=== PATIENT | female | born 1950 | race Caucasian/White ===

== ENCOUNTER 2016-07-25 13:44 | Observation (INO) ==
--- NOTE | 2016-07-25 14:07 | Emergency Department Note ---
Disposition Clinical Impression: Right facial numbness, Right arm weakness, Numbness of right foot Disposition: Admitted As Inpatient Condition: Fair Referrals: NO,PCP [Non-Partnered Physician] - Forms: ED Satisfaction Letter Time of Disposition: 16:01 Neuro HPI - General Chief Complaint: ED Neuro Symptoms/Deficit Stated Complaint: "I think I had a TIA" Time Seen by Provider: 07/25/16 13:53 Source: patient Mode of arrival: ambulatory Limitations: no limitations Nursing Notes Reviewed: Yes Vital Signs Reviewed: Yes - History of Present Illness HPI Narrative: Patient is a 65-year-old female with past medical history of previous CVA of the right brain, fibromyalgia. She is currently on Plavix and aspirin. She presents today due to several new neurologic symptoms. Yesterday morning around 4am, she had blurred vision. She states that this went away. When she woke up this morning, she felt like she had a right upper extremity weakness in the shoulder and right upper arm. She also has some new tingling and numbness near the right lip and the bottom of the right foot. Denies any other numbness , tingling, weakness. - Related Data Home Medications: Home Medications Medication Instructions Recorded Confirmed Albuterol Sulfate [Proair Hfa] 2 puff IH Q4H PRN 03/04/16 03/04/16 Aspirin [Ecotrin] 325 mg PO DAILY 03/04/16 03/04/16 Biotin 1 mg PO DAILY 03/04/16 03/04/16 Bisoprolol/HCTZ 01/24.25 [Ziac 1 tab PO DAILY 03/04/16 03/04/166.25] CarBAMazepine [Tegretol] 200 - 400 mg PO BID 03/04/16 03/04/16 Cyclobenzaprine [Flexeril] 10 mg PO TID 03/04/16 03/04/16 Eszopiclone [Lunesta] 2 mg PO HS 03/04/16 03/04/16 Gabapentin [Neurontin] 600 mg PO BID 03/04/16 03/04/16 Hydrocodone/Acetaminophen [[place] 1 tab PO Q4H PRN 03/04/16 03/04/16 5-325 Tablet] Ibuprofen [Motrin] 600 - 800 mg PO DAILY PRN 03/04/16 03/04/16 Metformin HCl [Metformin HCl ER] 1,000 mg PO BID 03/04/16 03/04/16 Pantoprazole Sodium [Protonix] 40 mg PO BID 03/04/16 03/04/16 Zolpidem [Ambien] 10 mg PO HS 03/04/16 03/04/16 Allergies/Adverse Reactions: Allergies Allergy/AdvReac Type Severity Reaction Status Date / Time azithromycin Allergy Itching Verified 07/25/16 13:50 [From Zithromax Z-Michael] Constitutional: Denies: fever Eyes: Denies: eye pain ENT ED: Denies: ear pain Cardiovascular: Denies: chest pain, palpitations Respiratory: Denies: cough, dyspnea, wheezes Gastrointestinal: Denies: abdominal pain, nausea, vomiting, diarrhea Genitourinary: Denies: urgency, dysuria, frequency Neurological: Reports: weakness, numbness, paresthesias. Denies: headache Past Medical History - Past Medical History Attestation: Yes The following information was validated with the patient. Source: patient Medical history: Reports: diabetes, fibromyalgia, GERD, hypertension, TIA, other Surgical history: Reports: hysterectomy Psychiatric history: Reports: no psych history - Social History Smoking Status: Never smoker Smokeless Tobacco Status: No Alcohol use: Reports: none Drug use: Reports: none Physical Exam - General Limitations: no limitations General appearance: alert, in no apparent distress - Head Head exam: atraumatic, normocephalic, normal inspection - Eye Eye exam: Present: normal appearance, PERRL, EOMI - ENT ENT exam: normal exam, normal oropharynx, mucous membranes moist - Neck Neck exam: Present: normal inspection, full ROM, trachea midline - Chest Chest inspection: Present: normal inspection, symmetric chest wall rise - Respiratory Respiratory exam: Present: normal lung sounds bilaterally - Cardiovascular Cardiovascular exam: Present: regular rate, normal rhythm, normal heart sounds - Abdominal Exam Abdominal exam: Present: soft, Non-Tender. Absent: tenderness, distention, guarding, rebound, rigidity - Extremities Exam Extremities exam: Present: normal inspection, full ROM. Absent: tenderness, pedal edema - Back Exam Back exam: Present: normal inspection, full ROM. Absent: tenderness - Neurological Exam Neurological exam: Present: alert, oriented X3, other (NIH 1. Patient had some mild decreased sensation of right chin, bilateral right foot light touch. 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 Otherwise, the rest of the neuro exam showed no deficits.) - Psychiatric Psychiatric exam: Present: normal affect, normal mood - Skin Skin exam: Present: warm, dry, intact, normal color Course Course Narrative: Vitals within normal limits on exam. Physical exam shows NIH 1. Patient had some mild decreased sensation of right chin, bilateral right foot light touch. 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 Otherwise, the rest of the neuro exam showed no deficits. EKG shows right bundle branch block with widened QRS, new from 03/04/2016. We will obtain CT of the head, basic cardiac workup. We will likely admit patient for MRI if CT is negative due to continued symptoms. Patient is well outside TPA window since her last known well was last night before she went to bed. 15:58 patient did have a run of A. fib on repeat EKG. Otherwise, blood work negative, troponin negative, chest x-ray negative, CT of the head negative for any acute intracranial abnormality. Patient is still having right-sided symptoms. Will admit for further workup. Vital Signs Temperature 97.8 F 07/25/16 13:45 Pulse Rate 85 07/25/16 13:45 Respiratory Rate 18 07/25/16 13:45 Blood Pressure 136/78 07/25/16 13:45 O2 Sat by Pulse Oximetry 95 07/25/16 13:45 Temperature 97.8 F 07/25/16 13:45 Pulse Rate 68 07/25/16 15:09 Respiratory Rate 18 07/25/16 15:09 Blood Pressure 145/64 07/25/16 15:09 O2 Sat by Pulse Oximetry 95 07/25/16 15:09 Oxygen Delivery Oxygen Delivery Room Air Neuro Symptoms/Deficit - MDM Narrative Medical decision making narrative: Vitals within normal limits on exam. Physical exam shows NIH 1. Patient had some mild decreased sensation of right chin, bilateral right foot light touch. 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 Otherwise, the rest of the neuro exam showed no deficits. EKG shows right bundle branch block with widened QRS, new from 03/04/2016. We will obtain CT of the head, basic cardiac workup. We will likely admit patient for MRI if CT is negative due to continued symptoms. Patient is well outside TPA window since her last known well was last night before she went to bed. 15:58 patient did have a run of A. fib on repeat EKG. Otherwise, blood work negative, troponin negative, chest x-ray negative, CT of the head negative for any acute intracranial abnormality. Patient is still having right-sided symptoms. Will admit for further workup. - Medical Records Medical records reviewed: Yes I reviewed the patient's medical records. - Lab Data Lab results reviewed: Yes I reviewed the patient's lab results. Result diagrams: 07/25/16 14:52 07/25/16 14:52 Lab Results 07/25/16 07/25/16 07/25/16 Range/Units 13:49 14:41 14:52 WBC 9.8 (4.3-11.1) K/mcL RBC 4.74 (3.82-4.97) M/mcL Hgb 14.8 (11.5-15.4) g/dL Hct 42.8 (35.3-44.9) % MCV 90.3 (83.0-100.0) fL MCH 31.2 (28.0-33.3) pg MCHC 34.6 (31.6-35.5) g/dL RDW 12.8 (11.5-14.5) % Plt Count 231 (140-400) K/mcL MPV 10.0 (9.4-12.4) fL Immature Gran % 0.5 (0-4) % Seg Neutrophils % 65.4 % Lymphocytes % 24.2 % Monocytes % 7.3 % Eosinophils % 2.2 % Basophils % 0.4 % Neutrophils # 6.4 (1.6-8.9) K/mcL Lymphocytes # 2.4 (0.6-4.6) K/mcL Monocytes # 0.7 (0.0-1.3) K/mcL Eosinophils # 0.2 (0.0-0.6) K/mcL Basophils # 0.0 (0.0-0.2) K/mcL Sodium (136-145) mEq/L Potassium (3.5-4.5) mEq/L Chloride (98-109) mEq/L Carbon Dioxide (19-29) mEq/L BUN (7-20) mg/dL Creatinine (0.57-1.11) mg/dL Est GFR ( Amer) (> 60) Est GFR (Non-Af Amer) (> 60) BUN/Creatinine Ratio (6-26) Glucose (70-99) mg/dL POC Glucose 210 H (58-89) Calculated Osmolality (280-300) Calcium (8.6-10.8) mg/dL Total Bilirubin (0.2-1.2) mg/dL AST (5-34) Units/L ALT (0-55) Units/L Alkaline Phosphatase (38-126) Units/L Troponin I (0-0.03) ng/mL Serum Total Protein (6.0-8.3) g/dL Albumin (3.5-5.0) g/dL Globulin (2.4-3.5) g/dL Albumin/Globulin Ratio (1.1-2.2) Urine Color Yellow (Yellow) Urine Clarity Clear (Clear) Urine pH 5.5 (5.0-8.0) pH Units Ur Specific [place] 1.027 H (1.010-1.025) Urine Protein Trace (Neg-Trace) mg/dL Urine Glucose (UA) Normal (Normal) mg/dL Urine Ketones Negative (Negative) mg/dL Urine Blood Negative (Negative) Urine Nitrite Negative (Negative) Urine Bilirubin Negative (Negative) Urine Urobilinogen Normal (Normal) mg/dL Ur Leukocyte Esterase Negative (Negative) Urine Microscopic RBC 3-5 H (0-3) per hpf Urine Microscopic WBC 0-3 (0-3) per hpf Ur Squamous Epith Cells Moderate H (None-Few) per lpf Urine Bacteria None Seen (None-Few) per hpf Hyaline Casts None Seen (None-Few) per lpf Ur Culture Indicated? NO (NO) 07/25/16 07/25/16 Range/Units 14:52 14:52 WBC (4.3-11.1) K/mcL RBC (3.82-4.97) M/mcL Hgb (11.5-15.4) g/dL Hct (35.3-44.9) % MCV (83.0-100.0) fL MCH (28.0-33.3) pg MCHC (31.6-35.5) g/dL RDW (11.5-14.5) % Plt Count (140-400) K/mcL MPV (9.4-12.4) fL Immature Gran % (0-4) % Seg Neutrophils % % Lymphocytes % % Monocytes % % Eosinophils % % Basophils % % Neutrophils # (1.6-8.9) K/mcL Lymphocytes # (0.6-4.6) K/mcL Monocytes # (0.0-1.3) K/mcL Eosinophils # (0.0-0.6) K/mcL Basophils # (0.0-0.2) K/mcL Sodium 140 (136-145) mEq/L Potassium 4.6 H (3.5-4.5) mEq/L Chloride 104 (98-109) mEq/L Carbon Dioxide 22 (19-29) mEq/L BUN 30 H (7-20) mg/dL Creatinine 0.90 (0.57-1.11) mg/dL Est GFR ( Amer) > 60 (> 60) Est GFR (Non-Af Amer) > 60 (> 60) BUN/Creatinine Ratio 33 H (6-26) Glucose 171 H (70-99) mg/dL POC Glucose (58-89) Calculated Osmolality 300 (280-300) Calcium 9.2 (8.6-10.8) mg/dL Total Bilirubin 0.3 (0.2-1.2) mg/dL AST 15 (5-34) Units/L ALT 17 (0-55) Units/L Alkaline Phosphatase 80 (38-126) Units/L Troponin I 0.02 (0-0.03) ng/mL Serum Total Protein 7.7 (6.0-8.3) g/dL Albumin 4.0 (3.5-5.0) g/dL Globulin 3.7 H (2.4-3.5) g/dL Albumin/Globulin Ratio 1.1 (1.1-2.2) Urine Color (Yellow) Urine Clarity (Clear) Urine pH (5.0-8.0) pH Units Ur Specific [place] (1.010-1.025) Urine Protein (Neg-Trace) mg/dL Urine Glucose (UA) (Normal) mg/dL Urine Ketones (Negative) mg/dL Urine Blood (Negative) Urine Nitrite (Negative) Urine Bilirubin (Negative) Urine Urobilinogen (Normal) mg/dL Ur Leukocyte Esterase (Negative) Urine Microscopic RBC (0-3) per hpf Urine Microscopic WBC (0-3) per hpf Ur Squamous Epith Cells (None-Few) per lpf Urine Bacteria (None-Few) per hpf Hyaline Casts (None-Few) per lpf Ur Culture Indicated? (NO) - Radiology Data Radiology results reviewed: Yes I reviewed the patient's radiology results. - EKG Data EKG attestation: Yes I reviewed and interpreted this EKG. EKG results narrative: 07/25/2016 at 14:23. Right bundle branch block and run of a fib. Rate 94. QRS 142. QTC 4 and 78. One QRS complexes. No acute ST elevation or depression. New from previous EKG on 03/04/2016 NIH Stroke Scale - Level of Consciousness LOC: Alert - LOC Questions LOC Questions: Answers both correctly - LOC Commands LOC Commands: Performs both correctly - Best Gaze Best Gaze: Normal - Visual Visual: No visual loss - Facial Palsy Facial Palsy: Normal - Motor Arms Motor Arm-Left: No drift for 10 seconds Motor Arm-Right: No drift for 10 seconds - Motor Legs Motor Leg-Left: No drift for 5 seconds Motor Leg-Right: No drift for 5 seconds - Limb Ataxia Limb Ataxia: Absent of affected limb too weak to perform exam - Sensory Sensory: Mild to moderate loss, "not as sharp" - Best Language Best Language: No aphasia - Dysarthria Dysarthria: Normal - Extinction and Inattention Extinction and Inattention: Normal - NIHSS Total Score NIHSS Total Score: 1 TPA Checklist - LKW: 3-4.5 hrs Add. Contraindications Patient/family understanding: The patient/family members have been counseled and understood the risk, benefit , and alternatives of treatment. S.B.A.RTiffany - Bredna.Radha.Vito Situation: Demographics, MOA Background: Presenting Complaint, Relevant PMH, Meds, & Allergies Assessment: Vital Signs, Course and respsone to treatment, Exam Concerns, Patient/Family Expectation, Pertinant Lab Results, Outstanding Labs Recommendation: Barrier(s) to disposition, Recommendation based on pending studies, treatments, or consults S.B.A.RTiffany Report Given to: Dr. Jailyn Alexander Repor Time: 15:59 Attestation Statement - Attestation Attestation: I examined this patient and my medical decision-making was reviewed with the ACCESS DIRECTOR/PA/Advanced Practice Nurse/Resident Physician. I agree with the documented findings, disposition and treatment plan as described except to the extent set forth below. Patient in emergency department with a chief complaint of stroke symptoms. Patient states she woke up yesterday not feeling well. She has slurred speech and trouble finding her words. Trouble walking. Facial numbness. The numbness as well. Symptom onset was over 24 hours ago. Patient has sensory discrepancies on the affected areas. No pronator drift. No facial droop. Plan. Stroke workup and likely admission. Patient has had symptoms over 24 hours and will be outside the window for any TPA.
[2016-07-25 14:55] LABS: Bilirubin,Urine Negative (Negative); Blood,Urine Negative (Negative); Clarity,Urine Clear (Clear); Color,Urine Yellow (Yellow); Glucose,Urine (UA) Normal (Normal); Ketones,Urine Negative (Negative); Leukocyte Esterase,Urine Negative (Negative); Nitrite,Urine Negative (Negative); PH,Urine 5.5 pH Units (5.0-8.0); Protein,Urine Trace mg/dL (Neg-Trace); Specific Gravity,Urine 1.027 (1.010-1.025); Urobilinogen,Urine Normal (Normal)
[2016-07-25 14:59] LABS: Bacteria,Urine None Seen per hpf (None-Few); Hyaline Casts,Urine None Seen per lpf (None-Few); Squamous Epithelial Cell,Urine Moderate per lpf (None-Few); WBC,Urine 0-3 per hpf (0-3)
[2016-07-25 15:00] LABS: Basophils % 0.4 %; Eosinophils # 0.2 K/mcL (0.0-0.6); Eosinophils % 2.2 %; Hematocrit 42.8 % (35.3-44.9); Hemoglobin 14.8 g/dL (11.5-15.4); Immature Granulocytes % 0.5 % (0-4); Lymphocytes # 2.4 K/mcL (0.6-4.6); Lymphocytes % 24.2 %; Mean Corpuscular HGB Conc 34.6 g/dL (31.6-35.5); Mean Corpuscular Hemoglobin 31.2 pg (28.0-33.3); Mean Corpuscular Volume 90.3 fL (83.0-100.0); Monocytes # 0.7 K/mcL (0.0-1.3); Monocytes % 7.3 %; Neutrophils # 6.4 K/mcL (1.6-8.9); Platelet Count 231 K/mcL (140-400); Red Blood Count 4.74 M/mcL (3.82-4.97); Red Cell Distribution Width 12.8 % (11.5-14.5); Segmented Neutrophils % 65.4 %
[2016-07-25] MEDS ORDERED: *HR* HYDROcodone/Acet 5/325 mg TABLET PO ONE (15:11)
[2016-07-25 15:12] LABS: Alanine Aminotransferase 17 Units/L (0-55); Albumin/Globulin Ratio 1.1 (1.1-2.2); Alkaline Phosphatase 80 Units/L (38-126); Aspartate Amino Transferase 15 Units/L (5-34); BUN/Creatinine Ratio 33 (6-26); Bilirubin,Total 0.3 mg/dL (0.2-1.2); Blood Urea Nitrogen 30 mg/dL (7-20); Calcium 9.2 mg/dL (8.6-10.8); Carbon Dioxide 22 mEq/L (19-29); Chloride 104 mEq/L (98-109); Globulin 3.7 g/dL (2.4-3.5); Glucose 171 mg/dL (70-99); Osmolality,Calculated 300 (280-300); Potassium 4.6 mEq/L (3.5-4.5); Sodium 140 mEq/L (136-145); Total Protein 7.7 g/dL (6.0-8.3); eGFR For African Americans > 60 (> 60); eGFR For Non-African Americans > 60 (> 60)
--- NOTE | 2016-07-25 16:14 | Electrocardiograph Report ---
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1950 Requested By: Kiko Barragan Order Number: [id number] Reading MD: Reynaldo Juarez MD Measurements Intervals [place] Rate: 100 P: 51 DE: 279 QRS: -68 QRSD: 142 T: 45 QT: 406 QTc: 463 Interpretive Statements SINUS TACHYCARDIA WITH FIRST DEGREE AV BLOCK WITH FREQUENT SUPRAVENTRICULAR PREMATURE COMPLEXES RIGHT ATRIAL ENLARGEMENT [0.3mV P WAVE] LEFT ATRIAL ENLARGEMENT [-0.15mV P WAVE IN V1/V2] RIGHT BUNDLE BRANCH BLOCK [120+ ms QRS DURATION, UPRIGHT V1, 40+ ms S IN I/aVL/V4/V5/V6] LEFT ANTERIOR FASCICULAR BLOCK [QRS AXIS <= -45, QR IN I, RS IN II] POSSIBLE LEFT VENTRICULAR HYPERTROPHY [VOLTAGE CRITERIA PLUS LAE OR QRS WIDENING] Electronically Signed On 07-25-2016 16:12:35 EDT by Reynaldo Juarez MD
--- NOTE | 2016-07-25 16:14 | Electrocardiograph Report ---
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
[2016-07-25] MEDS ORDERED: Naloxone 0.4 MG/ML INJ IVP PRN (17:42)
[2016-07-25] MEDS ORDERED: Ketorolac 30 MG/ML VIAL IVP PRN (17:54)
[2016-07-25] MEDS ORDERED: *HR* Morphine 2 MG/ML SYRINGE IVP PRN (17:54)
[2016-07-25] MEDS ORDERED: Aspirin 325 MG TABLET PO ONE (18:18)
[2016-07-25] MEDS ORDERED: *HR* Dextrose 50 % in Water (Syg) 50 ML SYRINGE IVP PRN (18:41)
[2016-07-25] MEDS ORDERED: Dextrose Gel 15 GM PO PRN ×2 (18:41)
[2016-07-25] MEDS ORDERED: D5% in Water 1,000 ML IVC PRN (18:41)
--- NOTE | 2016-07-25 18:54 | Event Note ---
Date of Encounter: 07/25/16 Time of Encounter: 18:54 I have independently interviewed and examined this patient. I agree with the resident/nurse practitioner with exemptions as stated below. The plan of care has been discussed with the patient, and her family 65 Y/O F with previous hx of Ischemic CVA in 02/2016, with residual right facial droop and occasional difficult word finding, Hx of irregular heart rate , not on anticoagulation, DM, HTN, GERD, Fibromyalgia. Seen at bedside with her daughter. She reports being in her usual state of health till yesterday around noon when she developed worsening r facial droop and r facial numbness as well as numbness and pain of her R shoulder and numbness of her feet. Physical exam with right facial droop, no dysarthria, RUE strength at least 4/5 , RLE normal strength, mildly decreased sensation, gait not assessed. Chest is clear, HS S1, S2, regular now. Abdomen is benign, no pedal edema Labs and Imaging reviewed: CBC, Chem with hyperglycemia, mildly elevated potassium, ECHO , Head and neck CTA 02/2016 noted, EKG today initially sinus, then Afib , no RVR, RBBB, LAFB, CXR unremarkable, Head CT unremarkable A/P: Suspected TIA, Newly diagnosed atrial fibrillation. Obtain ECHO, Obtain Brain MRI, Resume home medications, CHADSs score 4, needs anticoagulation, discussed at length with the patient. Agrees with [facility], Continue home medications including ASA and Statin, check A1C, Lipids. TSH done 04/2016 is normal. 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
--- NOTE | 2016-07-25 19:10 | Internal Med History&Physical ---
<Karen Meyers M - Last Filed: 07/25/16 19:01> Date of Encounter: 07/25/16 Time of Encounter: 19:01 Assessment and Plan (1) Right sided weakness Current visit: Yes Status: Acute Patient reporting right arm weakness, right face, right arm, and right foot numbness and tingling. She woke with these symptoms this morning. She has a history of CVA in February of 2016. She is on Plavix. CT of the head negative for any acute abnormality. On exam, patient's RUE is slightly weaker than the left. She had a Neck CTA 03/05/16 which showed moderate soft and calcified plaque at the left caroid bulb, without flow limiting stenosis, no significant stenosis in the bilateral common carotid, internal carotid arteries and the bilateral vertebral arteries. CTA of the head on 03/05/16 showed focal high- grade stenosis of the right middle cerebral artery M2 inferior division. Echocardiogram MR head/brain ordered continuous manager demand Neuro consult (2) Atrial fibrillation Current visit: Yes Status: Acute Patient denies any history of afib. She does report palpitations and knows her heart "skips beats". Patient was seen to be in afib transiently in the ED. Continuous manager demand echocardiogram tomorrow. Will need to consider chronic anti-coagulation given patient's risk factors and previous CVA. Qualifiers: Atrial fibrillation type: paroxysmal Qualified Code(s): I48.0 - Paroxysmal atrial fibrillation (3) CVA (cerebral vascular accident) Current visit: No Status: Acute Qualifiers: CVA mechanism: unspecified Qualified Code(s): I63.9 - Cerebral infarction, unspecified (4) Obstructive sleep apnea Current visit: Yes Status: Chronic Patient reports sleep apnea recently diagnosed. She wears a CPAP overnight. Respiratory therapy consulted for CPAP. (5) Type 2 diabetes mellitus Current visit: No Status: Chronic Diabetic diet check Hgb A1c hold metformin check blood sugars ACHS sliding scale correction dose ACHS hypoglycemic protocol. 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 Aparicio is a 65 year old female with hypertension, hyperlipidemia, type 2 diabetes, sleep apnea, firbromyalgia, and CVA in February 2016 who presented to the ED today with complaints of numbness and tingling to the right side of her face, her right arm and right foot. She reports yesterday, she had blurry vision for several hours and then it resolved, today she woke up and had trouble walking when she got out of bed and noticed the tingling and numbness in her right face, right arm and right foot. She reported trouble finding words , but denies any slurred speech or trouble swallowing. She reports a headache and some dizziness as well as some nausea earlier in the day. She reports some back pain and right shoulder pain that is chronic in nature. She denies any chest pain or shortness of breath. She reports occasional palpitations. Evaluation in the ED included a head CT which showed no acute intracranial abnormality. She was found to be in afib for a short period of time and this was caught on the EKG. She denies any history of afib, but reports she is aware her heart "skips beats" occasionally. Troponin was negative at 0.02. Other labs were normal. On exam, patient is alert and oriented, with normal speech. She does have some facial asymmetry that she reports is residual from her previous stroke. Heart has irregular rhythm. Lungs are clear bilaterally. Past Med Surg Social Fam HX - Past Medical History Medical history: atrial fibrillation, CVA, diabetes, fibromyalgia, GERD, hyperlipidemia, hypertension, TIA, other Psychiatric history: no psych history - Past Surgical History Surgical History: appendectomy, cholecystectomy, hysterectomy - Social History Smoking Status: Never smoker Smokeless Tobacco Status: No Alcohol use: none Drug use: none - Family History Father Hx Family Cardiac Disorders: Yes ([place]) Hx Family Endocrine Disorder: Yes (DM) Mother Hx Family Endocrine Disorder: Yes (DM) Hx Family Neurologic Disorders: Yes (CVA) Internal Medicine - H&P: Meds Albuterol Sulfate [Proair Hfa] 2 puff IH Q4H PRN 03/04/16 [History] Biotin 1 mg PO DAILY 03/04/16 [History] Bisoprolol/HCTZ 106.25 [Ziac 6.25] 1 tab PO DAILY 03/04/16 [History] CarBAMazepine [Tegretol] 200 - 400 mg PO BID 03/04/16 [History] Cyclobenzaprine [Flexeril] 10 mg PO TID 03/04/16 [History] Hydrocodone/Acetaminophen [[place] 5-325 Tablet] 1 tab PO Q4H PRN 03/04/16 [ History] Metformin HCl [Metformin HCl ER] 1,000 mg PO BID 03/04/16 [History] Pantoprazole Sodium [Protonix] 40 mg PO BID 03/04/16 [History] Zolpidem [Ambien] 10 mg PO HS 03/04/16 [History] Atorvastatin [Lipitor] 40 mg PO HS 07/25/16 [History] Clopidogrel [Plavix] 75 mg PO DAILY 07/25/16 [History] Lisinopril [Zestril] 20 mg PO DAILY 07/25/16 [History] Allergies azithromycin [From Zithromax Z-Michael] Allergy (Verified 07/25/16 13:50) Itching All Systems PM: A 10-system review of systems was performed and is negative for pertinent findings except as documented above in the HPI. - Constitutional Constitutional: no chills, no fever(s), no night sweats - EENT Eyes: blurry vision (yesterday, now resolved), no change in vision, no discharge , no pain, no photophobia Ears: no ear discharge, no ear pain, no tinnitus Nose, mouth and throat: as per HPI, no dysphagia, no nasal discharge, no neck pain, no sore throat - Cardiovascular Cardiovascular ROS IM: no chest pain, no diaphoresis, no dyspnea, no lightheadedness, no palpitations, no syncope - Respiratory Respiratory: no cough, no dyspnea, no wheezing, no excessive phlegm production - Gastrointestinal Gastrointestinal: no abdominal pain, no diarrhea, no hematemesis, no hematochezia, no melena, no nausea, no vomiting - Genitourinary Genitourinary: no change in urinary stream, no dysuria, no flank pain, no hematuria - Musculoskeletal Musculoskeletal ROS IM: numbness, tingling - Integumentary Integumentary IM: no rash, no unusual bruising - Neurological Neurological ROS: dizziness, focal weakness (right upper extremity), numbness ( right face, right arm, right foot), tingling (right face, right arm, right foot) , no confusion, no convulsions, no tremor(s) - Hematologic/Lymphatic Hematologic/Lymphatic: no easy bruising - Constitutional Vitals: Temp Pulse Resp BP Pulse Ox 97.3 F L 80 16 167/97 94 07/25/16 17:06 07/25/16 17:06 07/25/16 17:06 07/25/16 17:06 07/25/16 17:06 General appearance: Present: A&O X 3, pleasant, no acute distress - Head Head exam: Present: atraumatic, normocephalic - Eye Eye exam: Present: PERRL, conjuntiva pink, sclera anicteric Pupils: Present: PERRL - Neck Neck exam general surgery: Present: supple, trachea midline. Absent: lymphadenopathy - Respiratory Respiratory exam: Present: CTAB. Absent: accessory muscle use, rales, rhonchi, wheezes - Cardiovascular Cardiovascular exam: Present: irregular rhythm, +S1, +S2. Absent: diastolic murmur, gallop, rubs, systolic murmur - GI/Abdominal GI/Abdominal exam: Present: normal bowel sounds, soft, no peritoneal signs. Absent: distended, tenderness - Extremities Exam Extremities exam: Present: warm, radial pulses palpable and symetrical. Absent : calf tenderness, cyanotic, pedal edema - Neurological Exam Neurological exam: Present: CN II-XII intact, oriented X3, facial droop (mild right sided, patient and family report this is residual from february). Absent: strengths equal and symetr throughout, pronater drift, speech deficit - Expanded Neurological Exam Patient oriented to: Present: person, place, time Speech: Present: fluid speech Cranial Nerves: EOM's intact PM: Normal, nystagmus PM: Normal, tongue deviation PM: Normal Cerebellar function: heel to miranda: Normal, Romberg: Abnormal Left, Abnormal Right (swayed backwards) Upper motor neuron: pronator drift: Normal Sensory exam: LE 2 point discrimination: Abnormal Right (diminished right), lower extremity pin prick: Abnormal Right (deminished right ), UE 2 point discrimination: Abnormal Right (diminished), upper extremity pin prick: Abnormal Right (diminished) Neuro motor strength exam: LUE: 5, RUE: 4, LLE: 5, RLE: 5 - Skin Skin exam: Present: dry, intact Internal Med - H&P Results - Labs CBC & Chem 7: 07/25/16 14:52 07/25/16 14:52 Labs: All Lab Results (24 Hours) 07/25/16 07/25/16 07/25/16 Range/Units 13:49 14:41 14:52 WBC 9.8 (4.3-11.1) K/mcL RBC 4.74 (3.82-4.97) M/mcL Hgb 14.8 (11.5-15.4) g/dL Hct 42.8 (35.3-44.9) % MCV 90.3 (83.0-100.0) fL MCH 31.2 (28.0-33.3) pg MCHC 34.6 (31.6-35.5) g/dL RDW 12.8 (11.5-14.5) % Plt Count 231 (140-400) K/mcL MPV 10.0 (9.4-12.4) fL Immature Gran % 0.5 (0-4) % Seg Neutrophils % 65.4 % Lymphocytes % 24.2 % Monocytes % 7.3 % Eosinophils % 2.2 % Basophils % 0.4 % Neutrophils # 6.4 (1.6-8.9) K/mcL Lymphocytes # 2.4 (0.6-4.6) K/mcL Monocytes # 0.7 (0.0-1.3) K/mcL Eosinophils # 0.2 (0.0-0.6) K/mcL Basophils # 0.0 (0.0-0.2) K/mcL Sodium (136-145) mEq/L Potassium (3.5-4.5) mEq/L Chloride (98-109) mEq/L Carbon Dioxide (19-29) mEq/L BUN (7-20) mg/dL Creatinine (0.57-1.11) mg/dL Est GFR ( Amer) (> 60) Est GFR (Non-Af Amer) (> 60) BUN/Creatinine Ratio (6-26) Glucose (70-99) mg/dL POC Glucose 210 H (58-89) Calculated Osmolality (280-300) Calcium (8.6-10.8) mg/dL Total Bilirubin (0.2-1.2) mg/dL AST (5-34) Units/L ALT (0-55) Units/L Alkaline Phosphatase (38-126) Units/L Troponin I (0-0.03) ng/mL Serum Total Protein (6.0-8.3) g/dL Albumin (3.5-5.0) g/dL Globulin (2.4-3.5) g/dL Albumin/Globulin Ratio (1.1-2.2) Urine Color Yellow (Yellow) Urine Clarity Clear (Clear) Urine pH 5.5 (5.0-8.0) pH Units Ur Specific [place] 1.027 H (1.010-1.025) Urine Protein Trace (Neg-Trace) mg/dL Urine Glucose (UA) Normal (Normal) mg/dL Urine Ketones Negative (Negative) mg/dL Urine Blood Negative (Negative) Urine Nitrite Negative (Negative) Urine Bilirubin Negative (Negative) Urine Urobilinogen Normal (Normal) mg/dL Ur Leukocyte Esterase Negative (Negative) Urine Microscopic RBC 3-5 H (0-3) per hpf Urine Microscopic WBC 0-3 (0-3) per hpf Ur Squamous Epith Cells Moderate H (None-Few) per lpf Urine Bacteria None Seen (None-Few) per hpf Hyaline Casts None Seen (None-Few) per lpf Ur Culture Indicated? NO (NO) 07/25/16 07/25/16 Range/Units 14:52 14:52 WBC (4.3-11.1) K/mcL RBC (3.82-4.97) M/mcL Hgb (11.5-15.4) g/dL Hct (35.3-44.9) % MCV (83.0-100.0) fL MCH (28.0-33.3) pg MCHC (31.6-35.5) g/dL RDW (11.5-14.5) % Plt Count (140-400) K/mcL MPV (9.4-12.4) fL Immature Gran % (0-4) % Seg Neutrophils % % Lymphocytes % % Monocytes % % Eosinophils % % Basophils % % Neutrophils # (1.6-8.9) K/mcL Lymphocytes # (0.6-4.6) K/mcL Monocytes # (0.0-1.3) K/mcL Eosinophils # (0.0-0.6) K/mcL Basophils # (0.0-0.2) K/mcL Sodium 140 (136-145) mEq/L Potassium 4.6 H (3.5-4.5) mEq/L Chloride 104 (98-109) mEq/L Carbon Dioxide 22 (19-29) mEq/L BUN 30 H (7-20) mg/dL Creatinine 0.90 (0.57-1.11) mg/dL Est GFR ( Amer) > 60 (> 60) Est GFR (Non-Af Amer) > 60 (> 60) BUN/Creatinine Ratio 33 H (6-26) Glucose 171 H (70-99) mg/dL POC Glucose (58-89) Calculated Osmolality 300 (280-300) Calcium 9.2 (8.6-10.8) mg/dL Total Bilirubin 0.3 (0.2-1.2) mg/dL AST 15 (5-34) Units/L ALT 17 (0-55) Units/L Alkaline Phosphatase 80 (38-126) Units/L Troponin I 0.02 (0-0.03) ng/mL Serum Total Protein 7.7 (6.0-8.3) g/dL Albumin 4.0 (3.5-5.0) g/dL Globulin 3.7 H (2.4-3.5) g/dL Albumin/Globulin Ratio 1.1 (1.1-2.2) Urine Color (Yellow) Urine Clarity (Clear) Urine pH (5.0-8.0) pH Units Ur Specific [place] (1.010-1.025) Urine Protein (Neg-Trace) mg/dL Urine Glucose (UA) (Normal) mg/dL Urine Ketones (Negative) mg/dL Urine Blood (Negative) Urine Nitrite (Negative) Urine Bilirubin (Negative) Urine Urobilinogen (Normal) mg/dL Ur Leukocyte Esterase (Negative) Urine Microscopic RBC (0-3) per hpf Urine Microscopic WBC (0-3) per hpf Ur Squamous Epith Cells (None-Few) per lpf Urine Bacteria (None-Few) per hpf Hyaline Casts (None-Few) per lpf Ur Culture Indicated? (NO) - Diagnostic Studies Chest x-ray Additional comments: Chest X-Ray 07/25/16 14:18 IMPRESSION: Unremarkable portable exam D/ / Kolton Johnson MD / Kolton Johnson MD Interpreting Provider: Kolton Johnson MD CT scan - head Additional comments: Head CT 07/25/16 14:19 IMPRESSION: No acute intracranial abnormality. D/ / Kolton Johnson MD / Kolton Johnson MD Interpreting Provider: Kolton Johnson MD <Dayne Glaser T - Last Filed: 07/26/16 07:28> Date of Encounter: 07/26/16 Internal Medicine - H&P: HPI History of present illness: Ms. Aparicio is a 65 year old female All Systems PM: A 10-system review of systems was performed and is negative for pertinent findings except as documented above in the HPI. - Constitutional Vitals: Temp Pulse Resp BP Pulse Ox 97.6 F 69 14 170/84 92 07/26/16 07:04 07/26/16 07:04 07/26/16 07:04 07/26/16 07:04 07/26/16 07:04 Internal Med - H&P Results - Labs CBC & Chem 7: 07/26/16 03:10 07/26/16 03:10 Labs: Short CBC 07/26/16 Range/Units 03:10 WBC 9.0 (4.3-11.1) K/mcL Hgb 13.4 (11.5-15.4) g/dL Hct 38.4 (35.3-44.9) % Plt Count 197 (140-400) K/mcL Neutrophils # 5.1 (1.6-8.9) K/mcL BMP 07/26/16 03:10 Sodium 140 Potassium 3.8 Chloride 102 Carbon Dioxide 23 BUN 27 H Creatinine 0.82 Glucose 188 H Calcium 8.6 - Impressions ITS Impressions Brain MRI 04/06/17 18:13 IMPRESSION: 1. Acute ischemic lacunar infarct in the right occipital periventricular white matter. 2. No intracranial hemorrhage or mass effect. 3. Stable mild chronic white matter microvascular ischemic changes and remote left thalamic and left midbrain lacunar infarcts. D/ / Elijah Morris MD / Elijah Morris MD Interpreting Provider: Elijah Morris MD - Attending Attestation See event note of same day.....
[2016-07-25 19:25] LABS: Hemoglobin A1C 7.5 %
[2016-07-25] MEDS: *HR* HYDROcodone/Acet 5/325 mg TABLET PO PRN ×2 (19:47→23:48)
[2016-07-25] MEDS ORDERED: *HR* LORazepam 1 MG TABLET PO ONE (20:20)
[2016-07-25] MEDS: Insulin LISPRO 300 UNITS/3 ML VIAL SQ SCH (22:41)
[2016-07-26 03:20] LABS: Basophils % 0.3 %; Eosinophils # 0.3 K/mcL (0.0-0.6); Eosinophils % 2.8 %; Hematocrit 38.4 % (35.3-44.9); Hemoglobin 13.4 g/dL (11.5-15.4); Immature Granulocytes % 0.3 % (0-4); Lymphocytes # 2.8 K/mcL (0.6-4.6); Mean Corpuscular HGB Conc 34.9 g/dL (31.6-35.5); Mean Corpuscular Hemoglobin 31.9 pg (28.0-33.3); Mean Corpuscular Volume 91.4 fL (83.0-100.0); Mean Platelet Volume 10.2 fL (9.4-12.4); Monocytes # 0.8 K/mcL (0.0-1.3); Monocytes % 8.9 %; Neutrophils # 5.1 K/mcL (1.6-8.9); Platelet Count 197 K/mcL (140-400); Segmented Neutrophils % 56.7 %
[2016-07-26 03:32] LABS: BUN/Creatinine Ratio 33 (6-26); Blood Urea Nitrogen 27 mg/dL (7-20); Calcium 8.6 mg/dL (8.6-10.8); Carbon Dioxide 23 mEq/L (19-29); Chloride 102 mEq/L (98-109); Glucose 188 mg/dL (70-99); Osmolality,Calculated 300 (280-300); Potassium 3.8 mEq/L (3.5-4.5); Sodium 140 mEq/L (136-145); eGFR For African Americans > 60 (> 60); eGFR For Non-African Americans > 60 (> 60)
[2016-07-26] MEDS ORDERED: *HR* LORazepam 1 MG TABLET PO ONE (05:00)
[2016-07-26] MEDS: *HR* HYDROcodone/Acet 5/325 mg TABLET PO PRN ×4 (06:16→20:44)
[2016-07-26] MEDS ORDERED: *HR* Enoxaparin 40 MG/0.4 ML SYRINGE SQ SCH (07:00)
[2016-07-26] MEDS: Pantoprazole 40 MG VIAL IVP SCH ×2 (07:30→17:42)
[2016-07-26] MEDS: Insulin LISPRO 300 UNITS/3 ML VIAL SQ SCH ×4 (07:46→20:44)
[2016-07-26] MEDS: Bisoprolol/HCTZ 10/6.25 TABLET PO SCH (07:46)
--- NOTE | 2016-07-26 09:15 | Neurology - Consult Note ---
<AscencionPreston - Last Filed: 07/26/16 10:27> Date of Encounter: 07/26/16 Time of Encounter: 09:10 Assessment and Plan (1) CVA (cerebral vascular accident) Current Visit: No Status: Acute -Location of the acute infarct in right occipital perventricular white matter does not necessarily correspond to her right sided weakness, but may explain her visual complaints two days ago -Her symptoms do correlate with her previous CVA in the left thalamus/midbrain, and she may have experienced these deficits in setting of undiagnosed AFib -Will defer to primary team for choice of anticoagulation and rate control medication -Echocardiogram pending, will make further recommendations once resulted -Agree with continuing Plavix and Statin Qualifiers: CVA mechanism: unspecified Qualified Code(s): I63.9 - Cerebral infarction, unspecified History of Present Illness Chief complaint: weakness, numbness/tingling HPI: Ms. Aparicio is a 65 year old female who presents with right sided weakness, numbness, tingling that started yesterday. She states that her first complaint was left eye blurriness and double vision that occurred 2 days ago. The episode only lasted 2-3 hours and went away spontaneously. Yesterday morning, she woke up feeling weak on her right side and while trying to walk to the bathroom, was leaning towards the right side. Denies any falls, lightheadedness, or loss of consciousness. She states the numbness started at her face and now is in her right leg and arm. Currently, her weakness has not gotten any better since she first noticed it yesterday. Of note, she does have history of stroke in Feb 2016 and had right sided deficits for several weeks but states that have since resolved. In addition, she claims to have a history of skipped beats and complained of palpitations yesterday. She appeared to be in AFib upon presentation but is not on anticoagulation. Past Med Surg Social Fam HX - Past Medical History Medical history: atrial fibrillation, CVA, diabetes, fibromyalgia, GERD, hyperlipidemia, hypertension, TIA, other Psychiatric history: no psych history - Past Surgical History Surgical History: appendectomy, cholecystectomy, hysterectomy - Social History Smoking Status: Never smoker Smokeless Tobacco Status: No Alcohol use: none Drug use: none - Family History Father Hx Family Cardiac Disorders: Yes ([place]) Hx Family Endocrine Disorder: Yes (DM) Mother Hx Family Endocrine Disorder: Yes (DM) Hx Family Neurologic Disorders: Yes (CVA) Medications and Allergies Albuterol Sulfate [Proair Hfa] 2 puff IH Q4H PRN 03/04/16 [History] Biotin 1 mg PO DAILY 03/04/16 [History] Bisoprolol/HCTZ 106.25 [Ziac 6.25] 1 tab PO DAILY 03/04/16 [History] CarBAMazepine [Tegretol] 200 - 400 mg PO BID 03/04/16 [History] Cyclobenzaprine [Flexeril] 10 mg PO TID 03/04/16 [History] Hydrocodone/Acetaminophen [[place] 5-325 Tablet] 1 tab PO Q4H PRN 03/04/16 [ History] Metformin HCl [Metformin HCl ER] 1,000 mg PO BID 03/04/16 [History] Pantoprazole Sodium [Protonix] 40 mg PO BID 03/04/16 [History] Zolpidem [Ambien] 10 mg PO HS 03/04/16 [History] Atorvastatin [Lipitor] 40 mg PO HS 07/25/16 [History] Clopidogrel [Plavix] 75 mg PO DAILY 07/25/16 [History] Lisinopril [Zestril] 20 mg PO DAILY 07/25/16 [History] Allergies azithromycin [From Zithromax Z-Michael] Allergy (Verified 07/25/16 13:50) Itching All Systems: A 10-system review of systems was performed and is negative for pertinent findings except as documented above in the HPI. - Constitutional Constitutional ROS IM: headache(s), weakness, no fever(s), no frequent falls - Eyes Eyes: left: blurred vision, bilateral: diplopia - Nose, Mouth, Throat Nose, mouth and throat: disequilibrium, no abnormal hearing, no dizziness - Cardiovascular Cardiovascular ROS IM: irregular heart rhythm, no chest pain, no syncope - Respiratory Respiratory IM: no cough, no wheezing - Gastrointestinal Gastrointestinal: nausea, no abdominal pain, no diarrhea, no hematochezia, no melena, no vomiting - Genitourinary Genitourinary ROS: urinary incontinence - Musculoskeletal Musculoskeletal ROS IM: abnormal gait, muscle weakness, numbness, tingling - Neurological Neurological ROS: abnormal gait, disequilibrium, focal weakness, headache(s), numbness, tingling, weakness, no abnormal speech, no confusion, no dizziness, no frequent falls, no syncope Physical Examination - Vital Signs Vital Signs: Initial Vital Signs Temp Pulse Resp BP Pulse Ox 97.8 F 85 18 136/78 95 07/25/16 13:45 07/25/16 13:45 07/25/16 13:45 07/25/16 13:45 07/25/16 13:45 - Constitutional General appearance: comfortable - Neurologic Sensorimotor examination: intact Detailed motor examination: full strength in all major muscle groups Motor examination - right side: 4/5: deltoids, biceps, triceps, postal carrier, hip flexors Motor examination - left side: 5/5: deltoids, biceps, triceps, wrist flexion, wrist extension, hip flexors, postal carrier Detailed sensory examination: other (numbness/tingling on right side) Reflexes: Biceps: 1+, Triceps: 1+, Brachioradialis: 1+, Patella: 1+ Mental Status Examination: awake, alert, oriented to person, oriented to place, oriented to time, follows commands appropriately, answers questions appropriately, no agnosia, no aphasia, no aproxia Cranial nerve examination: PERRL, EOMI, visual carter intact, corneal reflexes brisk symmetrically, sensory to face intact, mastication intact, no facial asymmetry is present, no dysarthria, hearing is intact symmetrically, soft palate elevates bilaterally upon phonation, gag reflex intact, flexes SCM and trapezius muscles symmetrically with full power, tongue protrudes midline, no atrophy or facial fasiculations present Cerebellar examination: no dysmetria, performs finger to nose and heel to miranda symmetrically without ataxia, no gait ataxia, no truncal ataxia, no difficulty with rapid alternating movements Results - Laboratory Findings CBC and BMP: 07/26/16 03:10 07/26/16 03:10 Abnormal lab findings: Abnormal lab results BUN 27 mg/dL (7-20) H 07/26/16 03:10 BUN/Creatinine Ratio 33 (6-26) H 07/26/16 03:10 Glucose 188 mg/dL (70-99) H 07/26/16 03:10 POC Glucose 184 (58-89) H 07/26/16 07:02 Hemoglobin A1c 7.5 % (-5.6) H 07/25/16 14:52 Globulin 3.7 g/dL (2.4-3.5) H 07/25/16 14:52 Ur Specific [place] 1.027 (1.010-1.025) H 07/25/16 14:41 Urine Microscopic RBC 3-5 per hpf (0-3) H 07/25/16 14:41 Ur Squamous Epith Cells Moderate per lpf (None-Few) H 07/25/16 14:41 Consult Discharge Plan - Plan Referrals: Reynaldo Juarez Jr, MD [Primary Care Provider] - Nani Calix CNP [Advanced Practice Nurse] - 08/01/16 1:00 pm <Randy Santiago - Last Filed: 07/26/16 13:39> Date of Encounter: 07/26/16 Time of Encounter: 13:26 Assessment and Plan (1) CVA (cerebral vascular accident) Current Visit: No Status: Acute I would like to correction to Dr. Vegas's recommendations. I do agree with the recommendation for anticoagulation however if anticoagulation is started I recommended going with a baby aspirin instead of Plavix. Her description of her deficits and the MR scan do not correlate physiologically however in any regard she does have a severe right MCA intracranial stenosis along with new onset A. fib both of which may have been contributory here. At this point however you may discharge her at your discretion. I will reevaluate her request. Qualifiers: CVA mechanism: unspecified Qualified Code(s): I63.9 - Cerebral infarction, unspecified History of Present Illness HPI: Ms. Aparicio is a 65 year old female who is being seen for neurologic consultation secondary to symptoms of acute cerebral infarct. The case was discussed with Dr. Vegas and she was seen and evaluated and examined independently. I agree with Dr. Vegas's history as stated above. In addition I would like to add that she has had an MRI which does reveal an old right lacunar infarct in the basal ganglia there is an acute right occipital lobe infarct, as well as an old left pontine infarct. The MRI also reveals chronic deep white matter ischemic changes. A CTA of the brain was done on 03/05/2016 which did show a high-grade intracranial stenosis involving the right MCA particularly the M2 inferior segment. She is also intermittently hypertensive since her admission. Blood pressure was also elevated upon admission. All Systems: A 10-system review of systems was performed and is negative for pertinent findings except as documented above in the HPI. Review of Systems: 10 point review of systems is consistent with a history of present illness and otherwise negative. Physical Examination - Vital Signs Vital Signs: Initial Vital Signs Temp Pulse Resp BP Pulse Ox 97.8 F 85 18 136/78 95 07/25/16 13:45 07/25/16 13:45 07/25/16 13:45 07/25/16 13:45 07/25/16 13:45 - Neurologic Motor examination - right side: 3/5: hip flexors ([place]), tibialis Anterior ( "), quadriceps ("), toe extension (EHL) (") Detailed sensory examination: other (There is hemihypesthesia of the right face arm and leg.) Cranial nerve examination: no facial asymmetry is present (Right facial droop is present) Cranial Nerve Exam: facial hypesthesia: Right, facial droop: Right Results - Laboratory Findings CBC and BMP: 07/26/16 03:10 07/26/16 03:10 Abnormal lab findings: Abnormal lab results BUN 27 mg/dL (7-20) H 07/26/16 03:10 BUN/Creatinine Ratio 33 (6-26) H 07/26/16 03:10 Glucose 188 mg/dL (70-99) H 07/26/16 03:10 POC Glucose 196 (58-89) H 07/26/16 11:15 Hemoglobin A1c 7.5 % (-5.6) H 07/25/16 14:52 Globulin 3.7 g/dL (2.4-3.5) H 07/25/16 14:52 Ur Specific [place] 1.027 (1.010-1.025) H 07/25/16 14:41 Urine Microscopic RBC 3-5 per hpf (0-3) H 07/25/16 14:41 Ur Squamous Epith Cells Moderate per lpf (None-Few) H 07/25/16 14:41
[2016-07-26] MEDS: Lisinopril 20 MG TABLET PO SCH (11:56)
--- NOTE | 2016-07-26 14:22 | Internal Med Progress Note ---
Date of Encounter: 07/26/16 Time of Encounter: 09:30 - Assessment and plan (1) CVA (cerebral vascular accident) Current Visit: No Status: Acute Assessment and plan: Patient with an acute CVA to her right occipital periventricular white matter. She also had a CVA back in February and at that time, she was started on Plavix , aspirin, and a statin. She states that she was seen by cardiology and had a Holter monitor after this event however I cannot find this in the chart. Chads vasc score of 6. Spoke to the patient about chronic anticoagulation and she states that she is not willing to do Coumadin is a family member was on it and apparently did not have a good outlook. She is amenable to NOAC's. We will bring cardiology on board. Echocardiogram pending. Patient has mild right- sided facial drooping and mild right hand weakness but is otherwise asymptomatic. These appear chronic. Her vision changes have resolved. Hypertension noted however will allow for permissive hypertension due to acute infarct. Patient stating she is anxious to go home however the importance of further investigating the cause of these CVAs was stressed to the patient the patient stated she still wanted to go home. Chest x-ray negative. Head CT negative. Urinalysis negative. Awaiting cardiology recommendations. Neurology also on board. OT and PT have no recommendations. Of note, patient stating that she is still very grief stricken over the loss of her that was back in 2011. She does appear with flat affect and depressed at times during my conversation with her however she denies any suicidal ideations. ITS Impressions Chest X-Ray 07/25/16 14:18 IMPRESSION: Unremarkable portable exam D/ / Kolton Johnson MD / Kolton Johnson MD Interpreting Provider: Kolton Johnson MD Head CT 07/25/16 14:19 IMPRESSION: No acute intracranial abnormality. D/ / Kolton Johnson MD / Kolton Johnson MD Interpreting Provider: Kolton Johnson MD :0 Brain MRI 07/25/16 18:13 IMPRESSION: 1. Acute ischemic lacunar infarct in the right occipital periventricular white matter. 2. No intracranial hemorrhage or mass effect. 3. Stable mild chronic white matter microvascular ischemic changes and remote left thalamic and left midbrain lacunar infarcts. D/ / Elijah Morris MD / Elijah Morris MD Interpreting Provider: Elijah Morris MD Qualifiers: CVA mechanism: unspecified Qualified Code(s): I63.9 - Cerebral infarction, unspecified (2) Atrial fibrillation Current Visit: Yes Status: Chronic Assessment and plan: Patient states she has had atrial fibrillation in the past but states it was in the remote past. She states sometimes she feels her heart skip beats and sometimes feels her heart flutter. A. fib noted in the emergency department. We will bring cardiology on board. Echocardiogram pending. (3) DVT prophylaxis Current Visit: Yes Status: Acute Assessment and plan: Subcutaneous Lovenox (4) Numbness of right foot Current Visit: Yes Status: Resolved (5) Right arm weakness Current Visit: Yes Status: Chronic (6) Right facial numbness Current Visit: Yes Status: Resolved (7) Right sided weakness Current Visit: Yes Status: Resolved (8) Obstructive sleep apnea Current Visit: Yes Status: Chronic Assessment and plan: States that she has been compliant with her CPAP for the last 2-3 weeks. (9) Head ache Current Visit: No Status: Chronic Assessment and plan: Acute on chronic. Patient stating she has had headaches ever since her stroke last February and she states she has also had headaches ever since she started wearing CPAP which was 2-3 weeks ago. She denies any vision changes or gait difficulties. Neurology on board. Qualifiers: Headache type: unspecified Headache chronicity pattern: unspecified pattern Intractability: not intractable Qualified Code(s): R51 - Headache (10) Diabetic neuropathy Current Visit: No Status: Chronic Qualifiers: Diabetes mellitus type: due to underlying condition Qualified Code(s): E08.41 - Diabetes mellitus due to underlying condition with diabetic mononeuropathy (11) Fibromyalgia Current Visit: No Status: Chronic (12) Type 2 diabetes mellitus Current Visit: No Status: Chronic Assessment and plan: Controlled with an A1c of 7.5%. Continue sliding scale while admitted. Qualifiers: Diabetes mellitus complication status: with circulatory complication Diabetes mellitus complication detail: with peripheral angiopathy without gangrene Diabetes mellitus correction insulin use: without long term care phlebotomist use Qualified Code(s): E11.51 - Type 2 diabetes mellitus with diabetic peripheral angiopathy without gangrene (13) Morbid obesity with BMI of 40.0-44.9, adult Current Visit: Yes Status: Chronic - Subjective Interval history: Patient seen and examined. On examination, patient sitting upright in bed. Patient alert and oriented 3 and states she wants to go home. She states she continues to have a headache that she states started after her last stroke in February. She also states that she started wearing CPAP 2-3 weeks ago and states she has had a headache since that time. She denies vision changes at this time. She states she still has some tingling in her right upper extremity but states it is getting better. - Constitutional Vitals: Temp Pulse Resp BP Pulse Ox 97.5 F L 80 14 162/63 95 07/26/16 11:08 07/26/16 11:08 07/26/16 11:08 07/26/16 11:08 07/26/16 11:08 General appearance: Present: A&O X 3, morbidly obese, pleasant, no acute distress, answers questions appropriately - Head Head exam: Present: atraumatic, normocephalic - Eye Eye exam: Present: EOMI, PERRL, conjuntiva pink, sclera anicteric Pupils: Present: PERRL - Neck Neck exam general surgery: Present: supple, trachea midline. Absent: lymphadenopathy - Respiratory Respiratory exam: Present: CTAB. Absent: accessory muscle use, rales, respiratory distress, rhonchi, wheezes - Cardiovascular Cardiovascular exam: Present: RRR, +S1, +S2. Absent: diastolic murmur, gallop, rubs, systolic murmur - GI/Abdominal GI/Abdominal exam: Present: normal bowel sounds, soft, no peritoneal signs. Absent: distended, tenderness - Extremities Exam Extremities exam: Present: warm, radial pulses palpable and symetrical. Absent : calf tenderness, cyanotic, pedal edema - Neurological Exam Neurological exam: Present: alert, CN II-XII intact, normal gait, oriented X3, no focal deficits, facial droop. Absent: strengths equal and symetr throughout , pronater drift, speech deficit - Expanded Neurological Exam Neurological exam expanded: Present: protecting the airway Patient oriented to: Present: person, place, time Speech: Present: fluid speech Cranial Nerves: EOM's intact PM: Normal Neuro motor strength exam: LUE: 5, RUE: 4, LLE: 5, RLE: 5 Coma Scale Eye Opening: Spontaneous Coma Scale Motor Response: Obeys Commands Coma Scale Verbal Response: Oriented Coma Scale Total: 15 - Skin Skin exam: Present: dry, intact, normal color, warm Internal Medicine: Result - Labs CBC & Chem 7: 07/26/16 03:10 07/26/16 03:10 Labs: Short CBC 07/26/16 Range/Units 03:10 WBC 9.0 (4.3-11.1) K/mcL Hgb 13.4 (11.5-15.4) g/dL Hct 38.4 (35.3-44.9) % Plt Count 197 (140-400) K/mcL Neutrophils # 5.1 (1.6-8.9) K/mcL BMP 07/26/16 03:10 Sodium 140 Potassium 3.8 Chloride 102 Carbon Dioxide 23 BUN 27 H Creatinine 0.82 Glucose 188 H Calcium 8.6 - Impressions Impressions Brain MRI 07/25/16 18:13 IMPRESSION: 1. Acute ischemic lacunar infarct in the right occipital periventricular white matter. 2. No intracranial hemorrhage or mass effect. 3. Stable mild chronic white matter microvascular ischemic changes and remote left thalamic and left midbrain lacunar infarcts. D/ / Elijah Morris MD / Elijah Morris MD Interpreting Provider: Elijah Morris MD Consult Discharge Plan - Plan Referrals: Reynaldo Juarez Jr, MD [Primary Care Provider] - Nani Calix CNP [Advanced Practice Nurse] - 08/01/16 1:00 pm
--- NOTE | 2016-07-26 14:54 | Cardiology Consult Note ---
Date of Encounter: 07/26/16 Time of Encounter: 14:48 Assessment and Plan (1) PAF (paroxysmal atrial fibrillation) Current Visit: Yes Status: Acute New diagnosis. 2 CVAs since February 2016. PAF noted on EKG obtained in ED and on tele. Recently diagnosed with ARAM and started using CPAP in recent weeks. Echo 02/2016 EF 60%, mild diastolic dysfunction, no PFO noted, mild ME, moderately dilated left atrium. Repeat echo pending. K 3.8, TSH 1.185. Check Mag. Add low dose BB for PAF and frequent ectopy. CHADSVASC score 6 (Age, Female, HTN, DM, CVA). Recommend chronic anticoagulation. Discussed NOACs vs. Coumadin. Pt refuses Coumadin, agreeable to NOAC. Will crabtree check eliquis. Will plan to stop Plavix if starting NOAC. Negative stress test 05/22/14. (2) CVA (cerebral vascular accident) Current Visit: No Status: Acute Brain MRI showed acute ischemic lacunar infarct in right occipital periventricular white matter. Remote left thalamic and left midbrain lacunar infarcts. Seen/evaluated by neurology. They recommend if starting chronic anticoagulation to stop her Plavix and put her on 81mg ASA. Agree with this recommendation. She has severe right MCA intracranial stenosis along with new onset PAF, both of which are contributing factors. Qualifiers: CVA mechanism: unspecified Qualified Code(s): I63.9 - Cerebral infarction, unspecified (3) Obstructive sleep apnea Current Visit: Yes Status: Chronic Recently diagnosed ARAM. Reports compliance with CPAP. Discussion w patient/family: The assessment and plan as outlined above was discussed with the patient and/or family members who expressed understanding and agreement. All questions were answered. Thank you for involving us in the care of your patient. Please call with any questions. I will discuss all the above with Dr. Benitez and make changes as necessary. History of Present Illness Consult date: 07/26/16 Requesting physician: Domitila Serra Consult reason: PAF Chief complaint: CVA History of present illness: Ms. Aparicio is a 65 year old female with PMH of HTN, HLD, type 2 diabetes, ARAM on CPAP, fibromyalgia, and CVA who presented to the ED with complaints of numbness and tingling to the right side of her face, her right arm and right foot. She reported blurry vision for several hours and then it resolved, had trouble walking, trouble finding words. Brain MRI revealed acute ischemic lacunar infarct in right occipital periventricular white matter. Remote left thalamic and left midbrain lacunar infarcts. EKG on admission revealed PAF, new diagnosis. She admits to occasional palpitations and tachycardia. She reports worsening dyspnea on exertion over the past month. Denies any exertional chest pain--reports discomfort at times related to her hiatal hernia and tirado's esophagus. Troponin negative. Cardiology consulted for anticoagulation recommendations. Prior CV testing: Echo 03/04/16 EF 60%, mild diastolic dysfunction. No PFO, mild ME. Stress test 05/22/14: Gated EF 51%, perfusion imaging negative for ischemia or infarct. Past Med Surg Social Fam HX - Past Medical History Medical history: CVA, diabetes, fibromyalgia, GERD, hyperlipidemia, hypertension , TIA, other Psychiatric history: no psych history - Past Surgical History Surgical History: appendectomy, cholecystectomy, hysterectomy - Social History Smoking Status: Never smoker Smokeless Tobacco Status: No Alcohol use: none Drug use: none - Family History Father Hx Family Cardiac Disorders: Yes (PA) Hx Family Endocrine Disorder: Yes (DM) Mother Hx Family Endocrine Disorder: Yes (DM) Hx Family Neurologic Disorders: Yes (CVA) Medications and Allergies Albuterol Sulfate [Proair Hfa] 2 puff IH Q4H PRN 03/04/16 [History] Biotin 1 mg PO DAILY 03/04/16 [History] Bisoprolol/HCTZ 10/6.25 [Ziac 10/6.25] 1 tab PO DAILY 03/04/16 [History] CarBAMazepine [Tegretol] 200 - 400 mg PO BID 03/04/16 [History] Cyclobenzaprine [Flexeril] 10 mg PO TID 03/04/16 [History] Hydrocodone/Acetaminophen [[place] 5-325 Tablet] 1 tab PO Q4H PRN 03/04/16 [ History] Metformin HCl [Metformin HCl ER] 1,000 mg PO BID 03/04/16 [History] Pantoprazole Sodium [Protonix] 40 mg PO BID 03/04/16 [History] Zolpidem [Ambien] 10 mg PO HS 03/04/16 [History] Atorvastatin [Lipitor] 40 mg PO HS 07/25/16 [History] Clopidogrel [Plavix] 75 mg PO DAILY 07/25/16 [History] Lisinopril [Zestril] 20 mg PO DAILY 07/25/16 [History] Allergies azithromycin [From Zithromax Z-Michael] Allergy (Verified 07/25/16 13:50) Itching All Systems Review: A 10-system review of systems was performed and is negative for pertinent findings except as documented above in the HPI. - Cardiovascular Cardiovascular: as per HPI, dyspnea on exertion, irregular heart rhythm, palpitations, rapid heart rate - Respiratory Respiratory: dyspnea - Neurological Neurological: focal weakness Physical Examination Vital Signs, Last 4 Hours Temp Pulse Resp BP Pulse Ox 07/26/16 11:08 97.5 F L 80 14 162/63 95 Vital Signs Temp Pulse Resp BP Pulse Ox 07/26/16 14:53 97.7 F 55 16 149/80 94 07/26/16 11:08 97.5 F L 80 14 162/63 95 07/26/16 07:04 97.6 F 69 14 170/84 92 07/26/16 02:52 97.6 F 88 16 167/94 95 07/25/16 23:20 97.6 F 60 16 162/78 93 07/25/16 19:04 97.7 F 81 16 161/91 94 07/25/16 17:06 97.3 F L 80 16 167/97 94 07/25/16 16:39 18 139/109 07/25/16 16:35 70 18 139/109 07/25/16 15:09 68 18 145/64 95 Intake and Output 07/25/16 07/26/16 07/26/16 23:59 07:59 15:59 Intake Total 240 / 240 Output Total 600 / 600 500 / 500 Balance -600 / -600 -500 / -500 240 / 240 Intake: Oral 240 / 240 Output: Urine 600 / 600 500 / 500 Other: Meal Lunch Percent of Meal Consumed 0% # Voids 2 Weight 113.398 kg 114 kg Blood Glucose* 282 184 196 Patient Weight 07/26/16 23:59 Weight 114 kg General: Conversant, No Apparent Distress HEENT: Atraumatic, Normocephaly, Mucus Membranes Moist Neck: No JVD, Normal carotid pulses Cardiac: Reg Rate and Rhythm, Normal S1 and S2, No Murmur Lungs: Normal Breath Sounds, No Wheeze, Rales, Rhonchi Neuro: Alert and responsive, No focal deficits noted Abdomen: Soft, Non-Tender Skin: No rashes noted on visualized skin Musculoskeletal: No Chest Wall Tenderness Extremities: No Clubbing, No Cyanosis, No Edema, Normal Pulses Results 07/26/16 03:10 07/26/16 03:10 Lab Results 07/26/16 07/26/16 03:10 03:10 WBC 9.0 Hgb 13.4 Hct 38.4 Plt Count 197 Sodium 140 Potassium 3.8 Chloride 102 Carbon Dioxide 23 BUN 27 H Creatinine 0.82 Glucose 188 H Calcium 8.6 Short CBC 07/26/16 07/25/16 Range/Units 03:10 14:52 WBC 9.0 9.8 (4.3-11.1) K/mcL Hgb 13.4 14.8 (11.5-15.4) g/dL Hct 38.4 42.8 (35.3-44.9) % Plt Count 197 231 (140-400) K/mcL Neutrophils # 5.1 6.4 (1.6-8.9) K/mcL BMP 07/26/16 07/25/16 Range/Units 03:10 14:52 Sodium 140 140 (136-145) mEq/L Potassium 3.8 4.6 H (3.5-4.5) mEq/L Chloride 102 104 (98-109) mEq/L Carbon Dioxide 23 22 (19-29) mEq/L BUN 27 H 30 H (7-20) mg/dL Creatinine 0.82 0.90 (0.57-1.11) mg/dL Glucose 188 H 171 H (70-99) mg/dL Calcium 8.6 9.2 (8.6-10.8) mg/dL Cardiac Enzymes 07/25/16 Range/Units 14:52 Troponin I 0.02 (0-0.03) ng/mL Liver Function 07/25/16 Range/Units 14:52 Total Bilirubin 0.3 (0.2-1.2) mg/dL AST 15 (5-34) Units/L ALT 17 (0-55) Units/L Alkaline Phosphatase 80 (38-126) Units/L Albumin 4.0 (3.5-5.0) g/dL Urine 07/25/16 Range/Units 14:41 Urine Color Yellow (Yellow) Urine Clarity Clear (Clear) Urine pH 5.5 (5.0-8.0) pH Units Ur Specific [place] 1.027 H (1.010-1.025) Urine Protein Trace (Neg-Trace) mg/dL Urine Glucose (UA) Normal (Normal) mg/dL Impressions Brain MRI 07/25/16 18:13 IMPRESSION: 1. Acute ischemic lacunar infarct in the right occipital periventricular white matter. 2. No intracranial hemorrhage or mass effect. 3. Stable mild chronic white matter microvascular ischemic changes and remote left thalamic and left midbrain lacunar infarcts. D/ / Elijah Morris MD / Elijah Morris MD Interpreting Provider: Elijah Morris MD Active Medications Acetaminophen/Hydrocodone Bitart ([place] 5-325 Mg) 1 tab PO Q4H PRN PRN Reason: Pain Stop: 01/24/17 18:10 Last Admin: 07/26/16 11:07 Dose: 1 tab Albuterol Sulfate (Albuterol Inhaler) 2 puff IH Q4H PRN PRN Reason: Shortness Of Breath Stop: 01/24/17 18:10 Atorvastatin Calcium (Lipitor) 40 mg PO HS KALEIGH Stop: 01/24/17 21:01 Last Admin: 07/25/16 23:45 Dose: 40 mg Clopidogrel Bisulfate (Plavix) 75 mg PO DAILY K[place]IGH Stop: 01/25/17 09:01 Last Admin: 07/26/16 07:46 Dose: 75 mg Cyclobenzaprine HCl (Flexeril) 10 mg PO TID KALEIGH Stop: 01/24/17 21:01 Last Admin: 07/26/16 14:25 Dose: 10 mg Dextrose/Water (Dextrose 50% (Syg)) 25 ml IVP AD PRN PRN Reason: Hypoglycemia Stop: 01/24/17 18:42 Enoxaparin Sodium (Lovenox) 40 mg SQ 0700 KALEIGH PRN Reason: Protocol Stop: 01/25/17 07:01 Last Admin: 07/26/16 07:42 Dose: Not Given Glucagon (Glucagen) 1 mg IM ONCE PRN PRN Reason: Hypoglycemia Stop: 01/24/17 18:42 Glucose (Gluctose) 15 gm PO ONCE PRN PRN Reason: Hypoglycemia Stop: 01/24/17 18:42 Glucose (Gluctose) 30 gm PO ONCE PRN PRN Reason: Hypoglycemia Stop: 01/24/17 18:42 Dextrose (Dextrose 5%) 1,000 mls @ 100 mls/hr IVC .Q10H PRN PRN Reason: HYPOGLYCEMIA Stop: 01/24/17 18:42 Insulin Human Lispro (Humalog) 0 units SQ HS KALEIGH PRN Reason: Protocol Stop: 01/24/17 21:01 Last Admin: 07/25/16 22:41 Dose: 5 units Insulin Human Lispro (Humalog) 0 units SQ TIDAC KALEIGH PRN Reason: Protocol Stop: 01/25/17 07:31 Last Admin: 07/26/16 11:56 Dose: 6 units Lisinopril (Zestril) 20 mg PO DAILY KALEIGH PRN Reason: Protocol Stop: 01/25/17 09:01 Last Admin: 07/26/16 11:56 Dose: 20 mg Naloxone HCl (Narcan) 0.4 mg IVP Q2MIN PRN PRN Reason: Opioid Reversal Stop: 01/24/17 17:43 Pantoprazole Sodium (Protonix) 40 mg IVP Q12HR KALEIGH Stop: 01/25/17 06:31 Last Admin: 07/26/16 07:30 Dose: 40 mg Pharmacy Profile Note (Patient Taking Own Medication) 1 each PO DAILY KALEIGH Stop: 01/25/17 09:01 Last Admin: 07/26/16 07:46 Dose: Not Given Zolpidem Tartrate (Ambien) 10 mg PO HS KALEIGH PRN Reason: Protocol Stop: 01/24/17 21:01 Last Admin: 07/25/16 22:40 Dose: 10 mg - Imaging and Cardiology Stress Test: report reviewed Echo: report reviewed - EKG Interpretation EKG results cardiology: personally reviewed (PAF, RBBB, left anterior fascicular block), other (24 hour tele AVG HR 76, PAF, ectopy) Consult Discharge Plan - Plan Referrals: Reynaldo Juarez Jr, MD [Primary Care Provider] - Nani Calix CNP [Advanced Practice Nurse] - 08/01/16 1:00 pm
--- NOTE | 2016-07-26 18:14 | Event Note ---
Date of Encounter: 07/26/16 Time of Encounter: 18:11 This event note reflects my attestation of nurse practitioner's consult note. [email or web address] will not allow me to edit note. I examined this patient and my medical decision-making was reviewed with the [employer] DEVELOPER/PA/Advanced Practice Nurse/Resident Physician. I agree with the documented findings, disposition and treatment plan as described except to the extent set forth below. 65 y/o with elevated chads-vasc score and diagnosed CVA demonstrates PAF on ECG and telemetry. Reports remote history of AF as well. R/B/A to full AC discussed with patient. She agrees and wishes to proceed with Eliquis. Agree with BB therapy. Echocardiogram pending. If no significant findings, then no further inpatient cardiac testing is required. Please call if any questions or concerns. Thanks, Man Benitez DO, FACC
[2016-07-26 19:45] LABS: Magnesium 1.5 mg/dL (1.6-2.6)
[2016-07-26] MEDS: APIXABAN 5 MG TABLET PO SCH (20:43)
[2016-07-27] MEDS: *HR* HYDROcodone/Acet 5/325 mg TABLET PO PRN ×2 (05:05→12:06)
[2016-07-27] MEDS: Pantoprazole 40 MG VIAL IVP SCH (06:16)
[2016-07-27] MEDS: APIXABAN 5 MG TABLET PO SCH (08:55)
[2016-07-27] MEDS: Insulin LISPRO 300 UNITS/3 ML VIAL SQ SCH ×2 (08:55→12:07)
[2016-07-27] MEDS: Lisinopril 20 MG TABLET PO SCH (08:56)
[2016-07-27] MEDS ORDERED: Aspirin 81 MG TAB.CHEW PO SCH (09:00)
--- NOTE | 2016-07-27 09:30 | ECHO - Doppler Report ---
Echo with Saline Contrast Name: Fay Aparicio Date of Study: 07/26/2016 Date: 1950 Ht: 65.0 in Medical Record#: [id number] Age: 65 Wt: 251.0 lb Gender: Female BSA: 2.18 Order #: [id number] Location: [facility] Room #: 3B32 Reading Physician: Man Benitez DO, FACC, RYLAN Hot Knife Cutter: Marcela Lezama, RVT, RD Ordering Physician: Karen Meyers CNP Primary Physician: Reynaldo Juarez MD Indications: Transient Ischemic Attack Impressions: LVEF 60%. Grossly normal LV chamber size, wall thickness and function. Mild left ventricular diastolic dysfunction. Normal right ventricular structure and function. Moderately dilated left atrium. Suboptimal image quality, but no obvious evidence of a PFO with agitated saline contrast. Mild pulmonic regurgitation. Unable to estimate RVSP due to lack of TR jet. Left Ventricular Wall Motion: Rest Echo Findings All wall segments showed normal motion. Findings: Study Quality * Technically sub-optimal due to poor echocardiographic windows. ECG Findings * Normal sinus rhythm. Left Ventricle * LVEF 60%. * Grossly normal LV chamber size, wall thickness and function. * Mild left ventricular diastolic dysfunction. Right Ventricle * Normal right ventricular structure and function. Left Atrium * Moderately dilated left atrium. Right Atrium * Mildly dilated right atrium. Interatrial Septum * Suboptimal image quality, but no obvious evidence of a PFO with agitated saline contrast. Aortic Valve * Aortic valve not well visualized. * No aortic regurgitation. * No aortic stenosis. Mitral Valve * Mild mitral annular calcification * Normal mitral valve function. * No mitral regurgitation. * No mitral stenosis. Tricuspid Valve * Normal tricuspid valve structure and function. * No tricuspid regurgitation. * Unable to estimate RVSP due to lack of TR jet. Pulmonic Valve * Pulmonic valve not well visualized. * Mild pulmonic regurgitation. Aorta * Normally sized aortic root. Pericardium * The pericardium appears normal. IVC * The IVC is not well evaluated. Pulmonary Artery * Pulmonary artery not well visualized. History Hypertension Diabetes Hypercholesteremia 03-04-2016 a Previous Echo was performed. Contrast: Agitated saline 20 ml. Measurements: BP: 149/ 80 2D Normal Values RVIDd: 2.80 cm <2.7 cm IVSd: .90 cm 0.6 - 1.0 cm LVIDd: 5.30 cm 3.7 - 5.6 cm LVPWd: 1.20 cm 0.6 - 1.1 cm LVIDs: 3.80 cm 1.5 - 3.6 cm AO: 2.60 cm < 4.0 cm LA: 4.00 cm 2.0 - 4.0cm %FS: 28.30 cm >25 % LVOT Diam: 2.00 cm LA volume: 64 Mitral Valve Dec Time:320.00 msec Peak E:.76 m/sec Peak A:1.05 m/sec E/A Ratio:0.7 Peak E' Lat Derrek:7.51 cm/s Peak E' Med Derrek:4.91 cm/s E/E' Lat Ratio:10.1 E/E' Med Ratio:15.3 Updated by Man Benitez DO, ELVIA, ELISSA FAGAN on 07/27/2016 9:25:36 AM electronically signed on 07/27/2016 9:26:58 AM with status of Final Wall Motion Gastelum: 1=Normal, 2=Hypokinesis, 3=Akinesis, 4=Dyskinesis, 5=Aneurysmal, 6=Hyperkinetic, X=Not Visualized (Blank)=Missing
[2016-07-27] MEDS: Bisoprolol/HCTZ 10/6.25 TABLET PO SCH (12:01)
--- NOTE | 2016-07-27 13:25 | Discharge Summary ---
Date of Encounter: 07/27/16 Time of Encounter: 13:00 - Discharge Diagnosis (1) CVA (cerebral vascular accident) Priority: Primary Status: Acute Comments: Acute CVA to her right occipital periventricular white matter. No new focal neurological weaknesses. Stopped Plavix, Aspirin and statin, and added metoprolol and Eliquis Qualifiers: CVA mechanism: unspecified Qualified Code(s): I63.9 - Cerebral infarction, unspecified (2) Atrial fibrillation Priority: Secondary Status: Chronic Comments: She does have a remote history of A. fib. Started on metoprolol and eliquis with outpatient follow-up recommended. (3) DVT prophylaxis Priority: Primary Status: Acute Comments: Subcutaneous Lovenox while admitted (4) Numbness of right foot Priority: Primary Status: Resolved (5) Right arm weakness Priority: Secondary Status: Chronic Comments: Chronic, no new weaknesses (6) Right facial numbness Priority: Primary Status: Resolved (7) Right sided weakness Priority: Primary Status: Resolved (8) Obstructive sleep apnea Priority: Secondary Status: Chronic Comments: Started CPAP 2-3 weeks ago, endorses compliance (9) Head ache Priority: Secondary Status: Resolved Qualifiers: Headache type: unspecified Headache chronicity pattern: unspecified pattern Intractability: not intractable Qualified Code(s): R51 - Headache (10) Diabetic neuropathy Priority: Secondary Status: Chronic Qualifiers: Diabetes mellitus type: due to underlying condition Qualified Code(s): E08.41 - Diabetes mellitus due to underlying condition with diabetic mononeuropathy (11) Fibromyalgia Priority: Secondary Status: Chronic (12) Type 2 diabetes mellitus Priority: Secondary Status: Chronic Comments: Controlled with an A1c of 7.5%. Follow-up outpatient Qualifiers: Diabetes mellitus complication status: with circulatory complication Diabetes mellitus complication detail: with peripheral angiopathy without gangrene Diabetes mellitus jail insulin use: without jail use Qualified Code(s): E11.51 - Type 2 diabetes mellitus with diabetic peripheral angiopathy without gangrene (13) Morbid obesity with BMI of 40.0-44.9, adult Priority: Secondary Status: Chronic - Discharge Medications Prescriptions: Apixaban [Eliquis] 5 mg PO BID #60 tablet Aspirin 81 mg PO DAILY #30 tab.chew Metoprolol [Lopressor] 25 mg PO BID #60 tablet Home Medications: Albuterol Sulfate [Proair Hfa] 2 puff IH Q4H PRN 03/04/16 [History] Biotin 1 mg PO DAILY 03/04/16 [History] Bisoprolol/HCTZ 106.25 [Ziac 6.25] 1 tab PO DAILY 03/04/16 [History] CarBAMazepine [Tegretol] 200 - 400 mg PO BID 03/04/16 [History] Cyclobenzaprine [Flexeril] 10 mg PO TID 03/04/16 [History] Hydrocodone/Acetaminophen [[place] 5-325 Tablet] 1 tab PO Q4H PRN 03/04/16 [ History] Metformin HCl [Metformin HCl ER] 1,000 mg PO BID 03/04/16 [History] Pantoprazole Sodium [Protonix] 40 mg PO BID 03/04/16 [History] Zolpidem [Ambien] 10 mg PO HS 03/04/16 [History] Atorvastatin [Lipitor] 40 mg PO HS 07/25/16 [History] Lisinopril [Zestril] 20 mg PO DAILY 07/25/16 [History] Apixaban [Eliquis] 5 mg PO BID #60 tablet 07/27/16 [Rx] Aspirin 81 mg PO DAILY #30 tab.chew 07/27/16 [Rx] Metoprolol [Lopressor] 25 mg PO BID #60 tablet 07/27/16 [Rx] Allergies/Adverse Reactions: Allergies azithromycin [From Zithromax Z-Michael] Allergy (Verified 07/25/16 13:50) Itching Procedures/tests Complete & Pending: Procedures Performed prior 72 hours Category Date Time Status MR head/brain wo con [MR] Routine MRI 07/25/16 18:13 Completed EV echocardiogram Routine Y 07/25/16 17:48 Completed Date of admission: 07/25/16 16:02 Primary care physician: Reynaldo Juarez Jr, MD Consults: 07/25/16 17:44 Consult to Occupational Therapy [CONS] Routine Comment: Evaluate, develop and implement POC Consult to Physical Therapy [CONS] Routine Comment: Evaluate, develop and implement POC 07/25/16 18:22 Consult to Neurology [CONS] Routine Consulting Provider: [facility] Reason for Consult: TIA/CVA, with previous CVA in February Call Completed: No 07/26/16 14:10 Consult to Cardiology [CONS] Routine Comment: Consulting Provider: [facility] Reason for Consult: 2nd CVA since Feb. New onset afib. started on asa and plavix in feb. another CVA today. echo pending. states she wore holter in Feb, but I cannot find results. Afib in ER. Chads2-vasc 6. Does not want Coumadin, start on NOAC? Call Completed: Yes Discharging clinician: Domitila Serra Anticipated date of discharge: 07/27/16 - Patient Status Disposition: Home, Self-Care Condition: Fair Functional capacity at discharge: independent ambulation Overall status at discharge: patient is back to baseline - Discharge Instructions Follow Up With: Reynaldo Juarez Jr, MD [Primary Care Provider] - aNni Calix CNP [Advanced Practice Nurse] - 08/01/16 1:00 pm Additional Instructions: Follow-up with primary care provider as scheduled - Diet and Activity Activity: increase activity as tolerated Diet: diabetic diet, low fat, low cholesterol, low salt diet Hospital course: Ms. Aparicio is a 65 year old female with past medical history of hypertension, hyperlipidemia, diabetes, sleep apnea, fibromyalgia, CVA in February 2016, morbid obesity. Patient presented to the emergency department chief complaint numbness and tingling to the right side of her face, her right arm, and her right foot. Patient stating on the day prior to presentation, she developed blurred vision for several hours but resolved on its on. On the day of presentation, she woke up and had trouble walking when she tried to get out of bed and she also noticed numbness and tingling on the right side of her face, right arm, and right foot. Patient also had trouble finding words but denied any slurred speech or difficulty swallowing. Patient also endorsed a headache with some dizziness as well as nausea but no vomiting. Patient reporting occasional palpitations and the feeling that her heart is skipping beats. Workup in the emergency department revealing A. fib. She was admitted to the hospitalist service for further evaluation and management. She has a remote history of A. fib, but this recurrence appears new. Cardiology was brought on board and the patient was started on metoprolol and Eliquis. Chest x-ray negative. Head CT negative. Urinalysis negative. Brain MRI revealing acute ischemic lacunar infarct in the right occipital periventricular white matter. Patient continued with very mild right-sided facial drooping and very mild right -handed weakness which is from her prior stroke in February. She had no new focal neurological weaknesses. She denied vision changes throughout this admission. Echocardiogram unremarkable with ejection fraction of 60% and no PFO. Neurology was also brought on board who cleared her for outpatient follow- up. OT and PT surmised she had no needs. Of note, patient stating that she is still very grief stricken over the loss of her that was back in 2011. She did appear with flat affect and depressed at times during this admission, however she denied any suicidal ideations. She is discharged home in stable condition with close outpatient follow-up recommended. ITS Impressions Chest X-Ray 07/25/16 14:18 IMPRESSION: Unremarkable portable exam D/ / Kolton Johnson MD / Kolton Johnson MD Interpreting Provider: Kolton Johnson MD Head CT 07/25/16 14:19 IMPRESSION: No acute intracranial abnormality. D/ / Kolton Johnson MD / Kolton Johnson MD Interpreting Provider: Kolton Johnson MD Brain MRI 07/25/16 18:13 IMPRESSION: 1. Acute ischemic lacunar infarct in the right occipital periventricular white matter. 2. No intracranial hemorrhage or mass effect. 3. Stable mild chronic white matter microvascular ischemic changes and remote left thalamic and left midbrain lacunar infarcts. D/ / Elijah Morris MD / Elijah Morris MD Interpreting Provider: Elijah Morris MD Echo with saline contrast impressions: LVEF 60%. Grossly normal LV chamber size , wall thickness and function. Mild left ventricular diastolic dysfunction. Normal right ventricular structure and function. Moderately dilated left atrium. Suboptimal image quality, but no obvious evidence of PFO with agitated saline contrast. Mild pulmonic regurgitation. Unable to estimate RVSP due to lack of TR jet. - Time Spent with Patient Total time spent providing and/or coordinating discharge services: - Constitutional Vitals: Temp Pulse Resp BP Pulse Ox 97.8 F 70 16 170/86 95 07/27/16 11:42 07/27/16 11:42 07/27/16 11:42 07/27/16 11:42 07/27/16 11:42 General appearance: Present: A&O X 3, morbidly obese, pleasant, no acute distress, answers questions appropriately - Head Head exam: Present: atraumatic, normocephalic - Eye Eye exam: Present: PERRL, conjuntiva pink, sclera anicteric Pupils: Present: PERRL - Neck Neck exam general surgery: Present: supple, trachea midline. Absent: lymphadenopathy - Respiratory Respiratory exam: Present: CTAB. Absent: accessory muscle use, rales, respiratory distress, rhonchi, wheezes - Cardiovascular Cardiovascular exam: Present: irregular rhythm, RRR, +S1, +S2. Absent: diastolic murmur, gallop, rubs, systolic murmur - GI/Abdominal GI/Abdominal exam: Present: normal bowel sounds, soft, no peritoneal signs. Absent: distended, tenderness - Extremities Exam Extremities exam: Present: warm, radial pulses palpable and symetrical. Absent : calf tenderness, cyanotic, pedal edema - Neurological Exam Neurological exam: Present: alert, CN II-XII intact, oriented X3, no focal deficits, facial droop (right right side- chronic; able to close eye). Absent: strengths equal and symetr throughout (mild right handed weakness- chronic), pronater drift, speech deficit - Skin Skin exam: Present: dry, intact, normal color, warm
[2016-07-30 10:29] VITALS: BP 170/86
== END 2016-07-27 14:25 | disposition home or self-care (01) ==
LOC: EMEROO 13:44 → 3BNU 13:44
PROVIDERS: ADMIT Internal Medicine; ATTEND Nurse Practitioner Family

== ENCOUNTER 2018-01-27 09:03 | Inpatient (IN) ==
--- NOTE | 2018-01-27 10:35 | History & Physical Report ---
Date of Encounter: 01/27/18 Time of Encounter: 10:29 24 Hour HP Update - Instructions Instructions: If the History and Physical is less than 30 days old and was completed prior to A.M. admission and or procedure and has NOT been updated on calendar day of procedure please complete this update prior to performing procedure. - Update Patient reports changes in Medical Condition: No Changes in examination, assessment, or condition: No Changes in Medication: No Preop tests/diagnostics Reviewed: Yes - Pre-Operative Checklist Is VTE Prophylaxis Indicated?: NO - Attending Attestation Please refer to eCW encounter 01/16/[address] Pierre Rehman for full H&P. Pt presents for antiarrhythmic initiation--Rythmol 150mg [id number] for frequent PAF, symptomatic with palpitations and exertional dyspnea. Anticoagulated on Eliquis with no missed doses in the past 30 days. TTE 07/2016 LVEF 60%, mild LVDD. Moderately dilated left atrium. Suboptimal image quality, but no obvious evidence of a PFO with agitated saline contrast. Mild [place]. Negative stress test 2013. Daily ECGs to monitor QRS. Needs monitored for minimum of 5 Rythmol doses. Check CBC and BMP today. Pt has no acute complaints currently. Will obtain baseline ECG. Will discuss and review with Dr. Pierre Rehman.
[2018-01-27 11:05] LABS: Basophils % 0.3 %; Eosinophils # 0.2 K/mcL (0.0-0.6); Eosinophils % 1.7 %; Hematocrit 39.6 % (35.3-44.9); Hemoglobin 13.1 g/dL (11.5-15.4); Immature Granulocytes % 0.3 % (0-4); Lymphocytes # 2.1 K/mcL (0.6-4.6); Lymphocytes % 19.1 %; Mean Corpuscular HGB Conc 33.1 g/dL (31.6-35.5); Mean Corpuscular Hemoglobin 29.6 pg (28.0-33.3); Mean Corpuscular Volume 89.4 fL (83.0-100.0); Mean Platelet Volume 11.1 fL (9.4-12.4); Monocytes # 0.7 K/mcL (0.0-1.3); Monocytes % 6.4 %; Neutrophils # 7.9 K/mcL (1.6-8.9); Platelet Count 206 K/mcL (140-400); Red Blood Count 4.43 M/mcL (3.82-4.97); Red Cell Distribution Width 13.1 % (11.5-14.5); Segmented Neutrophils % 72.2 %
[2018-01-27 11:29] LABS: BUN/Creatinine Ratio 31 (6-26); Blood Urea Nitrogen 21 mg/dL (8-23); Carbon Dioxide 24 mEq/L (23-29); Chloride 97 mEq/L (98-107); Glucose 282 mg/dL (70-105); Magnesium 1.2 mg/dL (1.6-2.6); Osmolality,Calculated 293 (280-300); Potassium 4.1 mEq/L (3.5-5.1); Sodium 135 mEq/L (136-145); eGFR For Non-African Americans > 60 (> 60)
[2018-01-27] MEDS: *HR* HYDROcodone/Acet 5/325 mg TABLET PO PRN ×2 (14:21→20:06)
--- NOTE | 2018-01-27 19:17 | Electrocardiograph Report ---
[place] [address] Test Date: 2018-01-27 Pat Name: Fay Aparicio Department: 111 Room: 2N1 Gender: F Warp Starter: : 1950 Requested By: Jon Pinedo Order Number: [id number] Reading MD: Man Benitez Measurements Intervals [place] Rate: 72 P: 76 [place]: 163 QRS: -28 QRSD: 142 T: 78 QT: 466 QTc: 490 Interpretive Statements Significant artiafct, recommend repeat ECG In lead I, appears to be sinus rhythm with a PAC Electronically Signed On 01-27-2018 19:16:00 EDT by Man Benitez
--- NOTE | 2018-01-27 19:17 | Electrocardiograph Report ---
[place] [address] Test Date: 2018-01-27 Pat Name: Fay Aparicio Department: 111 Room: 2NE31 Gender: F Build Master: : 1950 Requested By: Jon Pinedo Order Number: [id number] Reading MD: Man Benitez Measurements Intervals [place] Rate: 70 P: 232 [place]: 186 QRS: -51 QRSD: 130 T: -75 QT: 430 QTc: 451 Interpretive Statements SINUS RHYTHM RIGHT BUNDLE BRANCH BLOCK Significant artifact, consider repeat ECG Electronically Signed On 01-27-2018 19:15:20 EDT by Man Benitez
[2018-01-27] MEDS: *HR* Metformin 500 MG TABLET PO SCH (21:12)
[2018-01-27] MEDS: Apixaban 5 MG TABLET PO SCH (21:12)
[2018-01-27] MEDS: Gabapentin 300 MG CAPSULE PO SCH (21:13)
[2018-01-27] MEDS ORDERED: Pantoprazole 40 MG VIAL IVP STA (22:52)
[2018-01-28] MEDS: *HR* HYDROcodone/Acet 5/325 mg TABLET PO PRN ×3 (06:13→20:16)
[2018-01-28] MEDS ORDERED: Bisoprolol/HCTZ 10/6.25 TABLET PO SCH (09:00)
[2018-01-28] MEDS ORDERED: Lisinopril 20 MG TABLET PO SCH (09:00)
--- NOTE | 2018-01-28 09:53 | Electrocardiograph Report ---
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
--- NOTE | 2018-01-28 09:56 | Electrocardiograph Report ---
[address] [place], [place] [address] Test Date: 2018-01-28 Pat Name: Fay Aparicio Department: 111 Room: 2NE31 Gender: F Program Dir: : 1950 Requested By: Pierre Rehman Order Number: [id number] Reading MD: Man Benitez Measurements Intervals [place] Rate: 74 P: 89 SC: 169 QRS: -48 QRSD: 150 T: 46 QT: 451 QTc: 478 Interpretive Statements SINUS RHYTHM WITH FREQUENT SUPRAVENTRICULAR PREMATURE COMPLEXES IN A BIGEMINAL PATTERN RIGHT BUNDLE BRANCH BLOCK LEFT ANTERIOR FASCICULAR BLOCK Electronically Signed On 01-28-2018 9:55:27 EDT by Man Benitez
--- NOTE | 2018-01-28 10:00 | Electrophysiology ProgressNote ---
Date of Encounter: 01/28/18 Time of Encounter: 09:58 Assessment and Plan (1) PAF (paroxysmal atrial fibrillation) Current Visit: Yes Status: Chronic Pt presents for antiarrhythmic initiation--Rythmol 150mg [id number] for frequent PAF, symptomatic with palpitations and exertional dyspnea. Anticoagulated on Eliquis with no missed doses in the past 30 days. TTE 07/2016 LVEF 60%, mild LVDD. Moderately dilated [place]. Mild [place]. Negative stress test 2013. S/P 2 Rythmol doses at time of exam. PAF on telemetry. Mag 1.3--replace. Daily ECGs to monitor QRS. Needs monitored for minimum of 5 Rythmol doses. Baseline ECG 01/27/18: SR with bigeminal PACs, RBBB. QRS 145ms. ECG 01/28/18 s/p 2 Rythmol doses: SR with bigeminal PACs, RBBB, QRS 150ms. QRS increase <20% from baseline. Continue current dose. 5th dose will be at midnight. Re-evaluate in AM. (2) Encounter for monitoring anti-arrhythmic therapy Current Visit: Yes Status: Acute As above. (3) Essential hypertension Current Visit: Yes Status: Chronic Hypertensive this AM prior to meds being given. Continue to monitor and will adjust antihypertensives as necessary. Discussion w patient/family: The assessment and plan as outlined above was discussed with the patient and/or family members who expressed understanding and agreement. All questions were answered. Thank you for involving us in the care of your patient. Please call with any questions. I will discuss all the above with Dr. Pierre Rehman and make changes as necessary. Subjective Principal diagnosis: PAF Interval history: Reports mild headache this AM, which is not new. Reports intermittent palpitations. Denies chest pain or dyspnea. S/P 2 rythmol doses at time of exam. PAF noted on tele. ECG SR with bigeminal PACs. Mag 1.3 this AM. Objective Vital Signs, Last 4 Hours Temp Pulse Resp BP Pulse Ox 01/28/18 08:07 98.1 F 72 20 160/90 92 Vital Signs Temp Pulse Resp BP Pulse Ox 01/28/18 08:07 98.1 F 72 20 160/90 92 01/28/18 04:18 97.9 F 74 20 164/86 95 01/28/18 00:45 97.7 F 70 22 174/82 95 01/27/18 20:45 98.1 F 74 18 175/139 95 01/27/18 17:21 80 17 185/85 96 Intake and Output 01/27/18 01/28/18 01/28/18 23:59 07:59 15:59 Intake Total 0 / 0 0 / 0 240 / 240 Output Total 400 / 400 Balance 0 / 0 -400 / -400 240 / 240 Intake: Oral 0 / 0 0 / 0 240 / 240 Output: Urine 400 / 400 Other: Meal Breakfast Percent of Meal Consumed 100% # Voids 0 0 Weight 108.91 kg Blood Glucose* 237 199 Patient Weight 01/28/18 23:59 Weight 108.91 kg General: Conversant, No Apparent Distress HEENT: Atraumatic, Normocephaly, Mucus Membranes Moist Neck: No JVD, Normal carotid pulses Cardiac: Other (irregularly irregular) Lungs: Normal Breath Sounds, No Wheeze, Rales, Rhonchi Neuro: Alert and responsive, No focal deficits noted Abdomen: Soft, Non-Tender Skin: No rashes noted on visualized skin Musculoskeletal: No Chest Wall Tenderness Extremities: No Clubbing, No Cyanosis, No Edema, Normal Pulses Results 01/27/18 10:55 01/27/18 10:55 Lab Results 01/27/18 01/27/18 01/27/18 10:55 10:55 10:55 WBC 10.9 Hgb 13.1 Hct 39.6 Plt Count 206 Sodium 135 L Potassium 4.1 Chloride 97 L Carbon Dioxide 24 BUN 21 Creatinine 0.67 Glucose 282 H Calcium 9.0 Magnesium 1.2 L TSH 1.915 01/28/18 06:57 WBC Hgb Hct Plt Count Sodium Potassium Chloride Carbon Dioxide BUN Creatinine Glucose Calcium Magnesium 1.3 L TSH Short CBC 01/27/18 Range/Units 10:55 WBC 10.9 (4.3-11.1) K/mcL Hgb 13.1 (11.5-15.4) g/dL Hct 39.6 (35.3-44.9) % Plt Count 206 (140-400) K/mcL Neutrophils # 7.9 (1.6-8.9) K/mcL BMP 01/27/18 Range/Units 10:55 Sodium 135 L (136-145) mEq/L Potassium 4.1 (3.5-5.1) mEq/L Chloride 97 L (98-107) mEq/L Carbon Dioxide 24 (23-29) mEq/L BUN 21 (8-23) mg/dL Creatinine 0.67 (0.60-1.20) mg/dL Glucose 282 H (70-105) mg/dL Calcium 9.0 (8.6-10.3) mg/dL Active Medications Hydrocodone Bitart/Acetaminophen ([place] 5-325 Mg) 1 tab PO Q4H PRN PRN Reason: Pain Stop: 07/29/18 10:48 Last Admin: 01/28/18 06:13 Dose: 1 tab Albuterol Sulfate (Albuterol Inhaler) 2 puff IH Q4H PRN PRN Reason: Shortness Of Breath Stop: 07/29/18 10:48 Amlodipine Besylate (Norvasc) 10 mg PO DAILY [facility] PRN Reason: Protocol Stop: 07/30/18 09:01 Apixaban (Eliquis) 5 mg PO BID [facility] Stop: 07/29/18 21:01 Last Admin: 01/27/18 21:12 Dose: 5 mg Aspirin (Aspirin) 81 mg PO DAILY [facility] Stop: 07/30/18 09:01 Atorvastatin Calcium (Lipitor) 40 mg PO HS [facility] Stop: 07/29/18 21:01 Last Admin: 01/27/18 21:12 Dose: 40 mg Cyclobenzaprine HCl (Flexeril) 10 mg PO TID [facility] Stop: 07/29/18 15:01 Last Admin: 01/27/18 21:13 Dose: 10 mg Gabapentin (Neurontin) 300 mg PO BID [facility] Stop: 07/29/18 21:01 Last Admin: 01/27/18 21:13 Dose: 300 mg Glimepiride (Amaryl) 2 mg PO 0800 [facility] Stop: 07/30/18 08:01 Hydrochlorothiazide (Hydrochlorothiazide) 25 mg PO DAILY [facility] PRN Reason: Protocol Stop: 07/30/18 09:01 Lisinopril (Zestril) 40 mg PO DAILY [facility] PRN Reason: Protocol Stop: 07/30/18 09:01 Metformin HCl (Glucophage) 1,000 mg PO BID [facility] Stop: 07/29/18 21:01 Last Admin: 01/27/18 21:12 Dose: 1,000 mg Metoprolol Tartrate (Lopressor) 50 mg PO BID [facility] Stop: 07/29/18 21:01 Last Admin: 01/27/18 21:13 Dose: 50 mg Pharmacy Profile Note (Patient Taking Own Medication) 1 each PO DAILY [facility] Stop: 07/30/18 09:01 Propafenone HCl (Rhythmol) 150 mg PO Q8HR [facility] Stop: 07/29/18 16:01 Last Admin: 01/27/18 23:39 Dose: 150 mg Zolpidem Tartrate (Ambien) 10 mg PO 0000 [facility] PRN Reason: Protocol Stop: 07/29/18 21:01 Last Admin: 01/27/18 23:39 Dose: 10 mg - EKG Interpretation EKG results cardiology: personally reviewed, other (12 hr tele AVG HR 76, PAF noted) - VTE Reasons for not Prescribing Prophylaxis: Not indicated-Anticoagulated or INR therapeutic Consult Discharge Plan - Plan Referrals: Reynaldo Juarez Jr, MD [Primary Care Provider] -
[2018-01-28] MEDS: *HR* Metformin 500 MG TABLET PO SCH ×2 (11:34→20:16)
[2018-01-28] MEDS: amLODIPine 5 MG TABLET PO SCH (11:34)
[2018-01-28] MEDS: hydroCHLOROthiazide 25 MG TABLET PO SCH (11:35)
[2018-01-28] MEDS: Gabapentin 300 MG CAPSULE PO SCH ×2 (11:35→20:16)
[2018-01-28] MEDS: Aspirin 81 MG TAB.CHEW PO SCH (11:35)
[2018-01-28] MEDS: *HR* Glimepiride 2 MG TABLET PO SCH (11:35)
[2018-01-28] MEDS: Apixaban 5 MG TABLET PO SCH ×2 (11:36→20:16)
[2018-01-28] MEDS: Lisinopril 20 MG TABLET PO SCH (11:36)
[2018-01-28] MEDS: (Biotin [Biotin] 1 MG) PO SCH (11:37)
[2018-01-28] MEDS: Magnesium Oxide 400 MG TABLET PO SCH ×2 (11:55→20:16)
[2018-01-28] MEDS: Pantoprazole 40 MG VIAL IVP SCH ×2 (14:02→20:17)
[2018-01-29] MEDS: *HR* HYDROcodone/Acet 5/325 mg TABLET PO PRN ×2 (04:42→09:56)
[2018-01-29] MEDS: *HR* Glimepiride 2 MG TABLET PO SCH (09:00)
[2018-01-29] MEDS: Aspirin 81 MG TAB.CHEW PO SCH (09:01)
[2018-01-29] MEDS: amLODIPine 5 MG TABLET PO SCH (09:01)
[2018-01-29] MEDS: *HR* Metformin 500 MG TABLET PO SCH (09:02)
[2018-01-29] MEDS: Gabapentin 300 MG CAPSULE PO SCH (09:02)
[2018-01-29] MEDS: hydroCHLOROthiazide 25 MG TABLET PO SCH (09:02)
[2018-01-29] MEDS: Magnesium Oxide 400 MG TABLET PO SCH (09:02)
[2018-01-29] MEDS: Lisinopril 20 MG TABLET PO SCH ×3 (09:03→14:00)
[2018-01-29] MEDS: Apixaban 5 MG TABLET PO SCH (09:04)
[2018-01-29] MEDS: (Biotin [Biotin] 1 MG) PO SCH (10:00)
[2018-01-29] MEDS: Pantoprazole 40 MG VIAL IVP SCH ×2 (10:00→11:22)
[2018-01-29 11:08] VITALS: BP 113/72
--- NOTE | 2018-01-29 11:45 | Discharge Summary ---
- NOTES TO OUTPATIENT PROVIDER Notes to Outpatient Provider: Admitted for anti-arrythmic initiation, rhythmol. Orders not resulted at time of discharge: Pending orders 01/29/18 06:00 ECG 12 lead ECG [ECG] AM 0600 01/30/18 06:00 ECG 12 lead ECG [ECG] AM 0600 Date of Encounter: 01/29/18 Time of Encounter: 10:00 - Discharge Diagnosis (1) PAF (paroxysmal atrial fibrillation) Priority: Primary Status: Chronic Comments: Known PAF, started on rhythmol. (2) Encounter for monitoring anti-arrhythmic therapy Priority: Secondary Status: Acute Comments: Started on rhythmol. (3) Essential hypertension Priority: Secondary Status: Chronic Comments: Known HTN. - Hospital Course Hospital course: Ms. Aparicio is a 67 year old female with a known history of PAF who was admitted to [facility] for anti-arrythmic initation with rhythmol. QRS has remained stable. Patient is s/p 6 total doses of rhythmol. QRS on admission was 142ms, QRS today 155ms. Patient has had some PAF during admission. Has remained in SR for the past 16 hours. Patient currently SR, HR 60. Patient is on eliquis for anticoagulation, denies bleeding or blood loss. Patient has known HTN, BP 150s systolic. Encouraged to contine to monitor BP at home and to call for elevated BPs at home. Patient is being prepped for discharge home today in stable condition. Patient will follow with [facility], will arrange follow up. - Time Spent with Patient Total time spent providing and/or coordinating discharge services: Less than 30 minutes - Discharge Medications Prescriptions: Propafenone [Rhythmol] 150 mg PO Q8HR #90 tablet Home Medications: Albuterol Sulfate [Proair Hfa] 2 puff IH Q4H PRN 03/04/16 [History] Biotin 1 mg PO DAILY 03/04/16 [History] Cyclobenzaprine [Flexeril] 10 mg PO TID 03/04/16 [History] Hydrocodone/Acetaminophen [[place] 5-325 Tablet] 1 tab PO Q4H PRN 03/04/16 [ History] Metformin HCl [Metformin HCl ER] 1,000 mg PO BID 03/04/16 [History] Pantoprazole Sodium [Protonix] 40 mg PO BID 11/14/16 [History] Zolpidem [Ambien] 10 mg PO HS 03/04/16 [History] Atorvastatin [Lipitor] 40 mg PO HS 07/25/16 [History] Lisinopril [Zestril] 40 mg PO DAILY 07/25/16 [History] Apixaban [Eliquis] 5 mg PO BID #60 tablet 07/27/16 [Rx] Aspirin 81 mg PO DAILY #30 tab.chew 07/27/16 [Rx] Amlodipine Besylate 10 mg PO DAILY 01/27/18 [History] Gabapentin [Neurontin] 300 mg PO BID 01/27/18 [History] Glimepiride [Amaryl] 2 mg PO DAILY 01/27/18 [History] Metoprolol [Lopressor] 50 mg PO BID 01/27/18 [History] hydroCHLOROthiazide [Hydrochlorothiazide] 25 mg PO DAILY 01/27/18 [History] Propafenone [Rhythmol] 150 mg PO Q8HR #90 tablet 01/29/18 [Rx] Allergies/Adverse Reactions: 3 Allergy/AdvReac Type Severity Reaction Status Date / Time azithromycin Allergy Itching Verified 07/25/16 13:50 [From Zithromax Z-Michael] Date of admission: 01/27/18 09:46 Primary care physician: Reynaldo Juarez Jr, MD Discharging clinician: Hannah Rubio date of discharge: 01/29/18 Physical Examination Vital Signs, Last 4 Hours Temp Pulse Resp BP Pulse Ox 01/29/18 11:07 97.8 F 68 15 113/72 96 General: Conversant, No Apparent Distress HEENT: Atraumatic, Normocephaly, Mucus Membranes Moist Neck: No JVD, Normal carotid pulses Cardiac: Reg Rate and Rhythm, Normal S1 and S2, No Murmur Lungs: Normal Breath Sounds, No Wheeze, Rales, Rhonchi Neuro: Alert and responsive, No focal deficits noted Abdomen: Soft, Non-Tender Skin: No rashes noted on visualized skin Musculoskeletal: No Chest Wall Tenderness Extremities: No Clubbing, No Cyanosis, No Edema, Normal Pulses - Patient Status Disposition: Home, Self-Care Condition: Good Functional capacity at discharge: independent ambulation Overall status at discharge: patient is progressing back to baseline - Discharge Instructions Follow Up With: Reynaldo Juarez Jr, MD [Primary Care Provider] - - Diet and Activity Activity: increase activity as tolerated Diet: advance to your usual diet - VTE Reasons for not Prescribing Prophylaxis: Not indicated-Anticoagulated or INR therapeutic
--- NOTE | 2018-01-31 11:00 | Electrocardiograph Report ---
[address] [place] [address] Test Date: 2018-01-29 Pat Name: Fay Aparicio Department: 111 Room: 2NE31 Gender: F Data Developer: : 1950 Requested By: Jon Pinedo Order Number: [id number] Reading MD: Danna Jerome Measurements Intervals [place] Rate: 68 P: 50 DE: 181 QRS: -47 QRSD: 155 T: 10 QT: 454 QTc: 472 Interpretive Statements SINUS RHYTHM LEFT AXIS DEVIATION RIGHT BUNDLE BRANCH BLOCK Electronically Signed On 01-31-2018 10:59:01 EDT by Danna Jerome
--- NOTE | 2018-02-01 16:49 | Electrocardiograph Report ---
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
== END 2018-01-29 14:44 | disposition home or self-care (01) | DRG 310 ==
LOC: 2NENU 09:46
PROVIDERS: ADMIT Internal Medicine Clinical Cardiac Electrophysiology; ATTEND Internal Medicine Clinical Cardiac Electrophysiology

== ENCOUNTER 2018-08-09 10:05 | Inpatient (IN) ==
--- NOTE | 2018-08-09 10:11 | Emergency Department Note ---
Disposition Clinical Impression: Right sided weakness, Numbness on right side, Hyperkalemia, Hyperglycemia, Bradycardia Altered mental status Qualifiers: Altered mental status type: unspecified Qualified Code(s): R41.82 - Altered mental status, unspecified Disposition: Admitted As Inpatient Condition: Serious General Adult HPI - General Stated complaint: stroke alert Time Seen by Provider: 08/09/18 10:06 - Related Data Home Medications Medication Instructions Recorded Confirmed Albuterol Sulfate [Proair Hfa] 2 puff IH Q4H PRN 03/04/16 05/25/18 Cyclobenzaprine [Flexeril] 10 mg PO TID 03/04/16 05/25/18 Pantoprazole Sodium [Protonix] 40 mg PO BID 03/04/16 05/25/18 Zolpidem [Ambien] 10 mg PO HS 03/04/16 05/25/18 Atorvastatin [Lipitor] 40 mg PO HS 07/25/16 05/25/18 Lisinopril [Zestril] 40 mg PO DAILY 07/25/16 05/25/18 Gabapentin [Neurontin] 300 mg PO BID 01/27/18 05/25/18 Glimepiride [Amaryl] 2 mg PO DAILY 01/27/18 05/25/18 hydroCHLOROthiazide 25 mg PO DAILY 01/27/18 05/25/18 [Hydrochlorothiazide] Amlodipine Besylate 10 mg PO DAILY 05/25/18 05/25/18 HYDROcodone/Acet 5/325 mg [[place] 1 tab PO Q4H PRN 05/25/18 05/25/18 5-325 mg] Magnesium Oxide [Magnesium] 400 mg PO BID 05/25/18 05/25/18 Metformin HCl [Glucophage Xr] 2 tab PO BID 05/25/18 05/25/18 Metoprolol Tartrate 100 mg PO BID 05/25/18 05/25/18 SUMAtriptan succinate [Imitrex] 50 mg PO DAILY PRN 05/25/18 05/25/18 Previous Rx's Medication Instructions Recorded Apixaban [Eliquis] 5 mg PO BID #60 tablet 07/27/16 Aspirin 81 mg PO DAILY #30 tab.chew 07/27/16 Propafenone [Rhythmol] 150 mg PO Q8HR #90 tablet 01/29/18 Allergies Allergy/AdvReac Type Severity Reaction Status Date / Time azithromycin Allergy Itching Verified 07/25/16 13:50 [From Zithromax Z-Michael] Past Medical History - Past Medical History Medical history: Reports: CVA, diabetes, fibromyalgia, GERD, hyperlipidemia, hypertension, TIA, other Surgical history: Reports: appendectomy, cholecystectomy, hysterectomy Psychiatric history: Reports: no psych history - Social History Smoking Status: Never smoker Smokeless Tobacco Status: No Alcohol use: Reports: none Drug use: Reports: none Course Vital Signs Temperature 98.0 F 08/09/18 10:14 Pulse Rate 33 08/09/18 10:14 Respiratory Rate 16 08/09/18 10:14 Blood Pressure 136/122 08/09/18 10:14 O2 Sat by Pulse Oximetry 100 08/09/18 10:14 Temperature 98.0 F 08/09/18 10:14 Pulse Rate 38 08/09/18 11:40 Respiratory Rate 30 08/09/18 11:40 Blood Pressure 119/78 08/09/18 11:40 O2 Sat by Pulse Oximetry 98 08/09/18 11:40 Oxygen Delivery Oxygen Delivery Room Air Procedures - Intubation Time out performed: Yes sedative: Ketamine paralytic: Rocuronium Laryngoscope: Cara Assist Device Used: Bougie ET Tube Size: 7.5 ET Tube Uncuffed: Yes Tube Secured Location: lips Tube Placement Confirmation: visualized tube passing through cords, equal breath sounds bilaterally, confirmation by capnometry Patient Tolerated Procedure: no complications Intubation Complications: difficult intubation, hypotension, hypoxia Medical Decision Making - Lab Data Result diagrams: 08/09/18 10:28 08/09/18 10:28 Lab Results 08/09/18 08/09/18 08/09/18 Range/Units 10:13 10:14 10:27 WBC (4.3-11.1) K/mcL RBC (3.82-4.97) M/mcL Hgb (11.5-15.4) g/dL Hct (35.3-44.9) % MCV (83.0-100.0) fL MCH (28.0-33.3) pg MCHC (31.6-35.5) g/dL RDW (11.5-14.5) % Plt Count (140-400) K/mcL MPV (9.4-12.4) fL Immature Gran % (0-4) % Seg Neutrophils % % Lymphocytes % % Monocytes % % Eosinophils % % Basophils % % Neutrophils # (1.6-8.9) K/mcL Lymphocytes # (0.6-4.6) K/mcL Monocytes # (0.0-1.3) K/mcL Eosinophils # (0.0-0.6) K/mcL Basophils # (0.0-0.2) K/mcL PT (9.4-12.1) Seconds INR APTT (26.0-36.0) Seconds VBG pH (7.32-7.42) pH Units VBG pCO2 (41-51) mmHg VBG pO2 (25-50) mmHg VBG HCO3 (21-27) mEq/L Sodium (136-145) mEq/L Potassium (3.5-5.1) mEq/L Chloride (98-107) mEq/L Carbon Dioxide (23-29) mEq/L BUN (8-23) mg/dL Creatinine (0.60-1.20) mg/dL Est GFR ( Amer) (> 60) Est GFR (Non-Af Amer) (> 60) BUN/Creatinine Ratio (6-26) Glucose (70-105) mg/dL POC Glucose 438 H* 486 H* (70-99) mg/dL Calculated Osmolality (280-300) Calcium (8.6-10.3) mg/dL Magnesium (1.6-2.6) mg/dL Total Bilirubin (0.3-1.0) mg/dL AST (13-39) Units/L ALT (7-52) Units/L Alkaline Phosphatase (34-104) Units/L Ammonia (16-53) mcmol/L Troponin I < 0.03 (< 0.04) ng/mL Serum Total Protein (6.4-8.9) g/dL Albumin (3.5-5.7) g/dL Globulin (2.4-3.5) g/dL Albumin/Globulin Ratio (1.1-2.2) TSH (0.340-5.600) mcIU/mL 08/09/18 08/09/18 08/09/18 Range/Units 10:28 10:28 10:28 WBC 10.5 (4.3-11.1) K/mcL RBC 4.09 (3.82-4.97) M/mcL Hgb 12.1 (11.5-15.4) g/dL Hct 39.2 (35.3-44.9) % MCV 95.8 (83.0-100.0) fL MCH 29.6 (28.0-33.3) pg MCHC 30.9 L (31.6-35.5) g/dL RDW 13.3 (11.5-14.5) % Plt Count 263 (140-400) K/mcL MPV 11.6 (9.4-12.4) fL Immature Gran % 0.6 (0-4) % Seg Neutrophils % 53.7 % Lymphocytes % 35.6 % Monocytes % 7.7 % Eosinophils % 1.9 % Basophils % 0.5 % Neutrophils # 5.7 (1.6-8.9) K/mcL Lymphocytes # 3.8 (0.6-4.6) K/mcL Monocytes # 0.8 (0.0-1.3) K/mcL Eosinophils # 0.2 (0.0-0.6) K/mcL Basophils # 0.1 (0.0-0.2) K/mcL PT (9.4-12.1) Seconds INR APTT (26.0-36.0) Seconds VBG pH (7.32-7.42) pH Units VBG pCO2 (41-51) mmHg VBG pO2 (25-50) mmHg VBG HCO3 (21-27) mEq/L Sodium 137 (136-145) mEq/L Potassium 5.3 H (3.5-5.1) mEq/L Chloride 99 (98-107) mEq/L Carbon Dioxide 20 L (23-29) mEq/L BUN 32 H (8-23) mg/dL Creatinine 1.17 (0.60-1.20) mg/dL Est GFR ( Amer) 56 L (> 60) Est GFR (Non-Af Amer) 46 L (> 60) BUN/Creatinine Ratio 27 H (6-26) Glucose 483 H (70-105) mg/dL POC Glucose (70-99) mg/dL Calculated Osmolality 312 H (280-300) Calcium 8.8 (8.6-10.3) mg/dL Magnesium 1.7 (1.6-2.6) mg/dL Total Bilirubin 0.4 (0.3-1.0) mg/dL AST 106 H (13-39) Units/L ALT 75 H (7-52) Units/L Alkaline Phosphatase 77 (34-104) Units/L Ammonia 39 (16-53) mcmol/L Troponin I (< 0.04) ng/mL Serum Total Protein 5.8 L (6.4-8.9) g/dL Albumin 3.7 (3.5-5.7) g/dL Globulin 2.1 L (2.4-3.5) g/dL Albumin/Globulin Ratio 1.8 (1.1-2.2) TSH 5.284 (0.340-5.600) mcIU/mL 08/09/18 08/09/18 Range/Units 10:28 10:48 WBC (4.3-11.1) K/mcL RBC (3.82-4.97) M/mcL Hgb (11.5-15.4) g/dL Hct (35.3-44.9) % MCV (83.0-100.0) fL MCH (28.0-33.3) pg MCHC (31.6-35.5) g/dL RDW (11.5-14.5) % Plt Count (140-400) K/mcL MPV (9.4-12.4) fL Immature Gran % (0-4) % Seg Neutrophils % % Lymphocytes % % Monocytes % % Eosinophils % % Basophils % % Neutrophils # (1.6-8.9) K/mcL Lymphocytes # (0.6-4.6) K/mcL Monocytes # (0.0-1.3) K/mcL Eosinophils # (0.0-0.6) K/mcL Basophils # (0.0-0.2) K/mcL PT 15.6 H (9.4-12.1) Seconds INR 1.4 APTT 34.6 (26.0-36.0) Seconds VBG pH 7.31 L (7.32-7.42) pH Units VBG pCO2 37 L (41-51) mmHg VBG pO2 151 H (25-50) mmHg VBG HCO3 19 L (21-27) mEq/L Sodium (136-145) mEq/L Potassium (3.5-5.1) mEq/L Chloride (98-107) mEq/L Carbon Dioxide (23-29) mEq/L BUN (8-23) mg/dL Creatinine (0.60-1.20) mg/dL Est GFR ( Amer) (> 60) Est GFR (Non-Af Amer) (> 60) BUN/Creatinine Ratio (6-26) Glucose (70-105) mg/dL POC Glucose (70-99) mg/dL Calculated Osmolality (280-300) Calcium (8.6-10.3) mg/dL Magnesium (1.6-2.6) mg/dL Total Bilirubin (0.3-1.0) mg/dL AST (13-39) Units/L ALT (7-52) Units/L Alkaline Phosphatase (34-104) Units/L Ammonia (16-53) mcmol/L Troponin I (< 0.04) ng/mL Serum Total Protein (6.4-8.9) g/dL Albumin (3.5-5.7) g/dL Globulin (2.4-3.5) g/dL Albumin/Globulin Ratio (1.1-2.2) TSH (0.340-5.600) mcIU/mL Critical Care Time Critical Care Time: Yes Total Critical Care Time: 120 Attestation: The high probability of a clinically significant, sudden or life threatening deterioration of the [] system(s) required my full and direct attention, inte rvention and personal management. The aggregate critical care time was [] minutes. This time is in addition to time spent performing reported procedures but includes the following: [] Data Review and interpretation [] Patient assessment and monitoring of vital signs [] Documentation [] Medication orders and management Attestation Statement - Attestation Attestation: I examined this patient and my medical decision-making was reviewed with the Resident Physician. I agree with the documented findings, disposition and treatment plan as described except to the extent set forth below. [id number] time provided Patient arrives by EMS from home to trauma room 2 for evaluation of altered mental status The patient is alert, lucid, and answers questions appropriate. Please refer to the resident physician's detailed neurologic exam and NIH score. A stroke alert was activated given her symptoms of headache and a drift involving her RLE. I attest to personally supervising the resident physician's interpretation ECG 12:00: The patient had a poor response in terms of her heart rate to atropine. She was given calcium chloride prior to our knowledge of her serum potassium level. She is alert and lucid but keeps attempting to try to crawl out of bed. We did give her 2 separate doses of Ativan but this was essentially ineffective. I am concerned about her ongoing course of care, her fall risk. It was mutually decided to endotracheally intubate the patient for facilitation of ongoing care. The resident physician spoke with the admitting hospitalist and the on-call director of residential services. The director of residential services Dr. Taylor recommended IV dopamine 13:00: Patient was given ketamine to facilitate intubation. She became apneic and even more bradycardic. She was endotracheally intubated by me. See procedure note. Dr. Taylor called to the bedside. He has elected to take the patient to the catheterization laboratory for possible placement of a pacemaker. She did require IV dopamine and IV epinephrine for blood pressure and pulse management
[2018-08-09] MEDS ORDERED: 0.9 % Sodium Chloride 1,000 ML IVC ONE ×2 (10:13→18:25)
[2018-08-09] MEDS ORDERED: Naloxone 0.4 MG/ML INJ IVP ONE (10:13)
--- NOTE | 2018-08-09 10:13 | Emergency Department Note ---
Disposition Clinical Impression: Right sided weakness, Numbness on right side, Hyperkalemia, Hyperglycemia, Bradycardia, Cardiopulmonary arrest Altered mental status Qualifiers: Altered mental status type: unspecified Qualified Code(s): R41.82 - Altered mental status, unspecified Disposition: Admitted As Inpatient Condition: Serious Time of Disposition: 11:52 Neuro HPI - General Chief Complaint: ED Neuro Symptoms/Deficit Stated Complaint: stroke alert Time Seen by Provider: 08/09/18 10:06 Source: patient, EMS Mode of arrival: EMS Limitations: no limitations Nursing Notes Reviewed: Yes Vital Signs Reviewed: Yes - History of Present Illness HPI Narrative: Patient is a 67-year-old female with past medical history of hypertension, hyperlipidemia, A. fib and currently takes metoprolol and Eliquis, previous CVA, diabetes. She presents today via EMS due to concern for multiple complaints. She states that she woke up around 6 AM and was feeling unwell. Around 7 AM, she started having increased weakness in the right upper extremity and really extremity, numbness in the right face and right upper extremity. She has residual right upper and right lower extremity weakness from a previous stroke but she states that it feels worse and then before. She also states that the decreased sensation is worse than before. She denies any other new numbness, tingling, weakness. She does state that she had a headache around the same time as his onset. She also has felt short of breath for the past 2 weeks. Denies any fevers, productive cough. Denies any other chest pain, nausea, vomiting, diarrhea, abdominal pain, dysuria, hematuria. - Related Data Home Medications: Home Medications Medication Instructions Recorded Confirmed Albuterol Sulfate [Proair Hfa] 2 puff IH Q4H PRN 03/04/16 05/25/18 Cyclobenzaprine [Flexeril] 10 mg PO TID 03/04/16 05/25/18 Pantoprazole Sodium [Protonix] 40 mg PO BID 03/04/16 05/25/18 Zolpidem [Ambien] 10 mg PO HS 03/04/16 05/25/18 Atorvastatin [Lipitor] 40 mg PO HS 07/25/16 05/25/18 Lisinopril [Zestril] 40 mg PO DAILY 07/25/16 05/25/18 Gabapentin [Neurontin] 300 mg PO BID 01/27/18 05/25/18 Glimepiride [Amaryl] 2 mg PO DAILY 01/27/18 05/25/18 hydroCHLOROthiazide 25 mg PO DAILY 01/27/18 05/25/18 [Hydrochlorothiazide] Amlodipine Besylate 10 mg PO DAILY 05/25/18 05/25/18 HYDROcodone/Acet 5/325 mg [Galloway 1 tab PO Q4H PRN 05/25/18 05/25/18 5-325 mg] Magnesium Oxide [Magnesium] 400 mg PO BID 05/25/18 05/25/18 Metformin HCl [Glucophage Xr] 2 tab PO BID 05/25/18 05/25/18 Metoprolol Tartrate 100 mg PO BID 05/25/18 05/25/18 SUMAtriptan succinate [Imitrex] 50 mg PO DAILY PRN 05/25/18 05/25/18 Previous Rx's Medication Instructions Recorded Apixaban [Eliquis] 5 mg PO BID #60 tablet 07/27/16 Aspirin 81 mg PO DAILY #30 tab.chew 07/27/16 Propafenone [Rhythmol] 150 mg PO Q8HR #90 tablet 01/29/18 Allergies/Adverse Reactions: Allergies Allergy/AdvReac Type Severity Reaction Status Date / Time azithromycin Allergy Itching Verified 07/25/16 13:50 [From Zithromax Z-Michael] All systems ED: reviewed and negative except as stated. Constitutional: Denies: fever Cardiovascular: Denies: chest pain Respiratory: Reports: dyspnea. Denies: cough Gastrointestinal: Denies: abdominal pain, nausea, vomiting, diarrhea Neurological: Reports: headache, weakness, numbness, confusion Past Medical History - Past Medical History Attestation: Yes The following information was validated with the patient. Source: patient Medical history: Reports: CVA, diabetes, fibromyalgia, GERD, hyperlipidemia, hypertension, TIA, other Surgical history: Reports: appendectomy, cholecystectomy, hysterectomy Psychiatric history: Reports: no psych history - Social History Smoking Status: Never smoker Smokeless Tobacco Status: No Alcohol use: Reports: none Drug use: Reports: none Physical Exam - General Limitations: no limitations General appearance: alert, other (mildly listless) - Head Head exam: atraumatic, normocephalic, normal inspection - Eye Eye exam: Present: PERRL, EOMI, other (pinpoint pupils) - ENT ENT exam: normal oropharynx, mucous membranes dry - Neck Neck exam: Present: normal inspection, full ROM, trachea midline - Chest Chest inspection: Present: normal inspection, symmetric chest wall rise - Respiratory Respiratory exam: Present: normal lung sounds bilaterally. Absent: respiratory distress, wheezes, stridor, accessory muscle use - Cardiovascular Cardiovascular exam: Present: normal rhythm, bradycardia, normal heart sounds - Abdominal Exam Abdominal exam: Present: soft, Non-Tender. Absent: tenderness, distention, guarding, rebound, rigidity - Extremities Exam Extremities exam: Present: full ROM. Absent: tenderness, pedal edema - Neurological Exam Neurological exam: Present: oriented X3 - Expanded Neurological Exam Patient oriented to: Present: person, place, time Speech: Present: fluid speech Cranial nerves: EOM function (II, III, IV, ): Normal, facial sensation (V): Abnormal Right (entire right face decreased), spinal accessory function (XI): Normal, tongue deviation (XII): Normal Motor strength - LUE: 5/5 Motor strength - RUE: 4/5 (chronic per patient) Motor strength - LLE: 5/5 Motor strength - RLE: 3/5 (new/worsened per patient) Sensory exam upper extremity: light touch: Abnormal Right Sensory exam lower extremity: light touch: Normal Coma Scale Eye Opening: Spontaneous Coma Scale Motor Response: Obeys Commands Coma Scale Verbal Response: Oriented Coma Scale Total: 15 - Psychiatric Psychiatric exam: Present: normal affect, normal mood - Skin Skin exam: Present: warm, dry, intact, normal color Course Course Narrative: Patient had an NIH of 3 on initial presentation due to drift of the right lower 70 to the bed and decreased sensation on the right entire face and right upper extremity. Stroke alert was called. She was also noted to have a heart rate in the 30s on presentation the blood pressure was stable. She does state that she takes Rythmol and metoprolol. We will go ahead and place on pads and work on ordering calcium gluconate, atropine, insulin. 10:33 Patient has not gone to CT yet as she is bradycardic in th 30s. Her blood pressure is normal 120s systolic. Symptomatically unchanged at this time. Patient will receive atropine 1mg, calcium gluconate 2 g, insulin 10 units. She is on beta alton. This may be related to beta alton overdose or could be her usual resting heart rate since blood pressure stable. She has not went for head CT at this time, this will account for the delay in the CT results. 10:[address] scanning. Her heart rate was in the 30s. She was given an additional dose of atropine 1 mg. Heart rate went up to 40s. Blood pressure had one dip to the upper 90s systolic but is now back to 140 systolic. Patient states that she feels generally weak but no increase or change in her symptoms. Calcium 2 g is infusing. Holding insulin until he get potassium results back. Lab was called. BMP CT a is about 15 minutes. No evidence of any U waves or peaked T waves on EKG. 10:[address] is negative. [facility] neurology has been paged to finish stroke alert. I also talked with [facility] dumont who is working with Dr. Taylor who is currently performing a heart catheterization. Discussed the patient's heart rate in the 30s, no response to atropine, calcium infusing, current blood pressures. This information will be related to Dr. Taylor and then he is expected to call me back once his procedures performed. Patient remains stable at this time. She also received narcan and is more alert at this time after Narcan. 10:[address] Singh with [facility]. We went through an age scale, presenting symptoms, current vitals. Also discussed current cardiac issue. She stated that since patient is on anticoagulant, she is not a candidate for TPA. She also states that since her NIH score is 3, she says that this is low and the patient is not a good candidate for thrombectomy at this time. She is comfortable with the patient staying here for further workup. Stroke alert has been canceled at this time. Patient was reevaluated at this time. She is anxious and has requested something for anxiety. Ativan 0.5 mg has been ordered. Pressure is still stable at this time. Still waiting game attendant to call me back. Still waiting lab results for potassium level as well. 11:45 potassium around 5. Gap of 18. She was given insulin. Troponin negative. Head CT negative. Stroke alert has been canceled. She will require further stroke workup, recommend MR head and neck for further evaluation. I also talked with Dr. Taylor about bradycardia but stable blood pressure. He recommended that we start dopamine 10mg and then wait an hour. At one hour point, recheck heart rate and blood pressure. If her heart rate and blood pressure does not improve, he will take the patient to the [facility] and do a temporary pacer. Patient has been accepted by Dr. Sow at this time to the ICU for one-on-one management. All this information has been discussed with the hospitalist and information about [facility] and plan with dopamine will be relayed. 12:18 patient became increasingly agitated, would not stay in bed. She is on Eliquis and there was fear for follow-up. She is certainly confused. Blood pressure became 90 systolic. We talked with family that was in the room about intubation due to current mental status and concern for falling out of bed, concern for disruption of treatment. Family was on board and agreeable with this plan. We gave ketamine as an induction agent, after this her heart rate went down to the 20s from 30s. Blood pressure decreased as well. She did have a brief loss of pulse and CPR was started. Patient was intubated. Please see procedure note for details. CPR was started at 1212, she was given one epinephrine at 12:15 and regain pulses at 12:15. Dr. Taylor, game attendant arrived at bedside shortly after code and discussed taking the patient to the [facility] for pacer placement. He also requested to give glucagon at this time. Family was agreeable with this plan of action. He states that he will place a Cordis in the [facility]. Dopamine was increased throughout the rest of her stay and epinephrine drip was started in addition to this as well, blood pressure was 80 systolic prior to going to [facility]. 13:09 Going to collaborating supervising physician. Heart rate in the 60s, blood pressure systolic 80s. Vital Signs Temperature 98.0 F 08/09/18 10:14 Pulse Rate 33 08/09/18 10:14 Respiratory Rate 16 08/09/18 10:14 Blood Pressure 136/122 08/09/18 10:14 O2 Sat by Pulse Oximetry 100 08/09/18 10:14 Temperature 98.0 F 08/09/18 10:14 Pulse Rate 38 08/09/18 11:40 Respiratory Rate 30 08/09/18 11:40 Blood Pressure 119/78 08/09/18 11:40 O2 Sat by Pulse Oximetry 98 08/09/18 11:40 Oxygen Delivery Oxygen Delivery Room Air Procedures - Intubation Time out performed: Yes sedative: Ketamine Mg Given: 300 Laryngoscope: fiber optic video scope Assist Device Used: other (fiber optic and bougie) ET Tube Size: 7.5 ET Tube Uncuffed: Yes Tube Placement Confirmation: visualized tube passing through cords, equal breath sounds bilaterally, no breath sounds over epigastrium, confirmation by capnometry Patient Tolerated Procedure: other Additional Comments: Attempted intubation with fiberoptic scope I was unable to pass the 7.[address] Anders used direct approach with a Mac 4 and a bougie and was able to pass 2. Post film chest x-ray shows right mainstem, she was about 2 cm. Patient has good breath sounds, color change, she is satting in the upper 90s. Neuro Symptoms/Deficit - MDM Narrative Medical decision making narrative: Patient had an NIH of 3 on initial presentation due to drift of the right lower 70 to the bed and decreased sensation on the right entire face and right upper extremity. Stroke alert was called. She was also noted to have a heart rate in the 30s on presentation the blood pressure was stable. She does state that she takes Rythmol and metoprolol. We will go ahead and place on pads and work on ordering calcium gluconate, atropine, insulin. 10:33 Patient has not gone to CT yet as she is bradycardic in th 30s. Her blood pressure is normal 120s systolic. Symptomatically unchanged at this time. Patient will receive atropine 1mg, calcium gluconate 2 g, insulin 10 units. She is on beta alton. This may be related to beta alton overdose or could be her usual resting heart rate since blood pressure stable. She has not went for head CT at this time, this will account for the delay in the CT results. 10:[address] scanning. Her heart rate was in the 30s. She was given an additional dose of atropine 1 mg. Heart rate went up to 40s. Blood pressure had one dip to the upper 90s systolic but is now back to 140 systolic. Patient states that she feels generally weak but no increase or change in her symptoms. Calcium 2 g is infusing. Holding insulin until he get potassium results back. Lab was called. BMP CT a is about 15 minutes. No evidence of any U waves or peaked T waves on EKG. 10:[address] is negative. [facility] neurology has been paged to finish stroke alert. I also talked with [facility] who is working with Dr. Taylor who is currently performing a heart catheterization. Discussed the patient's heart rate in the 30s, no response to atropine, calcium infusing, current blood pressures. This information will be related to Dr. Taylor and then he is expected to call me back once his procedures performed. Patient remains stable at this time. She also received narcan and is more alert at this time after Narcan. 10:[address] Singh with [facility]. We went through an age scale, presenting symptoms, current vitals. Also discussed current cardiac issue. She stated that since patient is on anticoagulant, she is not a candidate for TPA. She also states that since her NIH score is 3, she says that this is low and the patient is not a good candidate for thrombectomy at this time. She is comfortable with the patient staying here for further workup. Stroke alert has been canceled at this time. Patient was reevaluated at this time. She is anxious and has requested something for anxiety. Ativan 0.5 mg has been ordered. Pressure is still stable at this time. Still waiting game attendant to call me back. Still waiting lab results for potassium level as well. 11:45 potassium around 5. Gap of 18. She was given insulin. Troponin negative. Head CT negative. Stroke alert has been canceled. She will require further stroke workup, recommend MR head and neck for further evaluation. I also talked with Dr. Taylor about bradycardia but stable blood pressure. He recommended that we start dopamine 10mg and then wait an hour. At one hour point, recheck heart rate and blood pressure. If her heart rate and blood pressure does not improve, he will take the patient to the [facility] and do a temporary pacer. Patient has been accepted by Dr. Sow at this time to the ICU for one-on-one management. All this information has been discussed with the hospitalist and information about [facility] and plan with dopamine will be relayed. 12:18 patient became increasingly agitated, would not stay in bed. She is on Eliquis and there was fear for follow-up. She is certainly confused. Blood pressure became 90 systolic. We talked with family that was in the room about intubation due to current mental status and concern for falling out of bed, concern for disruption of treatment. Family was on board and agreeable with this plan. We gave ketamine as an induction agent, after this her heart rate went down to the 20s from 30s. Blood pressure decreased as well. She did have a brief loss of pulse and CPR was started. Patient was intubated. Please see procedure note for details. CPR was started at 1212, she was given one epinephrine at 12:15 and regain pulses at 12:15. Dr. Taylor, game attendant arrived at bedside shortly after code and discussed taking the patient to the [facility] for pacer placement. He also requested to give glucagon at this time. Family was agreeable with this plan of action. He states that he will place a Cordis in the [facility]. Dopamine was increased throughout the rest of her stay and epinephrine drip was started in addition to this as well, blood pressure was 80 systolic prior to going to [facility]. 13:09 Going to collaborating supervising physician. Heart rate in the 60s, blood pressure systolic 80s. - Medical Records Medical records reviewed: Yes I reviewed the patient's medical records. - Lab Data Lab results reviewed: Yes I reviewed the patient's lab results. Result diagrams: 08/09/18 10:28 08/09/18 10:28 Lab Results 08/09/18 08/09/18 08/09/18 Range/Units 10:13 10:14 10:27 WBC (4.3-11.1) K/mcL RBC (3.82-4.97) M/mcL Hgb (11.5-15.4) g/dL Hct (35.3-44.9) % MCV (83.0-100.0) fL MCH (28.0-33.3) pg MCHC (31.6-35.5) g/dL RDW (11.5-14.5) % Plt Count (140-400) K/mcL MPV (9.4-12.4) fL Immature Gran % (0-4) % Seg Neutrophils % % Lymphocytes % % Monocytes % % Eosinophils % % Basophils % % Neutrophils # (1.6-8.9) K/mcL Lymphocytes # (0.6-4.6) K/mcL Monocytes # (0.0-1.3) K/mcL Eosinophils # (0.0-0.6) K/mcL Basophils # (0.0-0.2) K/mcL PT (9.4-12.1) Seconds INR APTT (26.0-36.0) Seconds VBG pH (7.32-7.42) pH Units VBG pCO2 (41-51) mmHg VBG pO2 (25-50) mmHg VBG HCO3 (21-27) mEq/L Sodium (136-145) mEq/L Potassium (3.5-5.1) mEq/L Chloride (98-107) mEq/L Carbon Dioxide (23-29) mEq/L BUN (8-23) mg/dL Creatinine (0.60-1.20) mg/dL Est GFR ( Amer) (> 60) Est GFR (Non-Af Amer) (> 60) BUN/Creatinine Ratio (6-26) Glucose (70-105) mg/dL POC Glucose 438 H* 486 H* (70-99) mg/dL Calculated Osmolality (280-300) Calcium (8.6-10.3) mg/dL Magnesium (1.6-2.6) mg/dL Total Bilirubin (0.3-1.0) mg/dL AST (13-39) Units/L ALT (7-52) Units/L Alkaline Phosphatase (34-104) Units/L Ammonia (16-53) mcmol/L Troponin I < 0.03 (< 0.04) ng/mL Serum Total Protein (6.4-8.9) g/dL Albumin (3.5-5.7) g/dL Globulin (2.4-3.5) g/dL Albumin/Globulin Ratio (1.1-2.2) Beta-Hydroxybutyric Acd (0.02-0.27) mmol/L TSH (0.340-5.600) mcIU/mL 08/09/18 08/09/18 08/09/18 Range/Units 10:28 10:28 10:28 WBC 10.5 (4.3-11.1) K/mcL RBC 4.09 (3.82-4.97) M/mcL Hgb 12.1 (11.5-15.4) g/dL Hct 39.2 (35.3-44.9) % MCV 95.8 (83.0-100.0) fL MCH 29.6 (28.0-33.3) pg MCHC 30.9 L (31.6-35.5) g/dL RDW 13.3 (11.5-14.5) % Plt Count 263 (140-400) K/mcL MPV 11.6 (9.4-12.4) fL Immature Gran % 0.6 (0-4) % Seg Neutrophils % 53.7 % Lymphocytes % 35.6 % Monocytes % 7.7 % Eosinophils % 1.9 % Basophils % 0.5 % Neutrophils # 5.7 (1.6-8.9) K/mcL Lymphocytes # 3.8 (0.6-4.6) K/mcL Monocytes # 0.8 (0.0-1.3) K/mcL Eosinophils # 0.2 (0.0-0.6) K/mcL Basophils # 0.1 (0.0-0.2) K/mcL PT (9.4-12.1) Seconds INR APTT (26.0-36.0) Seconds VBG pH (7.32-7.42) pH Units VBG pCO2 (41-51) mmHg VBG pO2 (25-50) mmHg VBG HCO3 (21-27) mEq/L Sodium 137 (136-145) mEq/L Potassium 5.3 H (3.5-5.1) mEq/L Chloride 99 (98-107) mEq/L Carbon Dioxide 20 L (23-29) mEq/L BUN 32 H (8-23) mg/dL Creatinine 1.17 (0.60-1.20) mg/dL Est GFR ( Amer) 56 L (> 60) Est GFR (Non-Af Amer) 46 L (> 60) BUN/Creatinine Ratio 27 H (6-26) Glucose 483 H (70-105) mg/dL POC Glucose (70-99) mg/dL Calculated Osmolality 312 H (280-300) Calcium 8.8 (8.6-10.3) mg/dL Magnesium 1.7 (1.6-2.6) mg/dL Total Bilirubin 0.4 (0.3-1.0) mg/dL AST 106 H (13-39) Units/L ALT 75 H (7-52) Units/L Alkaline Phosphatase 77 (34-104) Units/L Ammonia 39 (16-53) mcmol/L Troponin I (< 0.04) ng/mL Serum Total Protein 5.8 L (6.4-8.9) g/dL Albumin 3.7 (3.5-5.7) g/dL Globulin 2.1 L (2.4-3.5) g/dL Albumin/Globulin Ratio 1.8 (1.1-2.2) Beta-Hydroxybutyric Acd (0.02-0.27) mmol/L TSH 5.284 (0.340-5.600) mcIU/mL 08/09/18 08/09/18 08/09/18 Range/Units 10:28 10:28 10:48 WBC (4.3-11.1) K/mcL RBC (3.82-4.97) M/mcL Hgb (11.5-15.4) g/dL Hct (35.3-44.9) % MCV (83.0-100.0) fL MCH (28.0-33.3) pg MCHC (31.6-35.5) g/dL RDW (11.5-14.5) % Plt Count (140-400) K/mcL MPV (9.4-12.4) fL Immature Gran % (0-4) % Seg Neutrophils % % Lymphocytes % % Monocytes % % Eosinophils % % Basophils % % Neutrophils # (1.6-8.9) K/mcL Lymphocytes # (0.6-4.6) K/mcL Monocytes # (0.0-1.3) K/mcL Eosinophils # (0.0-0.6) K/mcL Basophils # (0.0-0.2) K/mcL PT 15.6 H (9.4-12.1) Seconds INR 1.4 APTT 34.6 (26.0-36.0) Seconds VBG pH 7.31 L (7.32-7.42) pH Units VBG pCO2 37 L (41-51) mmHg VBG pO2 151 H (25-50) mmHg VBG HCO3 19 L (21-27) mEq/L Sodium (136-145) mEq/L Potassium (3.5-5.1) mEq/L Chloride (98-107) mEq/L Carbon Dioxide (23-29) mEq/L BUN (8-23) mg/dL Creatinine (0.60-1.20) mg/dL Est GFR ( Amer) (> 60) Est GFR (Non-Af Amer) (> 60) BUN/Creatinine Ratio (6-26) Glucose (70-105) mg/dL POC Glucose (70-99) mg/dL Calculated Osmolality (280-300) Calcium (8.6-10.3) mg/dL Magnesium (1.6-2.6) mg/dL Total Bilirubin (0.3-1.0) mg/dL AST (13-39) Units/L ALT (7-52) Units/L Alkaline Phosphatase (34-104) Units/L Ammonia (16-53) mcmol/L Troponin I (< 0.04) ng/mL Serum Total Protein (6.4-8.9) g/dL Albumin (3.5-5.7) g/dL Globulin (2.4-3.5) g/dL Albumin/Globulin Ratio (1.1-2.2) Beta-Hydroxybutyric Acd 0.59 H (0.02-0.27) mmol/L TSH (0.340-5.600) mcIU/mL - Radiology Data Radiology results reviewed: Yes I reviewed the patient's radiology results. Head CT 08/09/18 10:11 IMPRESSION: No acute intracranial abnormality. Nonspecific white matter disease, likely due to chronic small vessel ischemia. This report was discussed with Dr. Anders at 10:48 a.m. on 08/09/2018. D/ / 08/09/2018 10:50:18 Reymundo Hunt MD / alfredo Interpreting Provider: Reymundo Hunt MD - EKG Data EKG attestation: Yes I reviewed and interpreted this EKG. EKG results narrative: EKG #1. 08/09/2018 at 10:17. Possible junctional rhythm. Heart rate 34. QRS 191. QTC 480. No acute ST elevation or depression. No acute T waves, no U waves. NIH Stroke Scale - Level of Consciousness LOC: Alert - LOC Questions LOC Questions: Answers both correctly - LOC Commands LOC Commands: Performs both correctly - Best Gaze Best Gaze: Normal - Visual Visual: No visual loss - Facial Palsy Facial Palsy: Normal - Motor Arms Motor Arm-Left: No drift for 10 seconds Motor Arm-Right: No drift for 10 seconds - Motor Legs Motor Leg-Left: No drift for 5 seconds Motor Leg-Right: Some effort against gravity, limb drifts to bed - Limb Ataxia Limb Ataxia: Absent of affected limb too weak to perform exam - Sensory Sensory: Mild to moderate loss, "not as sharp" (right face, right UE) - Best Language Best Language: No aphasia - Dysarthria Dysarthria: Normal - Extinction and Inattention Extinction and Inattention: Normal - NIHSS Total Score NIHSS Total Score: 3 TPA Checklist - LKW: 3-4.5 hrs Add. Warnings/Precautions Patient/family understanding: The patient/family members have been counseled and understood the risk, benefit, and alternatives of treatment. S.B.A.R. - S.B.A.R. Situation: Demographics, MOA Background: Presenting Complaint, Relevant PMH, Meds, & Allergies Assessment: Vital Signs, Course and respsone to treatment, Exam Concerns, Patient/Family Expectation, Pertinant Lab Results Recommendation: Barrier(s) to disposition, Recommendation based on pending st udies, treatments, or consults S.B.A.R. Report Given to: Dr. Sow
[2018-08-09] MEDS ORDERED: Calcium Gluconate 2,000 MG in 0.9 % Sodium Chloride 100 ML IVPB ONE (10:19)
[2018-08-09] MEDS ORDERED: *HR* Atropine Sulfate 1 MG/10 ML SYRINGE ONE ×3 (10:23→12:11)
[2018-08-09] MEDS ORDERED: *HR* Atropine Sulfate 1 MG/10 ML SYRINGE IVP ONE ×2 (10:23→11:04)
[2018-08-09] MEDS ORDERED: Insulin Human Regular 10 UNIT in 0.9 % Sodium Chloride 10 ML IV ONE (10:25)
[2018-08-09 10:49] LABS: Basophils # 0.1 K/mcL (0.0-0.2); Basophils % 0.5 %; Eosinophils # 0.2 K/mcL (0.0-0.6); Eosinophils % 1.9 %; Hematocrit 39.2 % (35.3-44.9); Hemoglobin 12.1 g/dL (11.5-15.4); Immature Granulocytes % 0.6 % (0-4); Lymphocytes # 3.8 K/mcL (0.6-4.6); Lymphocytes % 35.6 %; Mean Corpuscular HGB Conc 30.9 g/dL (31.6-35.5); Mean Corpuscular Hemoglobin 29.6 pg (28.0-33.3); Mean Corpuscular Volume 95.8 fL (83.0-100.0); Mean Platelet Volume 11.6 fL (9.4-12.4); Monocytes # 0.8 K/mcL (0.0-1.3); Monocytes % 7.7 %; Neutrophils # 5.7 K/mcL (1.6-8.9); Platelet Count 263 K/mcL (140-400); Red Blood Count 4.09 M/mcL (3.82-4.97); Red Cell Distribution Width 13.3 % (11.5-14.5); Segmented Neutrophils % 53.7 %
[2018-08-09 10:53] LABS: VBG HCO3 19 mEq/L (21-27); VBG PCO2 37 mmHg (41-51); VBG PH 7.31 pH Units (7.32-7.42); VBG PO2 151 mmHg (25-50)
[2018-08-09 10:56] LABS: INR 1.4; Prothrombin Time 15.6 Seconds (9.4-12.1)
[2018-08-09] MEDS ORDERED: *HR* LORazepam 2 MG/ML VIAL ONE (10:58)
[2018-08-09 10:59] LABS: Activated Partial Thrombo Time 34.6 Seconds (26.0-36.0)
[2018-08-09] MEDS: *HR* LORazepam 2 MG/ML VIAL IVP ONE ×2 (11:00→11:14)
[2018-08-09 11:07] LABS: Albumin 3.7 g/dL (3.5-5.7); Albumin/Globulin Ratio 1.8 (1.1-2.2); Bilirubin,Total 0.4 mg/dL (0.3-1.0); Calcium 8.8 mg/dL (8.6-10.3); Globulin 2.1 g/dL (2.4-3.5); Magnesium 1.7 mg/dL (1.6-2.6); Potassium 5.3 mEq/L (3.5-5.1); Total Protein 5.8 g/dL (6.4-8.9)
[2018-08-09 11:20] LABS: Thyroid Stimulating Hormone 5.284 mcIU/mL (0.340-5.600)
[2018-08-09] MEDS ORDERED: *HR* LORazepam 2 MG/ML VIAL IVP ONE (11:33)
[2018-08-09] MEDS ORDERED: traMADol 50 MG TABLET PO PRN ×2 (11:39)
[2018-08-09] MEDS ORDERED: Naloxone 0.4 MG/ML INJ IVP PRN (11:39)
[2018-08-09] MEDS ORDERED: *HR* Dextrose 50 % in Water (Syg) 50 ML SYRINGE IVP PRN ×2 (11:42→20:43)
[2018-08-09] MEDS ORDERED: D5% in Water 1,000 ML IVC PRN (11:42)
[2018-08-09] MEDS ORDERED: Dextrose Gel 15 GM/37.5 ML TUBE PO PRN ×2 (11:42)
[2018-08-09] MEDS ORDERED: Insulin LISPRO 300 UNITS/3 ML VIAL SQ SCH ×4 (12:00→17:04)
[2018-08-09] MEDS ORDERED: 0.9 % Sodium Chloride 1,000 ML IVC SCH (12:00)
[2018-08-09] MEDS ORDERED: *HR* Ketamine 500 MG/5 ML MDV IVP ONE (12:02)
[2018-08-09] MEDS ORDERED: *HR* Rocuronium Bromide 50 MG/5 ML VIAL IVP ONE (12:02)
[2018-08-09] MEDS ORDERED: *HR* Ketamine 500 MG/5 ML MDV ONE (12:05)
--- NOTE | 2018-08-09 12:45 | Internal Med History&Physical ---
Date of Encounter: 08/09/18 Time of Encounter: 12:43 Internal Medicine - H&P: HPI Chief complaint: right sided weakness Admitted From: Home Plans for Post Hospital Care: Home History of present illness: Ms. Aparicio is a 67 year old female PMH of A.fib, CVA, HTN and Diabetes. Information obtained for ED records, patient intubated during my evaluation and no family member in the room. Per ED record patient presented to the ED due to increased weakness in the right upper extremity and really extremity, numbness in the right face and right upper extremity. IN the ED patient was found to be confused and bradycardic with the HR in the low 30s. Due to agitation, AMS and a concern for possible aspiration, the ED Doctor discussed with the family about intubating the patient. Patient was successfully intubated in the ED. Past Med Surg Social Fam HX - Past Medical History Medical history: CVA, diabetes, fibromyalgia, GERD, hyperlipidemia, hypertension, TIA, other Additional medical history: fibromyalgia Psychiatric history: no psych history - Past Surgical History Surgical History: appendectomy, cholecystectomy, hysterectomy Additional surgical history: loop recorder - Social History Smoking Status: Never smoker Smokeless Tobacco Status: No Alcohol use: none Drug use: none - Family History Father Hx Family Cardiac Disorders: Yes ([place]) Hx Family Endocrine Disorder: Yes (DM) Mother Hx Family Endocrine Disorder: Yes (DM) Hx Family Neurologic Disorders: Yes (CVA) Internal Medicine - H&P: Meds Albuterol Sulfate [Proair Hfa] 2 puff IH Q4H PRN 03/04/16 [History] Cyclobenzaprine [Flexeril] 10 mg PO TID 03/04/16 [History] Pantoprazole Sodium [Protonix] 40 mg PO BID 03/04/16 [History] Zolpidem [Ambien] 10 mg PO HS 03/04/16 [History] Atorvastatin [Lipitor] 40 mg PO HS 07/25/16 [History] Lisinopril [Zestril] 40 mg PO DAILY 07/25/16 [History] Apixaban [Eliquis] 5 mg PO BID #60 tablet 07/27/16 [Rx] Aspirin 81 mg PO DAILY #30 tab.chew 07/27/16 [Rx] Gabapentin [Neurontin] 300 mg PO BID 01/27/18 [History] Glimepiride [Amaryl] 2 mg PO DAILY 01/27/18 [History] hydroCHLOROthiazide [Hydrochlorothiazide] 25 mg PO DAILY 01/27/18 [History] Propafenone [Rhythmol] 150 mg PO Q8HR #90 tablet 01/29/18 [Rx] Amlodipine Besylate 10 mg PO DAILY 05/25/18 [History] HYDROcodone/Acet 5/325 mg [[place] 5-325 mg] 1 tab PO Q4H PRN 05/25/18 [History] Magnesium Oxide [Magnesium] 400 mg PO BID 05/25/18 [History] Metformin HCl [Glucophage Xr] 2 tab PO BID 05/25/18 [History] Metoprolol Tartrate 100 mg PO BID 05/25/18 [History] SUMAtriptan succinate [Imitrex] 50 mg PO DAILY PRN 05/25/18 [History] Allergy/AdvReac Type Severity Reaction Status Date / Time azithromycin Allergy Itching Verified 07/25/16 13:50 [From Zithromax Z-Michael] ROS unobtainable: due to mental status (patient sedated and intubated) All Systems PM: A 10-system review of systems was performed and is negative for pertinent findings except as documented above in the HPI. - Constitutional Vitals: Temp Pulse Resp BP Pulse Ox 98.0 F 38 30 119/78 98 08/09/18 10:14 08/09/18 11:40 08/09/18 11:40 08/09/18 11:40 08/09/18 11:40 Exam: Vitals: Reviewed General: Morbidly obese, intubated and sedated. Skin: Normal color, no rash, no lesions. HEENT: EOM, pupils equal, round and reactive. Cardiovascular: Irregularly irregular, normal S1 & S2, no rubs, murmurs or gallops. Lungs: CTA and good air entry b/l, no wheezes or crackles. Abdomen: Obese, soft, non-tender, no rigidity. Extremities: No edema Neurological: unable to perform due to mental status Rest of the physical exam is non contributory Internal Med - H&P Results - Labs CBC & Chem 7: 08/09/18 10:28 08/09/18 10:28 Labs: Short CBC 08/09/18 Range/Units 10:28 WBC 10.5 (4.3-11.1) K/mcL Hgb 12.1 (11.5-15.4) g/dL Hct 39.2 (35.3-44.9) % Plt Count 263 (140-400) K/mcL Neutrophils # 5.7 (1.6-8.9) K/mcL BMP 08/09/18 10:28 Sodium 137 Potassium 5.3 H Chloride 99 Carbon Dioxide 20 L BUN 32 H Creatinine 1.17 Glucose 483 H Calcium 8.8 Cardiac Enzymes 08/09/18 Range/Units 10:27 Troponin I < 0.03 (< 0.04) ng/mL Liver Function 08/09/18 Range/Units 10:28 Total Bilirubin 0.4 (0.3-1.0) mg/dL AST 106 H (13-39) Units/L ALT 75 H (7-52) Units/L Alkaline Phosphatase 77 (34-104) Units/L Albumin 3.7 (3.5-5.7) g/dL - ABG Interpretation ABG results: 08/09/18 10:48 VBG pH 7.31 L VBG pCO2 37 L VBG pO2 151 H VBG HCO3 19 L - Impressions ITS Impressions Chest X-Ray 08/09/18 10:09 IMPRESSION: No acute cardiopulmonary disease. D/ / 08/09/2018 10:59:05 Juwan Faria MD / alfredo Interpreting Provider: Juwan Faria MD Head CT 08/09/18 10:11 IMPRESSION: No acute intracranial abnormality. Nonspecific white matter disease, likely due to chronic small vessel ischemia. This report was discussed with Dr. Anders at 10:48 a.m. on 08/09/2018. D/ / 08/09/2018 10:50:18 Reymundo Hunt MD / alfredo Interpreting Provider: Reymundo Hunt MD - Diagnostic Studies Chest x-ray Status: image reviewed by me (No acute findings ) - Assessment and Plan (1) Respiratory failure Current Visit: Yes Status: Acute Assessment and plan: patient intubated due to agitation, AMS and increase risk for aspiration. Plan Pulmonology consulted for ventilation management post intubation x-ray ABG Qualifiers: Chronicity: unspecified Respiratory failure complication: unspecified whether with hypoxia or hypercapnia Qualified Code(s): J96.90 - Respiratory failure, unspecified, unspecified whether with hypoxia or hypercapnia (2) Atrial fibrillation with slow ventricular response Current Visit: Yes Status: Acute Assessment and plan: HR in the low 30s. Plan patient on two bb as out patient. treated by the ED physicians for possible bb toxicity without much improvement in HR cardiology consulted for possible temporary pacing. continue apixaban 5mg/PO BID for secondary stroke prevention. will hold bb serial trops (3) Numbness on right side Current Visit: Yes Status: Acute Assessment and plan: patient with a Hx of previous CVA with right sided weakness presenting with worsening symptoms. Plan If MRI cannot be done due to bradycardia and possible pacemaker placement, consider repeating head CT within 24-48 hours Aspirin 81mg/PO x1. Neurology consulted Started on Aspirin 81mg/PO daily Will hold patient home antihypertensive medications Hydralazine 5mg/IV Q6HR for SBP >190 or DBP >110 NPO until bedside swallow evaluation PT/OT continue atorvastatin (4) Right sided weakness Current Visit: Yes Status: Acute Assessment and plan: plan of care as above (5) CVA (cerebral vascular accident) Current Visit: No Status: Chronic Assessment and plan: patient with a Hx of CVA with right sided weakness Qualifiers: CVA mechanism: unspecified Qualified Code(s): I63.9 - Cerebral infarction, unspecified (6) DVT prophylaxis Current Visit: No Status: Chronic Assessment and plan: started on heparin subq (7) Essential hypertension Current Visit: No Status: Chronic Assessment and plan: will home home antihypertensive medications. started on hydralazine 5mg/IV Q6HR PRN for SBP >190 or DBP >110 (8) Morbid obesity with BMI of 40.0-44.9, adult Current Visit: No Status: Chronic (9) Obstructive sleep apnea Current Visit: No Status: Chronic Assessment and plan: Nocturnal Bipap (10) Type 2 diabetes mellitus Current Visit: No Status: Chronic Assessment and plan: Hyperglycemic. low dose sliding scale Q6HR. 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 Qualifiers: Hyperlipidemia type: unspecified Qualified Code(s): E78.5 - Hyperlipidemia, unspecified (12) Altered mental status Current Visit: Yes Status: Acute Assessment and plan: associated with agitation. patient presenting with bradycardia. Qualifiers: Altered mental status type: unspecified Qualified Code(s): R41.82 - Altered mental status, unspecified - Time Spent With Patient Total time spent is greater than 50% in coordination of care (as documented) at patient's floor/unit and/or counseling patient: Greater than 35 minutes (45)
[2018-08-09] MEDS ORDERED: *HR* EPINEPHrine 1 MG/10 ML SYRINGE IVP ONE (12:46)
[2018-08-09] MEDS ORDERED: *HR* Rocuronium Bromide 100 MG/10 ML VIAL IVC ONE (12:46)
[2018-08-09] MEDS ORDERED: *HR* Rocuronium Bromide 50 MG/5 ML VIAL IVC ONE (12:46)
--- NOTE | 2018-08-09 12:46 | Pre-Sedation Evaluation ---
Pre-sedation evaluation - Pre-sedation checklist Date of procedure: 08/09/18 Procedure: temp pacer Recent Vitals: Last Vital Signs Temp 98.0 F 08/09/18 10:14 Pulse 38 08/09/18 11:40 Resp 30 08/09/18 11:40 BP 119/78 08/09/18 11:40 Pulse Ox 98 08/09/18 11:40 H&P (including ROS) documented in medical record: Yes Previous reaction to sedatives/anesthetics: No Dietary Status: No solid food in preceding 4 hrs and no liquid in preceding 2 hrs ASA Classification *see protocol: CLASS III-Severe systemic disease, [id number] to any of the above to indicate emergent Plan of Care: Pt appropriate candidate for procedure/moderate/conscious sedation, Risks/benefits of procedure/sedation discussed w/ patient/family, If not NPO; Risk of intake outweiged by necessity to perform procedure
--- NOTE | 2018-08-09 12:51 | Cardiology Consult Note ---
Date of Encounter: 08/09/18 Time of Encounter: 12:50 Assessment and Plan (1) Bradycardia Current Visit: Yes Status: Acute Not clear this is driving her initial presentation of altered mental status and previous SBP 90-110 with HR in the 40s; but given I am now seeing bradycardia in the 30s and SBP 70-80s, will proceed with temporary pacemaker. Advised patient be started on dopamine. A/R/B of temporary pacemaker dw patient family and they are agreeable with proceeding. (2) Atrial fibrillation Current Visit: No Status: Chronic Patient currently on Eliquis. On BB and propafenone as outpatient. Hold BB, EP consult tomorrow Qualifiers: Atrial fibrillation type: paroxysmal Qualified Code(s): I48.0 - Paroxysmal atrial fibrillation (3) Morbid obesity with BMI of 40.0-44.9, adult Current Visit: No Status: Chronic (4) Essential hypertension Current Visit: No Status: Chronic Discussion w patient/family: The assessment and plan as outlined above was discussed with the patient and/or family members who expressed understanding and agreement. All questions were answered. Thank you for involving us in the care of your patient. Please call with any questions. History of Present Illness Consult date: 08/09/18 Consult reason: bradycardia Chief complaint: confusion History of present illness: Ms. Aparicio is a 67 year old female with history of PAF, PVCs on Rhythmol/BB/xarelto presented with altered mental status and reportedly denied chest/jaw/arm discomfort or ongoing dyspnea. Concern for polypharmacy as patient on multiple psychotropic medications. Eventually she required intubation for respiratory distress and agitation. She had bradycardia on presentation in the 40s and SBP maintained 90-110s however during her agitated phase she had bradycardia down to 20s and few minutes after intubation was seen to be bradycardic to the 30s with SBP down to 70s. I started her on external pacing and explained A/R/B of temp pacer to family who wished to proceed. Please also refer to Dr. Benitez's outpatient notes - history of stress that was negative. Plan for outpatient stress/echo and referral back to EP for AF/PVCs. Past Med Surg Social Fam HX - Past Medical History Medical history: CVA, diabetes, fibromyalgia, GERD, hyperlipidemia, hypertension, TIA, other Additional medical history: fibromyalgia Psychiatric history: no psych history - Past Surgical History Surgical History: appendectomy, cholecystectomy, hysterectomy Additional surgical history: loop recorder - Social History Smoking Status: Never smoker Smokeless Tobacco Status: No Alcohol use: none Drug use: none - Family History Father Hx Family Cardiac Disorders: Yes ([place]) Hx Family Endocrine Disorder: Yes (DM) Mother Hx Family Endocrine Disorder: Yes (DM) Hx Family Neurologic Disorders: Yes (CVA) Medications and Allergies Albuterol Sulfate [Proair Hfa] 2 puff IH Q4H PRN 03/04/16 [History] Cyclobenzaprine [Flexeril] 10 mg PO TID 03/04/16 [History] Pantoprazole Sodium [Protonix] 40 mg PO BID 03/04/16 [History] Zolpidem [Ambien] 10 mg PO HS 03/04/16 [History] Atorvastatin [Lipitor] 40 mg PO HS 07/25/16 [History] Lisinopril [Zestril] 40 mg PO DAILY 07/25/16 [History] Apixaban [Eliquis] 5 mg PO BID #60 tablet 07/27/16 [Rx] Aspirin 81 mg PO DAILY #30 tab.chew 07/27/16 [Rx] Gabapentin [Neurontin] 300 mg PO BID 01/27/18 [History] Glimepiride [Amaryl] 2 mg PO DAILY 01/27/18 [History] hydroCHLOROthiazide [Hydrochlorothiazide] 25 mg PO DAILY 01/27/18 [History] Propafenone [Rhythmol] 150 mg PO Q8HR #90 tablet 01/29/18 [Rx] Amlodipine Besylate 10 mg PO DAILY 05/25/18 [History] HYDROcodone/Acet 5/325 mg [[place] 5-325 mg] 1 tab PO Q4H PRN 05/25/18 [History] Magnesium Oxide [Magnesium] 400 mg PO BID 05/25/18 [History] Metformin HCl [Glucophage Xr] 2 tab PO BID 05/25/18 [History] Metoprolol Tartrate 100 mg PO BID 05/25/18 [History] SUMAtriptan succinate [Imitrex] 50 mg PO DAILY PRN 05/25/18 [History] Allergy/AdvReac Type Severity Reaction Status Date / Time azithromycin Allergy Itching Verified 07/25/16 13:50 [From Zithromax Z-Michael] ROS unobtainable: due to endotracheal tube All Systems Review: The remainder of the systems were reviewed and are negative Physical Examination Vital Signs, Last 4 Hours Temp Pulse Pulse Pulse Pulse Resp Resp 08/09/18 11:40 38 30 08/09/18 11:29 43 27 08/09/18 10:22 32 30 43 30 08/09/18 10:14 98.0 F 33 16 Resp Resp BP BP BP BP Pulse Ox 08/09/18 11:40 119/78 98 08/09/18 11:29 100 08/09/18 10:22 30 30 137/113 146/121 120/66 08/09/18 10:14 136/122 100 General: Other (intubated / sedated) HEENT: Atraumatic, Normocephaly Neck: No JVD Cardiac: Other (slow S1 S2) Lungs: Normal Breath Sounds Neuro: Other (intubated) Abdomen: Soft Skin: No rashes noted on visualized skin Extremities: No Cyanosis Results 08/09/18 10:28 08/09/18 10:28 Lab Results 08/09/18 08/09/18 08/09/18 10:27 10:28 10:28 WBC 10.5 Hgb 12.1 Hct 39.2 Plt Count 263 INR APTT Sodium 137 Potassium 5.3 H Chloride 99 Carbon Dioxide 20 L BUN 32 H Creatinine 1.17 Glucose 483 H Calcium 8.8 Magnesium 1.7 Total Bilirubin 0.4 AST 106 H ALT 75 H Alkaline Phosphatase 77 Troponin I < 0.03 TSH 5.284 08/09/18 10:28 WBC Hgb Hct Plt Count INR 1.4 APTT 34.6 Sodium Potassium Chloride Carbon Dioxide BUN Creatinine Glucose Calcium Magnesium Total Bilirubin AST ALT Alkaline Phosphatase Troponin I TSH - EKG Interpretation EKG results cardiology: personally reviewed (bradycardia without acute ischemia) Consult Discharge Plan - Plan
[2018-08-09 12:53] LABS: ABG Base Excess -18 mEq/L (-2 to 3); ABG HCO3 14 mEq/L (21-27); ABG Oxygen Saturation 86 % (95-98); ABG PCO2 54 mmHg (35-45); ABG PH 7.01 pH Units (7.32-7.45); ABG PO2 77 mmHg (85-104); ABG TCO2 15 mEq/L (20-26)
[2018-08-09] MEDS ORDERED: Albuterol 2.5 MG/3 ML NEBULIZER IH PRN (12:53)
[2018-08-09] MEDS ORDERED: Heparin 1,000 UNITS/500 mL 500 ML ONE (12:54)
[2018-08-09] MEDS ORDERED: EPINEPHrine 1 MG in D5% in Water 250 ML IVC SCH (13:00)
[2018-08-09] MEDS ORDERED: 0.9 % Sodium Chloride 1,000 ML ONE (13:13)
[2018-08-09] MEDS ORDERED: *HR* FentaNYL (PF) 100 MCG/2 ML VIAL ONE (13:38)
[2018-08-09] MEDS ORDERED: *HR* Midazolam HCl 2 MG/2 ML VIAL ONE (13:38)
--- NOTE | 2018-08-09 14:09 | Invasive Diagnostic Lab Proc ---
Name: Fay Aparicio Date of Study: 08/09/2018 Date: 1950 Ht: 65.0in Medical Record#: [id number] Age: 67 Wt: 271.17lb Gender: Female BSA: 2.25 Order #: [id number] BMI: 45.18 Physicians Procedure Physician: Mark Taylor MD, [facility] Referring MD: Referring MD: Staff Name Position Time In [place], Hans MARIN Monitor 01:31 PM Cuauhtemoc Martin RN Health Inspector Food 01:31 PM Mckinley Moura RT (R) Scrub 01:31 PM Indications Indication bradycardia Procedures Performed Procedure INS/RPL TEMP PM LEAD/CATH;SNGL Pre-Procedure Checklist Informed consent is complete signed and on chart. H&P is on chart. ID band is on and ID verified with patient. Pt not NPO for procedure and MD aware. The procedure was described for the patient and questions were answered. ECG is on chart. Plan of Care Patient will tolerate the procedure without complications. Adequate level of comfort will be maintained. Hemodynamics will remain stable Patient will recover from procedure without complications. Respiratory function will be maintained. Cardiac rhythm will remain stable. Patient temperature will be maintained. Patient and/or family have verbalized understanding of the procedure. Patient Education Chief Complaint/Reason for Test: Temporary pacemaker Developmental Category: Geriatric (65+ years) Developmentally Appropriate for Age: Yes Learning Barriers: Physical Education Needs: Procedure Education Method: Verbal Information Taught: Temporary pacemaker Educational Evaluation: Able to repeat information Intravenous Access Time IV Size Location DC'd Fluid/Drip Rate Units RN 20g 1 1/4" Patent On Arrival Rt Arm Cuauhtemoc Martin RN 20g 1 14" Patent On Arrival Lt Antecubital Cuauhtemoc Martin RN 20g 1 1/4" Patent On Arrival Lt Antecubital Cuauhtemoc Martin RN Allergies azithromycin Vital Signs Time BP (mmHg) HR (bpm) O2 Sat. RR (bpm) LOC 01:32 PM / % 1 = Reflexes present/moves spontaneously 01:32 PM / % 0 = No reflexes elicited 01:21 PM 70 / 58 % 01:26 PM 98 / 47 % 01:32 PM 104 / 51 43 77 % 01:36 PM 106 / 45 43 72 % 01:41 PM 106 / 42 43 78 % 39 01:46 PM 110 / 61 69 86 % 39 01:51 PM 112 / 60 69 83 % 24 Procedural Medications Time Medication Dose Units Method Given By 01:32 PM Dopamine 25 mcg/kg/hr Intravenous 01:33 PM Epinephrine 4 mcg/min Intravenous 01:37 PM Lidocaine 2% 18 ml Subcutaneous Mark Taylor MD, [facility] 01:38 PM Versed 2 mg Intravenous Cuauhtemoc Martin RN 01:38 PM Fentanyl 50 mcg Intravenous Cuauhtemoc Martin RN ASA Classification: CLASS III- Severe systemic disease (i.e. prior AMI, diabetes with vascular complications, morbid obesity) Emergent Procedure: ASA score is assumed Sim Score Preprocedure Postprocedure Activity 0- Unable to move extremities or lift head Activity 0- Unable to move extremities or lift head Circulation 2- SBP +/= 20 points of pre-anesthetic level Circulation 2- SBP +/= 20 points of pre-anesthetic level Consciousness 0- Non-responsive Consciousness 0- Non-responsive O2 Saturation 0- O2 saturation 90% even with O2 supplement O2 Saturation 0- O2 saturation 90% even with O2 supplement Respiratory 0- Apneic requires ventilator or assisted respiration Respiratory 0- Apneic requires ventilator or assisted respiration Total Score 2 Total Score 2 Contrast Agent: Isovue Diagnostic Contrast: 0 ml Fluoro Dose: 7 mGy Procedure Log Time Note Enter By 12:57 PM CathStat 01:20 PM Case Start 01:20 PM Vitals capture started with the following parameters, Patient=Adult, Interval=5 min, Initial Afjqdalf=759 mmHg, Deflation Rate=5 mmHg, Cuff placed on Right Arm 01:21 PM NIBP=70/58 mmhg 01:26 PM NIBP=98/47 mmhg 01:31 PM 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 HR=43 bpm, YIKU=458/51 mmhg, SpO2=77.0 % 01:32 PM Hair removed from procedure site in procedure lab using clippers. Bilateral groin prepped with Chloraprep by Hans Carrillo RN, then patient was draped. Skin intact. csmith :32 PM Physician arrived 13:32 csmith 01:32 PM Procedure start 13:32 csmith 01:32 PM Time: 13:32 Patient comfortable and pain free: Yes csmith 01:32 PM Time: 13:32LOC: 1 = Reflexes present/moves spontaneously csmith 01:33 PM Patient arrived at 13:32 with Dopamine Intravenous drip @ 25 mcg/kg/hr csmith 01:33 PM Patient arrived at 13:33 with Epinephrine Intravenous drip @ 4 mcg/min csmith 01:36 PM HR=43 bpm, BCWM=493/45 mmhg, SpO2=72.0 %, Comment=paced 01:37 PM Time out was performed according to hospital policy. Conscious sedation and anesthesia was achieved (see medication log with in this report above) csmith 01:37 PM Time: 13:37 18 ml Lidocaine 2% to right groin Subcutaneous Given by Mark Taylor MD, [facility] csmith 01:38 PM Time: 13:38 Versed 2 mg Intravenous Given by Cuauhtemoc Martin RN csmith 01:38 PM Time: 13:38 Fentanyl 50 mcg Intravenous Given by Cuauhtemoc Martin RN csmith 01:41 PM HR=43 bpm, LUSC=070/42 mmhg, SpO2=78.0 %, Resp=39 B/min 01:42 PM Access obtained by percutaneous puncture. 6Fr 11cm Cordis Yudith sheath placed in right Femoral vein. [id number] csmith 01:42 PM PstProc:Bard Bipolar Pacing Catheter Temp pacer inserted into right femoral vein csmith 01:42 PM PstProc: Temp pacer on. csmith 01:44 PM PstProc: Pacer is inserted at 67 cm csmith 01:44 PM PstProc: Temp pacer turned on, rate 70 ppm, mA 5, sensitivity 2 csmith 01:46 PM HR=69 bpm, XQUN=299/61 mmhg, SpO2=86.0 %, Resp=39 B/min 01:46 PM PstProc: Sheath(s) sutured in due to Temporary Pacer. csmith 01:48 PM Time: 13:32LOC: 0 = No reflexes elicited csmith 01:48 PM Time: 13:32 Patient comfortable and pain free: Yes csmith 01:51 PM HR=69 bpm, KKCU=300/60 mmhg, SpO2=83 %, Resp=24 B/min 01:51 PM Procedure completed at 13:51 08/09/2018 csmith 01:55 PM Sign out completed: Radiation Dose 39.33 mGy, 6.89 Gy/cm2 Fluoro Time: 1.0 Isovue 370 - 200ml contrast 0 ml given by Mark Taylor MD, [facility]. Complications: None. 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 Sedation minutes 20. Cardiac Rehab Consult needed: Yes. Confirmed administered medications: Yes csmith 01:57 PM Sheath left in place to be pulled on floor/holding areaV+Pad csmith 01:57 PM Estimated Blood Loss: minimal csmith 01:57 PM Post Blood Pressure 110/61 csmith 01:58 PM Information taught Temporary pacemaker csmith 01:58 PM Education needs Plan of Care, Procedure, and Responsibilities of Patient in Care csmith 01:59 PM Education evaluation Not ready to learn csmith 01:59 PM Learning barriers :Sedated csmith 02:00 PM Education Methods Verbal csmith 02:00 PM educated family for now. csmith 02:00 PM Site status No bleeding/hematoma - Rt Groin as reported by Mckinley Moura RT (R) at 14:00 csmith 02:00 PM Opsite applied csmith 02:00 PM Report given to Talon MARIN Pt taken to ICU Room #8. 14:00 csmith 02:00 PM Patient out of room: 14:00 csmith 02:00 PM Family placed in consult room. csmith 02:00 PM Complications: None csmith Complications Complication None None Hemodynamics Post Procedure Information Blood Pressure: 110/61 mmHg Post procedural instructions were given Closure Device Time Device Success/Fail Manual Compression Site Checks Time Location Status Staff Sheath In? Note 02:00 PM Rt Groin No bleeding/hematoma Mckinley Moura RT (R) Pulses Time Site Pre-Procedure Post-Procedure Note Bilateral DP & PT 1+ 1+ Updated by Cuauhtemoc Martin RN on 08/09/2018 2:03:02 PM electronically signed on 08/09/2018 2:03:36 PM with status of Final
[2018-08-09] MEDS ORDERED: Artificial Tears SOLN 15 ML BOTTLE BOTH EYES PRN (14:29)
[2018-08-09] MEDS: Dexmedetomidine HCl 400 MCG/100 ML MLS IVC SCH ×2 (15:09→21:16)
[2018-08-09 15:26] LABS: ABG Base Excess -6 mEq/L (-2 to 3); ABG HCO3 22 mEq/L (21-27); ABG Oxygen Saturation 94 % (95-98); ABG PCO2 53 mmHg (35-45); ABG PH 7.22 pH Units (7.32-7.45); ABG PO2 86 mmHg (85-104); ABG TCO2 24 mEq/L (20-26); Blood Gas Modality VC
[2018-08-09 15:34] LABS: ABG Base Excess -7 mEq/L (-2 to 3); ABG HCO3 21 mEq/L (21-27); ABG Oxygen Saturation 95 % (95-98); ABG PCO2 51 mmHg (35-45); ABG PH 7.23 pH Units (7.32-7.45); ABG PO2 88 mmHg (85-104); ABG TCO2 23 mEq/L (20-26); Blood Gas Modality ASSIST CONTROL; Blood Gas PEEP 10 cm H2O; Blood Gas Respiration Rate 16; Blood Gas VT 550 cc
--- NOTE | 2018-08-09 16:43 | Pulmonology Consult Note ---
<Reymundo Franz - Last Filed: 08/09/18 17:13> Date of Encounter: 08/09/18 Time of Encounter: 16:43 Assessment and Plan (1) Acute respiratory failure with hypoxia Current Visit: Yes Status: Acute Patient was intubated in the emergency department secondary to agitation and disruption of treatment Patient presented to the ICU on mechanical ventilation, saturating and ventilating appropriately Patient does have history of obstructive sleep apnea but no chronic pulmonary diseases Currently on Precedex and fentanyl drips for sedation, norepinephrine drip for hypotension Stat ABG immediately after intubation demonstrated severe uncompensated respiratory acidosis Stat ABG on arrival to ICU demonstrated mild uncompensated respiratory acidosis Continue Precedex, fentanyl, norepinephrine as necessary for sedation and blood pressure support Continue mechanical ventilation and vent setting adjustments as necessary for proper ventilation Ventilation bundle in place Repeat ABG in a.m. (2) Stroke-like symptoms Current Visit: Yes Status: Acute Patient presented with altered mental status, right-sided weakness, right-sided numbness Stroke alert was performed in the ED, patient was not determined to be TPA candidate She does have a previous history of CVA CT head was negative for acute abnormalities Neurology evaluation pending (3) Atrial fibrillation with slow ventricular response Current Visit: Yes Status: Chronic Patient has chronic history of atrial fibrillation treated with Eliquis, Rythmol, metoprolol She presented with significant bradycardia in the 20s and 30s, apparently irregu lar Patient was given several doses of atropine, calcium gluconate, insulin Her rate did not improve, cardiology evaluated, placed temporary pacemaker Patient currently at paced rate of 70 and regular rhythm Continuing apixaban, holding Rythmol and metoprolol Repeat EKG pending, serial troponins pending (4) Cardiopulmonary arrest Current Visit: Yes Status: Acute Patient had episode of pulselessness and hypotension during intubation induction in emergency department CPR was performed, 1 mg of epinephrine was given, ROSC was attained Repeat troponins are pending, EKG pending, cardiology is following (5) Essential hypertension Current Visit: No Status: Chronic Patient has history of essential hypertension According to family it is severe and her normal blood pressure is approximately 200/100 She is currently normotensive, maintaining blood pressure with norepinephrine We will continue to monitor, wean pressure support I suspect she will become hypertensive once sedation is weaned Will resume antihypertensives as necessary (6) Type 2 diabetes mellitus Current Visit: No Status: Chronic Chronic type II diabetic without home insulin use Every 6 hour Accu-Cheks and high-dose sliding scale insulin protocol Qualifiers: Diabetes mellitus manager intermediate insulin use: unspecified retirement insulin use status Diabetes mellitus complication status: with unspecified complications Qualified Code(s): E11.8 - Type 2 diabetes mellitus with unspecified complications History of Present Illness Consult date: 08/09/18 Requesting physician: Parminder Hutchinson Reason for consult: other (Acute respiratory failure) Chief complaint: Altered mental status History of present illness: Patient is a 67-year-old female with a past medical history of hypertension, hyperlipidemia, atrial fibrillation on Eliquis/Rythmol/metoprolol, previous CVA, diabetes. She presented to the emergency department via EMS for the concern of strokelike symptoms. Stroke alert was called and the patient was noted to have heart rate in the 30s. She was given atropine, calcium gluconate, insulin for bradycardia, and then received head CT. She was then given another dose of atro pine after her heart rate failed to respond. At this time she was still alert and oriented. Stroke alert with [facility] was completed and patient was not considered to be candidate for TPA secondary to previous anticoagulation and low NIH score of 3. Patient was given Ativan for anxiety. She became increasingly agitated and due to the fear for falling out of bed and her disruption of treatment secondary to mental status she was induced with ketamine and intubated. During this induction process she did have an episode of hypotension and pulselessness and CPR was initiated. She did receive 1 dose of epinephrine and had ROSC. Cardiology arrived at that time and arranged for the patient to proceed immediately to catheter lab for temporary pacemaker placement. Temporary pacemaker was successfully placed, the patient's baseline heart rate was set at 70. She presented to the ICU on epinephrine drip, dopamine drip, borderline hypotension, heart rate 70. Past Med Surg Social Fam HX - Past Medical History Medical history: CVA, diabetes, fibromyalgia, GERD, hyperlipidemia, hypertension, TIA, other Additional medical history: fibromyalgia Psychiatric history: no psych history - Past Surgical History Surgical History: appendectomy, cholecystectomy, hysterectomy Additional surgical history: loop recorder - Social History Smoking Status: Never smoker Smokeless Tobacco Status: No Alcohol use: none Drug use: none - Family History Father Hx Family Cardiac Disorders: Yes (CA) Hx Family Endocrine Disorder: Yes (DM) Mother Hx Family Endocrine Disorder: Yes (DM) Hx Family Neurologic Disorders: Yes (CVA) Medications and Allergies Albuterol Sulfate [Proair Hfa] 2 puff IH Q4H PRN 03/04/16 [History] Cyclobenzaprine [Flexeril] 10 mg PO TID 03/04/16 [History] Pantoprazole Sodium [Protonix] 40 mg PO BID 03/04/16 [History] Zolpidem [Ambien] 10 mg PO HS 03/04/16 [History] Atorvastatin [Lipitor] 40 mg PO HS 07/25/16 [History] Lisinopril [Zestril] 40 mg PO DAILY 07/25/16 [History] Apixaban [Eliquis] 5 mg PO BID #60 tablet 07/27/16 [Rx] Aspirin 81 mg PO DAILY #30 tab.chew 07/27/16 [Rx] Gabapentin [Neurontin] 300 mg PO BID 01/27/18 [History] Glimepiride [Amaryl] 2 mg PO DAILY 01/27/18 [History] hydroCHLOROthiazide [Hydrochlorothiazide] 25 mg PO DAILY 01/27/18 [History] Propafenone [Rhythmol] 150 mg PO Q8HR #90 tablet 01/29/18 [Rx] Amlodipine Besylate 10 mg PO DAILY 05/25/18 [History] HYDROcodone/Acet 5/325 mg [[place] 5-325 mg] 1 tab PO Q4H PRN 05/25/18 [History] Magnesium Oxide [Magnesium] 400 mg PO BID 05/25/18 [History] Metformin HCl [Glucophage Xr] 2 tab PO BID 05/25/18 [History] Metoprolol Tartrate 100 mg PO BID 05/25/18 [History] SUMAtriptan succinate [Imitrex] 50 mg PO DAILY PRN 05/25/18 [History] Allergy/AdvReac Type Severity Reaction Status Date / Time azithromycin Allergy Itching Verified 07/25/16 13:50 [From Zithromax Z-Michael] ROS unobtainable: due to endotracheal tube All Systems: The remainder of the systems were reviewed and are negative Physical Examination Vital Signs: Vital Signs, Last 4 Hours Temp Pulse Resp BP Pulse Ox 08/09/18 16:00 70 21 84/55 93 08/09/18 15:56 70 17 110/65 96 08/09/18 15:26 70 16 86/50 89 08/09/18 15:00 70 16 73/47 93 08/09/18 14:56 70 16 73/45 92 08/09/18 14:26 98.2 F 70 16 103/55 90 08/09/18 14:17 98.2 F 70 16 97/56 91 08/09/18 13:54 13 89/48 General appearance: other (Medically sedated) Eyes: nonicteric Neck: supple Effort: other (Mechanical ventilation) Inspection: normal Auscultation: bilateral: clear, diminished breath sounds Cardiovascular: regular rate and rhythm, other (Paced rate of 70 bpm, regular rhythm) Gastrointestinal: normoactive bowel sounds, soft, non-distended Integumentary: normal Extremities: no cyanosis, edema (Mild 1+ pitting edema bilateral lower extremities) Musculoskeletal: no deformities unable to assess due to mental status Ventilator Settings Ventilator Settings: Ventilator Settings, Last 8 Hours Ventilator Tidal Volume 550 Setting Ventilator Tidal Volume 550 Setting Ventilator Respiratory Rate 16 Setting Ventilator Respiratory Rate 16 Setting Actual Respiratory Rate 19 Actual Respiratory Rate 16 Positive End Expiratory 10 Pressure Positive End Expiratory 10 Pressure Peak Inspiratory Airway 25 Pressure Peak Inspiratory Airway 28 Pressure Results - Laboratory Findings CBC and BMP: 08/09/18 10:28 08/09/18 10:28 ABG ABG pH 7.23 pH Units (7.32-7.45) L 08/09/18 15:29 ABG pCO2 51 mmHg (35-45) H 08/09/18 15:29 ABG pO2 88 mmHg (85-104) 08/09/18 15:29 ABG O2 Saturation 95 % (95-98) 08/09/18 15:29 PT/INR, D-dimer PT 15.6 Seconds (9.4-12.1) H 08/09/18 10:28 Abnormal lab findings: Abnormal lab results MCHC 30.9 g/dL (31.6-35.5) L 08/09/18 10:28 PT 15.6 Seconds (9.4-12.1) H 08/09/18 10:28 ABG pH 7.23 pH Units (7.32-7.45) L 08/09/18 15:29 ABG pCO2 51 mmHg (35-45) H 08/09/18 15:29 ABG Base Excess -7 mEq/L (-2 to 3) L 08/09/18 15:29 VBG pH 7.31 pH Units (7.32-7.42) L 08/09/18 10:48 VBG pCO2 37 mmHg (41-51) L 08/09/18 10:48 VBG pO2 151 mmHg (25-50) H 08/09/18 10:48 VBG HCO3 19 mEq/L (21-27) L 08/09/18 10:48 Potassium 5.3 mEq/L (3.5-5.1) H 08/09/18 10:28 Carbon Dioxide 20 mEq/L (23-29) L 08/09/18 10:28 BUN 32 mg/dL (8-23) H 08/09/18 10:28 Est GFR ( Amer) 56 (> 60) L 08/09/18 10:28 Est GFR (Non-Af Amer) 46 (> 60) L 08/09/18 10:28 BUN/Creatinine Ratio 27 (6-26) H 08/09/18 10:28 Glucose 483 mg/dL (70-105) H 08/09/18 10:28 POC Glucose 486 mg/dL (70-99) H* 08/09/18 10:14 Calculated Osmolality 312 (280-300) H 08/09/18 10:28 AST 106 Units/L (13-39) H 08/09/18 10:28 ALT 75 Units/L (7-52) H 08/09/18 10:28 Serum Total Protein 5.8 g/dL (6.4-8.9) L 08/09/18 10:28 Globulin 2.1 g/dL (2.4-3.5) L 08/09/18 10:28 Beta-Hydroxybutyric Acd 0.59 mmol/L (0.02-0.27) H 08/09/18 10:28 - Clinical Findings Intake & Output: Intake & Output 08/09/18 08/09/18 08/09/18 07:59 15:59 23:59 Intake Total 1380.1 / 1380.1 Balance 1380.1 / 1380.1 Weight 123.604 kg Consult Discharge Plan - Plan Referrals: NONE,PCP [Primary Care Provider] - <Freeman Purdy S - Last Filed: 08/09/18 19:16> Date of Encounter: 08/09/18 All Systems: The remainder of the systems were reviewed and are negative Physical Examination Vital Signs: Vital Signs, Last 4 Hours Pulse Resp BP Pulse Ox 08/09/18 18:00 70 16 126/78 95 08/09/18 17:52 16 126/78 95 08/09/18 17:37 18 08/09/18 17:00 70 17 93/58 99 08/09/18 16:00 70 21 84/55 93 08/09/18 15:56 70 17 110/65 96 08/09/18 15:26 70 16 86/50 89 08/09/18 15:17 16 93/58 97 08/09/18 15:00 70 16 73/47 93 08/09/18 14:56 70 16 73/45 92 Ventilator Settings Ventilator Settings: Ventilator Settings, Last 8 Hours Ventilator Tidal Volume 550 Setting Ventilator Tidal Volume 550 Setting Ventilator Tidal Volume 550 Setting Ventilator Tidal Volume 550 Setting Ventilator Tidal Volume 550 Setting Ventilator Tidal Volume 550 Setting Ventilator Tidal Volume 550 Setting Ventilator Tidal Volume 550 Setting Ventilator Tidal Volume 550 Setting Ventilator Respiratory Rate 16 Setting Ventilator Respiratory Rate 16 Setting Ventilator Respiratory Rate 16 Setting Ventilator Respiratory Rate 16 Setting Ventilator Respiratory Rate 16 Setting Ventilator Respiratory Rate 16 Setting Ventilator Respiratory Rate 16 Setting Ventilator Respiratory Rate 12 Setting Ventilator Respiratory Rate 12 Setting Actual Respiratory Rate 16 Actual Respiratory Rate 16 Actual Respiratory Rate 17 Actual Respiratory Rate 19 Actual Respiratory Rate 16 Actual Respiratory Rate 16 Actual Respiratory Rate 12 Positive End Expiratory 10 Pressure Positive End Expiratory 10 Pressure Positive End Expiratory 10 Pressure Positive End Expiratory 10 Pressure Positive End Expiratory 10 Pressure Positive End Expiratory 10 Pressure Positive End Expiratory 10 Pressure Positive End Expiratory 10 Pressure Positive End Expiratory 10 Pressure Peak Inspiratory Airway 28 Pressure Peak Inspiratory Airway 28 Pressure Peak Inspiratory Airway 27 Pressure Peak Inspiratory Airway 25 Pressure Peak Inspiratory Airway 29 Pressure Peak Inspiratory Airway 28 Pressure Peak Inspiratory Airway 27 Pressure Results - Laboratory Findings CBC and BMP: 08/09/18 10:28 08/09/18 10:28 ABG ABG pH 7.23 pH Units (7.32-7.45) L 08/09/18 15:29 ABG pCO2 51 mmHg (35-45) H 08/09/18 15:29 ABG pO2 88 mmHg (85-104) 08/09/18 15:29 ABG O2 Saturation 95 % (95-98) 08/09/18 15:29 PT/INR, D-dimer PT 15.6 Seconds (9.4-12.1) H 08/09/18 10:28 Abnormal lab findings: Abnormal lab results MCHC 30.9 g/dL (31.6-35.5) L 08/09/18 10:28 PT 15.6 Seconds (9.4-12.1) H 08/09/18 10:28 ABG pH 7.23 pH Units (7.32-7.45) L 08/09/18 15:29 ABG pCO2 51 mmHg (35-45) H 08/09/18 15:29 ABG Base Excess -7 mEq/L (-2 to 3) L 08/09/18 15:29 VBG pH 7.31 pH Units (7.32-7.42) L 08/09/18 10:48 VBG pCO2 37 mmHg (41-51) L 08/09/18 10:48 VBG pO2 151 mmHg (25-50) H 08/09/18 10:48 VBG HCO3 19 mEq/L (21-27) L 08/09/18 10:48 Potassium 5.3 mEq/L (3.5-5.1) H 08/09/18 10:28 Carbon Dioxide 20 mEq/L (23-29) L 08/09/18 10:28 BUN 32 mg/dL (8-23) H 08/09/18 10:28 Est GFR ( Amer) 56 (> 60) L 08/09/18 10:28 Est GFR (Non-Af Amer) 46 (> 60) L 08/09/18 10:28 BUN/Creatinine Ratio 27 (6-26) H 08/09/18 10:28 Glucose 483 mg/dL (70-105) H 08/09/18 10:28 POC Glucose 486 mg/dL (70-99) H* 08/09/18 10:14 Calculated Osmolality 312 (280-300) H 08/09/18 10:28 AST 106 Units/L (13-39) H 08/09/18 10:28 ALT 75 Units/L (7-52) H 08/09/18 10:28 Serum Total Protein 5.8 g/dL (6.4-8.9) L 08/09/18 10:28 Globulin 2.1 g/dL (2.4-3.5) L 08/09/18 10:28 Beta-Hydroxybutyric Acd 0.59 mmol/L (0.02-0.27) H 08/09/18 10:28 - Clinical Findings Intake & Output: Intake & Output 08/09/18 08/09/18 08/09/18 07:59 15:59 23:59 Intake Total 1380.1 / 1380.1 1600 / 1600 Balance 1380.1 / 1380.1 1600 / 1600 Weight 123.604 kg - Attending Attestation I saw and evaluated this patient and my medical decision-making was reviewed with the Resident Physician. I agree with the documented findings, disposition and treatment plan as described except to the extent set forth below. We independently had [id number] contact with the patient I spent 40 minutes of Critical Care time with this patient. It involved decision making of high complexity to assess, manipulate, and support vital organ system failure and/or to prevent further life threatening deterioration of the patient's condition. The time involved in the performance of separately reportable procedures was not counted toward critical care time. Patient seen and examined at bedside Labs, radiology, chart personally reviewed. Management was reviewed during multidisciplinary critical care rounds. LEHR LOADER: Patient is intubated and sedated with mechanical ventilation could not do a full neurological exam patient presented with stroke like symptoms patient had a prior CVA deemed that she was not a TPA candidate. The CT scan showed negative acute intracranial abnormality will need MRI and EEG probable neurology consult tomorrow Pulm: Patient has acceptable oxygenation and ventilation patient has diastolic heart failure contributing to the current picture suggested tidal volume and respiratory rate ,minute ventilation was adjusted . Hydrostatic pulmonary edema complicating the picture Cards: Patient came with slow atrial fibrillation/atrial flutter patient has previously paroxysmal atrial flutter on Propafenone and beta alton patient heart rate was in 20's emergency Transvenous pacing. Will need EP consult tomorrow. FEN-GI: Patient will be nothing by mouth tonight Renal: Labs and output were reviewed acute kidney injury most likely hypovolemia secondary to diabetic ketoacidosis. Patient has mixed respiratory and metabolic acidosis. ID: No active infectious issues will not start on any broad-spectrum antibiotics for now Heme/Onc: Labs reviewed Endo: Glucose Monitored Integ/MSK: Skin Care per routine ICU Nursing Protocol to prevent ulcers. Lines: All lines examined without evidence of infection : Dispo: Critically ill CODE:Full Code
[2018-08-09] MEDS ORDERED: 0.9 % Sodium Chloride 500 ML IVC ONE (17:04)
--- NOTE | 2018-08-09 17:10 | Procedure Note ---
Date of procedure: 08/09/18 Pre-op diagnosis: Hypotension Post-op diagnosis: same Procedure: Indication for central line hypotension requiring pressors. Patient was sedated on mechanical ventilation so son, daughter, sister one located in consent was acquired for right IJ central venous catheter. Risks for the procedure including bleeding, infection, pneumothorax, were described. Benefits including pressure support and risks of not performing the procedure including lack of pressure support were described. Ultrasound was used to locate the right internal jugular vein. A timeout was performed indicating procedure and patient. The patient was then prepped and draped in usual sterile fashion and ultrasound was again used to find the right internal jugular vein. Introducer needle was advanced under negative pressure and dark red blood was returned. Guidewire was then inserted without resistance and secured, a small ashok was made in the skin and the dilator was introduced over the guidewire. Dilator was then withdrawn, and a triple-lumen central venous catheter was then advanced over the guidewire without resistance. Once the catheter was secured the guidewire was withdrawn, all 3 lm were tested for dark red blood return and were flushed without resistance. Central venous catheter was then sutured in position. The site was cleaned and Tegaderm was placed over the catheter site. Stat chest x-ray was then performed which showed tip of the central venous catheter terminating in the distal superior vena cava. Anesthesia: IV sedation Surgeon: Reymundo Franz Was there an data analysis assistant present: Yes Small Business Consultant: Evan Fournier Estimated blood loss (cc): 10 Specimen: none
[2018-08-09] MEDS: Norepinephrine 4 MG in D5% in Water 250 ML IVC SCH (17:15)
[2018-08-09] MEDS: Artificial Tears SOLN 15 ML BOTTLE BOTH EYES SCH ×2 (17:19→21:17)
[2018-08-09] MEDS: Aspirin Enteric Coated 81 MG Tablet PO SCH (17:20)
[2018-08-09] MEDS: FentaNYL (PF) 1,000 MCG in 0.9 % Sodium Chloride 80 ML IVC SCH (17:34)
[2018-08-09 19:06] LABS: Calcium 8.4 mg/dL (8.6-10.3); Potassium 5.6 mEq/L (3.5-5.1)
[2018-08-09 19:10] LABS: Troponin I 0.07 ng/mL (< 0.04)
[2018-08-09] MEDS ORDERED: D5% in 0.45% NACL 1,000 ML IVC PRN (20:43)
[2018-08-09] MEDS ORDERED: Insulin DETEMIR 100 UNIT/ML X5UNITS SQ SCH (21:00)
[2018-08-09] MEDS: 0.9 % Sodium Chloride 1,000 ML IVC SCH ×4 (21:16→23:16)
[2018-08-09] MEDS: Chlorhexidine Rinse 15 ML MOUTHWASH MM SCH (21:17)
[2018-08-09] MEDS: Apixaban 5 MG TABLET PO SCH (21:17)
[2018-08-09] MEDS: 0.9 % Sodium Chloride w KCl 20 MEQ/1,000 ML MLS IVC SCH ×4 (21:18→23:16)
[2018-08-09] MEDS: 0.45 % Sodium Chloride w/KCl 20 MEQ/1,000 ML MLS IVC SCH ×4 (21:19→23:17)
[2018-08-09] MEDS: Insulin Human Regular 100 UNIT in 0.9 % Sodium Chloride 100 ML IVC SCH (21:21)
[2018-08-09 21:26] LABS: VBG Ionized Calcium 1.13 mmol/L (1.15-1.35)
[2018-08-09 21:47] LABS: Calcium 8.3 mg/dL (8.6-10.3); Magnesium 1.9 mg/dL (1.6-2.6); Phosphorous 2.8 mg/dL (2.7-4.5); Potassium 5.3 mEq/L (3.5-5.1)
[2018-08-09] MEDS: D5% in 0.45% NACL w KCl 20 MEQ/1,000 ML MLS IVC PRN (23:06)
[2018-08-10] MEDS: Norepinephrine 4 MG in D5% in Water 250 ML IVC SCH (00:32)
[2018-08-10] MEDS: 0.9 % Sodium Chloride 1,000 ML IVC SCH ×6 (00:33→03:31)
[2018-08-10] MEDS: 0.9 % Sodium Chloride w KCl 20 MEQ/1,000 ML MLS IVC SCH ×6 (00:33→03:31)
[2018-08-10] MEDS: 0.45 % Sodium Chloride w/KCl 20 MEQ/1,000 ML MLS IVC SCH ×6 (00:34→03:31)
[2018-08-10] MEDS: Artificial Tears SOLN 15 ML BOTTLE BOTH EYES SCH ×7 (00:34→23:50)
[2018-08-10 00:48] LABS: Bilirubin,Urine Small (Negative); Blood,Urine Large (Negative); Clarity,Urine Clear (Clear); Color,Urine Dark Yellow (Yellow); Glucose,Urine (UA) Normal (Normal); Ketones,Urine Trace mg/dL (Negative); Leukocyte Esterase,Urine Negative (Negative); Nitrite,Urine Negative (Negative); PH,Urine 5.5 pH Units (5.0-8.0); Protein,Urine 30 mg/dL (Neg-Trace); Specific Gravity,Urine 1.029 (1.010-1.025); Urobilinogen,Urine Normal (Normal)
[2018-08-10 00:49] LABS: Bacteria,Urine None Seen per hpf (None-Few); RBC,Urine 30-50 per hpf (0-3); Squamous Epithelial Cell,Urine Many per lpf (None-Few); WBC,Urine 0-3 per hpf (0-3)
[2018-08-10 01:00] LABS: Hyaline Casts,Urine Few per lpf (None-Few)
[2018-08-10 01:31] LABS: Calcium 8.1 mg/dL (8.6-10.3); Potassium 4.5 mEq/L (3.5-5.1)
[2018-08-10] MEDS: Insulin Human Regular 100 UNIT in 0.9 % Sodium Chloride 100 ML IVC SCH (02:18)
[2018-08-10] MEDS: D5% in 0.45% NACL w KCl 20 MEQ/1,000 ML MLS IVC PRN (03:05)
[2018-08-10] MEDS ORDERED: *HR* Dextrose 50 % in Water (Syg) 50 ML SYRINGE IVP PRN (03:32)
[2018-08-10] MEDS ORDERED: Dextrose Gel 15 GM/37.5 ML TUBE PO PRN ×2 (03:32)
[2018-08-10] MEDS ORDERED: D5% in Water 1,000 ML IVC PRN (03:32)
[2018-08-10 05:13] LABS: Basophils % 0.1 %; Eosinophils % 0.1 %; Hematocrit 36.5 % (35.3-44.9); Hemoglobin 11.7 g/dL (11.5-15.4); Immature Granulocytes % 0.6 % (0-4); Lymphocytes # 2.3 K/mcL (0.6-4.6); Lymphocytes % 16.2 %; Mean Corpuscular HGB Conc 32.1 g/dL (31.6-35.5); Mean Corpuscular Hemoglobin 29.5 pg (28.0-33.3); Mean Corpuscular Volume 92.2 fL (83.0-100.0); Mean Platelet Volume 11.3 fL (9.4-12.4); Monocytes # 1.6 K/mcL (0.0-1.3); Monocytes % 11.4 %; Platelet Count 222 K/mcL (140-400); Red Blood Count 3.96 M/mcL (3.82-4.97); Red Cell Distribution Width 13.5 % (11.5-14.5); Segmented Neutrophils % 71.6 %
[2018-08-10 05:33] LABS: BUN/Creatinine Ratio 31 (6-26); Blood Urea Nitrogen 33 mg/dL (8-23); Calcium 8.4 mg/dL (8.6-10.3); Carbon Dioxide 23 mEq/L (23-29); Chloride 108 mEq/L (98-107); Glucose 136 mg/dL (70-105); Magnesium 1.9 mg/dL (1.6-2.6); Osmolality,Calculated 295 (280-300); Phosphorous 2.3 mg/dL (2.7-4.5); Potassium 4.5 mEq/L (3.5-5.1); Sodium 138 mEq/L (136-145); eGFR For Non-African Americans 52 (> 60)
[2018-08-10] MEDS: Dexmedetomidine HCl 400 MCG/100 ML MLS IVC SCH ×3 (05:49→19:45)
[2018-08-10] MEDS ORDERED: Insulin LISPRO 300 UNITS/3 ML VIAL SQ SCH (06:00)
[2018-08-10 06:16] LABS: ABG Base Excess -1 mEq/L (-2 to 3); ABG HCO3 23 mEq/L (21-27); ABG Oxygen Saturation 98 % (95-98); ABG PCO2 37 mmHg (35-45); ABG PO2 101 mmHg (85-104); ABG TCO2 25 mEq/L (20-26); Blood Gas Modality ASSIST CONTROL; Blood Gas PEEP 10 cm H2O; Blood Gas Respiration Rate 18; Blood Gas VT 550 cc
[2018-08-10] MEDS ORDERED: *HR* Labetalol 20 MG/4 ML SYRINGE IVP PRN (08:04)
[2018-08-10] MEDS ORDERED: Insulin DETEMIR 100 UNIT/ML X5UNITS SQ SCH (09:00)
[2018-08-10] MEDS: Chlorhexidine Rinse 15 ML MOUTHWASH MM SCH ×2 (09:25→19:46)
[2018-08-10] MEDS: Aspirin Enteric Coated 81 MG Tablet PO SCH (09:25)
[2018-08-10] MEDS: Apixaban 5 MG TABLET PO SCH ×2 (09:25→19:46)
[2018-08-10] MEDS: Pantoprazole 40 MG VIAL IVP SCH (09:26)
[2018-08-10] MEDS: Insulin LISPRO 300 UNITS/3 ML VIAL SQ SCH ×3 (11:53→23:50)
--- NOTE | 2018-08-10 12:35 | Neurology - Consult Note ---
Date of Encounter: 08/10/18 Time of Encounter: 12:34 Assessment and Plan (1) Stroke-like symptoms Current Visit: Yes Status: Acute Patient with previous history of CVA likely related to history of paroxysmal atrial fibrillation currently on anticoagulation therapy who developed transient slurred speech associated with a right-sided weakness at the same time patient does have significant bradycardia and pulseless requiring emergent pacemaker placement. Initial CT of the head showed no acute intracranial abnormality. Patient slurred speech and right-sided weakness per medical records quickly resolved at the time when she was evaluated in the emergency room. Likely symptoms likely related to ongoing cardiac issues. Currently there are no eviden ce of focal neurological deficits.She is currently on anticoagulation therapy and would keep her on that. Overall speaking not convinced that there is new stroke but this can not be excluded without MR of brain. Would recommend continue medical and supportive care at this time and once her medical c onditions are stabilized then an MRI of brain can be competed. CT of head studies are reviewed personally. Will also order carotid artery duplex study as part of stroke work up also to rule out carotid artery dissection at times can aggravate bradycardia. History of Present Illness Chief complaint: right sided weakness and slurred speech HPI: Ms. Aparicio is a 67 year old female with PMH significant for previous CVA, ARAM on CPAP, chronic migraine, PAF on eliquis, DM and chronic pain syndrome who developed acute onset of slurred speech, in light of SOB, weakness. Apparently the patient called her daughter who noticed that she had slurred speech but no mentioning of any specific strokes symptoms but told her daughter that she thinks that she had a stroke. She has previous history of stroke during July/2016 thought to be related to her atrial fibrillation. By the time she was brought to the ER her slurred speech was resolved. There was mentioning of right arm weakness, and numbness as well as headaches which were also improved by the time she arrived in the emergency room. However, subsequently she developed agitation, bradycardia and has to be sedated. She then became pulseless and had to be evaluated by cardiology will due to emergent temporary pacemaker placement. Patient is currently intubated but not on any type of sedation except fentanyl to keep her comfortable. Patient is awake and follows simple commands. Patient is able to move all extremities bilaterally and there is no significant focal weakness observed at this time. Past Med Surg Social Fam HX - Past Medical History Medical history: CVA, diabetes, fibromyalgia, GERD, hyperlipidemia, hypertension, TIA, other Additional medical history: fibromyalgia Psychiatric history: no psych history - Past Surgical History Surgical History: appendectomy, cholecystectomy, hysterectomy Additional surgical history: loop recorder - Social History Smoking Status: Never smoker Smokeless Tobacco Status: No Alcohol use: none Drug use: none - Family History Father Hx Family Cardiac Disorders: Yes ([place]) Hx Family Endocrine Disorder: Yes (DM) Mother Hx Family Endocrine Disorder: Yes (DM) Hx Family Neurologic Disorders: Yes (CVA) Medications and Allergies Albuterol Sulfate [Proair Hfa] 2 puff IH Q4H PRN 03/04/16 [History] Cyclobenzaprine [Flexeril] 10 mg PO TID 03/04/16 [History] Pantoprazole Sodium [Protonix] 40 mg PO BID 03/04/16 [History] Zolpidem [Ambien] 10 mg PO HS 03/04/16 [History] Atorvastatin [Lipitor] 40 mg PO HS 07/25/16 [History] Lisinopril [Zestril] 40 mg PO DAILY 07/25/16 [History] Apixaban [Eliquis] 5 mg PO BID #60 tablet 07/27/16 [Rx] Aspirin 81 mg PO DAILY #30 tab.chew 07/27/16 [Rx] Gabapentin [Neurontin] 300 mg PO BID 01/27/18 [History] Glimepiride [Amaryl] 2 mg PO DAILY 01/27/18 [History] hydroCHLOROthiazide [Hydrochlorothiazide] 25 mg PO DAILY 01/27/18 [History] Propafenone [Rhythmol] 150 mg PO Q8HR #90 tablet 01/29/18 [Rx] Amlodipine Besylate 10 mg PO DAILY 05/25/18 [History] HYDROcodone/Acet 5/325 mg [[place] 5-325 mg] 1 tab PO Q4H PRN 05/25/18 [History] Magnesium Oxide [Magnesium] 400 mg PO BID 05/25/18 [History] Metformin HCl [Glucophage Xr] 2 tab PO BID 05/25/18 [History] Metoprolol Tartrate 100 mg PO BID 05/25/18 [History] SUMAtriptan succinate [Imitrex] 50 mg PO DAILY PRN 05/25/18 [History] Allergy/AdvReac Type Severity Reaction Status Date / Time azithromycin Allergy Itching Verified 07/25/16 13:50 [From Zithromax Z-Michael] All Systems: The remainder of the systems were reviewed and are negative - Constitutional Constitutional ROS IM: anorexia (no), chills (no), fever(s) (no), headache(s) (yes), weakness (yes) - Nose, Mouth, Throat Nose, mouth and throat: headache(s) (yes), hoarseness (no), nasal congestion (no) - Cardiovascular Cardiovascular ROS IM: dyspnea (yes), irregular heart rhythm (yes), slow heart rate (yes) - Respiratory Respiratory IM: cough (no), dyspnea (yes), hemoptysis (no) - Gastrointestinal Gastrointestinal: abdominal pain (no) - Genitourinary Genitourinary ROS: abnormal vaginal bleeding (n) - Musculoskeletal Musculoskeletal ROS IM: abnormal gait (o), arthralgias (no) - Neurological Neurological ROS: focal weakness (yes), headache(s) (yes) - Endocrine Endocrine IM: change in body appearance (no), change in libido (no) - Hematologic/Lymphatic Hematologic/Lymphatic pediatric: easy bleeding (no) - Allergic/Immunologic Allergic/Immunologic ROS PM: tongue swelling (no) Physical Examination - Vital Signs Vital Signs: Initial Vital Signs Temp Pulse Resp BP Pulse Ox 98.0 F 33 16 136/122 100 08/09/18 10:14 08/09/18 10:14 08/09/18 10:14 08/09/18 10:14 08/09/18 10:14 Results - Laboratory Findings CBC and BMP: 08/10/18 04:35 08/10/18 04:35 Abnormal lab findings: Abnormal lab results WBC 14.0 K/mcL (4.3-11.1) H 08/10/18 04:35 Neutrophils # 10.0 K/mcL (1.6-8.9) H 08/10/18 04:35 Monocytes # 1.6 K/mcL (0.0-1.3) H 08/10/18 04:35 PT 15.6 Seconds (9.4-12.1) H 08/09/18 10:28 VBG pH 7.31 pH Units (7.32-7.42) L 08/09/18 10:48 VBG pCO2 37 mmHg (41-51) L 08/09/18 10:48 VBG pO2 151 mmHg (25-50) H 08/09/18 10:48 VBG HCO3 19 mEq/L (21-27) L 08/09/18 10:48 Chloride 108 mEq/L (98-107) H 08/10/18 04:35 BUN 33 mg/dL (8-23) H 08/10/18 04:35 Est GFR (Non-Af Amer) 52 (> 60) L 08/10/18 04:35 BUN/Creatinine Ratio 31 (6-26) H 08/10/18 04:35 Glucose 136 mg/dL (70-105) H 08/10/18 04:35 Lactic Acid 3.2 mmol/L (0.5-2.2) H 08/09/18 22:40 Calcium 8.4 mg/dL (8.6-10.3) L 08/10/18 04:35 Venous Ioniz Calcium 1.13 mmol/L (1.15-1.35) L 08/09/18 21:23 Phosphorus 2.3 mg/dL (2.7-4.5) L 08/10/18 04:35 AST 106 Units/L (13-39) H 08/09/18 10:28 ALT 75 Units/L (7-52) H 08/09/18 10:28 Troponin I 0.90 ng/mL (< 0.04) H* 08/10/18 04:35 Serum Total Protein 5.8 g/dL (6.4-8.9) L 08/09/18 10:28 Globulin 2.1 g/dL (2.4-3.5) L 08/09/18 10:28 Beta-Hydroxybutyric Acd 0.59 mmol/L (0.02-0.27) H 08/09/18 10:28 Ur Specific [place] 1.029 (1.010-1.025) H 08/10/18 00:12 Urine Protein 30 mg/dL (Neg-Trace) H 08/10/18 00:12 Urine Ketones Trace mg/dL (Negative) H 08/10/18 00:12 Urine Blood Large (Negative) H 08/10/18 00:12 Urine Bilirubin Small (Negative) H 08/10/18 00:12 Urine Microscopic RBC 30-50 per hpf (0-3) H 08/10/18 00:12 Ur Squamous Epith Cells Many per lpf (None-Few) H 08/10/18 00:12 - Diagnostic Findings Additional findings: CT OF THE HEAD WITHOUT CONTRAST - STROKE ALERT 08/09/2018 10:41 am TECHNIQUE: CT of the head was performed without the administration of intravenous contrast. Dose modulation, iterative reconstruction, and/or weight based adjustment of the mA/kV was utilized to reduce the radiation dose to as low as reasonably achievable. COMPARISON: 07/25/2016 HISTORY: ORDERING SYSTEM PROVIDED HISTORY: stroke alert FINDINGS: BRAIN/VENTRICLES: There is no CT evidence of acute intracranial hemorrhage, mass or mass effect. There is low attenuation within the periventricular and subcortical white matter. The culver-white matter differentiation is preserved. The fourth ventricle is in the midline. The basilar cisterns are preserved. No abnormal extra-axial collections are identified. There is evidence of an old lacunar infarct in the left malgorzata, unchanged. ORBITS: There has been cataract surgery. SINUSES: The visualized paranasal sinuses and mastoid air cells demonstrate no acute abnormality. SOFT TISSUES/SKULL: No acute abnormality of the visualized skull or soft tissues. CT/CT stroke alert head wo con IMPRESSION: No acute intracranial abnormality. Nonspecific white matter disease, likely due to chronic small vessel ischemia. This report was discussed with Dr. Anders at 10:48 a.m. on 08/09/2018. D/ / 08/09/2018 10:50:18 Reymundo Hunt MD / alfredo Interpreting Provider: Reymundo Hunt MD EV/EV echocardiogram Impressions: LVEF 50%. Mild left ventricular diastolic dysfunction. Normal right ventricular structure and function. No significant valvular dysfunction. Unable to estimate RVSP. S/p temporary pacemaker - not well visualized. Consult Discharge Plan - Plan Referrals: NONE,PCP [Primary Care Provider] -
--- NOTE | 2018-08-10 13:01 | Pulmonology Progress Note ---
<Reymundo Franz - Last Filed: 08/10/18 15:57> Date of Encounter: 08/10/18 Time of Encounter: 13:01 Assessment and Plan (1) Acute respiratory failure with hypoxia Current Visit: Yes Status: Acute Patient was intubated in the emergency department secondary to agitation and disruption of treatment Patient presented to the ICU on mechanical ventilation, saturating and ventilating appropriately Patient does have history of obstructive sleep apnea but no chronic pulmonary diseases Currently on Precedex and fentanyl drips for sedation, norepinephrine drip for hypotension discontinued Stat ABG immediately after intubation demonstrated severe uncompensated respiratory acidosis with concomitant anion gap metabolic acidosis Stat ABG on arrival to ICU demonstrated mild uncompensated respiratory acidosis with concomitant anion gap metabolic acidosis Repeat ABG today completely within normal limits Continue Precedex, fentanyl titrations for sedation Continue mechanical ventilation and vent setting adjustments as necessary for proper ventilation We will continue to wean sedation and anticipate SBT tomorrow Ventilation bundle in place, Repeat ABG in a.m. (2) Stroke-like symptoms Current Visit: Yes Status: Acute Patient presented with altered mental status, right-sided weakness, right-sided numbness Stroke alert was performed in the ED, patient was not determined to be TPA candidate She does have a previous history of CVA CT head was negative for acute abnormalities Neurology recommending carotid duplex and MRI brain when clinically stable (3) Atrial fibrillation with slow ventricular response Current Visit: Yes Status: Chronic Patient has chronic history of atrial fibrillation treated with Eliquis, Rythmol, metoprolol She presented with significant bradycardia in the 20s and 30s, apparently irregular Patient was given several doses of atropine, calcium gluconate, insulin Her rate did not improve, cardiology evaluated, placed temporary pacemaker Patient currently at paced rate of 50 with actual rate of approximately 80 Continuing apixaban, holding Rythmol and metoprolol Cardiology following, agrees with medical management, will reevaluate tomorrow for EP recommendations (4) Cardiopulmonary arrest Current Visit: Yes Status: Acute Patient had episode of pulselessness and hypotension during intubation induction in emergency department CPR was performed, 1 mg of epinephrine was given, ROSC was attained Elevated troponins are likely secondary to CPR, trending down, ACS not suspected at this time (5) Essential hypertension Current Visit: No Status: Chronic Patient has history of essential hypertension According to family it is severe and her normal blood pressure is approximately 200/100 She is currently normotensive, maintaining blood pressure within normal limits, norepinephrine discontinued We will continue to monitor, restart antihypertensives as needed (6) Type 2 diabetes mellitus Current Visit: No Status: Chronic Chronic type II diabetic without home insulin use Every 6 hour Accu-Cheks and medium dose sliding scale insulin protocol Qualifiers: 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 Patient still medically sedated and mechanically ventilated. Objective PUL Vital signs: Last Vital Signs Temp 100.3 F H 08/10/18 12:00 Pulse 86 08/10/18 12:00 Resp 27 08/10/18 12:00 BP 131/97 08/10/18 12:00 Pulse Ox 92 08/10/18 12:00 General appearance: no acute distress, other (Medically sedated) Eyes: nonicteric Neck: supple, other (Right IJ CVC, OG and ET tube present) Effort: other (Mechanically ventilated) Auscultation: bilateral: clear Cardiovascular: regular rate and rhythm, other (Heart rate exceeding paced rhythm, regular rate and rhythm) Gastrointestinal: hypoactive bowel sounds, soft, non-distended Integumentary: normal Extremities: no cyanosis, edema (Mild 1+ bilateral lower extremity pitting edema present) Musculoskeletal: no deformities unable to assess due to mental status Ventilator Settings Ventilator Settings: Ventilator Settings, Last 8 Hours Ventilator Tidal Volume 480 Setting Ventilator Tidal Volume 480 Setting Ventilator Tidal Volume 550 Setting Ventilator Tidal Volume 550 Setting Ventilator Tidal Volume 480 Setting Ventilator Tidal Volume 550 Setting Ventilator Tidal Volume 550 Setting Ventilator Tidal Volume 550 Setting Ventilator Tidal Volume 550 Setting Ventilator Tidal Volume 550 Setting Ventilator Tidal Volume 550 Setting Ventilator Tidal Volume 550 Setting Ventilator Respiratory Rate 20 Setting Ventilator Respiratory Rate 20 Setting Ventilator Respiratory Rate 18 Setting Ventilator Respiratory Rate 18 Setting Ventilator Respiratory Rate 20 Setting Ventilator Respiratory Rate 18 Setting Ventilator Respiratory Rate 18 Setting Ventilator Respiratory Rate 18 Setting Ventilator Respiratory Rate 18 Setting Ventilator Respiratory Rate 18 Setting Ventilator Respiratory Rate 18 Setting Ventilator Respiratory Rate 18 Setting Actual Respiratory Rate 27 Actual Respiratory Rate 27 Actual Respiratory Rate 26 Actual Respiratory Rate 22 Actual Respiratory Rate 21 Actual Respiratory Rate 22 Actual Respiratory Rate 22 Actual Respiratory Rate 23 Actual Respiratory Rate 20 Actual Respiratory Rate 20 Actual Respiratory Rate 18 Positive End Expiratory 8 Pressure Positive End Expiratory 8 Pressure Positive End Expiratory 8 Pressure Positive End Expiratory 8 Pressure Positive End Expiratory 8 Pressure Positive End Expiratory 8 Pressure Positive End Expiratory 8 Pressure Positive End Expiratory 8 Pressure Positive End Expiratory 10.0 Pressure Positive End Expiratory 10 Pressure Positive End Expiratory 10.0 Pressure Positive End Expiratory 10 Pressure Peak Inspiratory Airway 22 Pressure Peak Inspiratory Airway 23 Pressure Peak Inspiratory Airway 22 Pressure Peak Inspiratory Airway 23 Pressure Peak Inspiratory Airway 29 Pressure Peak Inspiratory Airway 28 Pressure Peak Inspiratory Airway 25 Pressure Peak Inspiratory Airway 31 Pressure Peak Inspiratory Airway 30 Pressure Peak Inspiratory Airway 25 Pressure Results - Laboratory Findings CBC and BMP: 08/10/18 04:35 08/10/18 04:35 ABG ABG pH 7.40 pH Units (7.32-7.45) 08/10/18 06:14 ABG pCO2 37 mmHg (35-45) 08/10/18 06:14 ABG pO2 101 mmHg (85-104) 08/10/18 06:14 ABG O2 Saturation 98 % (95-98) 08/10/18 06:14 PT/INR, D-dimer PT 15.6 Seconds (9.4-12.1) H 08/09/18 10:28 Abnormal lab findings: Abnormal lab results WBC 14.0 K/mcL (4.3-11.1) H 08/10/18 04:35 Neutrophils # 10.0 K/mcL (1.6-8.9) H 08/10/18 04:35 Monocytes # 1.6 K/mcL (0.0-1.3) H 08/10/18 04:35 PT 15.6 Seconds (9.4-12.1) H 08/09/18 10:28 VBG pH 7.31 pH Units (7.32-7.42) L 08/09/18 10:48 VBG pCO2 37 mmHg (41-51) L 08/09/18 10:48 VBG pO2 151 mmHg (25-50) H 08/09/18 10:48 VBG HCO3 19 mEq/L (21-27) L 08/09/18 10:48 Chloride 108 mEq/L (98-107) H 08/10/18 04:35 BUN 33 mg/dL (8-23) H 08/10/18 04:35 Est GFR (Non-Af Amer) 52 (> 60) L 08/10/18 04:35 BUN/Creatinine Ratio 31 (6-26) H 08/10/18 04:35 Glucose 136 mg/dL (70-105) H 08/10/18 04:35 Lactic Acid 3.2 mmol/L (0.5-2.2) H 08/09/18 22:40 Calcium 8.4 mg/dL (8.6-10.3) L 08/10/18 04:35 Venous Ioniz Calcium 1.13 mmol/L (1.15-1.35) L 08/09/18 21:23 Phosphorus 2.3 mg/dL (2.7-4.5) L 08/10/18 04:35 AST 106 Units/L (13-39) H 08/09/18 10:28 ALT 75 Units/L (7-52) H 08/09/18 10:28 Troponin I 0.53 ng/mL (< 0.04) H* 08/10/18 11:44 Serum Total Protein 5.8 g/dL (6.4-8.9) L 08/09/18 10:28 Globulin 2.1 g/dL (2.4-3.5) L 08/09/18 10:28 Beta-Hydroxybutyric Acd 0.59 mmol/L (0.02-0.27) H 08/09/18 10:28 Ur Specific [place] 1.029 (1.010-1.025) H 08/10/18 00:12 Urine Protein 30 mg/dL (Neg-Trace) H 08/10/18 00:12 Urine Ketones Trace mg/dL (Negative) H 08/10/18 00:12 Urine Blood Large (Negative) H 08/10/18 00:12 Urine Bilirubin Small (Negative) H 08/10/18 00:12 Urine Microscopic RBC 30-50 per hpf (0-3) H 08/10/18 00:12 Ur Squamous Epith Cells Many per lpf (None-Few) H 08/10/18 00:12 - Clinical Findings Intake & Output: Intake & Output 08/09/18 08/10/18 08/10/18 23:59 07:59 15:59 Intake Total 1731.4 / 1731.4 2061.7 / 2061.7 0 / 0 Output Total 275 / 275 610 / 610 900 / 900 Balance 1456.4 / 1456.4 1451.7 / 1451.7 -900 / -900 Weight 127.6 kg Consult Discharge Plan - Plan Referrals: NONE,PCP [Primary Care Provider] - <Freeman Purdy - Last Filed: 08/10/18 23:17> Date of Encounter: 08/10/18 Objective PUL Vital signs: Last Vital Signs Temp 99.1 F 08/10/18 20:00 Pulse 65 08/10/18 22:00 Resp 20 08/10/18 22:00 BP 121/68 08/10/18 22:00 Pulse Ox 94 08/10/18 22:00 Ventilator Settings Ventilator Settings: Ventilator Settings, Last 8 Hours Ventilator Tidal Volume 480 Setting Ventilator Tidal Volume 480 Setting Ventilator Tidal Volume 480 Setting Ventilator Tidal Volume 480 Setting Ventilator Tidal Volume 480 Setting Ventilator Tidal Volume 480 Setting Ventilator Tidal Volume 480 Setting Ventilator Tidal Volume 480 Setting Ventilator Tidal Volume 480 Setting Ventilator Tidal Volume 480 Setting Ventilator Tidal Volume 480 Setting Ventilator Respiratory Rate 20 Setting Ventilator Respiratory Rate 20 Setting Ventilator Respiratory Rate 20 Setting Ventilator Respiratory Rate 20 Setting Ventilator Respiratory Rate 20 Setting Ventilator Respiratory Rate 20 Setting Ventilator Respiratory Rate 20 Setting Ventilator Respiratory Rate 20 Setting Ventilator Respiratory Rate 20 Setting Ventilator Respiratory Rate 20 Setting Ventilator Respiratory Rate 20 Setting Actual Respiratory Rate 20 Actual Respiratory Rate 20 Actual Respiratory Rate 20 Actual Respiratory Rate 20 Actual Respiratory Rate 20 Actual Respiratory Rate 20 Actual Respiratory Rate 20 Actual Respiratory Rate 22 Actual Respiratory Rate 22 Actual Respiratory Rate 24 Actual Respiratory Rate 26 Positive End Expiratory 8 Pressure Positive End Expiratory 8 Pressure Positive End Expiratory 8 Pressure Positive End Expiratory 8 Pressure Positive End Expiratory 8 Pressure Positive End Expiratory 8 Pressure Positive End Expiratory 8 Pressure Positive End Expiratory 8 Pressure Positive End Expiratory 8 Pressure Positive End Expiratory 8 Pressure Positive End Expiratory 8 Pressure Peak Inspiratory Airway 32 Pressure Peak Inspiratory Airway 32 Pressure Peak Inspiratory Airway 31 Pressure Peak Inspiratory Airway 31 Pressure Peak Inspiratory Airway 29 Pressure Peak Inspiratory Airway 29 Pressure Peak Inspiratory Airway 29 Pressure Peak Inspiratory Airway 27 Pressure Peak Inspiratory Airway 26 Pressure Peak Inspiratory Airway 26 Pressure Peak Inspiratory Airway 25 Pressure Results - Laboratory Findings CBC and BMP: 08/10/18 04:35 08/10/18 04:35 ABG ABG pH 7.40 pH Units (7.32-7.45) 08/10/18 06:14 ABG pCO2 37 mmHg (35-45) 08/10/18 06:14 ABG pO2 101 mmHg (85-104) 08/10/18 06:14 ABG O2 Saturation 98 % (95-98) 08/10/18 06:14 PT/INR, D-dimer PT 15.6 Seconds (9.4-12.1) H 08/09/18 10:28 Abnormal lab findings: Abnormal lab results WBC 14.0 K/mcL (4.3-11.1) H 08/10/18 04:35 Neutrophils # 10.0 K/mcL (1.6-8.9) H 08/10/18 04:35 Monocytes # 1.6 K/mcL (0.0-1.3) H 08/10/18 04:35 PT 15.6 Seconds (9.4-12.1) H 08/09/18 10:28 VBG pH 7.31 pH Units (7.32-7.42) L 08/09/18 10:48 VBG pCO2 37 mmHg (41-51) L 08/09/18 10:48 VBG pO2 151 mmHg (25-50) H 08/09/18 10:48 VBG HCO3 19 mEq/L (21-27) L 08/09/18 10:48 Chloride 108 mEq/L (98-107) H 08/10/18 04:35 BUN 33 mg/dL (8-23) H 08/10/18 04:35 Est GFR (Non-Af Amer) 52 (> 60) L 08/10/18 04:35 BUN/Creatinine Ratio 31 (6-26) H 08/10/18 04:35 Glucose 136 mg/dL (70-105) H 08/10/18 04:35 Lactic Acid 3.2 mmol/L (0.5-2.2) H 08/09/18 22:40 Calcium 8.4 mg/dL (8.6-10.3) L 08/10/18 04:35 Venous Ioniz Calcium 1.13 mmol/L (1.15-1.35) L 08/09/18 21:23 Phosphorus 2.3 mg/dL (2.7-4.5) L 08/10/18 04:35 AST 106 Units/L (13-39) H 08/09/18 10:28 ALT 75 Units/L (7-52) H 08/09/18 10:28 Troponin I 0.53 ng/mL (< 0.04) H* 08/10/18 11:44 Serum Total Protein 5.8 g/dL (6.4-8.9) L 08/09/18 10:28 Globulin 2.1 g/dL (2.4-3.5) L 08/09/18 10:28 Beta-Hydroxybutyric Acd 0.59 mmol/L (0.02-0.27) H 08/09/18 10:28 Ur Specific [place] 1.029 (1.010-1.025) H 08/10/18 00:12 Urine Protein 30 mg/dL (Neg-Trace) H 08/10/18 00:12 Urine Ketones Trace mg/dL (Negative) H 08/10/18 00:12 Urine Blood Large (Negative) H 08/10/18 00:12 Urine Bilirubin Small (Negative) H 08/10/18 00:12 Urine Microscopic RBC 30-50 per hpf (0-3) H 08/10/18 00:12 Ur Squamous Epith Cells Many per lpf (None-Few) H 08/10/18 00:12 - Clinical Findings Intake & Output: Intake & Output 08/10/18 08/10/18 08/10/18 07:59 15:59 23:59 Intake Total 2061.7 / 2061.7 100 / 100 200 / 200 Output Total 610 / 610 900 / 900 600 / 600 Balance 1451.7 / 1451.7 -800 / -800 -400 / -400 Weight 127.6 kg - Attending Attestation - Attending Attestation I saw and evaluated this patient and my medical decision-making was reviewed with the Resident Physician. I agree with the documented findings, disposition and treatment plan as described except to the extent set forth below. We independently had [id number] contact with the patient I spent 33 minutes of Critical Care time with this patient. It involved decision making of high complexity to assess, manipulate, and support vital organ system failure and/or to prevent further life threatening deterioration of the patient's condition. The time involved in the performance of separately reportable procedures was not counted toward critical care time. Patient seen and examined at bedside Labs, radiology, chart personally reviewed. Management was reviewed during multidisciplinary critical care rounds. CONSERVATION COORDINATOR: Patient is intubated and sedated with mechanical ventilation could not do a full neurological exam patient presented with stroke like symptoms patient had a prior CVA deemed that she was not a TPA candidate. The CT scan showed negative acute intracranial abnormality , neurology and will continue all the symptoms can be cardiac. Pulm: Patient has acceptable oxygenation and ventilation patient has diastolic heart failure contributing to the current picture suggested tidal volume and respiratory rate ,minute ventilation was adjusted . Hydrostatic pulmonary edema complicating the picture. 08/10 patient has acceptable oxygenation and ventilation to do gentle diuresis. Cards: Patient came with slow atrial fibrillation/atrial flutter patient has previously paroxysmal atrial flutter on Propafenone and beta alton patient heart rate was in 20's emergency Transvenous pacing. Cardiology following FEN-GI: Patient will be nothing by mouth tonight Renal: Labs and output were reviewed ID: No active infectious issues will not start on any broad-spectrum antibiotics for now Heme/Onc: Labs reviewed Endo: Glucose Monitored Integ/MSK: Skin Care per routine ICU Nursing Protocol to prevent ulcers. Lines: All lines examined without evidence of infection : Dispo: Critically ill CODE:Full Code
--- NOTE | 2018-08-10 13:56 | Cardiology Progress Note ---
Date of Encounter: 08/10/18 Time of Encounter: 13:30 Assessment and Plan (1) Bradycardia Current Visit: Yes Status: Acute Per cardiology: -Admitted with CVA like symptoms, confusion, respiratory acidosis, CAM. -Was noted to be bradycardic, HR 20s after sedation. Noted brief pulselessness. -ON rhythmol, BB at home, now held. -S/p temporary pacemaker yesterday by . -HR currenty 80s at bedside. Intermittent paced rhythm noted. -Will decrease pacemaker rate to 50. -Continue to hold BB, rhythmol. -If needed, will consult EP in am. (2) PAF (paroxysmal atrial fibrillation) Current Visit: No Status: Chronic Per cardiology: -Known PAF. -ON rhythmol and BB at home, now on hold due to bradycardia. -ON eliquis for anticoagulation. -Would recommend continuing eliquis. -Will continue to monitor. (3) Elevated troponin Current Visit: Yes Status: Acute Per cardiology: -troponins negative, 0.07, 0.45, 0.9, 0.53 in the setting of respiratory acidosis, CAM, s/p CPR. -ECG with no acute ischemic changes noted. -No reported chest pain, currently intubated and sedated. -2014 stress test negative for ischemia. -TTE with LVEF 50-55%, mild diastolic dysfunction, no wall motion abnormalities noted. -On asa, statin. Not on BB due to bradycardia. -Demand ischemia, no cardiac rehab consult warranted. -Can consider outpatient stress test. Discussion w patient/family: The assessment and plan as outlined above was discussed with the patient and/or family members who expressed understanding and agreement. All questions were answered. Thank you for involving us in the care of your patient. Please call with any questions. Discussed and reviewed with . Subjective Principal diagnosis: RESPIRATORY FAILURE Interval history: Patient intubated and sedated. Family at bedside. Objective Vital Signs, Last 4 Hours Temp Pulse Resp BP Pulse Ox 08/10/18 13:00 77 27 151/86 93 08/10/18 12:00 100.3 F H 86 27 131/97 92 08/10/18 11:53 100.3 F H 08/10/18 11:29 24 174/73 95 08/10/18 11:00 91 26 148/105 96 08/10/18 10:00 78 20 120/52 93 04/22/19 09:58 21 153/69 96 General: Other (Intubated and sedated) HEENT: Atraumatic, Normocephaly, Mucus Membranes Moist Neck: No JVD, Normal carotid pulses Cardiac: Reg Rate and Rhythm, Normal S1 and S2, No Murmur Lungs: Other (Lung sounds coarse) Neuro: Other (Intubated and sedated) Abdomen: Soft Skin: No rashes noted on visualized skin Musculoskeletal: No Chest Wall Tenderness Extremities: No Clubbing, No Cyanosis, No Edema, Normal Pulses Results 08/10/18 04:35 08/10/18 04:35 Lab Results Impressions Chest X-Ray 08/09/18 16:25 IMPRESSION: Right IJ central venous catheter in place, tip in the SVC. OG tube in place distal tip in the gastric antrum with the proximal side-port in the gastric body. Improved aeration of the lungs. D/ / 08/09/2018 16:56:03 Juwan Faria MD / vijay Interpreting Provider: Juwan Faria MD X-Ray 08/09/18 16:25 IMPRESSION: Right IJ central venous catheter in place, tip in the SVC. OG tube in place distal tip in the gastric antrum with the proximal side-port in the gastric body. Improved aeration of the lungs. D/ / 08/09/2018 16:56:03 Juwan Faria MD / vijay Interpreting Provider: Juwan Faria MD Echocardiogram 08/10/18 07:46 Impressions: LVEF 50%. Mild left ventricular diastolic dysfunction. Normal right ventricular structure and function. No significant valvular dysfunction. Unable to estimate RVSP. S/p temporary pacemaker - not well visualized. Left Ventricular Wall Motion: Rest Echo Findings All wall segments showed normal motion. Findings: Study Quality * Technically adequate exam overall. Patient supine on vent for exam. ECG Findings * Normal sinus rhythm with BBB. Left Ventricle * Normal LV chamber size, wall thickness and function. * Mild left ventricular diastolic dysfunction. * LVEF 50%. Right Ventricle * Normal right ventricular structure and function. Left Atrium * Normal left atrial size. Right Atrium * Normal right atrial size. Aortic Valve * No aortic regurgitation. * Aortic valve not well visualized. * No aortic stenosis. Mitral Valve * No mitral regurgitation. * Mild-moderate mitral annular calcification * Mitral valve not well visualized. Tricuspid Valve * Trace tricuspid regurgitation. * Tricuspid valve not well visualized. Pulmonic Valve * Pulmonic valve is not well visualized. * No pulmonic stenosis. * No pulmonic regurgitation. Pulmonary Artery * Pulmonary artery not well visualized. Aorta * Normally sized aortic root. Pericardium * There is no pericardial effusion present. Interatrial Septum * No evidence of PFO by color Doppler. IVC * The IVC is dilated. * < 50% respiratory change. Patient on ventilator. Active Medications Albuterol Sulfate (Proventil Neb) 2.5 mg IH [id number] PRN; Protocol PRN Reason: Shortness Of Breath/Wheezing Stop: 02/08/19 12:54 Albuterol Sulfate (Albuterol Inhaler) 4 puff IH [id number] [facility] Stop: 02/08/19 16:01 Last Admin: 08/10/18 11:28 Dose: 4 puff Artificial Tears (Akwa Tears) 1 drop BOTH EYES Q2HR PRN; Protocol PRN Reason: Dry Eyes Stop: 02/08/19 14:30 Artificial Tears (Akwa Tears) 1 drop BOTH EYES Q4HR [facility]; Protocol Stop: 02/08/19 16:01 Last Admin: 08/10/18 11:53 Dose: 1 drop Aspirin (Aspirin Ec) 81 mg PO DAILY [facility] Stop: 02/08/19 13:01 Last Admin: 08/10/18 09:25 Dose: 81 mg Atorvastatin Calcium (Lipitor) 40 mg PO HS [facility] Stop: 02/08/19 21:01 Last Admin: 08/09/18 21:17 Dose: 40 mg Chlorhexidine Gluconate (Chlorhexidine Rinse) 15 ml MM BID [facility] Stop: 02/08/19 21:01 Last Admin: 08/10/18 09:25 Dose: 15 ml Dextrose/Water (Dextrose 50% (Syg)) 25 ml IVP AD PRN PRN Reason: Hypoglycemia Stop: 02/08/19 11:43 Dextrose/Water (Dextrose 50% (Syg)) 25 ml IVP Q15M PRN PRN Reason: Hypoglycemia Stop: 02/08/19 20:44 Last Admin: 08/10/18 02:19 Dose: 25 ml Dextrose/Water (Dextrose 50% (Syg)) 25 ml IVP AD PRN PRN Reason: Hypoglycemia Stop: 02/09/19 03:33 Glucagon (Glucagen) 1 mg IM ONCE PRN PRN Reason: Hypoglycemia Stop: 02/08/19 11:43 Last Admin: 08/09/18 12:40 Dose: 1 mg Glucagon (Glucagen) 1 mg IM ONCE PRN PRN Reason: Hypoglycemia Stop: 02/09/19 03:33 Glucose (Gluctose) 15 gm PO ONCE PRN PRN Reason: Hypoglycemia Stop: 02/08/19 11:43 Glucose (Gluctose) 30 gm PO ONCE PRN PRN Reason: Hypoglycemia Stop: 02/08/19 11:43 Glucose (Gluctose) 15 gm PO ONCE PRN PRN Reason: Hypoglycemia Stop: 02/09/19 03:33 Glucose (Gluctose) 30 gm PO ONCE PRN PRN Reason: Hypoglycemia Stop: 02/09/19 03:33 Hydralazine HCl (Hydralazine) 5 mg IVP Q6HR PRN PRN Reason: Hypertension Stop: 02/08/19 11:45 Dextrose (Dextrose 5%) 1,000 mls @ 100 mls/hr IVC .Q10H PRN PRN Reason: HYPOGLYCEMIA Stop: 02/08/19 11:43 Dexmedetomidine HCl (Precedex Premix) 400 mcg in 100 mls @ 6.18 mls/hr IVC .[id number] [facility]; Protocol Stop: 02/08/19 15:01 Last Admin: 08/10/18 13:08 Dose: 0.5 mcg/kg/hr, 15.5 mls/hr Fentanyl Citrate 1,000 mcg/ (Sodium Chloride) 100 mls @ 5 mls/hr IVC CONT [facility]; Protocol Stop: 02/08/19 17:01 Last Admin: 08/09/18 17:34 Dose: 50 mcg/hr, 5 mls/hr Norepinephrine Bitartrate 4 mg (/ Dextrose) 254 mls @ 30.48 mls/hr IVC CONT [facility]; Protocol Stop: 02/08/19 17:01 Last Titration: 08/10/18 05:23 Dose: 0 mcg/min, 0 mls/hr Dextrose (Dextrose 5%) 1,000 mls @ 100 mls/hr IVC .Q10H PRN PRN Reason: HYPOGLYCEMIA Stop: 02/09/19 03:33 Insulin Human Lispro (Humalog) 0 units SQ Q6HR [facility]; Protocol Stop: 02/09/19 12:01 Last Admin: 08/10/18 11:53 Dose: 8 units Labetalol HCl (Labetalol) 10 mg IVP Q6H PRN PRN Reason: Hypertension Stop: 02/09/19 08:05 Naloxone HCl (Narcan) 0.4 mg IVP Q2M PRN PRN Reason: SEE COMMENTS Stop: 02/08/19 11:40 Pantoprazole Sodium (Protonix) 40 mg IVP DAILY [facility] Stop: 02/09/19 09:01 Last Admin: 08/10/18 09:26 Dose: 40 mg Tramadol HCl (Ultram) 50 mg PO Q6HR PRN PRN Reason: Moderate Pain Stop: 02/08/19 11:40 Laboratory Tests 05/21/18 08/09/18 08/09/18 14:02 10:27 10:28 WBC Hgb ABG pH Potassium 5.3 H Creatinine 0.71 1.17 Troponin I < 0.03 08/09/18 08/09/18 08/09/18 12:49 18:30 22:40 WBC Hgb ABG pH 7.01 L* Potassium Creatinine 1.67 H Troponin I 0.07 H* 0.45 H* 08/10/18 08/10/18 08/10/18 04:35 04:35 11:44 WBC 14.0 H Hgb 11.7 ABG pH Potassium Creatinine 1.06 Troponin I 0.90 H* 0.53 H* - Imaging and Cardiology Chest Xray: report reviewed Echo: report reviewed Consult Discharge Plan - Plan Referrals: NONE,PCP [Primary Care Provider] -
--- NOTE | 2018-08-10 16:00 | Electrocardiograph Report ---
[address] [place] [address] Test Date: 2018-08-09 Pat Name: Fay Aparicio Department: 109 Room: [facility] Gender: F Senior Case Manager: : 1950 Requested By: Tao Coon Order Number: [id number] Reading MD: Danna Jerome Measurements Intervals [place] Rate: 69 P: CA: 0 QRS: -7 QRSD: 176 T: -84 QT: 450 QTc: 470 Interpretive Statements ELECTRONIC VENTRICULAR PACEMAKER ABNORMAL RHYTHM ECG Electronically Signed On 08-10-2018 15:58:33 EDT by Danna Jerome
--- NOTE | 2018-08-10 16:11 | Electrocardiograph Report ---
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
--- NOTE | 2018-08-10 16:18 | Electrocardiograph Report ---
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
--- NOTE | 2018-08-10 16:33 | Electrocardiograph Report ---
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
[2018-08-10] MEDS: FentaNYL (PF) 1,000 MCG in 0.9 % Sodium Chloride 80 ML IVC SCH (19:46)
[2018-08-11] MEDS: Dexmedetomidine HCl 400 MCG/100 ML MLS IVC SCH ×2 (02:15→16:51)
[2018-08-11] MEDS: Artificial Tears SOLN 15 ML BOTTLE BOTH EYES SCH ×4 (04:24→16:53)
[2018-08-11 04:48] LABS: Basophils % 0.2 %; Hematocrit 33.8 % (35.3-44.9); Hemoglobin 10.9 g/dL (11.5-15.4); Immature Granulocytes % 0.4 % (0-4); Lymphocytes # 2.6 K/mcL (0.6-4.6); Lymphocytes % 17.2 %; Mean Corpuscular HGB Conc 32.2 g/dL (31.6-35.5); Mean Corpuscular Hemoglobin 29.9 pg (28.0-33.3); Mean Corpuscular Volume 92.6 fL (83.0-100.0); Mean Platelet Volume 10.7 fL (9.4-12.4); Monocytes # 1.7 K/mcL (0.0-1.3); Neutrophils # 10.9 K/mcL (1.6-8.9); Platelet Count 181 K/mcL (140-400); Red Blood Count 3.65 M/mcL (3.82-4.97); Red Cell Distribution Width 13.7 % (11.5-14.5); Segmented Neutrophils % 71.2 %
[2018-08-11 05:08] LABS: BUN/Creatinine Ratio 29 (6-26); Blood Urea Nitrogen 22 mg/dL (8-23); Calcium 8.6 mg/dL (8.6-10.3); Carbon Dioxide 24 mEq/L (23-29); Chloride 102 mEq/L (98-107); Glucose 249 mg/dL (70-105); Osmolality,Calculated 294 (280-300); Potassium 4.5 mEq/L (3.5-5.1); Sodium 136 mEq/L (136-145); eGFR For Non-African Americans > 60 (> 60)
[2018-08-11] MEDS: Insulin LISPRO 300 UNITS/3 ML VIAL SQ SCH ×3 (05:09→16:52)
[2018-08-11 05:16] LABS: ABG Base Excess 0 mEq/L (-2 to 3); ABG HCO3 24 mEq/L (21-27); ABG Oxygen Saturation 95 % (95-98); ABG PCO2 35 mmHg (35-45); ABG PH 7.43 pH Units (7.32-7.45); ABG PO2 70 mmHg (85-104); ABG TCO2 25 mEq/L (20-26); Blood Gas Modality ASSIST CONTROL; Blood Gas PEEP 8 cm H2O; Blood Gas Respiration Rate 20; Blood Gas VT 480 cc
--- NOTE | 2018-08-11 07:08 | Pulmonology Progress Note ---
Date of Encounter: 08/11/18 Time of Encounter: 07:07 Assessment and Plan (1) Acute respiratory failure with hypoxia Current Visit: Yes Status: Acute Patient was intubated in the emergency department secondary to agitation and disruption of treatment Patient presented to the ICU on mechanical ventilation, saturating and ventilating appropriately Patient does have history of obstructive sleep apnea but no chronic pulmonary diseases Currently on Precedex and fentanyl drips for sedation, norepinephrine drip for hypotension discontinued Stat ABG immediately after intubation demonstrated severe uncompensated respiratory acidosis with concomitant anion gap metabolic acidosis Stat ABG on arrival to ICU demonstrated mild uncompensated respiratory acidosis with concomitant anion gap metabolic acidosis Repeat ABG today completely within normal limits Continue Precedex, fentanyl titrations for sedation Continue mechanical ventilation and vent setting adjustments as necessary for proper ventilation We will continue to wean sedation and anticipate SBT tomorrow Ventilation bundle in place, Repeat ABG in a.m. (2) Stroke-like symptoms Current Visit: Yes Status: Acute Patient presented with altered mental status, right-sided weakness, right-sided numbness Stroke alert was performed in the ED, patient was not determined to be TPA candidate She does have a previous history of CVA CT head was negative for acute abnormalities Neurology recommending carotid duplex and MRI brain when clinically stable (3) Atrial fibrillation with slow ventricular response Current Visit: Yes Status: Chronic Patient has chronic history of atrial fibrillation treated with Eliquis, Rythmol, metoprolol She presented with significant bradycardia in the 20s and 30s, apparently irregular Patient was given several doses of atropine, calcium gluconate, insulin Her rate did not improve, cardiology evaluated, placed temporary pacemaker Patient currently at paced rate of 50 with actual rate of approximately 80 Continuing apixaban, holding Rythmol and metoprolol Cardiology following, agrees with medical management, will reevaluate tomorrow for EP recommendations (4) Cardiopulmonary arrest Current Visit: Yes Status: Acute Patient had episode of pulselessness and hypotension during intubation induction in emergency department CPR was performed, 1 mg of epinephrine was given, ROSC was attained Elevated troponins are likely secondary to CPR, trending down, ACS not suspected at this time (5) Essential hypertension Current Visit: No Status: Chronic Patient has history of essential hypertension According to family it is severe and her normal blood pressure is approximately 200/100 She is currently normotensive, maintaining blood pressure within normal limits, norepinephrine discontinued We will continue to monitor, restart antihypertensives as needed (6) Type 2 diabetes mellitus Current Visit: No Status: Chronic Chronic type II diabetic without home insulin use Every 6 hour Accu-Cheks and medium dose sliding scale insulin protocol Qualifiers: Diabetes mellitus mcc insulin use: 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 Patient still medically sedated and mechanically ventilated. Objective PUL Vital signs: Last Vital Signs Temp 99.3 F 08/11/18 03:34 Pulse 71 08/11/18 06:00 Resp 20 08/11/18 06:00 BP 122/54 08/11/18 06:00 Pulse Ox 93 08/11/18 06:00 Ventilator Settings Ventilator Settings: Ventilator Settings, Last 8 Hours Ventilator Tidal Volume 480 Setting Ventilator Tidal Volume 480 Setting Ventilator Tidal Volume 480 Setting Ventilator Tidal Volume 480 Setting Ventilator Tidal Volume 480 Setting Ventilator Tidal Volume 480 Setting Ventilator Tidal Volume 480 Setting Ventilator Tidal Volume 480 Setting Ventilator Tidal Volume 480 Setting Ventilator Tidal Volume 480 Setting Ventilator Tidal Volume 480 Setting Ventilator Tidal Volume 480 Setting Ventilator Respiratory Rate 20 Setting Ventilator Respiratory Rate 20 Setting Ventilator Respiratory Rate 20 Setting Ventilator Respiratory Rate 20 Setting Ventilator Respiratory Rate 20 Setting Ventilator Respiratory Rate 20 Setting Ventilator Respiratory Rate 20 Setting Ventilator Respiratory Rate 20 Setting Ventilator Respiratory Rate 20 Setting Ventilator Respiratory Rate 20 Setting Ventilator Respiratory Rate 20 Setting Ventilator Respiratory Rate 20 Setting Actual Respiratory Rate 20 Actual Respiratory Rate 20 Actual Respiratory Rate 20 Actual Respiratory Rate 20 Actual Respiratory Rate 20 Actual Respiratory Rate 20 Actual Respiratory Rate 20 Actual Respiratory Rate 20 Actual Respiratory Rate 20 Actual Respiratory Rate 20 Actual Respiratory Rate 20 Positive End Expiratory 8 Pressure Positive End Expiratory 8 Pressure Positive End Expiratory 8 Pressure Positive End Expiratory 8 Pressure Positive End Expiratory 8 Pressure Positive End Expiratory 8 Pressure Positive End Expiratory 8 Pressure Positive End Expiratory 8 Pressure Positive End Expiratory 8 Pressure Positive End Expiratory 8 Pressure Positive End Expiratory 8 Pressure Positive End Expiratory 8 Pressure Peak Inspiratory Airway 28 Pressure Peak Inspiratory Airway 28 Pressure Peak Inspiratory Airway 29 Pressure Peak Inspiratory Airway 29 Pressure Peak Inspiratory Airway 29 Pressure Peak Inspiratory Airway 29 Pressure Peak Inspiratory Airway 25 Pressure Peak Inspiratory Airway 25 Pressure Peak Inspiratory Airway 25 Pressure Peak Inspiratory Airway 30 Pressure Peak Inspiratory Airway 32 Pressure Results - Laboratory Findings CBC and BMP: 08/11/18 04:00 08/11/18 04:00 ABG ABG pH 7.43 pH Units (7.32-7.45) 08/11/18 05:13 ABG pCO2 35 mmHg (35-45) 08/11/18 05:13 ABG pO2 70 mmHg (85-104) L 08/11/18 05:13 ABG O2 Saturation 95 % (95-98) 08/11/18 05:13 PT/INR, D-dimer PT 15.6 Seconds (9.4-12.1) H 08/09/18 10:28 Abnormal lab findings: Abnormal lab results WBC 15.4 K/mcL (4.3-11.1) H 08/11/18 04:00 RBC 3.65 M/mcL (3.82-4.97) L 08/11/18 04:00 Hgb 10.9 g/dL (11.5-15.4) L 08/11/18 04:00 Hct 33.8 % (35.3-44.9) L 08/11/18 04:00 Neutrophils # 10.9 K/mcL (1.6-8.9) H 08/11/18 04:00 Monocytes # 1.7 K/mcL (0.0-1.3) H 08/11/18 04:00 PT 15.6 Seconds (9.4-12.1) H 08/09/18 10:28 ABG pO2 70 mmHg (85-104) L 08/11/18 05:13 VBG pH 7.31 pH Units (7.32-7.42) L 08/09/18 10:48 VBG pCO2 37 mmHg (41-51) L 08/09/18 10:48 VBG pO2 151 mmHg (25-50) H 08/09/18 10:48 VBG HCO3 19 mEq/L (21-27) L 08/09/18 10:48 BUN/Creatinine Ratio 29 (6-26) H 08/11/18 04:00 Glucose 249 mg/dL (70-105) H 08/11/18 04:00 POC Glucose 181 mg/dL (70-99) H 08/10/18 23:47 Lactic Acid 3.2 mmol/L (0.5-2.2) H 08/09/18 22:40 Venous Ioniz Calcium 1.13 mmol/L (1.15-1.35) L 08/09/18 21:23 Phosphorus 2.3 mg/dL (2.7-4.5) L 08/10/18 04:35 AST 106 Units/L (13-39) H 08/09/18 10:28 ALT 75 Units/L (7-52) H 08/09/18 10:28 Troponin I 0.42 ng/mL (< 0.04) H* 08/11/18 00:00 Serum Total Protein 5.8 g/dL (6.4-8.9) L 08/09/18 10:28 Globulin 2.1 g/dL (2.4-3.5) L 08/09/18 10:28 Beta-Hydroxybutyric Acd 0.59 mmol/L (0.02-0.27) H 08/09/18 10:28 Ur Specific [place] 1.029 (1.010-1.025) H 08/10/18 00:12 Urine Protein 30 mg/dL (Neg-Trace) H 08/10/18 00:12 Urine Ketones Trace mg/dL (Negative) H 08/10/18 00:12 Urine Blood Large (Negative) H 08/10/18 00:12 Urine Bilirubin Small (Negative) H 08/10/18 00:12 Urine Microscopic RBC 30-50 per hpf (0-3) H 08/10/18 00:12 Ur Squamous Epith Cells Many per lpf (None-Few) H 08/10/18 00:12 - Clinical Findings Intake & Output: Intake & Output 08/10/18 08/10/18 08/11/18 15:59 23:59 07:59 Intake Total 100 / 100 1200 / 1200 100 / 100 Output Total 900 / 900 800 / 800 250 / 250 Balance -800 / -800 400 / 400 -150 / -150 Consult Discharge Plan - Plan Referrals: NONE,PCP [Primary Care Provider] -
[2018-08-11] MEDS: Pantoprazole 40 MG VIAL IVP SCH (07:53)
[2018-08-11] MEDS: Aspirin Enteric Coated 81 MG Tablet PO SCH (07:53)
[2018-08-11] MEDS: Chlorhexidine Rinse 15 ML MOUTHWASH MM SCH (07:53)
[2018-08-11] MEDS: Apixaban 5 MG TABLET PO SCH (07:53)
[2018-08-11] MEDS: FentaNYL (PF) 1,000 MCG in 0.9 % Sodium Chloride 80 ML IVC SCH ×2 (08:12→19:09)
[2018-08-11] MEDS ORDERED: Furosemide 40 MG/4 ML VIAL IVP SCH (11:45)
[2018-08-11] MEDS ORDERED: Piperacillin/Tazobactam 3.375 GM in 0.9 % Sodium Chloride Mini Bag 100 ML IVPB SCH (13:00)
--- NOTE | 2018-08-11 13:20 | Cardiology Progress Note ---
Date of Encounter: 08/11/18 Time of Encounter: 09:30 Assessment and Plan (1) Bradycardia Current Visit: Yes Status: Acute Per cardiology: -Admitted with CVA like symptoms, confusion, respiratory acidosis, CAM. -Was noted to be bradycardic, HR 20s after sedation. Noted brief pulselessness. -ON rhythmol, BB at home, now held. -S/p temporary pacemaker by . -HR currenty 80s at bedside. Intermittent paced rhythm noted. -Will decrease pacemaker rate to 40bpm. -Continue to hold BB, rhythmol. -If needed, will consult EP. (2) PAF (paroxysmal atrial fibrillation) Current Visit: No Status: Chronic Per cardiology: -Known PAF. -ON rhythmol and BB at home, now on hold due to bradycardia. -ON eliquis for anticoagulation. -Would recommend continuing eliquis. -Will continue to monitor. (3) Elevated troponin Current Visit: Yes Status: Acute Per cardiology: -troponins negative, 0.07, 0.45, 0.9, 0.53 in the setting of respiratory acidosis, CAM, s/p CPR. -ECG with no acute ischemic changes noted. -No reported chest pain, currently intubated and sedated. -2014 stress test negative for ischemia. -TTE with LVEF 50-55%, mild diastolic dysfunction, no wall motion abnormalities noted. -On asa, statin. Not on BB due to bradycardia. -Demand ischemia, no cardiac rehab consult warranted. -Can consider outpatient stress test. Discussion w patient/family: The assessment and plan as outlined above was discussed with the patient who expressed understanding and agreement. All questions were answered. Thank you for involving us in the care of your patient. Please call with any questions. Discussed and reviewed with . Subjective Principal diagnosis: Symptomatic Bradycardia Interval history: Patient intubated and sedated. Objective Vital Signs, Last 4 Hours Temp Resp BP Pulse Ox 08/11/18 11:30 20 93 08/11/18 10:30 99.8 F H 08/11/18 09:44 20 114/52 92 General: Other (Intubated and sedated) HEENT: Atraumatic, Normocephaly, Mucus Membranes Moist Neck: No JVD, Normal carotid pulses Cardiac: Reg Rate and Rhythm, Normal S1 and S2, No Murmur Lungs: Normal Breath Sounds, No Wheeze, Rales, Rhonchi Neuro: Other (Intubated and sedated) Abdomen: Soft Skin: No rashes noted on visualized skin Musculoskeletal: No Chest Wall Tenderness Extremities: No Clubbing, No Cyanosis, No Edema, Normal Pulses Results 08/11/18 04:00 08/11/18 04:00 Lab Results Laboratory Tests 08/11/18 08/11/18 04:00 04:00 WBC 15.4 H Hgb 10.9 L Creatinine 0.75 - Imaging and Cardiology Chest Xray: report reviewed Echo: report reviewed - EKG Interpretation EKG results cardiology: other (Intermittent pacing noted.) Consult Discharge Plan - Plan Referrals: NONE,PCP [Primary Care Provider] -
--- NOTE | 2018-08-11 15:26 | Neurology Progress Note ---
Date of Encounter: 08/11/18 Time of Encounter: 15:24 Assessment and Plan (1) Stroke-like symptoms Current Visit: Yes Status: Acute This patient with a previous history of CVA likely related to history of paroxysmal atrial fibrillation currently on anticoagulation therapy who initially developed transient since her speech associated with a right-sided w eakness when she was initially admitted. Vision subsequently developed bradycardia and pulseless requiring emergent pacemaker placement. Initially CT of the head showed no acute intracranial abnormality. Patient's sister speech and right-sided weakness per medical records quickly resolved when she was evaluated in emergency room. Over the last 2 days, the patient was also observed to have no significant focal arm weakness, especially the patient was able to move her both arms at a time when she was sedated on mechanical intubation. This afternoon, the patient was off observed to have developed weakness to her left arm therefore would recommend the patient get a CT of the head to evaluate possible intracranial abnormality. Case was discussed with medical team and CT of head without contrast is being ordered. Subjective Principal diagnosis: left arm weakness Interval history: Patient seen and examined. Today she is still on mild sedation and fentanyl for pain. She is drowsy and sedated but able to open eyes to verbal commands. Found to have left arm weakness today. Yesterday, it was noted that she was able to m ove both arms. No fever, no seizure like activity. Objective - Constitutional Vitals: Temp Pulse Resp BP Pulse Ox 99.8 F H 65 26 161/63 93 08/11/18 10:30 08/11/18 12:00 08/11/18 15:11 08/11/18 15:11 08/11/18 15:11 - Neurological Exam Motor Examination: Present: other (Patient is restrained bilaterally in her arms and left arm is flaccid and no spontaneous movements noted. 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 Able to squeeze a little bit to with her right hand. ), opens eyes to voice, follows simple commands Results - Laboratory Findings CBC and BMP: 08/11/18 04:00 08/11/18 04:00 Abnormal lab findings: Abnormal lab results WBC 15.4 K/mcL (4.3-11.1) H 08/11/18 04:00 RBC 3.65 M/mcL (3.82-4.97) L 08/11/18 04:00 Hgb 10.9 g/dL (11.5-15.4) L 08/11/18 04:00 Hct 33.8 % (35.3-44.9) L 08/11/18 04:00 Neutrophils # 10.9 K/mcL (1.6-8.9) H 08/11/18 04:00 Monocytes # 1.7 K/mcL (0.0-1.3) H 08/11/18 04:00 PT 15.6 Seconds (9.4-12.1) H 08/09/18 10:28 ABG pO2 70 mmHg (85-104) L 08/11/18 05:13 VBG pH 7.31 pH Units (7.32-7.42) L 08/09/18 10:48 VBG pCO2 37 mmHg (41-51) L 08/09/18 10:48 VBG pO2 151 mmHg (25-50) H 08/09/18 10:48 VBG HCO3 19 mEq/L (21-27) L 08/09/18 10:48 BUN/Creatinine Ratio 29 (6-26) H 08/11/18 04:00 Glucose 249 mg/dL (70-105) H 08/11/18 04:00 POC Glucose 181 mg/dL (70-99) H 08/10/18 23:47 Lactic Acid 3.2 mmol/L (0.5-2.2) H 08/09/18 22:40 Venous Ioniz Calcium 1.13 mmol/L (1.15-1.35) L 08/09/18 21:23 Phosphorus 2.3 mg/dL (2.7-4.5) L 08/10/18 04:35 AST 106 Units/L (13-39) H 08/09/18 10:28 ALT 75 Units/L (7-52) H 08/09/18 10:28 Troponin I 0.42 ng/mL (< 0.04) H* 08/11/18 00:00 Serum Total Protein 5.8 g/dL (6.4-8.9) L 08/09/18 10:28 Globulin 2.1 g/dL (2.4-3.5) L 08/09/18 10:28 Beta-Hydroxybutyric Acd 0.59 mmol/L (0.02-0.27) H 08/09/18 10:28 Ur Specific [place] 1.029 (1.010-1.025) H 08/10/18 00:12 Urine Protein 30 mg/dL (Neg-Trace) H 08/10/18 00:12 Urine Ketones Trace mg/dL (Negative) H 08/10/18 00:12 Urine Blood Large (Negative) H 08/10/18 00:12 Urine Bilirubin Small (Negative) H 08/10/18 00:12 Urine Microscopic RBC 30-50 per hpf (0-3) H 08/10/18 00:12 Ur Squamous Epith Cells Many per lpf (None-Few) H 08/10/18 00:12 Consult Discharge Plan - Plan Referrals: NONE,PCP [Primary Care Provider] -
[2018-08-11] MEDS: Norepinephrine 4 MG in D5% in Water 250 ML IVC SCH (16:53)
--- NOTE | 2018-08-11 18:36 | Discharge Summary ---
<Reymundo Franz - Last Filed: 08/11/18 22:04> Orders not resulted at time of discharge: Pending orders 08/11/18 15:45 Culture,Urine [RM] Routine 08/12/18 04:00 ABG [Arterial Blood Gas] AM 0400 BMP [Basic Metabolic Panel] AM 0400 Complete Blood Count [HEME] AM 0400 08/13/18 04:00 ABG [Arterial Blood Gas] AM 0400 BMP [Basic Metabolic Panel] AM 0400 Complete Blood Count [HEME] AM 04008/14/18 04:00 ABG [Arterial Blood Gas] AM 0400 08/15/18 04:00 ABG [Arterial Blood Gas] AM 0400 08/16/18 04:00 ABG [Arterial Blood Gas] AM 040 Date of Encounter: 08/11/18 Time of Encounter: 08:00 - Discharge Diagnosis (1) Stroke-like symptoms Priority: Primary Status: Acute (2) Atrial fibrillation with slow ventricular response Priority: Primary Status: Chronic (3) Cardiopulmonary arrest Priority: Primary Status: Acute (4) Acute respiratory failure with hypoxia Priority: Secondary Status: Acute (5) Essential hypertension Priority: Secondary Status: Chronic (6) Type 2 diabetes mellitus Priority: Secondary Status: Chronic Qualifiers: Diabetes mellitus 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 car washer insulin use: unspecified box car washer insulin use status Diabetes mellitus complication status: with unspecified complications Qualified Code(s): E11.8 - Type 2 diabetes mellitus with unspecified complications - Discharge Medications Prescriptions: New Albuterol Neb [Proventil Neb] 2.5 mg IH [id number] PRN inhsol PRN Reason: Shortness Of Breath/Wheezing Albuterol Sulfate [Albuterol Inhaler] 4 puff IH [id number] inhaler Apixaban [Eliquis] 5 mg PO BID tablet Atorvastatin [Lipitor] 40 mg PO HS tablet Labetalol 10 mg IVP Q6H PRN syringe PRN Reason: Hypertension hydrALAZINE [HydrALAZINE] 5 mg IVP Q6HR PRN vial PRN Reason: Hypertension Aspirin Enteric Coated [Aspirin EC] 81 mg PO DAILY tablet. Naloxone [Narcan] 0.4 mg IVP Q2M PRN inj PRN Reason: See Comments Dextrose 50 % in Water (Syg) [Dextrose 50% (Syg)] 25 ml IVP AD PRN syringe PRN Reason: Hypoglycemia Dextrose Gel [Gluctose] 30 gm PO ONCE PRN tube PRN Reason: Hypoglycemia Dextrose Gel [Gluctose] 15 gm PO ONCE PRN tube PRN Reason: Hypoglycemia Furosemide [Lasix] 40 mg IVP DAILY vial Artificial Tears SOLN [Akwa Tears] 1 drop BOTH EYES Q4HR bottle Artificial Tears SOLN [Akwa Tears] 1 drop BOTH EYES Q2HR PRN bottle PRN Reason: Dry Eyes Pantoprazole [Protonix] 40 mg IVP DAILY vial Glucagon, Human Recombinant [Glucagen] 1 mg IM ONCE PRN vial PRN Reason: Hypoglycemia Glucagon, Human Recombinant [Glucagen] 1 mg IM ONCE PRN vial PRN Reason: Hypoglycemia Insulin LISPRO [HumaLOG] 0 units SQ Q4H vial Chlorhexidine Rinse 15 ml MM BID mouthwash Continue Zolpidem [Ambien] 10 mg PO HS Cyclobenzaprine [Flexeril] 10 mg PO TID Pantoprazole Sodium [Protonix] 40 mg PO BID Albuterol Sulfate [Proair Hfa] 2 puff IH Q4H PRN PRN Reason: Shortness Of Breath Lisinopril [Zestril] 40 mg PO DAILY Atorvastatin [Lipitor] 40 mg PO HS Apixaban [Eliquis] 5 mg PO BID #60 tablet Aspirin 81 mg PO DAILY #30 tab.chew hydroCHLOROthiazide [Hydrochlorothiazide] 25 mg PO DAILY Gabapentin [Neurontin] 300 mg PO BID Glimepiride [Amaryl] 2 mg PO DAILY Propafenone [Rhythmol] 150 mg PO Q8HR #90 tablet Metoprolol Tartrate 100 mg PO BID SUMAtriptan succinate [Imitrex] 50 mg PO DAILY PRN PRN Reason: Migraine Headache HYDROcodone/Acet 5/325 mg [[place] 5-325 mg] 1 tab PO Q4H PRN PRN Reason: Pain Metformin HCl [Glucophage Xr] 2 tab PO BID Magnesium Oxide [Magnesium] 400 mg PO BID Amlodipine Besylate 10 mg PO DAILY Home Medications: Albuterol Sulfate [Proair Hfa] 2 puff IH Q4H PRN 03/04/16 [History] Cyclobenzaprine [Flexeril] 10 mg PO TID 03/04/16 [History] Pantoprazole Sodium [Protonix] 40 mg PO BID 03/04/16 [History] Zolpidem [Ambien] 10 mg PO HS 03/04/16 [History] Atorvastatin [Lipitor] 40 mg PO HS 07/25/16 [History] Lisinopril [Zestril] 40 mg PO DAILY 07/25/16 [History] Apixaban [Eliquis] 5 mg PO BID #60 tablet 07/27/16 [Rx] Aspirin 81 mg PO DAILY #30 tab.chew 07/27/16 [Rx] Gabapentin [Neurontin] 300 mg PO BID 01/27/18 [History] Glimepiride [Amaryl] 2 mg PO DAILY 01/27/18 [History] hydroCHLOROthiazide [Hydrochlorothiazide] 25 mg PO DAILY 01/27/18 [History] Propafenone [Rhythmol] 150 mg PO Q8HR #90 tablet 01/29/18 [Rx] Amlodipine Besylate 10 mg PO DAILY 05/25/18 [History] HYDROcodone/Acet 5/325 mg [[place] 5-325 mg] 1 tab PO Q4H PRN 05/25/18 [History] Magnesium Oxide [Magnesium] 400 mg PO BID 05/25/18 [History] Metformin HCl [Glucophage Xr] 2 tab PO BID 05/25/18 [History] Metoprolol Tartrate 100 mg PO BID 05/25/18 [History] SUMAtriptan succinate [Imitrex] 50 mg PO DAILY PRN 05/25/18 [History] Albuterol Neb [Proventil Neb] 2.5 mg IH [id number] PRN inhsol 08/11/18 [Rx] Albuterol Sulfate [Albuterol Inhaler] 4 puff IH [id number] inhaler 08/11/18 [Rx] Apixaban [Eliquis] 5 mg PO BID tablet 08/11/18 [Rx] Artificial Tears SOLN [Akwa Tears] 1 drop BOTH EYES Q2HR PRN bottle 08/11/18 [Rx] Artificial Tears SOLN [Akwa Tears] 1 drop BOTH EYES Q4HR bottle 08/11/18 [Rx] Aspirin Enteric Coated [Aspirin EC] 81 mg PO DAILY tablet. 08/11/18 [Rx] Atorvastatin [Lipitor] 40 mg PO HS tablet 08/11/18 [Rx] Chlorhexidine Rinse 15 ml MM BID mouthwash 08/11/18 [Rx] Dextrose 50 % in Water (Syg) [Dextrose 50% (Syg)] 25 ml IVP AD PRN syringe 08/11/18 [Rx] Dextrose Gel [Gluctose] 15 gm PO ONCE PRN tube 08/11/18 [Rx] Dextrose Gel [Gluctose] 30 gm PO ONCE PRN tube 08/11/18 [Rx] Furosemide [Lasix] 40 mg IVP DAILY vial 08/11/18 [Rx] Glucagon, Human Recombinant [Glucagen] 1 mg IM ONCE PRN vial 08/11/18 [Rx] Glucagon, Human Recombinant [Glucagen] 1 mg IM ONCE PRN vial 08/11/18 [Rx] Insulin LISPRO [HumaLOG] 0 units SQ Q4H vial 08/11/18 [Rx] Labetalol 10 mg IVP Q6H PRN syringe 08/11/18 [Rx] Naloxone [Narcan] 0.4 mg IVP Q2M PRN inj 08/11/18 [Rx] Pantoprazole [Protonix] 40 mg IVP DAILY vial 08/11/18 [Rx] hydrALAZINE [HydrALAZINE] 5 mg IVP Q6HR PRN vial 08/11/18 [Rx] Allergies/Adverse Reactions: Allergy/AdvReac Type Severity Reaction Status Date / Time azithromycin Allergy Itching Verified 07/25/16 13:50 [From Zithromax Z-Michael] Labs on day of discharge: Labs from last 24 hours 08/11/18 08/11/18 08/11/18 05:13 04:00 04:00 WBC 15.4 H RBC 3.65 L Hgb 10.9 L Hct 33.8 L MCV 92.6 MCH 29.9 MCHC 32.2 RDW 13.7 Plt Count 181 MPV 10.7 Immature Gran % 0.4 Seg Neutrophils % 71.2 Lymphocytes % 17.2 Monocytes % 11.0 Eosinophils % 0.0 Basophils % 0.2 Neutrophils # 10.9 H Lymphocytes # 2.6 Monocytes # 1.7 H Eosinophils # 0.0 Basophils # 0.0 Sample Site R Brach ABG pH 7.43 ABG pCO2 35 ABG pO2 70 L ABG HCO3 24 ABG Total CO2 25 ABG O2 Saturation 95 ABG Base Excess 0 Deng Test N/A Respiration Rate 20 O2 Delivery Device Adult Vent Blood Gas Modality ASSIST CONTROL Inspired O2 40.0 Tidal Volume 480 PEEP 8 Sodium 136 Potassium 4.5 Chloride 102 Carbon Dioxide 24 BUN 22 Creatinine 0.75 Est GFR ( Amer) > 60 Est GFR (Non-Af Amer) > 60 BUN/Creatinine Ratio 29 H Glucose 249 H POC Glucose Calculated Osmolality 294 Calcium 8.6 Troponin I 08/11/18 08/10/18 08/10/18 00:00 23:47 17:48 WBC RBC Hgb Hct MCV MCH MCHC RDW Plt Count MPV Immature Gran % Seg Neutrophils % Lymphocytes % Monocytes % Eosinophils % Basophils % Neutrophils # Lymphocytes # Monocytes # Eosinophils # Basophils # Sample Site ABG pH ABG pCO2 ABG pO2 ABG HCO3 ABG Total CO2 ABG O2 Saturation ABG Base Excess Deng Test Respiration Rate O2 Delivery Device Blood Gas Modality Inspired O2 Tidal Volume PEEP Sodium Potassium Chloride Carbon Dioxide BUN Creatinine Est GFR ( Amer) Est GFR (Non-Af Amer) BUN/Creatinine Ratio Glucose POC Glucose 181 H 208 H Calculated Osmolality Calcium Troponin I 0.42 H* 08/10/18 08/10/18 08/10/18 11:38 07:31 04:57 WBC RBC Hgb Hct MCV MCH MCHC RDW Plt Count MPV Immature Gran % Seg Neutrophils % Lymphocytes % Monocytes % Eosinophils % Basophils % Neutrophils # Lymphocytes # Monocytes # Eosinophils # Basophils # Sample Site ABG pH ABG pCO2 ABG pO2 ABG HCO3 ABG Total CO2 ABG O2 Saturation ABG Base Excess Deng Test Respiration Rate O2 Delivery Device Blood Gas Modality Inspired O2 Tidal Volume PEEP Sodium Potassium Chloride Carbon Dioxide BUN Creatinine Est GFR ( Amer) Est GFR (Non-Af Amer) BUN/Creatinine Ratio Glucose POC Glucose 238 H 147 H 109 H Calculated Osmolality Calcium Troponin I 08/10/18 08/10/18 08/10/18 04:00 03:02 02:34 WBC RBC Hgb Hct MCV MCH MCHC RDW Plt Count MPV Immature Gran % Seg Neutrophils % Lymphocytes % Monocytes % Eosinophils % Basophils % Neutrophils # Lymphocytes # Monocytes # Eosinophils # Basophils # Sample Site ABG pH ABG pCO2 ABG pO2 ABG HCO3 ABG Total CO2 ABG O2 Saturation ABG Base Excess Deng Test Respiration Rate O2 Delivery Device Blood Gas Modality Inspired O2 Tidal Volume PEEP Sodium Potassium Chloride Carbon Dioxide BUN Creatinine Est GFR ( Amer) Est GFR (Non-Af Amer) BUN/Creatinine Ratio Glucose POC Glucose 104 H 99 96 Calculated Osmolality Calcium Troponin I 08/10/18 02:03 WBC RBC Hgb Hct MCV MCH MCHC RDW Plt Count MPV Immature Gran % Seg Neutrophils % Lymphocytes % Monocytes % Eosinophils % Basophils % Neutrophils # Lymphocytes # Monocytes # Eosinophils # Basophils # Sample Site ABG pH ABG pCO2 ABG pO2 ABG HCO3 ABG Total CO2 ABG O2 Saturation ABG Base Excess Deng Test Respiration Rate O2 Delivery Device Blood Gas Modality Inspired O2 Tidal Volume PEEP Sodium Potassium Chloride Carbon Dioxide BUN Creatinine Est GFR ( Amer) Est GFR (Non-Af Amer) BUN/Creatinine Ratio Glucose POC Glucose 74 Calculated Osmolality Calcium Troponin I Preliminary micro results at discharge 08/11/18 15:45 Urine Culture - Preliminary Urine,[place] Culture is incubating. - Impressions ITS Impressions Chest X-Ray 08/09/18 00:00 IMPRESSION: 1. Tip of endotracheal tube is in the distal trachea, aims towards the right mainstem bronchus. Consider withdrawal by 2 cm. 2. Mild cardiomegaly. Mild CHF. D/ / Antonia Balderas MD / Antonia Balderas MD Interpreting Provider: Antonia Balderas MD Chest X-Ray 08/09/18 10:09 IMPRESSION: No acute cardiopulmonary disease. D/ / 08/09/2018 10:59:05 Juwan Faria MD / alfredo Interpreting Provider: Juwan Faria MD Head CT 08/09/18 10:11 IMPRESSION: No acute intracranial abnormality. Nonspecific white matter disease, likely due to chronic small vessel ischemia. This report was discussed with Dr. Anders at 10:48 a.m. on 08/09/2018. D/ / 08/09/2018 10:50:18 Reymundo Hunt MD / alfredo Interpreting Provider: Reymundo Hunt MD Chest X-Ray 08/09/18 16:25 IMPRESSION: Right IJ central venous catheter in place, tip in the SVC. OG tube in place distal tip in the gastric antrum with the proximal side-port in the gastric body. Improved aeration of the lungs. D/ / 08/09/2018 16:56:03 Juwan Faria MD / vijay Interpreting Provider: Juwan Faria MD X-Ray 08/09/18 16:25 IMPRESSION: Right IJ central venous catheter in place, tip in the SVC. OG tube in place distal tip in the gastric antrum with the proximal side-port in the gastric body. Improved aeration of the lungs. D/ / 08/09/2018 16:56:03 Juawn Faria MD / vijay Interpreting Provider: Juwan Faria MD Echocardiogram 08/10/18 07:46 Impressions: LVEF 50%. Mild left ventricular diastolic dysfunction. Normal right ventricular structure and function. No significant valvular dysfunction. Unable to estimate RVSP. S/p temporary pacemaker - not well visualized. Left Ventricular Wall Motion: Rest Echo Findings All wall segments showed normal motion. Findings: Study Quality * Technically adequate exam overall. Patient supine on vent for exam. ECG Findings * Normal sinus rhythm with BBB. Left Ventricle * Normal LV chamber size, wall thickness and function. * Mild left ventricular diastolic dysfunction. * LVEF 50%. Right Ventricle * Normal right ventricular structure and function. Left Atrium * Normal left atrial size. Right Atrium * Normal right atrial size. Aortic Valve * No aortic regurgitation. * Aortic valve not well visualized. * No aortic stenosis. Mitral Valve * No mitral regurgitation. * Mild-moderate mitral annular calcification * Mitral valve not well visualized. Tricuspid Valve * Trace tricuspid regurgitation. * Tricuspid valve not well visualized. Pulmonic Valve * Pulmonic valve is not well visualized. * No pulmonic stenosis. * No pulmonic regurgitation. Pulmonary Artery * Pulmonary artery not well visualized. Aorta * Normally sized aortic root. Pericardium * There is no pericardial effusion present. Interatrial Septum * No evidence of PFO by color Doppler. IVC * The IVC is dilated. * < 50% respiratory change. Patient on ventilator. Chest X-Ray 08/11/18 07:56 IMPRESSION: 1. Support lines and tubes in satisfactory position. 2. Cardiomegaly and mild pulmonary edema with small pleural effusions suggesting CHF. D/ / Piotr Polo MD / Piotr Polo MD Interpreting Provider: Piotr Polo MD Head CT 08/11/18 17:00 IMPRESSION: Subacute right MCA distribution infarct with extensive edema and [id number] subfalcine herniation measuring 8 mm. Ventricular entrapment with developing hydrocephalus. Basilar cistern effacement. Findings were discussed with 5:48 p.m. 08/11/2018. D/ / 08/11/2018 17:52:16 Neri Wheeler MD / vijay Interpreting Provider: Neri Wheeler MD Date of admission: 08/10/18 12:38 Primary care physician: PCP NONE Consults: 08/09/18 12:47 Consult to Neurology [CONS] Routine Consulting Provider: Neurology [facility] Reason for Consult: right sided weakness Call Completed: No 08/09/18 13:15 Consult to Cardiology [CONS] Stat Comment: Consulting Provider: Cardiology [place] Reason for Consult: bradycardia, needs pacer placed. Spoke with Dr Taylor Call Completed: Yes 08/09/18 13:16 Consult to Critical Care [CONS] Routine Consulting Provider: [facility] [place] Reason for Consult: respiratory failure intubated Call Completed: Yes 08/09/18 20:43 Consult for Pharmacy Education [CONS] Routine Reason for Consult: DKA Call Completed: No Consult to Endocrinology [CONS] Routine Consulting Provider: [facility]inology [facility] [place] Reason for Consult: DKA Call Completed: No 08/11/18 11:30 Consult to Nutrition [CONS] Routine Comment: Consulting Provider: NUTRITION Reason for Dietary Consult: Tube Feed Start & Manage Discharging clinician: Reymundo Franz Anticipated date of discharge: 08/11/18 - Patient Status Disposition: Transfer Critical Access Hosp Condition: Serious Functional capacity at discharge: bed bound Overall status at discharge: patient is not back to baseline - Discharge Instructions Follow Up With: NONE,PCP [Primary Care Provider] - - Hospital Course Hospital course: Ms. Aparicio is a 67 year old female With a past medical history of CVA, DM, HTN, AFIB, CAD. She presented to ED via EMS on 08/09 for right sided numbness/weakness. Stroke alert was completed on arrival. CT Head was negative. [facility] was called, however patient was already on Elliquis for AFIB and not a TPN candidate. During stroke work up she was also noted to be significantly bradycardic in the 20s to 30s. Cardiology was consulted. In the interim she became agitated and was intubated. During intubation induction with ketamine she became hypotensive and pulseless. 1 round of CPR was performed with 1mg EPi given and ROSC was achieved. She was stabilized and sent to forestry laborer for temprorary pacemaker for symptomatic bradycardia. She was then transferred to ICU intubated, with temp pacemaker set at 70, stable blood pressure on epinephrine and Dopamine drips. In the ICU right IJ CVC was placed, EPi drip and Dopamine drip were stopped, and Fentanyl Drip, Levophed drip and Precedex Drip were started. The patient was physically restrained in bilateral upper extremities to prevent self extubation and right lower extremity to prevent damage to temporary pacemaker. Patient was hemodynamically stable the duration of the evening of 08/09. The day of 08/10 Neurology evaluation was completed, recommending MRI was patient was clinically stable. The patient continued to remain stable, medically sedated and physically restrained. Sedation wean and CPAP trial were tried and failed due to hemodynamic instability. The patient was still not alert or purposeful in movement. On 08/11 The patient was again tried on sedation weaning and CPAP trial. The patient at this point became more alert and able to make purposeful movements. During a period of alertness patients nurse performed neuro assessment and noticed new left sided deficit. Neurology was called who recomme nded repeat Head CT. Shortly after patient returned from CT I received call from interpreting radiologist informing me of large right MCA territory infarct with subfalcine herniation. I reported these results to Neurology director of aviation who recommended immediate transfer to Hospital with neurosurgery capabilities. Call was made to [place] and patient was quickly Life Flighted to [place] ED. - Time Spent with Patient Total time spent providing and/or coordinating discharge services: Physical Examination Vital Signs: Vital Signs, Last 4 Hours Temp Resp BP Pulse Ox 08/11/18 17:36 25 161/63 97 08/11/18 16:26 100.8 F H 08/11/18 15:11 26 161/63 93 08/11/18 15:00 100.8 F H General appearance: no acute distress (medically sedated) Eyes: nonicteric Neck: supple Effort: other (mechanically ventilated) Inspection: normal Auscultation: bilateral: clear Cardiovascular: other (regular rate irregularly irregular rhythm) Gastrointestinal: normoactive bowel sounds, soft, non-distended Integumentary: normal Extremities: no cyanosis, edema Musculoskeletal: no deformities unable to assess due to mental status (patient mildly alert, responding appropriately to questions with head nods) <Freeman Purdy S - Last Filed: 08/12/18 00:54> Orders not resulted at time of discharge: Pending orders 08/11/18 15:45 Culture,Urine [RM] Routine 08/12/18 04:00 ABG [Arterial Blood Gas] AM 0400 BMP [Basic Metabolic Panel] AM 0400 Complete Blood Count [HEME] AM 04008/13/18 04:00 ABG [Arterial Blood Gas] AM 0400 BMP [Basic Metabolic Panel] AM 0400 Complete Blood Count [HEME] AM 04008/14/18 04:00 ABG [Arterial Blood Gas] AM 0400 08/15/18 04:00 ABG [Arterial Blood Gas] AM 0400 08/16/18 04:00 ABG [Arterial Blood Gas] AM 0400 Date of Encounter: 08/12/18 Labs on day of discharge: Labs from last 24 hours 08/11/18 08/11/18 08/11/18 05:13 04:00 04:00 WBC 15.4 H RBC 3.65 L Hgb 10.9 L Hct 33.8 L MCV 92.6 MCH 29.9 MCHC 32.2 RDW 13.7 Plt Count 181 MPV 10.7 Immature Gran % 0.4 Seg Neutrophils % 71.2 Lymphocytes % 17.2 Monocytes % 11.0 Eosinophils % 0.0 Basophils % 0.2 Neutrophils # 10.9 H Lymphocytes # 2.6 Monocytes # 1.7 H Eosinophils # 0.0 Basophils # 0.0 Sample Site R Brach ABG pH 7.43 ABG pCO2 35 ABG pO2 70 L ABG HCO3 24 ABG Total CO2 25 ABG O2 Saturation 95 ABG Base Excess 0 Deng Test N/A Respiration Rate 20 O2 Delivery Device Adult Vent Blood Gas Modality ASSIST CONTROL Inspired O2 40.0 Tidal Volume 480 PEEP 8 Sodium 136 Potassium 4.5 Chloride 102 Carbon Dioxide 24 BUN 22 Creatinine 0.75 Est GFR ( Amer) > 60 Est GFR (Non-Af Amer) > 60 BUN/Creatinine Ratio 29 H Glucose 249 H POC Glucose Calculated Osmolality 294 Calcium 8.6 08/10/18 08/10/18 08/10/18 23:47 17:48 11:38 WBC RBC Hgb Hct MCV MCH MCHC RDW Plt Count MPV Immature Gran % Seg Neutrophils % Lymphocytes % Monocytes % Eosinophils % Basophils % Neutrophils # Lymphocytes # Monocytes # Eosinophils # Basophils # Sample Site ABG pH ABG pCO2 ABG pO2 ABG HCO3 ABG Total CO2 ABG O2 Saturation ABG Base Excess Deng Test Respiration Rate O2 Delivery Device Blood Gas Modality Inspired O2 Tidal Volume PEEP Sodium Potassium Chloride Carbon Dioxide BUN Creatinine Est GFR ( Amer) Est GFR (Non-Af Amer) BUN/Creatinine Ratio Glucose POC Glucose 181 H 208 H 238 H Calculated Osmolality Calcium 08/10/18 08/10/18 08/10/18 07:31 04:57 04:00 WBC RBC Hgb Hct MCV MCH MCHC RDW Plt Count MPV Immature Gran % Seg Neutrophils % Lymphocytes % Monocytes % Eosinophils % Basophils % Neutrophils # Lymphocytes # Monocytes # Eosinophils # Basophils # Sample Site ABG pH ABG pCO2 ABG pO2 ABG HCO3 ABG Total CO2 ABG O2 Saturation ABG Base Excess Deng Test Respiration Rate O2 Delivery Device Blood Gas Modality Inspired O2 Tidal Volume PEEP Sodium Potassium Chloride Carbon Dioxide BUN Creatinine Est GFR ( Amer) Est GFR (Non-Af Amer) BUN/Creatinine Ratio Glucose POC Glucose 147 H 109 H 104 H Calculated Osmolality Calcium 08/10/18 08/10/18 08/10/18 03:02 02:34 02:03 WBC RBC Hgb Hct MCV MCH MCHC RDW Plt Count MPV Immature Gran % Seg Neutrophils % Lymphocytes % Monocytes % Eosinophils % Basophils % Neutrophils # Lymphocytes # Monocytes # Eosinophils # Basophils # Sample Site ABG pH ABG pCO2 ABG pO2 ABG HCO3 ABG Total CO2 ABG O2 Saturation ABG Base Excess Deng Test Respiration Rate O2 Delivery Device Blood Gas Modality Inspired O2 Tidal Volume PEEP Sodium Potassium Chloride Carbon Dioxide BUN Creatinine Est GFR ( Amer) Est GFR (Non-Af Amer) BUN/Creatinine Ratio Glucose POC Glucose 99 96 74 Calculated Osmolality Calcium Preliminary micro results at discharge 08/11/18 15:45 Urine Culture - Preliminary Urine,[place] Culture is incubating. - Impressions ITS Impressions Chest X-Ray 08/09/18 00:00 IMPRESSION: 1. Tip of endotracheal tube is in the distal trachea, aims towards the right mainstem bronchus. Consider withdrawal by 2 cm. 2. Mild cardiomegaly. Mild CHF. D/ / Antonia Balderas MD / Antonia Balderas MD Interpreting Provider: Antonia Balderas MD Chest X-Ray 08/09/18 10:09 IMPRESSION: No acute cardiopulmonary disease. D/ / 08/09/2018 10:59:05 Juwan Faria MD / alfredo Interpreting Provider: Juwan Faria MD Head CT 08/09/18 10:11 IMPRESSION: No acute intracranial abnormality. Nonspecific white matter disease, likely due to chronic small vessel ischemia. This report was discussed with Dr. Anders at 10:48 a.m. on 08/09/2018. D/ / 08/09/2018 10:50:18 Reymundo Hunt MD / alfredo Interpreting Provider: Reymundo Hunt MD Chest X-Ray 08/09/18 16:25 IMPRESSION: Right IJ central venous catheter in place, tip in the SVC. OG tube in place distal tip in the gastric antrum with the proximal side-port in the gastric body. Improved aeration of the lungs. D/ / 08/09/2018 16:56:03 Juwan Faria MD / vijay Interpreting Provider: Juwan Faria MD X-Ray 08/09/18 16:25 IMPRESSION: Right IJ central venous catheter in place, tip in the SVC. OG tube in place distal tip in the gastric antrum with the proximal side-port in the gastric body. Improved aeration of the lungs. D/ / 08/09/2018 16:56:03 Juwan Faria MD / vijay Interpreting Provider: Juwan Faria MD Echocardiogram 08/10/18 07:46 Impressions: LVEF 50%. Mild left ventricular diastolic dysfunction. Normal right ventricular structure and function. No significant valvular dysfunction. Unable to estimate RVSP. S/p temporary pacemaker - not well visualized. Left Ventricular Wall Motion: Rest Echo Findings All wall segments showed normal motion. Findings: Study Quality * Technically adequate exam overall. Patient supine on vent for exam. ECG Findings * Normal sinus rhythm with BBB. Left Ventricle * Normal LV chamber size, wall thickness and function. * Mild left ventricular diastolic dysfunction. * LVEF 50%. Right Ventricle * Normal right ventricular structure and function. Left Atrium * Normal left atrial size. Right Atrium * Normal right atrial size. Aortic Valve * No aortic regurgitation. * Aortic valve not well visualized. * No aortic stenosis. Mitral Valve * No mitral regurgitation. * Mild-moderate mitral annular calcification * Mitral valve not well visualized. Tricuspid Valve * Trace tricuspid regurgitation. * Tricuspid valve not well visualized. Pulmonic Valve * Pulmonic valve is not well visualized. * No pulmonic stenosis. * No pulmonic regurgitation. Pulmonary Artery * Pulmonary artery not well visualized. Aorta * Normally sized aortic root. Pericardium * There is no pericardial effusion present. Interatrial Septum * No evidence of PFO by color Doppler. IVC * The IVC is dilated. * < 50% respiratory change. Patient on ventilator. Chest X-Ray 08/11/18 07:56 IMPRESSION: 1. Support lines and tubes in satisfactory position. 2. Cardiomegaly and mild pulmonary edema with small pleural effusions suggesting CHF. D/ / Piotr Polo MD / Piotr Polo MD Interpreting Provider: Piotr Polo MD Head CT 08/11/18 17:00 IMPRESSION: Subacute right MCA distribution infarct with extensive edema and [id number] subfalcine herniation measuring 8 mm. Ventricular entrapment with developing hydrocephalus. Basilar cistern effacement. Findings were discussed with 5:48 p.m. 08/11/2018. D/ / 08/11/2018 17:52:16 Neri Wheeler MD / vijay Interpreting Provider: Neri Wheeler MD Date of admission: 08/10/18 12:38 Primary care physician: PCP NONE Consults: 08/09/18 12:47 Consult to Neurology [CONS] Routine Consulting Provider: [facility] Reason for Consult: right sided weakness Call Completed: No 08/09/18 13:15 Consult to Cardiology [CONS] Stat Comment: Consulting Provider: [facility] [place] Reason for Consult: bradycardia, needs pacer placed. Spoke with Dr Taylor Call Completed: Yes 08/09/18 13:16 Consult to Critical Care [CONS] Routine Consulting Provider: [facility] Reason for Consult: respiratory failure intubated Call Completed: Yes 08/09/18 20:43 Consult for Pharmacy Education [CONS] Routine Reason for Consult: DKA Call Completed: No Consult to Endocrinology [CONS] Routine Consulting Provider: [facility]ology [facility] [place] Reason for Consult: DKA Call Completed: No 08/11/18 11:30 Consult to Nutrition [CONS] Routine Comment: Consulting Provider: NUTRITION Reason for Dietary Consult: Tube Feed Start & Manage - Hospital Course Hospital course: Ms. Aparicio is a 67 year old female - Time Spent with Patient I saw and evaluated this patient and my medical decision-making was reviewed with the Resident Physician. I agree with the documented findings, disposition and treatment plan as described except to the extent set forth below. We independently had kizs-oi-daly contact with the patient I spent 40 minutesof Critical Care time with this patient. It involved decision making of high complexity to assess, manipulate, and support vital organ system failure and/or to prevent further life threatening deterioration of the patient's condition. The time involved in the performance of separately reportable procedures was not counted toward critical care time. 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 Greater than 30 minutes
[2018-08-11 18:58] VITALS: BP 135/66
== END 2018-08-11 19:30 | disposition critical access hospital (66) | DRG 64 ==
LOC: EMEROOARM 10:05 → INTOOBSV 12:45 → ICNU 12:45
PROVIDERS: ADMIT Internal Medicine; ATTEND Internal Medicine

== ENCOUNTER 2018-11-18 11:22 | Inpatient (IN) ==
[2018-11-18] MEDS ORDERED: Racepinephrine Neb 0.5 ML VIAL IH ONE ×2 (11:29→11:45)
[2018-11-18 11:46] LABS: Hematocrit 45.7 % (35.3-44.9); Hemoglobin 13.6 g/dL (11.5-15.4); Mean Corpuscular HGB Conc 29.8 g/dL (31.6-35.5); Mean Corpuscular Hemoglobin 27.9 pg (28.0-33.3); Mean Corpuscular Volume 93.8 fL (83.0-100.0); Mean Platelet Volume 11.6 fL (9.4-12.4); Platelet Count 319 K/mcL (140-400); Red Blood Count 4.87 M/mcL (3.82-4.97); Red Cell Distribution Width 13.7 % (11.5-14.5); White Blood Count 24.3 K/mcL (4.3-11.1)
[2018-11-18] MEDS ORDERED: Cefepime HCl 2,000 MG in Water for inj. (sterile) 20 ML IVP STA (12:05)
[2018-11-18 12:23] LABS: Lymphocytes # 11.2 K/mcL (0.6-4.6); Neutrophils # 12.2 K/mcL (1.6-8.9)
[2018-11-18 12:24] LABS: Platelet Estimate Normal (Normal)
[2018-11-18 12:58] LABS: BUN/Creatinine Ratio 18 (6-26); Blood Urea Nitrogen 11 mg/dL (8-23); Carbon Dioxide 15 mEq/L (23-29); Chloride 106 mEq/L (98-107); Glucose 266 mg/dL (70-105); Osmolality,Calculated 297 (280-300); Potassium 4.3 mEq/L (3.5-5.1); Sodium 139 mEq/L (136-145); Troponin I < 0.03 ng/mL (< 0.04); eGFR For African Americans > 60 (> 60); eGFR For Non-African Americans > 60 (> 60)
[2018-11-18 13:04] LABS: Calcium 8.9 mg/dL (8.6-10.3)
[2018-11-18] MEDS ORDERED: 0.9 % Sodium Chloride 1,000 ML IVC ONE (13:09)
[2018-11-18] MEDS ORDERED: Ondansetron 4 MG/2 ML VIAL IVP PRN (13:31)
[2018-11-18] MEDS ORDERED: Naloxone 0.4 MG/ML INJ IVP PRN (13:31)
[2018-11-18] MEDS ORDERED: Acetaminophen/Butalbital/CaffeineTABLET GTUBE PRN (13:37)
[2018-11-18] MEDS ORDERED: Sennosides/Docusate Sodium TABLET GTUBE PRN ×2 (13:37)
[2018-11-18] MEDS ORDERED: *HR* Dextrose 50 % in Water (Syg) 50 ML SYRINGE IVP PRN (13:43)
[2018-11-18] MEDS ORDERED: D5% in Water 1,000 ML IVC PRN (13:43)
[2018-11-18] MEDS ORDERED: Dextrose Gel 15 GM/37.5 ML TUBE PO PRN ×2 (13:43)
[2018-11-18] MEDS ORDERED: Vancomycin 1,750 MG in 0.9 % Sodium Chloride 250 ML IVPB SCH (15:00)
[2018-11-18] MEDS: Piperacillin/Tazobactam 3.375 GM in 0.9 % Sodium Chloride Mini Bag 100 ML IVPB SCH ×2 (16:55→23:38)
[2018-11-18] MEDS ORDERED: Ipratropium/Albuterol Neb 3 ML IH SCH (18:00)
[2018-11-18] MEDS: *HR* OxyCODONE Immed Rel 5 MG TABLET GTUBE PRN (19:32)
[2018-11-18] MEDS: Insulin LISPRO 300 UNITS/3 ML VIAL SQ SCH (19:41)
[2018-11-18] MEDS: Gabapentin 300 MG CAPSULE GTUBE SCH (21:35)
[2018-11-18] MEDS: Chlorhexidine Rinse 15 ML MOUTHWASH MM SCH (21:35)
[2018-11-18] MEDS: Famotidine 20 MG TABLET GTUBE SCH (21:36)
[2018-11-18] MEDS: Insulin DETEMIR 100 UNIT/ML X5UNITS SQ SCH (21:37)
[2018-11-18] MEDS: Apixaban 5 MG TABLET GTUBE SCH (21:38)
[2018-11-18] MEDS: Ipratropium/Albuterol Neb 3 ML IH SCH (22:08)
[2018-11-18] MEDS: Artificial Tears SOLN 15 ML BOTTLE BOTH EYES SCH (22:22)
[2018-11-19] MEDS: Insulin LISPRO 300 UNITS/3 ML VIAL SQ SCH ×4 (00:42→17:48)
[2018-11-19] MEDS: Ipratropium/Albuterol Neb 3 ML IH SCH ×4 (03:34→21:32)
[2018-11-19] MEDS: *HR* OxyCODONE Immed Rel 5 MG TABLET GTUBE PRN ×2 (03:42→19:09)
[2018-11-19 04:28] LABS: Basophils % 0.2 %; Eosinophils % 2.1 %; Hematocrit 35.5 % (35.3-44.9); Immature Granulocytes % 0.3 % (0-4); Lymphocytes % 21.4 %; Mean Corpuscular HGB Conc 31.8 g/dL (31.6-35.5); Mean Corpuscular Hemoglobin 28.6 pg (28.0-33.3); Mean Corpuscular Volume 89.9 fL (83.0-100.0); Mean Platelet Volume 11.3 fL (9.4-12.4); Monocytes % 6.7 %; Platelet Count 183 K/mcL (140-400); Red Blood Count 3.95 M/mcL (3.82-4.97); Red Cell Distribution Width 13.6 % (11.5-14.5); Segmented Neutrophils % 69.3 %
[2018-11-19 04:29] LABS: Eosinophils # 0.2 K/mcL (0.0-0.6); Hemoglobin 11.3 g/dL (11.5-15.4); Lymphocytes # 2.2 K/mcL (0.6-4.6); Monocytes # 0.7 K/mcL (0.0-1.3); Neutrophils # 7.2 K/mcL (1.6-8.9); White Blood Count 10.4 K/mcL (4.3-11.1)
[2018-11-19 04:47] LABS: BUN/Creatinine Ratio 18 (6-26); Blood Urea Nitrogen 9 mg/dL (8-23); Calcium 8.5 mg/dL (8.6-10.3); Carbon Dioxide 26 mEq/L (23-29); Chloride 105 mEq/L (98-107); Glucose 122 mg/dL (70-105); Magnesium 1.3 mg/dL (1.6-2.6); Osmolality,Calculated 294 (280-300); Potassium 3.6 mEq/L (3.5-5.1); Sodium 142 mEq/L (136-145); eGFR For African Americans > 60 (> 60); eGFR For Non-African Americans > 60 (> 60)
[2018-11-19] MEDS: Magnesium Oxide 400 MG TABLET GTUBE SCH (09:29)
[2018-11-19] MEDS: Apixaban 5 MG TABLET GTUBE SCH ×2 (09:29→21:23)
[2018-11-19] MEDS: Lisinopril 20 MG TABLET PO SCH (09:30)
[2018-11-19] MEDS: Famotidine 20 MG TABLET GTUBE SCH ×2 (09:30→21:24)
[2018-11-19] MEDS: Aspirin 81 MG TAB.CHEW GTUBE SCH (09:30)
[2018-11-19] MEDS: Gabapentin 300 MG CAPSULE GTUBE SCH ×2 (09:30→21:25)
[2018-11-19] MEDS: Chlorhexidine Rinse 15 ML MOUTHWASH MM SCH ×2 (09:32→21:36)
[2018-11-19] MEDS: *HR* LORazepam 0.5 MG TABLET GTUBE PRN ×3 (09:35→22:59)
[2018-11-19] MEDS: Insulin DETEMIR 100 UNIT/ML X5UNITS SQ SCH ×2 (09:36→22:59)
[2018-11-19] MEDS: Piperacillin/Tazobactam 3.375 GM in 0.9 % Sodium Chloride Mini Bag 100 ML IVPB SCH ×3 (10:00→22:59)
[2018-11-19] MEDS: Artificial Tears SOLN 15 ML BOTTLE BOTH EYES SCH ×2 (10:26→22:59)
[2018-11-19] MEDS ORDERED: Racepinephrine Neb 0.5 ML VIAL IH ONE ×2 (19:15→20:00)
[2018-11-20] MEDS: Ipratropium/Albuterol Neb 3 ML IH SCH ×4 (03:38→22:53)
[2018-11-20 06:17] LABS: Basophils % 0.2 %; Eosinophils # 0.3 K/mcL (0.0-0.6); Eosinophils % 2.3 %; Hematocrit 34.9 % (35.3-44.9); Hemoglobin 11.3 g/dL (11.5-15.4); Immature Granulocytes % 0.3 % (0-4); Lymphocytes % 18.6 %; Mean Corpuscular HGB Conc 32.4 g/dL (31.6-35.5); Mean Corpuscular Hemoglobin 28.8 pg (28.0-33.3); Mean Corpuscular Volume 88.8 fL (83.0-100.0); Mean Platelet Volume 11.4 fL (9.4-12.4); Monocytes # 0.8 K/mcL (0.0-1.3); Monocytes % 7.4 %; Neutrophils # 7.7 K/mcL (1.6-8.9); Platelet Count 198 K/mcL (140-400); Red Blood Count 3.93 M/mcL (3.82-4.97); Red Cell Distribution Width 13.6 % (11.5-14.5); Segmented Neutrophils % 71.2 %; White Blood Count 10.9 K/mcL (4.3-11.1)
[2018-11-20 06:28] LABS: BUN/Creatinine Ratio 19 (6-26); Blood Urea Nitrogen 10 mg/dL (8-23); Calcium 8.6 mg/dL (8.6-10.3); Carbon Dioxide 26 mEq/L (23-29); Chloride 107 mEq/L (98-107); Glucose 140 mg/dL (70-105); Magnesium 1.6 mg/dL (1.6-2.6); Osmolality,Calculated 289 (280-300); Potassium 3.7 mEq/L (3.5-5.1); Sodium 139 mEq/L (136-145); eGFR For African Americans > 60 (> 60); eGFR For Non-African Americans > 60 (> 60)
[2018-11-20] MEDS: Insulin LISPRO 300 UNITS/3 ML VIAL SQ SCH ×3 (09:30→18:16)
[2018-11-20] MEDS: Piperacillin/Tazobactam 3.375 GM in 0.9 % Sodium Chloride Mini Bag 100 ML IVPB SCH ×2 (09:40→18:18)
[2018-11-20] MEDS: Magnesium Oxide 400 MG TABLET GTUBE SCH (09:47)
[2018-11-20] MEDS: Lisinopril 20 MG TABLET PO SCH (09:47)
[2018-11-20] MEDS: Apixaban 5 MG TABLET GTUBE SCH ×2 (09:47→21:16)
[2018-11-20] MEDS: *HR* LORazepam 0.5 MG TABLET GTUBE PRN ×2 (09:47→21:18)
[2018-11-20] MEDS: Famotidine 20 MG TABLET GTUBE SCH ×2 (09:47→21:19)
[2018-11-20] MEDS: Gabapentin 300 MG CAPSULE GTUBE SCH ×2 (09:48→21:18)
[2018-11-20] MEDS: Aspirin 81 MG TAB.CHEW GTUBE SCH (09:48)
[2018-11-20] MEDS: Chlorhexidine Rinse 15 ML MOUTHWASH MM SCH ×2 (10:08→21:14)
[2018-11-20] MEDS: Insulin DETEMIR 100 UNIT/ML X5UNITS SQ SCH ×2 (10:13→21:14)
[2018-11-20] MEDS ORDERED: Furosemide 20 MG/2 ML VIAL IVP ONE (10:28)
[2018-11-20] MEDS: Artificial Tears SOLN 15 ML BOTTLE BOTH EYES SCH ×2 (11:37→21:14)
[2018-11-20] MEDS ORDERED: Aminoglycoside Consult 1 EACH MC ONE (13:09)
[2018-11-21] MEDS: Piperacillin/Tazobactam 3.375 GM in 0.9 % Sodium Chloride Mini Bag 100 ML IVPB SCH ×2 (00:37→10:46)
[2018-11-21 01:23] LABS: Basophils % 0.3 %; Eosinophils # 0.4 K/mcL (0.0-0.6); Eosinophils % 3.1 %; Hematocrit 33.5 % (35.3-44.9); Hemoglobin 10.6 g/dL (11.5-15.4); Immature Granulocytes % 0.3 % (0-4); Lymphocytes # 2.4 K/mcL (0.6-4.6); Lymphocytes % 19.9 %; Mean Corpuscular HGB Conc 31.6 g/dL (31.6-35.5); Mean Corpuscular Hemoglobin 28.7 pg (28.0-33.3); Mean Corpuscular Volume 90.8 fL (83.0-100.0); Mean Platelet Volume 11.4 fL (9.4-12.4); Monocytes # 0.8 K/mcL (0.0-1.3); Monocytes % 6.8 %; Neutrophils # 8.2 K/mcL (1.6-8.9); Platelet Count 209 K/mcL (140-400); Red Blood Count 3.69 M/mcL (3.82-4.97); Red Cell Distribution Width 13.5 % (11.5-14.5); Segmented Neutrophils % 69.6 %; White Blood Count 11.8 K/mcL (4.3-11.1)
[2018-11-21 01:41] LABS: BUN/Creatinine Ratio 16 (6-26); Blood Urea Nitrogen 10 mg/dL (8-23); Calcium 8.4 mg/dL (8.6-10.3); Carbon Dioxide 27 mEq/L (23-29); Chloride 104 mEq/L (98-107); Glucose 181 mg/dL (70-105); Magnesium 1.4 mg/dL (1.6-2.6); Osmolality,Calculated 290 (280-300); Potassium 3.3 mEq/L (3.5-5.1); Sodium 138 mEq/L (136-145); eGFR For African Americans > 60 (> 60); eGFR For Non-African Americans > 60 (> 60)
[2018-11-21] MEDS: Ipratropium/Albuterol Neb 3 ML IH SCH ×2 (04:27→10:52)
[2018-11-21] MEDS: Insulin LISPRO 300 UNITS/3 ML VIAL SQ SCH ×2 (08:32→12:31)
[2018-11-21] MEDS: Artificial Tears SOLN 15 ML BOTTLE BOTH EYES SCH (08:34)
[2018-11-21] MEDS ORDERED: Potassium Chloride Elixir 20 MEQ/15 ML UDC GTUBE ONE (09:55)
[2018-11-21] MEDS: Magnesium Oxide 400 MG TABLET GTUBE SCH (10:47)
[2018-11-21] MEDS: Gabapentin 300 MG CAPSULE GTUBE SCH (10:47)
[2018-11-21] MEDS: Apixaban 5 MG TABLET GTUBE SCH (10:47)
[2018-11-21] MEDS: Aspirin 81 MG TAB.CHEW GTUBE SCH (10:47)
[2018-11-21] MEDS: Insulin DETEMIR 100 UNIT/ML X5UNITS SQ SCH (10:47)
[2018-11-21] MEDS: Lisinopril 20 MG TABLET PO SCH (10:47)
[2018-11-21] MEDS: Famotidine 20 MG TABLET GTUBE SCH (10:47)
[2018-11-21] MEDS: Chlorhexidine Rinse 15 ML MOUTHWASH MM SCH (10:47)
[2018-11-21 11:17] VITALS: BP 182/68
== END 2018-11-21 13:10 | DRG 853 ==
LOC: EMEROOARM 11:22 → SUATTDRO 17:11 → 2NNU 17:11
PROVIDERS: ADMIT Student in an Organized Health Care Education/Training Program; ATTEND Internal Medicine

== ENCOUNTER 2019-02-06 20:11 | Inpatient (IN) ==
[2019-02-06 20:53] LABS: Basophils % 0.3 %; Eosinophils # 0.3 K/mcL (0.0-0.6); Eosinophils % 2.5 %; Hemoglobin 11.4 g/dL (11.5-15.4); Immature Granulocytes % 0.3 % (0-4); Immature Platelets 4.9 % (1.1-6.1); Lymphocytes # 3.2 K/mcL (0.6-4.6); Lymphocytes % 26.9 %; Mean Corpuscular HGB Conc 33.5 g/dL (31.6-35.5); Mean Corpuscular Hemoglobin 29.4 pg (28.0-33.3); Mean Corpuscular Volume 87.6 fL (83.0-100.0); Mean Platelet Volume 11.1 fL (9.4-12.4); Monocytes # 0.8 K/mcL (0.0-1.3); Monocytes % 6.8 %; Neutrophils # 7.4 K/mcL (1.6-8.9); Platelet Count 189 K/mcL (140-400); Red Blood Count 3.88 M/mcL (3.82-4.97); Segmented Neutrophils % 63.2 %; White Blood Count 11.7 K/mcL (4.3-11.1)
[2019-02-06 21:13] LABS: INR 1.1; Prothrombin Time 12.5 Seconds (9.4-12.1)
[2019-02-06] MEDS ORDERED: Nitroglycerin 0.4 MG TAB.SUBL SL PRN (21:23)
[2019-02-06 21:39] LABS: BUN/Creatinine Ratio 24 (6-26); Blood Urea Nitrogen 14 mg/dL (8-23); Calcium 8.5 mg/dL (8.6-10.3); Carbon Dioxide 25 mEq/L (23-29); Chloride 103 mEq/L (98-107); Glucose 156 mg/dL (70-105); Magnesium 1.2 mg/dL (1.6-2.6); Osmolality,Calculated 288 (280-300); Potassium 4.4 mEq/L (3.5-5.1); Sodium 137 mEq/L (136-145); Troponin I < 0.03 ng/mL (< 0.04); eGFR For African Americans > 60 (> 60); eGFR For Non-African Americans > 60 (> 60)
[2019-02-06] MEDS ORDERED: Naloxone 0.4 MG/ML INJ IVP PRN (23:52)
[2019-02-06] MEDS ORDERED: Dextrose Gel 15 GM/37.5 ML TUBE PO PRN ×2 (23:56)
[2019-02-06] MEDS ORDERED: D5% in Water 1,000 ML IVC PRN (23:56)
[2019-02-06] MEDS ORDERED: *HR* Dextrose 50 % in Water (Syg) 50 ML SYRINGE IVP PRN (23:56)
[2019-02-07] MEDS: Insulin LISPRO 300 UNITS/3 ML VIAL SQ SCH ×5 (01:26→21:09)
[2019-02-07] MEDS: Apixaban 5 MG TABLET PO SCH ×2 (08:03→20:53)
[2019-02-07 08:51] LABS: Basophils % 0.2 %; Eosinophils # 0.3 K/mcL (0.0-0.6); Eosinophils % 2.7 %; Hematocrit 35.8 % (35.3-44.9); Hemoglobin 12.4 g/dL (11.5-15.4); Immature Granulocytes % 0.3 % (0-4); Lymphocytes # 2.1 K/mcL (0.6-4.6); Lymphocytes % 21.1 %; Mean Corpuscular HGB Conc 34.6 g/dL (31.6-35.5); Mean Corpuscular Volume 86.5 fL (83.0-100.0); Mean Platelet Volume 11.1 fL (9.4-12.4); Monocytes # 0.6 K/mcL (0.0-1.3); Monocytes % 6.1 %; Neutrophils # 6.9 K/mcL (1.6-8.9); Platelet Count 217 K/mcL (140-400); Red Blood Count 4.14 M/mcL (3.82-4.97); Segmented Neutrophils % 69.6 %; White Blood Count 9.9 K/mcL (4.3-11.1)
[2019-02-07 08:58] LABS: BUN/Creatinine Ratio 18 (6-26); Blood Urea Nitrogen 9 mg/dL (8-23); Calcium 9.2 mg/dL (8.6-10.3); Carbon Dioxide 28 mEq/L (23-29); Chloride 100 mEq/L (98-107); Glucose 175 mg/dL (70-105); Magnesium 1.4 mg/dL (1.6-2.6); Osmolality,Calculated 289 (280-300); Sodium 138 mEq/L (136-145); eGFR For African Americans > 60 (> 60); eGFR For Non-African Americans > 60 (> 60)
[2019-02-07 08:59] LABS: Troponin I < 0.03 ng/mL (< 0.04)
[2019-02-07] MEDS ORDERED: Acetaminophen/Butalbital/CaffeineTABLET GTUBE PRN (09:32)
[2019-02-07] MEDS ORDERED: Acetaminophen 325 MG TABLET PO PRN (09:32)
[2019-02-07] MEDS: *HR* OxyCODONE Oral Soln 5 MG/5 ML UD.LIQ GTUBE PRN ×3 (10:51→20:53)
[2019-02-07] MEDS: Magnesium Oxide 400 MG TABLET GTUBE SCH (10:52)
[2019-02-07] MEDS: Gabapentin 300 MG CAPSULE GTUBE SCH ×2 (10:52→20:53)
[2019-02-07] MEDS: *HR* LORazepam 0.5 MG TABLET GTUBE PRN (10:52)
[2019-02-07] MEDS: Lisinopril 20 MG TABLET PO SCH (10:52)
[2019-02-07] MEDS: Aspirin Enteric Coated 81 MG Tablet PO SCH (10:52)
[2019-02-07] MEDS ORDERED: Ipratropium/Albuterol Neb 3 ML IH SCH ×2 (12:00→19:30)
[2019-02-07] MEDS: Ipratropium/Albuterol Neb 3 ML IH SCH ×2 (16:16→22:58)
[2019-02-07] MEDS ORDERED: Ipratropium/Albuterol Neb 3 ML IH PRN ×2 (18:50→19:45)
[2019-02-07] MEDS: Insulin NPH 100 UNIT/ML (x5UNIT) SQ SCH (20:53)
[2019-02-07] MEDS: Chlorhexidine Rinse 15 ML MOUTHWASH MM SCH (20:53)
[2019-02-07] MEDS: Nystatin POWDER 30 GM BOTTLE TP SCH (20:54)
[2019-02-08 03:28] LABS: Bilirubin,Urine Negative (Negative); Blood,Urine Negative (Negative); Clarity,Urine Cloudy (Clear); Color,Urine Yellow (Yellow); Glucose,Urine (UA) Normal (Normal); Ketones,Urine Negative (Negative); Leukocyte Esterase,Urine Small (Negative); Nitrite,Urine Negative (Negative); Protein,Urine Negative (Neg-Trace); Specific Gravity,Urine 1.016 (1.010-1.025); Urobilinogen,Urine Normal (Normal)
[2019-02-08 03:31] LABS: Bacteria,Urine Many per hpf (None-Few); Hyaline Casts,Urine None Seen per lpf (None-Few); Squamous Epithelial Cell,Urine Many per lpf (None-Few); WBC,Urine 15-30 per hpf (0-3)
[2019-02-08] MEDS: Ipratropium/Albuterol Neb 3 ML IH SCH ×2 (04:13→10:53)
[2019-02-08] MEDS ORDERED: Acetaminophen 325 MG TABLET PO PRN (07:57)
[2019-02-08] MEDS: Insulin LISPRO 300 UNITS/3 ML VIAL SQ SCH ×4 (07:58→21:55)
[2019-02-08] MEDS: Aspirin Enteric Coated 81 MG Tablet PO SCH (07:59)
[2019-02-08] MEDS: Gabapentin 300 MG CAPSULE GTUBE SCH ×2 (07:59→21:58)
[2019-02-08] MEDS: Lisinopril 20 MG TABLET PO SCH (07:59)
[2019-02-08] MEDS: Apixaban 5 MG TABLET PO SCH ×2 (07:59→21:57)
[2019-02-08] MEDS: Nystatin POWDER 30 GM BOTTLE TP SCH ×2 (08:00→22:05)
[2019-02-08] MEDS: Chlorhexidine Rinse 15 ML MOUTHWASH MM SCH ×2 (08:00→21:58)
[2019-02-08] MEDS: Insulin NPH 100 UNIT/ML (x5UNIT) SQ SCH ×3 (08:08→17:24)
[2019-02-08] MEDS: Magnesium Oxide 400 MG TABLET GTUBE SCH (08:08)
[2019-02-08] MEDS: *HR* OxyCODONE Oral Soln 5 MG/5 ML UD.LIQ GTUBE PRN ×3 (09:43→21:58)
[2019-02-08] MEDS: *HR* LORazepam 0.5 MG TABLET GTUBE PRN ×2 (16:26→21:58)
[2019-02-09] MEDS ORDERED: Regadenoson 0.4 MG/5 ML SYRINGE IVP ONE (06:09)
[2019-02-09] MEDS: Lisinopril 20 MG TABLET PO SCH (10:17)
[2019-02-09] MEDS: Magnesium Oxide 400 MG TABLET GTUBE SCH (10:17)
[2019-02-09] MEDS: Chlorhexidine Rinse 15 ML MOUTHWASH MM SCH ×2 (10:18→21:50)
[2019-02-09] MEDS: Insulin NPH 100 UNIT/ML (x5UNIT) SQ SCH ×2 (10:18→16:57)
[2019-02-09] MEDS: Aspirin Enteric Coated 81 MG Tablet PO SCH (10:18)
[2019-02-09] MEDS: Gabapentin 300 MG CAPSULE GTUBE SCH ×2 (10:18→21:33)
[2019-02-09] MEDS: Apixaban 5 MG TABLET PO SCH ×2 (10:18→21:33)
[2019-02-09] MEDS: Insulin LISPRO 300 UNITS/3 ML VIAL SQ SCH ×4 (10:19→21:34)
[2019-02-09] MEDS: Nystatin POWDER 30 GM BOTTLE TP SCH ×2 (10:20→21:52)
[2019-02-09] MEDS: *HR* OxyCODONE Oral Soln 5 MG/5 ML UD.LIQ GTUBE PRN ×2 (16:57→21:34)
[2019-02-09] MEDS: *HR* LORazepam 0.5 MG TABLET GTUBE PRN ×2 (16:57→21:33)
[2019-02-10 05:45] LABS: Hematocrit 32.7 % (35.3-44.9); Hemoglobin 11.1 g/dL (11.5-15.4); Mean Corpuscular HGB Conc 33.9 g/dL (31.6-35.5); Mean Corpuscular Hemoglobin 29.9 pg (28.0-33.3); Mean Corpuscular Volume 88.1 fL (83.0-100.0); Mean Platelet Volume 11.4 fL (9.4-12.4); Platelet Count 202 K/mcL (140-400); Red Blood Count 3.71 M/mcL (3.82-4.97); Red Cell Distribution Width 14.2 % (11.5-14.5); White Blood Count 8.9 K/mcL (4.3-11.1)
[2019-02-10 06:05] LABS: BUN/Creatinine Ratio 31 (6-26); Blood Urea Nitrogen 20 mg/dL (8-23); Carbon Dioxide 29 mEq/L (23-29); Chloride 101 mEq/L (98-107); Glucose 163 mg/dL (70-105); Osmolality,Calculated 292 (280-300); Potassium 3.7 mEq/L (3.5-5.1); Sodium 138 mEq/L (136-145); eGFR For African Americans > 60 (> 60); eGFR For Non-African Americans > 60 (> 60)
[2019-02-10] MEDS: Insulin LISPRO 300 UNITS/3 ML VIAL SQ SCH ×4 (08:21→20:13)
[2019-02-10] MEDS: Gabapentin 300 MG CAPSULE GTUBE SCH ×2 (08:22→20:11)
[2019-02-10] MEDS: Insulin NPH 100 UNIT/ML (x5UNIT) SQ SCH ×2 (08:22→16:42)
[2019-02-10] MEDS: Magnesium Oxide 400 MG TABLET GTUBE SCH (08:22)
[2019-02-10] MEDS: Apixaban 5 MG TABLET PO SCH ×2 (08:22→20:12)
[2019-02-10] MEDS: Aspirin Enteric Coated 81 MG Tablet PO SCH (08:22)
[2019-02-10] MEDS: Chlorhexidine Rinse 15 ML MOUTHWASH MM SCH ×2 (08:23→20:11)
[2019-02-10] MEDS: Nystatin POWDER 30 GM BOTTLE TP SCH ×2 (08:23→21:00)
[2019-02-10] MEDS: Lisinopril 20 MG TABLET PO SCH (08:26)
[2019-02-10] MEDS: amLODIPine 5 MG TABLET PO SCH (08:26)
[2019-02-10] MEDS ORDERED: Ertapenem 1,000 MG in 0.9 % Sodium Chloride Mini Bag 100 ML IVPB SCH (10:00)
[2019-02-10] MEDS: Isosorbide MONOnitrate (24 HR) 30 MG TAB.ER.24H PO SCH (14:44)
[2019-02-10] MEDS: *HR* LORazepam 0.5 MG TABLET GTUBE PRN (14:44)
[2019-02-10] MEDS: Nitrofurantoin (BID) 100 MG CAPSULE PO SCH (16:41)
[2019-02-11 02:47] LABS: Basophils % 0.2 %; Eosinophils # 0.4 K/mcL (0.0-0.6); Eosinophils % 3.4 %; Hematocrit 33.2 % (35.3-44.9); Hemoglobin 10.9 g/dL (11.5-15.4); Immature Granulocytes % 0.4 % (0-4); Lymphocytes # 2.8 K/mcL (0.6-4.6); Lymphocytes % 26.8 %; Mean Corpuscular HGB Conc 32.8 g/dL (31.6-35.5); Mean Corpuscular Hemoglobin 29.5 pg (28.0-33.3); Mean Corpuscular Volume 89.7 fL (83.0-100.0); Mean Platelet Volume 11.2 fL (9.4-12.4); Monocytes # 0.8 K/mcL (0.0-1.3); Monocytes % 8.2 %; Neutrophils # 6.3 K/mcL (1.6-8.9); Platelet Count 217 K/mcL (140-400); White Blood Count 10.3 K/mcL (4.3-11.1)
[2019-02-11 03:03] LABS: BUN/Creatinine Ratio 30 (6-26); Blood Urea Nitrogen 17 mg/dL (8-23); Calcium 8.6 mg/dL (8.6-10.3); Carbon Dioxide 26 mEq/L (23-29); Chloride 104 mEq/L (98-107); Glucose 135 mg/dL (70-105); Magnesium 1.3 mg/dL (1.6-2.6); Osmolality,Calculated 294 (280-300); Potassium 4.1 mEq/L (3.5-5.1); Sodium 140 mEq/L (136-145); eGFR For African Americans > 60 (> 60); eGFR For Non-African Americans > 60 (> 60)
[2019-02-11] MEDS: Lisinopril 20 MG TABLET PO SCH (09:20)
[2019-02-11] MEDS: Nitrofurantoin (BID) 100 MG CAPSULE PO SCH ×2 (09:20→17:51)
[2019-02-11] MEDS: amLODIPine 5 MG TABLET PO SCH (09:20)
[2019-02-11] MEDS: Aspirin Enteric Coated 81 MG Tablet PO SCH (09:20)
[2019-02-11] MEDS: Isosorbide MONOnitrate (24 HR) 30 MG TAB.ER.24H PO SCH (09:20)
[2019-02-11] MEDS: Magnesium Oxide 400 MG TABLET GTUBE SCH (09:21)
[2019-02-11] MEDS: Chlorhexidine Rinse 15 ML MOUTHWASH MM SCH ×2 (09:22→22:22)
[2019-02-11] MEDS: Apixaban 5 MG TABLET PO SCH ×2 (09:22→22:22)
[2019-02-11] MEDS: Gabapentin 300 MG CAPSULE GTUBE SCH ×2 (09:22→22:22)
[2019-02-11] MEDS: Insulin NPH 100 UNIT/ML (x5UNIT) SQ SCH ×2 (09:22→18:50)
[2019-02-11] MEDS: Insulin LISPRO 300 UNITS/3 ML VIAL SQ SCH ×4 (09:23→22:23)
[2019-02-11] MEDS: *HR* OxyCODONE Oral Soln 5 MG/5 ML UD.LIQ GTUBE PRN (10:13)
[2019-02-11] MEDS: Nystatin POWDER 30 GM BOTTLE TP SCH ×2 (10:44→22:24)
[2019-02-12 04:26] LABS: Basophils % 0.2 %; Eosinophils # 0.3 K/mcL (0.0-0.6); Eosinophils % 3.2 %; Hematocrit 31.8 % (35.3-44.9); Hemoglobin 10.7 g/dL (11.5-15.4); Immature Granulocytes % 0.3 % (0-4); Lymphocytes # 2.9 K/mcL (0.6-4.6); Lymphocytes % 32.6 %; Mean Corpuscular HGB Conc 33.6 g/dL (31.6-35.5); Mean Corpuscular Volume 89.1 fL (83.0-100.0); Mean Platelet Volume 11.3 fL (9.4-12.4); Monocytes # 0.8 K/mcL (0.0-1.3); Monocytes % 8.6 %; Platelet Count 200 K/mcL (140-400); Red Blood Count 3.57 M/mcL (3.82-4.97); Red Cell Distribution Width 14.3 % (11.5-14.5); Segmented Neutrophils % 55.1 %
[2019-02-12 04:44] LABS: BUN/Creatinine Ratio 30 (6-26); Blood Urea Nitrogen 17 mg/dL (8-23); Calcium 8.3 mg/dL (8.6-10.3); Carbon Dioxide 27 mEq/L (23-29); Chloride 106 mEq/L (98-107); Glucose 136 mg/dL (70-105); Magnesium 1.5 mg/dL (1.6-2.6); Osmolality,Calculated 292 (280-300); Potassium 3.7 mEq/L (3.5-5.1); Sodium 139 mEq/L (136-145); eGFR For African Americans > 60 (> 60); eGFR For Non-African Americans > 60 (> 60)
[2019-02-12 07:44] VITALS: BP 176/73
[2019-02-12] MEDS ORDERED: Lisinopril 20 MG TABLET PO SCH (09:00)
[2019-02-12] MEDS: Insulin LISPRO 300 UNITS/3 ML VIAL SQ SCH (10:03)
[2019-02-12] MEDS: Magnesium Oxide 400 MG TABLET GTUBE SCH (10:03)
[2019-02-12] MEDS: amLODIPine 5 MG TABLET PO SCH (10:03)
[2019-02-12] MEDS: Chlorhexidine Rinse 15 ML MOUTHWASH MM SCH (10:03)
[2019-02-12] MEDS: Aspirin Enteric Coated 81 MG Tablet PO SCH (10:03)
[2019-02-12] MEDS: Nystatin POWDER 30 GM BOTTLE TP SCH (10:03)
[2019-02-12] MEDS: Insulin NPH 100 UNIT/ML (x5UNIT) SQ SCH (10:03)
[2019-02-12] MEDS: Isosorbide MONOnitrate (24 HR) 30 MG TAB.ER.24H PO SCH (10:03)
[2019-02-12] MEDS: Apixaban 5 MG TABLET PO SCH (10:03)
[2019-02-12] MEDS: Nitrofurantoin (BID) 100 MG CAPSULE PO SCH (10:03)
[2019-02-12] MEDS: Gabapentin 300 MG CAPSULE GTUBE SCH (10:03)
== END 2019-02-12 12:25 | DRG 689 ==
LOC: 2ANU 20:11 → EMEROOARM 20:11 → SUATTDRO 22:32 → 2ANU 23:18 → SUATTDRO 02-08 15:39
PROVIDERS: ADMIT Family Medicine; ATTEND Pharmacist

== ENCOUNTER 2019-04-29 01:09 | Inpatient (IN) ==
[2019-04-29 01:52] LABS: Hematocrit 39.1 % (35.3-44.9); Hemoglobin 12.8 g/dL (11.5-15.4); Mean Corpuscular HGB Conc 32.7 g/dL (31.6-35.5); Mean Corpuscular Hemoglobin 29.2 pg (28.0-33.3); Mean Corpuscular Volume 89.1 fL (83.0-100.0); Mean Platelet Volume 11.3 fL (9.4-12.4); Platelet Count 219 K/mcL (140-400); Red Blood Count 4.39 M/mcL (3.82-4.97)
[2019-04-29 02:12] LABS: BUN/Creatinine Ratio 33 (6-26); Blood Urea Nitrogen 27 mg/dL (8-23); Calcium 9.2 mg/dL (8.6-10.3); Carbon Dioxide 21 mEq/L (23-29); Chloride 101 mEq/L (98-107); Glucose 219 mg/dL (70-105); Osmolality,Calculated 298 (280-300); Sodium 138 mEq/L (136-145); eGFR For African Americans > 60 (> 60); eGFR For Non-African Americans > 60 (> 60)
[2019-04-29 03:32] LABS: Bilirubin,Urine Negative (Negative); Blood,Urine Negative (Negative); Clarity,Urine Cloudy (Clear); Color,Urine Yellow (Yellow); Glucose,Urine (UA) Normal (Normal); Ketones,Urine Negative (Negative); Leukocyte Esterase,Urine Small (Negative); Nitrite,Urine Negative (Negative); PH,Urine 5.5 pH Units (5.0-8.0); Protein,Urine 100 mg/dL (Neg-Trace); Specific Gravity,Urine > 1.030 (1.010-1.025); Urobilinogen,Urine Normal (Normal)
[2019-04-29 03:34] LABS: Bacteria,Urine Few per hpf (None-Few); Squamous Epithelial Cell,Urine Many per lpf (None-Few); WBC,Urine 30-50 per hpf (0-3)
[2019-04-29 03:43] LABS: Amorphous Sediment,Urine Few per hpf (Few); Hyaline Casts,Urine None Seen per lpf (None-Few); RBC,Urine 0-3 per hpf (0-3)
[2019-04-29 05:15] LABS: Thyroid Stimulating Hormone 1.139 mcIU/mL (0.340-5.600)
[2019-04-29] MEDS ORDERED: Morphine Sulfate 2 MG/ML SYRINGE IVP ONE (07:45)
[2019-04-29] MEDS ORDERED: Naloxone 0.4 MG/ML INJ IVP PRN (08:06)
[2019-04-29] MEDS ORDERED: *HR* LORazepam 2 MG/ML VIAL IVP PRN (08:09)
[2019-04-29] MEDS ORDERED: BUTALBIT GTUBE PRN (08:15)
[2019-04-29] MEDS ORDERED: *HR* LORazepam 0.5 MG TABLET GTUBE PRN ×2 (08:15)
[2019-04-29] MEDS ORDERED: *HR* OxyCODONE Oral Soln 5 MG/5 ML UD.LIQ GTUBE PRN (08:15)
[2019-04-29] MEDS ORDERED: ACETAMIN GTUBE PRN (08:15)
[2019-04-29] MEDS ORDERED: Sennosides 8.6 MG TABLET PO PRN (08:15)
[2019-04-29] MEDS ORDERED: D5% in Water 1,000 ML IVC PRN (08:15)
[2019-04-29] MEDS ORDERED: CAFF GTUBE PRN (08:15)
[2019-04-29] MEDS ORDERED: Dextrose Gel 15 GM/37.5 ML TUBE PO PRN ×2 (08:15)
[2019-04-29] MEDS ORDERED: CODEINE GTUBE PRN (08:15)
[2019-04-29] MEDS ORDERED: [UNRECOGNIZED DRUG - OTHER] GTUBE PRN (08:15)
[2019-04-29] MEDS ORDERED: *HR* Dextrose 50 % in Water (Syg) 50 ML SYRINGE IVP PRN (08:15)
[2019-04-29] MEDS ORDERED: Nitroglycerin 0.4 MG TAB.SUBL SL PRN (08:15)
[2019-04-29] MEDS ORDERED: Apixaban 5 MG TABLET GTUBE SCH (09:00)
[2019-04-29] MEDS ORDERED: Lisinopril 20 MG TABLET GTUBE SCH (09:00)
[2019-04-29] MEDS ORDERED: Gabapentin 300 MG CAPSULE GTUBE SCH (09:00)
[2019-04-29] MEDS ORDERED: GuaiFENesin Liq 200 MG/10 ML UDC GTUBE SCH (09:00)
[2019-04-29] MEDS ORDERED: Famotidine 20 MG TABLET GTUBE SCH (09:00)
[2019-04-29] MEDS ORDERED: Magnesium Oxide 400 MG TABLET GTUBE SCH (09:00)
[2019-04-29] MEDS: Ipratropium/Albuterol Neb 3 ML IH SCH ×3 (11:00→15:45)
[2019-04-29 11:12] LABS: ABG Base Excess 2 mEq/L (-2 to 3); ABG HCO3 27 mEq/L (21-27); ABG Oxygen Saturation 96 % (95-98); ABG PCO2 38 mmHg (35-45); ABG PH 7.45 pH Units (7.32-7.45); ABG PO2 77 mmHg (85-104); ABG TCO2 28 mEq/L (20-26)
[2019-04-29] MEDS ORDERED: Haloperidol Lactate 5 MG/ML VIAL IVP ONE (11:18)
[2019-04-29 11:22] LABS: INR 1.2; Prothrombin Time 13.7 Seconds (9.4-12.1)
[2019-04-29 11:25] LABS: Activated Partial Thrombo Time 37.1 Seconds (26.0-36.0)
[2019-04-29 11:36] LABS: Albumin 3.7 g/dL (3.5-5.7); Albumin/Globulin Ratio 1.4 (1.1-2.2); Bilirubin,Direct 0.1 mg/dL (0.0-0.2); Bilirubin,Indirect 0.3 mg/dL (0.0-1.0); Bilirubin,Total 0.4 mg/dL (0.3-1.0); Globulin 2.6 g/dL (2.4-3.5); Total Protein 6.3 g/dL (6.4-8.9)
[2019-04-29] MEDS: *HR* OxyCODONE Oral Soln 5 MG/5 ML UD.LIQ PO PRN (12:31)
[2019-04-29] MEDS: Aspirin Enteric Coated 81 MG Tablet PO SCH (12:32)
[2019-04-29] MEDS: Isosorbide MONOnitrate (24 HR) 30 MG TAB.ER.24H PO SCH (12:32)
[2019-04-29] MEDS: Nystatin POWDER 30 GM BOTTLE TP SCH ×2 (12:32→21:47)
[2019-04-29] MEDS: amLODIPine 5 MG TABLET PO SCH (12:32)
[2019-04-29] MEDS: Chlorhexidine Rinse 15 ML MOUTHWASH MM SCH ×2 (12:33→21:47)
[2019-04-29] MEDS: Artificial Tears SOLN 15 ML BOTTLE OP SCH ×2 (12:34→21:47)
[2019-04-29] MEDS: Insulin LISPRO 300 UNITS/3 ML VIAL SQ SCH ×2 (12:34→18:47)
[2019-04-29] MEDS: Ertapenem 1,000 MG in 0.9 % Sodium Chloride Mini Bag 100 ML IVPB SCH (12:34)
[2019-04-29] MEDS: Famotidine 20 MG TABLET PO SCH (18:45)
[2019-04-29] MEDS: levETIRAcetam 250 MG TABLET PO SCH (18:45)
[2019-04-29] MEDS: Apixaban 5 MG TABLET PO SCH (21:34)
[2019-04-29] MEDS: Gabapentin 300 MG CAPSULE PO SCH (21:46)
[2019-04-29] MEDS: Acetaminophen 325 MG TABLET PO PRN (21:58)
[2019-04-30] MEDS: Ipratropium/Albuterol Neb 3 ML IH SCH ×5 (00:09→22:03)
[2019-04-30] MEDS: Insulin LISPRO 300 UNITS/3 ML VIAL SQ SCH ×5 (00:29→22:55)
[2019-04-30] MEDS: *HR* OxyCODONE Oral Soln 5 MG/5 ML UD.LIQ PO PRN ×3 (00:32→22:48)
[2019-04-30 02:58] LABS: Basophils % 0.2 %; Eosinophils # 0.2 K/mcL (0.0-0.6); Eosinophils % 3.6 %; Hematocrit 32.8 % (35.3-44.9); Immature Granulocytes % 0.4 % (0-4); Lymphocytes # 1.6 K/mcL (0.6-4.6); Lymphocytes % 28.7 %; Mean Corpuscular HGB Conc 32.6 g/dL (31.6-35.5); Mean Corpuscular Hemoglobin 29.2 pg (28.0-33.3); Mean Corpuscular Volume 89.6 fL (83.0-100.0); Mean Platelet Volume 11.7 fL (9.4-12.4); Monocytes % 11.7 %; Neutrophils # 3.1 K/mcL (1.6-8.9); Platelet Count 176 K/mcL (140-400); Red Blood Count 3.66 M/mcL (3.82-4.97); Red Cell Distribution Width 13.4 % (11.5-14.5); Segmented Neutrophils % 55.4 %
[2019-04-30 03:02] LABS: Hemoglobin 10.7 g/dL (11.5-15.4); Monocytes # 0.6 K/mcL (0.0-1.3); White Blood Count 5.5 K/mcL (4.3-11.1)
[2019-04-30 03:11] LABS: BUN/Creatinine Ratio 40 (6-26); Blood Urea Nitrogen 29 mg/dL (8-23); Calcium 8.4 mg/dL (8.6-10.3); Carbon Dioxide 25 mEq/L (23-29); Chloride 106 mEq/L (98-107); Glucose 129 mg/dL (70-105); Magnesium 1.6 mg/dL (1.6-2.6); Osmolality,Calculated 296 (280-300); Phosphorous 5.1 mg/dL (2.7-4.5); Potassium 3.5 mEq/L (3.5-5.1); Sodium 139 mEq/L (136-145); eGFR For African Americans > 60 (> 60); eGFR For Non-African Americans > 60 (> 60)
[2019-04-30] MEDS: Acetaminophen 325 MG TABLET PO PRN (05:04)
[2019-04-30] MEDS: levETIRAcetam 250 MG TABLET PO SCH ×2 (05:05→18:17)
[2019-04-30] MEDS ORDERED: *HR* LORazepam 0.5 MG TABLET PO ONE (09:02)
[2019-04-30] MEDS: Isosorbide MONOnitrate (24 HR) 30 MG TAB.ER.24H PO SCH (09:24)
[2019-04-30] MEDS: amLODIPine 5 MG TABLET PO SCH (09:25)
[2019-04-30] MEDS: Magnesium Oxide 400 MG TABLET PO SCH (09:25)
[2019-04-30] MEDS: Lisinopril 20 MG TABLET PO SCH (09:25)
[2019-04-30] MEDS: Apixaban 5 MG TABLET PO SCH ×2 (09:26→22:47)
[2019-04-30] MEDS: Gabapentin 300 MG CAPSULE PO SCH ×2 (09:26→22:46)
[2019-04-30] MEDS: Aspirin Enteric Coated 81 MG Tablet PO SCH (09:26)
[2019-04-30] MEDS: Ertapenem 1,000 MG in 0.9 % Sodium Chloride Mini Bag 100 ML IVPB SCH (09:26)
[2019-04-30] MEDS: Artificial Tears SOLN 15 ML BOTTLE OP SCH ×2 (09:27→22:48)
[2019-04-30] MEDS: Famotidine 20 MG TABLET PO SCH ×2 (09:27→15:09)
[2019-04-30] MEDS: Nystatin POWDER 30 GM BOTTLE TP SCH ×2 (09:28→23:13)
[2019-04-30] MEDS: Chlorhexidine Rinse 15 ML MOUTHWASH MM SCH ×3 (09:28→23:12)
[2019-04-30] MEDS: Pantoprazole 40 MG VIAL IVP SCH (18:17)
[2019-05-01] MEDS: Acetaminophen 325 MG TABLET PO PRN ×2 (01:28→20:36)
[2019-05-01] MEDS: *HR* LORazepam 0.5 MG TABLET PO PRN (01:31)
[2019-05-01] MEDS: Ipratropium/Albuterol Neb 3 ML IH SCH ×4 (04:44→23:10)
[2019-05-01] MEDS: levETIRAcetam 250 MG TABLET PO SCH ×2 (06:51→17:44)
[2019-05-01] MEDS: Insulin LISPRO 300 UNITS/3 ML VIAL SQ SCH ×4 (08:21→22:14)
[2019-05-01] MEDS: Famotidine 20 MG TABLET PO SCH ×2 (08:36→17:44)
[2019-05-01] MEDS: Aspirin Enteric Coated 81 MG Tablet PO SCH (08:36)
[2019-05-01] MEDS: Lisinopril 20 MG TABLET PO SCH (08:36)
[2019-05-01] MEDS: amLODIPine 5 MG TABLET PO SCH (08:36)
[2019-05-01] MEDS: Apixaban 5 MG TABLET PO SCH ×2 (08:36→22:13)
[2019-05-01] MEDS: Isosorbide MONOnitrate (24 HR) 30 MG TAB.ER.24H PO SCH (08:36)
[2019-05-01] MEDS: Pantoprazole 40 MG VIAL IVP SCH (08:37)
[2019-05-01] MEDS: Ertapenem 1,000 MG in 0.9 % Sodium Chloride Mini Bag 100 ML IVPB SCH (08:37)
[2019-05-01] MEDS: Gabapentin 300 MG CAPSULE PO SCH ×2 (08:37→22:13)
[2019-05-01] MEDS: Magnesium Oxide 400 MG TABLET PO SCH (08:37)
[2019-05-01] MEDS: Chlorhexidine Rinse 15 ML MOUTHWASH MM SCH ×2 (08:37→22:23)
[2019-05-01] MEDS: *HR* OxyCODONE Oral Soln 5 MG/5 ML UD.LIQ PO PRN ×4 (08:38→22:28)
[2019-05-01] MEDS: Artificial Tears SOLN 15 ML BOTTLE OP SCH ×2 (08:39→22:15)
[2019-05-01] MEDS: Nystatin POWDER 30 GM BOTTLE TP SCH ×2 (08:40→22:23)
[2019-05-01 16:12] LABS: Hematocrit 37.7 % (35.3-44.9); Hemoglobin 11.7 g/dL (11.5-15.4); Mean Corpuscular Hemoglobin 29.5 pg (28.0-33.3); Mean Corpuscular Volume 95.2 fL (83.0-100.0); Mean Platelet Volume 11.3 fL (9.4-12.4); Platelet Count 207 K/mcL (140-400); Red Blood Count 3.96 M/mcL (3.82-4.97); Red Cell Distribution Width 13.2 % (11.5-14.5)
[2019-05-01 16:17] LABS: White Blood Count 8.9 K/mcL (4.3-11.1)
[2019-05-01 16:48] LABS: BUN/Creatinine Ratio 23 (6-26); Blood Urea Nitrogen 18 mg/dL (8-23); Calcium 8.8 mg/dL (8.6-10.3); Carbon Dioxide 19 mEq/L (23-29); Chloride 104 mEq/L (98-107); Glucose 162 mg/dL (70-105); Osmolality,Calculated 289 (280-300); Potassium 3.9 mEq/L (3.5-5.1); Sodium 137 mEq/L (136-145); eGFR For African Americans > 60 (> 60); eGFR For Non-African Americans > 60 (> 60)
[2019-05-02] MEDS: *HR* LORazepam 0.5 MG TABLET PO PRN (01:25)
[2019-05-02] MEDS: *HR* OxyCODONE Oral Soln 5 MG/5 ML UD.LIQ PO PRN ×4 (02:20→21:25)
[2019-05-02] MEDS: Ipratropium/Albuterol Neb 3 ML IH SCH ×4 (04:19→21:43)
[2019-05-02] MEDS: levETIRAcetam 250 MG TABLET PO SCH ×2 (05:43→17:57)
[2019-05-02] MEDS: Insulin LISPRO 300 UNITS/3 ML VIAL SQ SCH ×4 (08:46→21:25)
[2019-05-02] MEDS: Pantoprazole 40 MG VIAL IVP SCH (08:46)
[2019-05-02] MEDS: Artificial Tears SOLN 15 ML BOTTLE OP SCH ×2 (08:47→21:25)
[2019-05-02] MEDS: Ertapenem 1,000 MG in 0.9 % Sodium Chloride Mini Bag 100 ML IVPB SCH (08:47)
[2019-05-02] MEDS: Aspirin Enteric Coated 81 MG Tablet PO SCH (08:47)
[2019-05-02] MEDS: Lisinopril 20 MG TABLET PO SCH (08:47)
[2019-05-02] MEDS: Apixaban 5 MG TABLET PO SCH ×2 (08:47→21:25)
[2019-05-02] MEDS: Magnesium Oxide 400 MG TABLET PO SCH (08:47)
[2019-05-02] MEDS: Chlorhexidine Rinse 15 ML MOUTHWASH MM SCH ×2 (08:47→21:24)
[2019-05-02] MEDS: Isosorbide MONOnitrate (24 HR) 30 MG TAB.ER.24H PO SCH (08:48)
[2019-05-02] MEDS: Gabapentin 300 MG CAPSULE PO SCH ×2 (08:48→21:25)
[2019-05-02] MEDS: Nystatin POWDER 30 GM BOTTLE TP SCH ×2 (08:48→21:26)
[2019-05-02] MEDS: amLODIPine 5 MG TABLET PO SCH (08:48)
[2019-05-02] MEDS: Famotidine 20 MG TABLET PO SCH ×2 (08:48→17:57)
[2019-05-02] MEDS: carvediloL 6.25 MG TABLET PO SCH ×2 (08:57→17:56)
[2019-05-02] MEDS: Acetaminophen 325 MG TABLET PO PRN (17:56)
[2019-05-03] MEDS: Ipratropium/Albuterol Neb 3 ML IH SCH ×2 (03:34→11:17)
[2019-05-03] MEDS: *HR* OxyCODONE Oral Soln 5 MG/5 ML UD.LIQ PO PRN (05:22)
[2019-05-03] MEDS: levETIRAcetam 250 MG TABLET PO SCH (05:22)
[2019-05-03 07:26] VITALS: BP 146/106
[2019-05-03] MEDS: Pantoprazole 40 MG VIAL IVP SCH (08:01)
[2019-05-03] MEDS: Chlorhexidine Rinse 15 ML MOUTHWASH MM SCH (08:01)
[2019-05-03] MEDS: Famotidine 20 MG TABLET PO SCH (08:06)
[2019-05-03] MEDS: Apixaban 5 MG TABLET PO SCH (08:06)
[2019-05-03] MEDS: Aspirin Enteric Coated 81 MG Tablet PO SCH (08:07)
[2019-05-03] MEDS: Gabapentin 300 MG CAPSULE PO SCH (08:07)
[2019-05-03] MEDS: carvediloL 6.25 MG TABLET PO SCH (08:07)
[2019-05-03] MEDS: Magnesium Oxide 400 MG TABLET PO SCH (08:07)
[2019-05-03] MEDS: Lisinopril 20 MG TABLET PO SCH (08:08)
[2019-05-03] MEDS: amLODIPine 5 MG TABLET PO SCH (08:08)
[2019-05-03] MEDS: Isosorbide MONOnitrate (24 HR) 30 MG TAB.ER.24H PO SCH (08:09)
[2019-05-03] MEDS: Ertapenem 1,000 MG in 0.9 % Sodium Chloride Mini Bag 100 ML IVPB SCH (08:12)
[2019-05-03] MEDS: Insulin LISPRO 300 UNITS/3 ML VIAL SQ SCH (08:19)
[2019-05-03] MEDS: Artificial Tears SOLN 15 ML BOTTLE OP SCH (08:19)
[2019-05-03] MEDS: Nystatin POWDER 30 GM BOTTLE TP SCH (09:27)
== END 2019-05-03 12:25 | DRG 101 ==
LOC: EMEROOARM 01:09 → CDU 01:09 → SUATTDRO 08:14 → CDU 10:07 → 3NENU 19:29
PROVIDERS: ADMIT Internal Medicine; ATTEND Internal Medicine

== ENCOUNTER 2019-05-07 23:38 | Inpatient (IN) ==
[2019-05-08 00:39] LABS: Bilirubin,Urine Negative (Negative); Blood,Urine Negative (Negative); Clarity,Urine Clear (Clear); Color,Urine Yellow (Yellow); Glucose,Urine (UA) Normal (Normal); Ketones,Urine Negative (Negative); Leukocyte Esterase,Urine Small (Negative); Nitrite,Urine Negative (Negative); Protein,Urine 100 mg/dL (Neg-Trace); Specific Gravity,Urine 1.016 (1.010-1.025); Urobilinogen,Urine Normal (Normal)
[2019-05-08 00:43] LABS: Bacteria,Urine None Seen per hpf (None-Few); Hyaline Casts,Urine Few per lpf (None-Few); RBC,Urine 0-3 per hpf (0-3); Squamous Epithelial Cell,Urine Many per lpf (None-Few)
[2019-05-08 01:29] LABS: Basophils % 0.2 %; Eosinophils % 0.2 %; Hematocrit 43.7 % (35.3-44.9); Hemoglobin 14.8 g/dL (11.5-15.4); Immature Granulocytes % 0.4 % (0-4); Lymphocytes # 1.9 K/mcL (0.6-4.6); Lymphocytes % 14.8 %; Mean Corpuscular HGB Conc 33.9 g/dL (31.6-35.5); Mean Corpuscular Hemoglobin 28.9 pg (28.0-33.3); Mean Corpuscular Volume 85.4 fL (83.0-100.0); Monocytes # 0.8 K/mcL (0.0-1.3); Monocytes % 6.3 %; Platelet Count 283 K/mcL (140-400); Red Blood Count 5.12 M/mcL (3.82-4.97); Red Cell Distribution Width 13.2 % (11.5-14.5); Segmented Neutrophils % 78.1 %; White Blood Count 12.8 K/mcL (4.3-11.1)
[2019-05-08 01:39] LABS: Bilirubin,Urine Negative (Negative); Blood,Urine Negative (Negative); Clarity,Urine Clear (Clear); Color,Urine Yellow (Yellow); Glucose,Urine (UA) Normal (Normal); Ketones,Urine Negative (Negative); Leukocyte Esterase,Urine Small (Negative); Nitrite,Urine Negative (Negative); Protein,Urine 100 mg/dL (Neg-Trace); Specific Gravity,Urine 1.017 (1.010-1.025); Urobilinogen,Urine Normal (Normal)
[2019-05-08 01:40] LABS: BUN/Creatinine Ratio 22 (6-26); Blood Urea Nitrogen 13 mg/dL (8-23); Calcium 9.7 mg/dL (8.6-10.3); Carbon Dioxide 29 mEq/L (23-29); Chloride 94 mEq/L (98-107); Glucose 198 mg/dL (70-105); Magnesium 1.6 mg/dL (1.6-2.6); Osmolality,Calculated 280 (280-300); Potassium 3.8 mEq/L (3.5-5.1); Sodium 132 mEq/L (136-145); eGFR For African Americans > 60 (> 60); eGFR For Non-African Americans > 60 (> 60)
[2019-05-08 01:41] LABS: Bacteria,Urine None Seen per hpf (None-Few); Hyaline Casts,Urine None Seen per lpf (None-Few); RBC,Urine 0-3 per hpf (0-3); Squamous Epithelial Cell,Urine Many per lpf (None-Few); WBC,Urine 0-3 per hpf (0-3)
[2019-05-08] MEDS ORDERED: *HR* Labetalol 20 MG/4 ML SYRINGE IVP ONE (02:35)
[2019-05-08] MEDS ORDERED: Nitroglycerin 0.4 MG TAB.SUBL SL STA (03:35)
[2019-05-08] MEDS ORDERED: Aspirin 325 MG TABLET PO ONE (03:35)
[2019-05-08] MEDS ORDERED: Naloxone 0.4 MG/ML INJ IVP PRN (04:37)
[2019-05-08] MEDS ORDERED: CAFF PO PRN (04:39)
[2019-05-08] MEDS ORDERED: CODEINE PO PRN (04:39)
[2019-05-08] MEDS ORDERED: ACETAMIN PO PRN (04:39)
[2019-05-08] MEDS ORDERED: Nitroglycerin 0.4 MG TAB.SUBL SL PRN (04:39)
[2019-05-08] MEDS ORDERED: Sennosides 8.6 MG TABLET PO PRN (04:39)
[2019-05-08] MEDS ORDERED: BUTALBIT PO PRN (04:39)
[2019-05-08] MEDS ORDERED: *HR* OxyCODONE Oral Soln 5 MG/5 ML UD.LIQ PO PRN (04:39)
[2019-05-08] MEDS: 0.9 % Sodium Chloride 1,000 ML IVC SCH (05:39)
[2019-05-08] MEDS: Ipratropium/Albuterol Neb 3 ML IH SCH ×4 (07:30→22:33)
[2019-05-08] MEDS: Artificial Tears SOLN 15 ML BOTTLE OP SCH ×2 (07:34→20:33)
[2019-05-08] MEDS: Nystatin POWDER 30 GM BOTTLE TP SCH ×2 (07:37→20:35)
[2019-05-08] MEDS: amLODIPine 5 MG TABLET PO SCH (07:42)
[2019-05-08] MEDS: Gabapentin 300 MG CAPSULE PO SCH ×2 (07:42→20:35)
[2019-05-08] MEDS: Lisinopril 20 MG TABLET PO SCH (07:44)
[2019-05-08] MEDS: Chlorhexidine Rinse 15 ML MOUTHWASH MM SCH ×2 (07:45→20:34)
[2019-05-08] MEDS: *HR* LORazepam 0.5 MG TABLET PO SCH ×2 (07:45→20:34)
[2019-05-08] MEDS: Isosorbide MONOnitrate (24 HR) 30 MG TAB.ER.24H PO SCH (07:46)
[2019-05-08] MEDS: Apixaban 5 MG TABLET PO SCH (07:48)
[2019-05-08] MEDS: Aspirin Enteric Coated 81 MG Tablet PO SCH (07:49)
[2019-05-08] MEDS: Magnesium Oxide 400 MG TABLET PO SCH (07:49)
[2019-05-08] MEDS: Nitrofurantoin (BID) 100 MG CAPSULE PO SCH (07:49)
[2019-05-08] MEDS: GuaiFENesin Liq 200 MG/10 ML UDC GTUBE SCH ×2 (07:50→20:36)
[2019-05-08] MEDS: Famotidine 20 MG TABLET PO SCH ×2 (07:50→20:35)
[2019-05-08] MEDS ORDERED: levETIRAcetam 250 MG TABLET PO SCH (09:00)
[2019-05-08] MEDS: Insulin NPH 100 UNIT/ML (x5UNIT) SQ SCH ×2 (10:02→20:26)
[2019-05-08] MEDS ORDERED: Promethazine 6.25 MG in 0.9 % Sodium Chloride 50 ML IVPB ONE (10:12)
[2019-05-08] MEDS ORDERED: *HR* Promethazine 25 MG/ML VIAL IVP ONE (11:00)
[2019-05-08] MEDS ORDERED: Pantoprazole 40 MG VIAL IVP ONE (13:23)
[2019-05-09] MEDS: Nitrofurantoin (BID) 100 MG CAPSULE PO SCH ×2 (00:24→09:16)
[2019-05-09] MEDS: Apixaban 5 MG TABLET PO SCH ×3 (00:24→21:49)
[2019-05-09] MEDS: Divalproex (12 HR) 500 MG TABLET PO SCH ×3 (00:24→21:49)
[2019-05-09] MEDS: 0.9 % Sodium Chloride 1,000 ML IVC SCH (01:30)
[2019-05-09] MEDS: Ipratropium/Albuterol Neb 3 ML IH SCH ×4 (04:04→22:16)
[2019-05-09 07:26] LABS: Basophils % 0.2 %; Eosinophils % 0.2 %; Hematocrit 40.2 % (35.3-44.9); Immature Granulocytes % 0.3 % (0-4); Lymphocytes # 1.9 K/mcL (0.6-4.6); Lymphocytes % 14.7 %; Mean Corpuscular HGB Conc 34.8 g/dL (31.6-35.5); Mean Corpuscular Hemoglobin 29.4 pg (28.0-33.3); Mean Corpuscular Volume 84.3 fL (83.0-100.0); Monocytes # 1.2 K/mcL (0.0-1.3); Monocytes % 9.6 %; Neutrophils # 9.6 K/mcL (1.6-8.9); Platelet Count 237 K/mcL (140-400); Red Blood Count 4.77 M/mcL (3.82-4.97); Red Cell Distribution Width 13.4 % (11.5-14.5); White Blood Count 12.8 K/mcL (4.3-11.1)
[2019-05-09 07:40] LABS: Alanine Aminotransferase 9 Units/L (7-52); Albumin 3.9 g/dL (3.5-5.7); Albumin/Globulin Ratio 1.4 (1.1-2.2); Alkaline Phosphatase 109 Units/L (34-104); Aspartate Amino Transferase 10 Units/L (13-39); BUN/Creatinine Ratio 29 (6-26); Bilirubin,Total 0.5 mg/dL (0.3-1.0); Blood Urea Nitrogen 17 mg/dL (8-23); Calcium 8.9 mg/dL (8.6-10.3); Carbon Dioxide 26 mEq/L (23-29); Chloride 100 mEq/L (98-107); Globulin 2.8 g/dL (2.4-3.5); Glucose 187 mg/dL (70-105); Magnesium 1.5 mg/dL (1.6-2.6); Osmolality,Calculated 290 (280-300); Potassium 3.4 mEq/L (3.5-5.1); Sodium 137 mEq/L (136-145); Total Protein 6.7 g/dL (6.4-8.9); eGFR For African Americans > 60 (> 60); eGFR For Non-African Americans > 60 (> 60)
[2019-05-09] MEDS: Isosorbide MONOnitrate (24 HR) 30 MG TAB.ER.24H PO SCH (09:16)
[2019-05-09] MEDS: Magnesium Oxide 400 MG TABLET PO SCH (09:16)
[2019-05-09] MEDS: *HR* LORazepam 0.5 MG TABLET PO SCH (09:16)
[2019-05-09] MEDS: Aspirin Enteric Coated 81 MG Tablet PO SCH (09:16)
[2019-05-09] MEDS: amLODIPine 5 MG TABLET PO SCH (09:17)
[2019-05-09] MEDS: Famotidine 20 MG TABLET PO SCH ×2 (09:17→21:48)
[2019-05-09] MEDS: Lisinopril 20 MG TABLET PO SCH (09:17)
[2019-05-09] MEDS: Gabapentin 300 MG CAPSULE PO SCH ×2 (09:17→21:49)
[2019-05-09] MEDS: Chlorhexidine Rinse 15 ML MOUTHWASH MM SCH ×2 (09:46→21:48)
[2019-05-09] MEDS: Insulin NPH 100 UNIT/ML (x5UNIT) SQ SCH ×2 (09:48→22:02)
[2019-05-09] MEDS: GuaiFENesin Liq 200 MG/10 ML UDC GTUBE SCH ×2 (10:04→21:48)
[2019-05-09] MEDS: Artificial Tears SOLN 15 ML BOTTLE OP SCH ×2 (10:05→22:07)
[2019-05-09] MEDS: Nystatin POWDER 30 GM BOTTLE TP SCH ×2 (10:05→22:07)
[2019-05-09] MEDS ORDERED: *HR* Metoprolol 5 MG/5 ML VIAL IVP ONE (10:56)
[2019-05-09] MEDS ORDERED: *HR* LORazepam 0.5 MG TABLET PO PRN (11:55)
[2019-05-10 01:41] LABS: Basophils % 0.2 %; Eosinophils # 0.1 K/mcL (0.0-0.6); Eosinophils % 0.9 %; Hematocrit 35.1 % (35.3-44.9); Hemoglobin 11.8 g/dL (11.5-15.4); Immature Granulocytes % 0.5 % (0-4); Immature Platelets 4.1 % (1.1-6.1); Lymphocytes # 3.4 K/mcL (0.6-4.6); Lymphocytes % 26.4 %; Mean Corpuscular HGB Conc 33.6 g/dL (31.6-35.5); Mean Corpuscular Hemoglobin 29.1 pg (28.0-33.3); Mean Corpuscular Volume 86.7 fL (83.0-100.0); Mean Platelet Volume 11.2 fL (9.4-12.4); Monocytes # 1.3 K/mcL (0.0-1.3); Monocytes % 9.6 %; Neutrophils # 8.1 K/mcL (1.6-8.9); Platelet Count 215 K/mcL (140-400); Red Blood Count 4.05 M/mcL (3.82-4.97); Red Cell Distribution Width 13.6 % (11.5-14.5); Segmented Neutrophils % 62.4 %
[2019-05-10 01:56] LABS: Magnesium 1.8 mg/dL (1.6-2.6); Potassium 3.8 mEq/L (3.5-5.1)
[2019-05-10] MEDS: Ipratropium/Albuterol Neb 3 ML IH SCH ×4 (04:48→21:53)
[2019-05-10] MEDS ORDERED: 0.9 % Sodium Chloride 1,000 ML IVC SCH (08:00)
[2019-05-10 09:14] LABS: Calcium 8.8 mg/dL (8.6-10.3); Potassium 3.9 mEq/L (3.5-5.1)
[2019-05-10] MEDS: Aspirin Enteric Coated 81 MG Tablet PO SCH (09:26)
[2019-05-10] MEDS: Apixaban 5 MG TABLET PO SCH ×2 (09:26→21:07)
[2019-05-10] MEDS: Divalproex (12 HR) 500 MG TABLET PO SCH ×2 (09:27→21:07)
[2019-05-10] MEDS: Magnesium Oxide 400 MG TABLET PO SCH (09:28)
[2019-05-10] MEDS: Isosorbide MONOnitrate (24 HR) 30 MG TAB.ER.24H PO SCH (09:29)
[2019-05-10] MEDS: amLODIPine 5 MG TABLET PO SCH (09:29)
[2019-05-10] MEDS: Chlorhexidine Rinse 15 ML MOUTHWASH MM SCH ×2 (09:29→21:13)
[2019-05-10] MEDS: Artificial Tears SOLN 15 ML BOTTLE OP SCH ×2 (09:29→22:42)
[2019-05-10] MEDS: Nystatin POWDER 30 GM BOTTLE TP SCH ×2 (09:29→21:13)
[2019-05-10] MEDS: Gabapentin 300 MG CAPSULE PO SCH ×2 (09:29→19:34)
[2019-05-10] MEDS: GuaiFENesin Liq 200 MG/10 ML UDC GTUBE SCH ×2 (09:30→21:13)
[2019-05-10] MEDS: Famotidine 20 MG TABLET PO SCH (09:43)
[2019-05-10] MEDS: Insulin NPH 100 UNIT/ML (x5UNIT) SQ SCH ×2 (09:44→21:11)
[2019-05-10] MEDS: Ondansetron 4 MG/2 ML VIAL IVP PRN (21:15)
[2019-05-11] MEDS ORDERED: Famotidine 20 MG TABLET PO ONE (01:50)
[2019-05-11 01:59] LABS: Basophils % 0.1 %; Eosinophils # 0.1 K/mcL (0.0-0.6); Eosinophils % 0.4 %; Hematocrit 40.4 % (35.3-44.9); Hemoglobin 13.5 g/dL (11.5-15.4); Immature Granulocytes % 0.4 % (0-4); Lymphocytes # 1.7 K/mcL (0.6-4.6); Lymphocytes % 9.7 %; Mean Corpuscular HGB Conc 33.4 g/dL (31.6-35.5); Mean Corpuscular Hemoglobin 29.2 pg (28.0-33.3); Mean Corpuscular Volume 87.4 fL (83.0-100.0); Mean Platelet Volume 11.2 fL (9.4-12.4); Monocytes % 5.8 %; Neutrophils # 14.2 K/mcL (1.6-8.9); Platelet Count 228 K/mcL (140-400); Red Blood Count 4.62 M/mcL (3.82-4.97); Red Cell Distribution Width 13.4 % (11.5-14.5); Segmented Neutrophils % 83.6 %
[2019-05-11 02:06] LABS: BUN/Creatinine Ratio 40 (6-26); Blood Urea Nitrogen 31 mg/dL (8-23); Calcium 8.7 mg/dL (8.6-10.3); Carbon Dioxide 24 mEq/L (23-29); Chloride 102 mEq/L (98-107); Glucose 186 mg/dL (70-105); Osmolality,Calculated 293 (280-300); Potassium 3.7 mEq/L (3.5-5.1); Sodium 136 mEq/L (136-145); eGFR For African Americans > 60 (> 60); eGFR For Non-African Americans > 60 (> 60)
[2019-05-11] MEDS: Ipratropium/Albuterol Neb 3 ML IH SCH ×4 (04:36→22:59)
[2019-05-11] MEDS: Ondansetron 4 MG/2 ML VIAL IVP PRN (05:26)
[2019-05-11] MEDS: Isosorbide MONOnitrate (24 HR) 30 MG TAB.ER.24H PO SCH (10:17)
[2019-05-11] MEDS: Apixaban 5 MG TABLET PO SCH ×2 (10:17→22:22)
[2019-05-11] MEDS: Famotidine 20 MG TABLET PO SCH (10:17)
[2019-05-11] MEDS: Divalproex (12 HR) 500 MG TABLET PO SCH ×2 (10:17→22:22)
[2019-05-11] MEDS: Aspirin Enteric Coated 81 MG Tablet PO SCH (10:18)
[2019-05-11] MEDS: Artificial Tears SOLN 15 ML BOTTLE OP SCH ×2 (10:19→22:22)
[2019-05-11] MEDS: Magnesium Oxide 400 MG TABLET PO SCH (10:19)
[2019-05-11] MEDS: amLODIPine 5 MG TABLET PO SCH (10:19)
[2019-05-11] MEDS: Chlorhexidine Rinse 15 ML MOUTHWASH MM SCH ×2 (10:19→22:01)
[2019-05-11] MEDS: Insulin NPH 100 UNIT/ML (x5UNIT) SQ SCH ×2 (10:20→22:26)
[2019-05-11] MEDS: Nystatin POWDER 30 GM BOTTLE TP SCH ×2 (10:20→22:58)
[2019-05-11] MEDS: GuaiFENesin Liq 200 MG/10 ML UDC GTUBE SCH ×2 (10:20→19:40)
[2019-05-11] MEDS: Gabapentin 300 MG CAPSULE PO SCH ×2 (10:20→19:40)
[2019-05-11] MEDS: Ertapenem 1,000 MG in 0.9 % Sodium Chloride Mini Bag 100 ML IVPB SCH (14:14)
[2019-05-11 17:20] LABS: Creatinine,Urine 158 mg/dL; Microalbum/Creatinine Ratio,Ur 449 mcg/mg (Less than 30); Microalbumin,Urine 710 mg/L
[2019-05-12] MEDS: Ipratropium/Albuterol Neb 3 ML IH SCH ×4 (05:29→22:09)
[2019-05-12 05:30] LABS: Basophils # 0.1 K/mcL (0.0-0.2); Basophils % 0.4 %; Eosinophils # 0.1 K/mcL (0.0-0.6); Eosinophils % 0.7 %; Hematocrit 36.2 % (35.3-44.9); Immature Granulocytes % 0.3 % (0-4); Lymphocytes # 1.8 K/mcL (0.6-4.6); Lymphocytes % 14.5 %; Mean Corpuscular HGB Conc 33.1 g/dL (31.6-35.5); Mean Corpuscular Hemoglobin 28.8 pg (28.0-33.3); Mean Corpuscular Volume 86.8 fL (83.0-100.0); Monocytes # 0.9 K/mcL (0.0-1.3); Monocytes % 7.6 %; Neutrophils # 9.3 K/mcL (1.6-8.9); Platelet Count 212 K/mcL (140-400); Red Blood Count 4.17 M/mcL (3.82-4.97); Red Cell Distribution Width 13.4 % (11.5-14.5); Segmented Neutrophils % 76.5 %; White Blood Count 12.2 K/mcL (4.3-11.1)
[2019-05-12 05:46] LABS: BUN/Creatinine Ratio 36 (6-26); Blood Urea Nitrogen 23 mg/dL (8-23); Calcium 8.6 mg/dL (8.6-10.3); Carbon Dioxide 26 mEq/L (23-29); Chloride 103 mEq/L (98-107); Glucose 119 mg/dL (70-105); Osmolality,Calculated 293 (280-300); Potassium 3.6 mEq/L (3.5-5.1); Sodium 139 mEq/L (136-145); eGFR For African Americans > 60 (> 60); eGFR For Non-African Americans > 60 (> 60)
[2019-05-12] MEDS: Insulin NPH 100 UNIT/ML (x5UNIT) SQ SCH ×2 (09:39→22:01)
[2019-05-12] MEDS: Chlorhexidine Rinse 15 ML MOUTHWASH MM SCH ×2 (09:43→21:59)
[2019-05-12] MEDS: Apixaban 5 MG TABLET PO SCH ×2 (09:44→21:57)
[2019-05-12] MEDS: Gabapentin 300 MG CAPSULE PO SCH ×2 (09:44→19:21)
[2019-05-12] MEDS: Magnesium Oxide 400 MG TABLET PO SCH (09:44)
[2019-05-12] MEDS: Famotidine 20 MG TABLET PO SCH (09:44)
[2019-05-12] MEDS: Aspirin Enteric Coated 81 MG Tablet PO SCH (09:45)
[2019-05-12] MEDS: amLODIPine 5 MG TABLET PO SCH (09:46)
[2019-05-12] MEDS: Divalproex (12 HR) 500 MG TABLET PO SCH ×2 (09:46→21:57)
[2019-05-12] MEDS: Isosorbide MONOnitrate (24 HR) 30 MG TAB.ER.24H PO SCH (09:46)
[2019-05-12] MEDS: Ertapenem 1,000 MG in 0.9 % Sodium Chloride Mini Bag 100 ML IVPB SCH ×2 (09:47→15:50)
[2019-05-12] MEDS: GuaiFENesin Liq 200 MG/10 ML UDC GTUBE SCH ×2 (10:03→23:09)
[2019-05-12] MEDS: Artificial Tears SOLN 15 ML BOTTLE OP SCH ×2 (10:05→22:00)
[2019-05-12] MEDS: Nystatin POWDER 30 GM BOTTLE TP SCH ×2 (10:07→22:02)
[2019-05-13] MEDS: Ipratropium/Albuterol Neb 3 ML IH SCH ×3 (04:37→15:50)
[2019-05-13] MEDS: Nystatin POWDER 30 GM BOTTLE TP SCH (10:28)
[2019-05-13] MEDS: GuaiFENesin Liq 200 MG/10 ML UDC GTUBE SCH (10:28)
[2019-05-13] MEDS: Chlorhexidine Rinse 15 ML MOUTHWASH MM SCH (10:28)
[2019-05-13] MEDS: Gabapentin 300 MG CAPSULE PO SCH (10:29)
[2019-05-13] MEDS: Aspirin Enteric Coated 81 MG Tablet PO SCH (10:29)
[2019-05-13] MEDS: Famotidine 20 MG TABLET PO SCH (10:29)
[2019-05-13] MEDS: amLODIPine 5 MG TABLET PO SCH (10:30)
[2019-05-13] MEDS: Apixaban 5 MG TABLET PO SCH (10:30)
[2019-05-13] MEDS: Magnesium Oxide 400 MG TABLET PO SCH (10:30)
[2019-05-13] MEDS: Isosorbide MONOnitrate (24 HR) 30 MG TAB.ER.24H PO SCH (10:30)
[2019-05-13] MEDS: Ertapenem 1,000 MG in 0.9 % Sodium Chloride Mini Bag 100 ML IVPB SCH (10:30)
[2019-05-13] MEDS: Divalproex (12 HR) 500 MG TABLET PO SCH (10:30)
[2019-05-13] MEDS: Insulin NPH 100 UNIT/ML (x5UNIT) SQ SCH (10:31)
[2019-05-13 11:48] VITALS: BP 144/72
[2019-05-13] MEDS: Artificial Tears SOLN 15 ML BOTTLE OP SCH (11:53)
[2019-05-13] MEDS ORDERED: Fosfomycin Tromethamine 3 GM Packet PO ONE (15:30)
== END 2019-05-13 16:49 | DRG 101 ==
LOC: 3BNU 23:38 → EMEROOARM 23:38 → 3BNU 05-08 04:15
PROVIDERS: ADMIT Internal Medicine; ATTEND Internal Medicine

== ENCOUNTER 2019-06-28 10:54 | Inpatient (IN) ==
[2019-06-28] MEDS ORDERED: Ertapenem 1,000 MG in 0.9 % Sodium Chloride Mini Bag 100 ML IVPB STA (12:14)
[2019-06-28 12:38] LABS: Bilirubin,Urine Negative (Negative); Blood,Urine Negative (Negative); Clarity,Urine Cloudy (Clear); Color,Urine Yellow (Yellow); Glucose,Urine (UA) Normal (Normal); Ketones,Urine Negative (Negative); Leukocyte Esterase,Urine Moderate (Negative); Nitrite,Urine Positive (Negative); PH,Urine 7.5 pH Units (5.0-8.0); Protein,Urine Negative (Neg-Trace); Specific Gravity,Urine 1.026 (1.010-1.025); Urobilinogen,Urine Normal (Normal)
[2019-06-28 12:42] LABS: Bacteria,Urine Many per hpf (None-Few); Hyaline Casts,Urine None Seen per lpf (None-Few); Squamous Epithelial Cell,Urine Many per lpf (None-Few); WBC,Urine 30-50 per hpf (0-3)
[2019-06-28] MEDS ORDERED: *HR* HYDROcodone/Acet 5/325 mg TABLET PO ONE (13:04)
[2019-06-28 13:29] LABS: Basophils % 0.2 %; Eosinophils # 0.2 K/mcL (0.0-0.6); Eosinophils % 2.3 %; Hematocrit 36.2 % (35.3-44.9); Hemoglobin 11.6 g/dL (11.5-15.4); Immature Granulocytes % 0.2 % (0-4); Lymphocytes # 2.8 K/mcL (0.6-4.6); Mean Corpuscular Hemoglobin 28.9 pg (28.0-33.3); Mean Corpuscular Volume 90.3 fL (83.0-100.0); Mean Platelet Volume 10.7 fL (9.4-12.4); Monocytes # 0.8 K/mcL (0.0-1.3); Neutrophils # 5.8 K/mcL (1.6-8.9); Platelet Count 215 K/mcL (140-400); Red Blood Count 4.01 M/mcL (3.82-4.97); Red Cell Distribution Width 13.2 % (11.5-14.5); Segmented Neutrophils % 60.3 %; White Blood Count 9.6 K/mcL (4.3-11.1)
[2019-06-28 14:04] LABS: BUN/Creatinine Ratio 27 (6-26); Blood Urea Nitrogen 17 mg/dL (8-23); Calcium 9.3 mg/dL (8.6-10.3); Carbon Dioxide 26 mEq/L (23-29); Chloride 104 mEq/L (98-107); Glucose 138 mg/dL (70-105); Osmolality,Calculated 290 (280-300); Potassium 4.3 mEq/L (3.5-5.1); Sodium 138 mEq/L (136-145); eGFR For African Americans > 60 (> 60); eGFR For Non-African Americans > 60 (> 60)
[2019-06-28] MEDS ORDERED: Ondansetron 4 MG/2 ML VIAL IVP PRN (16:19)
[2019-06-28] MEDS ORDERED: CAFF PO PRN (17:14)
[2019-06-28] MEDS ORDERED: BUTALBIT PO PRN (17:14)
[2019-06-28] MEDS ORDERED: CODEINE PO PRN (17:14)
[2019-06-28] MEDS ORDERED: Sennosides 8.6 MG TABLET PO PRN (17:14)
[2019-06-28] MEDS ORDERED: ACETAMIN PO PRN (17:14)
[2019-06-28] MEDS ORDERED: [UNRECOGNIZED DRUG - OTHER] PO PRN (17:14)
[2019-06-28] MEDS ORDERED: D5% in Water 1,000 ML IVC PRN (17:17)
[2019-06-28] MEDS ORDERED: Dextrose Gel 15 GM/37.5 ML TUBE PO PRN ×2 (17:17)
[2019-06-28] MEDS ORDERED: *HR* Dextrose 50 % in Water (Syg) 50 ML SYRINGE IVP PRN (17:17)
[2019-06-28] MEDS: Famotidine 20 MG TABLET PO SCH (18:49)
[2019-06-28] MEDS ORDERED: Acetaminophen/Butalbital/CaffeineTABLET PO PRN (19:18)
[2019-06-28] MEDS: levETIRAcetam 250 MG TABLET PO SCH (20:47)
[2019-06-28] MEDS: Gabapentin 300 MG CAPSULE PO SCH (20:47)
[2019-06-28] MEDS: *HR* LORazepam 0.5 MG TABLET PO SCH (20:47)
[2019-06-28] MEDS: Chlorhexidine Rinse 15 ML MOUTHWASH MM SCH (20:52)
[2019-06-28] MEDS: Artificial Tears SOLN 15 ML BOTTLE BOTH EYES SCH (21:00)
[2019-06-28] MEDS: Nystatin POWDER 30 GM BOTTLE TP SCH (21:00)
[2019-06-28] MEDS ORDERED: *HR* OxyCODONE Immed Rel 5 MG TABLET PO PRN (21:46)
[2019-06-28] MEDS: Acetaminophen 325 MG TABLET PO PRN (21:54)
[2019-06-29 01:42] LABS: Basophils % 0.3 %; Eosinophils # 0.2 K/mcL (0.0-0.6); Eosinophils % 2.8 %; Hematocrit 32.5 % (35.3-44.9); Hemoglobin 10.4 g/dL (11.5-15.4); Immature Granulocytes % 0.1 % (0-4); Lymphocytes # 2.2 K/mcL (0.6-4.6); Lymphocytes % 27.4 %; Mean Corpuscular Volume 87.4 fL (83.0-100.0); Mean Platelet Volume 11.1 fL (9.4-12.4); Monocytes # 0.8 K/mcL (0.0-1.3); Monocytes % 9.4 %; Neutrophils # 4.8 K/mcL (1.6-8.9); Platelet Count 203 K/mcL (140-400); Red Blood Count 3.72 M/mcL (3.82-4.97); Red Cell Distribution Width 13.2 % (11.5-14.5)
[2019-06-29 02:03] LABS: BUN/Creatinine Ratio 30 (6-26); Blood Urea Nitrogen 19 mg/dL (8-23); Calcium 8.7 mg/dL (8.6-10.3); Carbon Dioxide 26 mEq/L (23-29); Chloride 104 mEq/L (98-107); Glucose 155 mg/dL (70-105); Osmolality,Calculated 287 (280-300); Potassium 4.1 mEq/L (3.5-5.1); Sodium 136 mEq/L (136-145); eGFR For African Americans > 60 (> 60); eGFR For Non-African Americans > 60 (> 60)
[2019-06-29] MEDS: Acetaminophen 325 MG TABLET PO PRN ×2 (06:11→20:46)
[2019-06-29] MEDS: levETIRAcetam 250 MG TABLET PO SCH ×2 (08:10→20:46)
[2019-06-29] MEDS: Aspirin Enteric Coated 81 MG Tablet PO SCH (08:10)
[2019-06-29] MEDS: Apixaban 5 MG TABLET PO SCH ×2 (08:10→20:46)
[2019-06-29] MEDS: Gabapentin 300 MG CAPSULE PO SCH ×2 (08:10→20:46)
[2019-06-29] MEDS: amLODIPine 5 MG TABLET PO SCH (08:11)
[2019-06-29] MEDS: Chlorhexidine Rinse 15 ML MOUTHWASH MM SCH ×2 (08:11→20:47)
[2019-06-29] MEDS: lisinopriL 20 MG TABLET PO SCH (08:11)
[2019-06-29] MEDS: Famotidine 20 MG TABLET PO SCH ×2 (08:11→17:12)
[2019-06-29] MEDS: *HR* LORazepam 0.5 MG TABLET PO SCH ×2 (08:11→20:46)
[2019-06-29] MEDS: Isosorbide MONOnitrate (24 HR) 30 MG TAB.ER.24H PO SCH (08:11)
[2019-06-29] MEDS: Insulin LISPRO 300 UNITS/3 ML VIAL SQ SCH ×3 (08:16→17:12)
[2019-06-29] MEDS: Artificial Tears SOLN 15 ML BOTTLE BOTH EYES SCH ×2 (08:17→20:47)
[2019-06-29] MEDS: Nystatin POWDER 30 GM BOTTLE TP SCH ×2 (08:18→20:47)
[2019-06-29] MEDS: Ertapenem 1,000 MG in 0.9 % Sodium Chloride Mini Bag 100 ML IVPB SCH (13:13)
[2019-06-29] MEDS ORDERED: Benzonatate 100 MG CAPSULE PO PRN (18:48)
[2019-06-29] MEDS ORDERED: traZODone 50 MG TABLET PO SCH (21:00)
[2019-06-29] MEDS ORDERED: *HR* HYDROcodone/Acet 5/325 mg TABLET PO ONE (23:16)
[2019-06-29] MEDS: Ipratropium/Albuterol Neb 3 ML IH PRN (23:41)
[2019-06-30] MEDS: Acetaminophen 325 MG TABLET PO PRN (03:34)
[2019-06-30 03:59] LABS: Hemoglobin 10.2 g/dL (11.5-15.4); Mean Corpuscular HGB Conc 31.9 g/dL (31.6-35.5); Mean Corpuscular Hemoglobin 28.3 pg (28.0-33.3); Mean Corpuscular Volume 88.6 fL (83.0-100.0); Mean Platelet Volume 10.8 fL (9.4-12.4); Platelet Count 202 K/mcL (140-400); Red Blood Count 3.61 M/mcL (3.82-4.97); Red Cell Distribution Width 13.2 % (11.5-14.5); White Blood Count 8.2 K/mcL (4.3-11.1)
[2019-06-30 04:17] LABS: BUN/Creatinine Ratio 29 (6-26); Blood Urea Nitrogen 24 mg/dL (8-23); Calcium 8.9 mg/dL (8.6-10.3); Carbon Dioxide 27 mEq/L (23-29); Chloride 103 mEq/L (98-107); Glucose 155 mg/dL (70-105); Osmolality,Calculated 291 (280-300); Sodium 137 mEq/L (136-145); eGFR For African Americans > 60 (> 60); eGFR For Non-African Americans > 60 (> 60)
[2019-06-30] MEDS: *HR* LORazepam 0.5 MG TABLET PO SCH ×2 (08:54→20:45)
[2019-06-30] MEDS: Gabapentin 300 MG CAPSULE PO SCH ×2 (08:55→20:45)
[2019-06-30] MEDS: lisinopriL 20 MG TABLET PO SCH (08:55)
[2019-06-30] MEDS: Ertapenem 1,000 MG in 0.9 % Sodium Chloride Mini Bag 100 ML IVPB SCH (08:56)
[2019-06-30] MEDS: amLODIPine 5 MG TABLET PO SCH (08:56)
[2019-06-30] MEDS: levETIRAcetam 250 MG TABLET PO SCH ×2 (08:56→20:44)
[2019-06-30] MEDS: Isosorbide MONOnitrate (24 HR) 30 MG TAB.ER.24H PO SCH (08:56)
[2019-06-30] MEDS: Aspirin Enteric Coated 81 MG Tablet PO SCH (08:56)
[2019-06-30] MEDS: Famotidine 20 MG TABLET PO SCH ×2 (08:58→16:32)
[2019-06-30] MEDS: Insulin LISPRO 300 UNITS/3 ML VIAL SQ SCH ×3 (08:58→16:32)
[2019-06-30] MEDS: Apixaban 5 MG TABLET PO SCH ×2 (08:59→20:45)
[2019-06-30] MEDS: Chlorhexidine Rinse 15 ML MOUTHWASH MM SCH (09:00)
[2019-06-30] MEDS: Nystatin POWDER 30 GM BOTTLE TP SCH (09:00)
[2019-06-30] MEDS: Artificial Tears SOLN 15 ML BOTTLE BOTH EYES SCH ×2 (09:00→20:46)
[2019-06-30] MEDS: *HR* HYDROcodone/Acet 5/325 mg TABLET PO PRN (12:20)
[2019-06-30] MEDS: Lactobacillus 1 EACH CAP.SPRINK PO SCH (20:44)
[2019-06-30] MEDS: Chlorhexidine Rinse 15 ML MOUTHWASH PO SCH (20:45)
[2019-06-30] MEDS: traZODone 50 MG TABLET PO SCH (20:45)
[2019-07-01 04:20] LABS: Basophils % 0.3 %; Eosinophils # 0.4 K/mcL (0.0-0.6); Eosinophils % 4.6 %; Hematocrit 32.8 % (35.3-44.9); Hemoglobin 10.5 g/dL (11.5-15.4); Immature Granulocytes % 0.2 % (0-4); Lymphocytes # 2.4 K/mcL (0.6-4.6); Lymphocytes % 26.7 %; Mean Corpuscular Hemoglobin 28.3 pg (28.0-33.3); Mean Corpuscular Volume 88.4 fL (83.0-100.0); Mean Platelet Volume 10.7 fL (9.4-12.4); Monocytes # 0.8 K/mcL (0.0-1.3); Monocytes % 8.6 %; Neutrophils # 5.4 K/mcL (1.6-8.9); Platelet Count 190 K/mcL (140-400); Red Blood Count 3.71 M/mcL (3.82-4.97); Red Cell Distribution Width 13.3 % (11.5-14.5); Segmented Neutrophils % 59.6 %; White Blood Count 9.1 K/mcL (4.3-11.1)
[2019-07-01 04:39] LABS: BUN/Creatinine Ratio 39 (6-26); Blood Urea Nitrogen 24 mg/dL (8-23); Calcium 8.7 mg/dL (8.6-10.3); Carbon Dioxide 27 mEq/L (23-29); Chloride 105 mEq/L (98-107); Glucose 175 mg/dL (70-105); Magnesium 1.5 mg/dL (1.6-2.6); Osmolality,Calculated 288 (280-300); Sodium 135 mEq/L (136-145); eGFR For African Americans > 60 (> 60); eGFR For Non-African Americans > 60 (> 60)
[2019-07-01] MEDS: Ipratropium/Albuterol Neb 3 ML IH PRN ×2 (06:52→16:53)
[2019-07-01] MEDS: Isosorbide MONOnitrate (24 HR) 30 MG TAB.ER.24H PO SCH (06:55)
[2019-07-01] MEDS: *HR* HYDROcodone/Acet 5/325 mg TABLET PO PRN ×2 (06:55→17:53)
[2019-07-01] MEDS: amLODIPine 5 MG TABLET PO SCH (06:55)
[2019-07-01] MEDS: Nystatin POWDER 30 GM BOTTLE TP SCH ×3 (07:39→20:21)
[2019-07-01] MEDS ORDERED: Cholecalciferol (D-3) 1,000 UNIT (25MCG) TABLET PO SCH (08:00)
[2019-07-01] MEDS: Chlorhexidine Rinse 15 ML MOUTHWASH PO SCH ×2 (08:46→20:15)
[2019-07-01] MEDS: Lactobacillus 1 EACH CAP.SPRINK PO SCH ×2 (08:47→20:14)
[2019-07-01] MEDS: Apixaban 5 MG TABLET PO SCH ×2 (08:47→20:13)
[2019-07-01] MEDS: levETIRAcetam 250 MG TABLET PO SCH ×2 (08:47→20:21)
[2019-07-01] MEDS: lisinopriL 20 MG TABLET PO SCH (08:48)
[2019-07-01] MEDS: Aspirin Enteric Coated 81 MG Tablet PO SCH (08:48)
[2019-07-01] MEDS: Gabapentin 300 MG CAPSULE PO SCH ×2 (08:48→20:14)
[2019-07-01] MEDS: *HR* LORazepam 0.5 MG TABLET PO SCH ×2 (08:48→20:14)
[2019-07-01] MEDS: Famotidine 20 MG TABLET PO SCH ×2 (08:48→17:51)
[2019-07-01] MEDS: Artificial Tears SOLN 15 ML BOTTLE BOTH EYES SCH ×2 (08:48→20:21)
[2019-07-01] MEDS: Ertapenem 1,000 MG in 0.9 % Sodium Chloride Mini Bag 100 ML IVPB SCH (08:49)
[2019-07-01] MEDS: Insulin LISPRO 300 UNITS/3 ML VIAL SQ SCH ×3 (08:58→18:09)
[2019-07-01] MEDS: traZODone 50 MG TABLET PO SCH (20:14)
[2019-07-02] MEDS: *HR* HYDROcodone/Acet 5/325 mg TABLET PO PRN ×2 (02:31→11:29)
[2019-07-02] MEDS: Chlorhexidine Rinse 15 ML MOUTHWASH PO SCH (08:00)
[2019-07-02] MEDS: Aspirin Enteric Coated 81 MG Tablet PO SCH (08:00)
[2019-07-02] MEDS: Nystatin POWDER 30 GM BOTTLE TP SCH (08:00)
[2019-07-02] MEDS: Artificial Tears SOLN 15 ML BOTTLE BOTH EYES SCH (08:00)
[2019-07-02] MEDS: levETIRAcetam 250 MG TABLET PO SCH (08:00)
[2019-07-02] MEDS: *HR* LORazepam 0.5 MG TABLET PO SCH (08:01)
[2019-07-02] MEDS: lisinopriL 20 MG TABLET PO SCH (08:01)
[2019-07-02] MEDS: Apixaban 5 MG TABLET PO SCH (08:01)
[2019-07-02] MEDS: Famotidine 20 MG TABLET PO SCH (08:01)
[2019-07-02] MEDS: amLODIPine 5 MG TABLET PO SCH (08:01)
[2019-07-02] MEDS: Isosorbide MONOnitrate (24 HR) 30 MG TAB.ER.24H PO SCH (08:01)
[2019-07-02] MEDS: Ertapenem 1,000 MG in 0.9 % Sodium Chloride Mini Bag 100 ML IVPB SCH (08:02)
[2019-07-02] MEDS: Lactobacillus 1 EACH CAP.SPRINK PO SCH (08:02)
[2019-07-02] MEDS: Insulin LISPRO 300 UNITS/3 ML VIAL SQ SCH ×2 (08:02→11:31)
[2019-07-02] MEDS: Gabapentin 300 MG CAPSULE PO SCH (08:02)
[2019-07-02] MEDS ORDERED: Cholecalciferol (D-3) 1,000 UNIT (25MCG) TABLET PO SCH (09:00)
[2019-07-02 09:21] LABS: Basophils % 0.3 %; Eosinophils # 0.3 K/mcL (0.0-0.6); Eosinophils % 3.4 %; Hematocrit 34.7 % (35.3-44.9); Hemoglobin 10.6 g/dL (11.5-15.4); Immature Granulocytes % 0.4 % (0-4); Lymphocytes # 2.3 K/mcL (0.6-4.6); Lymphocytes % 30.7 %; Mean Corpuscular HGB Conc 30.5 g/dL (31.6-35.5); Mean Corpuscular Hemoglobin 27.2 pg (28.0-33.3); Monocytes # 0.7 K/mcL (0.0-1.3); Monocytes % 8.5 %; Neutrophils # 4.3 K/mcL (1.6-8.9); Platelet Count 210 K/mcL (140-400); Red Cell Distribution Width 13.4 % (11.5-14.5); Segmented Neutrophils % 56.7 %; White Blood Count 7.6 K/mcL (4.3-11.1)
[2019-07-02 09:33] LABS: BUN/Creatinine Ratio 37 (6-26); Blood Urea Nitrogen 26 mg/dL (8-23); Carbon Dioxide 29 mEq/L (23-29); Chloride 102 mEq/L (98-107); Glucose 138 mg/dL (70-105); Magnesium 1.6 mg/dL (1.6-2.6); Osmolality,Calculated 291 (280-300); Potassium 4.2 mEq/L (3.5-5.1); Sodium 137 mEq/L (136-145); eGFR For African Americans > 60 (> 60); eGFR For Non-African Americans > 60 (> 60)
[2019-07-02 11:10] VITALS: BP 106/62
[2019-07-02] MEDS ORDERED: Fosfomycin Tromethamine 3 GM Packet PO ONE (13:00)
== END 2019-07-02 12:49 | disposition home or self-care (01) | DRG 690 ==
LOC: EMEROOARM 10:54 → 2ANU 10:54 → SUATTDRO 15:52 → 2ANU 16:28 → SUATTDRO 06-29 12:57
PROVIDERS: ADMIT Internal Medicine; ATTEND Pharmacist

== ENCOUNTER 2019-08-08 09:58 | Inpatient (IN) ==
[2019-08-08] MEDS ORDERED: Isovue-370 500 ML BOTTLE IVP ONE (10:31)
[2019-08-08 10:37] LABS: Hematocrit 39.3 % (35.3-44.9); Hemoglobin 12.7 g/dL (11.5-15.4); Mean Corpuscular HGB Conc 32.3 g/dL (31.6-35.5); Mean Corpuscular Hemoglobin 28.5 pg (28.0-33.3); Mean Corpuscular Volume 88.3 fL (83.0-100.0); Mean Platelet Volume 10.8 fL (9.4-12.4); Platelet Count 177 K/mcL (140-400); Red Blood Count 4.45 M/mcL (3.82-4.97); Red Cell Distribution Width 14.2 % (11.5-14.5); White Blood Count 9.7 K/mcL (4.3-11.1)
[2019-08-08 10:47] LABS: INR 1.4; Prothrombin Time 15.8 Seconds (9.4-12.1)
[2019-08-08 10:49] LABS: Activated Partial Thrombo Time 45.3 Seconds (26.0-36.0)
[2019-08-08 10:56] LABS: BUN/Creatinine Ratio 27 (6-26); Blood Urea Nitrogen 17 mg/dL (8-23); Calcium 9.4 mg/dL (8.6-10.3); Carbon Dioxide 29 mEq/L (23-29); Chloride 100 mEq/L (98-107); Glucose 147 mg/dL (70-105); Osmolality,Calculated 290 (280-300); Potassium 4.1 mEq/L (3.5-5.1); Sodium 138 mEq/L (136-145); eGFR For African Americans > 60 (> 60); eGFR For Non-African Americans > 60 (> 60)
[2019-08-08 10:57] LABS: Troponin I < 0.03 ng/mL (< 0.04)
[2019-08-08 11:56] LABS: Bilirubin,Urine Negative (Negative); Blood,Urine Negative (Negative); Clarity,Urine Clear (Clear); Color,Urine Yellow (Yellow); Glucose,Urine (UA) Normal (Normal); Ketones,Urine Negative (Negative); Leukocyte Esterase,Urine Negative (Negative); Nitrite,Urine Negative (Negative); Protein,Urine Negative (Neg-Trace); Specific Gravity,Urine 1.021 (1.010-1.025); Urobilinogen,Urine Normal (Normal)
[2019-08-08] MEDS ORDERED: Naloxone 0.4 MG/ML INJ IVP PRN (13:06)
[2019-08-08] MEDS ORDERED: *HR* Promethazine 25 MG/ML VIAL IVP PRN (13:06)
[2019-08-08] MEDS ORDERED: Acetaminophen 325 MG TABLET PO PRN (13:06)
[2019-08-08] MEDS ORDERED: D5% in Water 1,000 ML IVC PRN (13:09)
[2019-08-08] MEDS ORDERED: *HR* Dextrose 50 % in Water (Syg) 50 ML SYRINGE IVP PRN (13:09)
[2019-08-08] MEDS ORDERED: Dextrose Gel 15 GM/37.5 ML TUBE PO PRN ×2 (13:09)
[2019-08-08 14:47] LABS: Creatine Kinase 42 Units/L (30-223)
[2019-08-08] MEDS: Magnesium Oxide 400 MG TABLET PO SCH ×2 (17:51→20:10)
[2019-08-08] MEDS: Insulin LISPRO 300 UNITS/3 ML VIAL SQ SCH (17:51)
[2019-08-08] MEDS: *HR* LORazepam 0.5 MG TABLET PO SCH (21:00)
[2019-08-08] MEDS ORDERED: Insulin DETEMIR 100 UNIT/ML X5UNITS SQ SCH (21:00)
[2019-08-09 02:41] LABS: Alanine Aminotransferase 8 Units/L (7-52); Albumin 3.8 g/dL (3.5-5.7); Albumin/Globulin Ratio 1.6 (1.1-2.2); Alkaline Phosphatase 84 Units/L (34-104); Aspartate Amino Transferase 14 Units/L (13-39); BUN/Creatinine Ratio 29 (6-26); Bilirubin,Total 0.4 mg/dL (0.3-1.0); Blood Urea Nitrogen 19 mg/dL (8-23); Calcium 8.7 mg/dL (8.6-10.3); Carbon Dioxide 26 mEq/L (23-29); Chloride 103 mEq/L (98-107); Globulin 2.4 g/dL (2.4-3.5); Glucose 123 mg/dL (70-105); Magnesium 1.5 mg/dL (1.6-2.6); Osmolality,Calculated 290 (280-300); Phosphorous 4.6 mg/dL (2.7-4.5); Sodium 138 mEq/L (136-145); Total Protein 6.2 g/dL (6.4-8.9); eGFR For African Americans > 60 (> 60); eGFR For Non-African Americans > 60 (> 60)
[2019-08-09 03:17] LABS: Basophils % 0.4 %; Eosinophils # 0.1 K/mcL (0.0-0.6); Eosinophils % 1.7 %; Hematocrit 37.1 % (35.3-44.9); Immature Granulocytes % 0.2 % (0-4); Lymphocytes # 2.7 K/mcL (0.6-4.6); Lymphocytes % 31.9 %; Mean Corpuscular HGB Conc 32.3 g/dL (31.6-35.5); Mean Corpuscular Hemoglobin 29.1 pg (28.0-33.3); Mean Platelet Volume 12.1 fL (9.4-12.4); Monocytes # 0.7 K/mcL (0.0-1.3); Neutrophils # 4.9 K/mcL (1.6-8.9); Platelet Count 152 K/mcL (140-400); Red Blood Count 4.12 M/mcL (3.82-4.97); Red Cell Distribution Width 14.3 % (11.5-14.5); Segmented Neutrophils % 57.8 %; White Blood Count 8.4 K/mcL (4.3-11.1)
[2019-08-09 03:33] LABS: Platelet Estimate Normal (Normal)
[2019-08-09] MEDS: Insulin LISPRO 300 UNITS/3 ML VIAL SQ SCH ×3 (07:19→16:43)
[2019-08-09] MEDS: Aspirin Enteric Coated 81 MG Tablet PO SCH (08:24)
[2019-08-09] MEDS: *HR* LORazepam 0.5 MG TABLET PO SCH (08:24)
[2019-08-09] MEDS: Magnesium Oxide 400 MG TABLET PO SCH ×3 (08:24→22:19)
[2019-08-09] MEDS: lisinopriL 20 MG TABLET PO SCH (08:24)
[2019-08-09] MEDS: Apixaban 5 MG TABLET PO SCH (08:24)
[2019-08-09] MEDS ORDERED: *HR* LORazepam 2 MG/ML VIAL IVP PRN (09:35)
[2019-08-09] MEDS ORDERED: *HR* LORazepam 1 MG TABLET PO PRN (09:37)
[2019-08-09] MEDS ORDERED: Nystatin Cream 15 GM TUBE TP PRN (09:37)
[2019-08-09] MEDS: Isosorbide MONOnitrate (24 HR) 30 MG TAB.ER.24H PO SCH (11:22)
[2019-08-09] MEDS: amLODIPine 5 MG TABLET PO SCH (11:22)
[2019-08-09] MEDS: levETIRAcetam 250 MG TABLET PO SCH ×2 (11:22→22:18)
[2019-08-09] MEDS ORDERED: Insulin Regular, Human 100 UNIT/ML SQ SCH (20:00)
[2019-08-09] MEDS ORDERED: Insulin LISPRO 300 UNITS/3 ML VIAL SQ SCH (21:00)
[2019-08-09] MEDS ORDERED: Insulin DETEMIR 100 UNIT/ML X5UNITS SQ SCH (21:00)
[2019-08-09] MEDS: Gabapentin 300 MG CAPSULE PO SCH (22:19)
[2019-08-09] MEDS: Artificial Tears SOLN 15 ML BOTTLE BOTH EYES SCH (22:21)
[2019-08-10] MEDS ORDERED: Famotidine 20 MG TABLET PO SCH (07:30)
[2019-08-10] MEDS: Artificial Tears SOLN 15 ML BOTTLE BOTH EYES SCH (07:38)
[2019-08-10] MEDS: Insulin LISPRO 300 UNITS/3 ML VIAL SQ SCH (07:38)
[2019-08-10] MEDS: amLODIPine 5 MG TABLET PO SCH (07:39)
[2019-08-10] MEDS: Isosorbide MONOnitrate (24 HR) 30 MG TAB.ER.24H PO SCH (07:39)
[2019-08-10] MEDS: Magnesium Oxide 400 MG TABLET PO SCH (07:39)
[2019-08-10] MEDS: Gabapentin 300 MG CAPSULE PO SCH (07:39)
[2019-08-10] MEDS: Aspirin Enteric Coated 81 MG Tablet PO SCH (07:39)
[2019-08-10] MEDS: Apixaban 5 MG TABLET PO SCH (07:39)
[2019-08-10] MEDS: levETIRAcetam 250 MG TABLET PO SCH (07:39)
[2019-08-10] MEDS: lisinopriL 20 MG TABLET PO SCH (07:39)
[2019-08-10 08:39] VITALS: BP 130/80
== END 2019-08-10 11:04 | DRG 57 ==
LOC: 3BNU 09:58 → EMEROOARM 09:58 → SUATTDRO 12:49 → 3BNU 13:19
PROVIDERS: ADMIT Internal Medicine; ATTEND Internal Medicine

== ENCOUNTER 2019-08-13 13:23 | Observation (INO) ==
[2019-08-13 18:08] LABS: Bilirubin,Urine Negative (Negative); Blood,Urine Negative (Negative); Clarity,Urine Clear (Clear); Color,Urine Yellow (Yellow); Glucose,Urine (UA) Normal (Normal); Ketones,Urine Trace mg/dL (Negative); Leukocyte Esterase,Urine Small (Negative); Nitrite,Urine Negative (Negative); Protein,Urine Negative (Neg-Trace); Specific Gravity,Urine > 1.030 (1.010-1.025); Urobilinogen,Urine Normal (Normal)
[2019-08-13 18:10] LABS: Bacteria,Urine None Seen per hpf (None-Few); Hyaline Casts,Urine None Seen per lpf (None-Few); RBC,Urine 0-3 per hpf (0-3); Squamous Epithelial Cell,Urine Many per lpf (None-Few)
[2019-08-13 18:18] LABS: Basophils % 0.2 %; Eosinophils # 0.2 K/mcL (0.0-0.6); Eosinophils % 2.2 %; Hematocrit 35.6 % (35.3-44.9); Hemoglobin 11.6 g/dL (11.5-15.4); Immature Granulocytes % 0.2 % (0-4); Lymphocytes # 2.8 K/mcL (0.6-4.6); Lymphocytes % 34.3 %; Mean Corpuscular HGB Conc 32.6 g/dL (31.6-35.5); Mean Corpuscular Hemoglobin 29.5 pg (28.0-33.3); Mean Corpuscular Volume 90.6 fL (83.0-100.0); Mean Platelet Volume 11.2 fL (9.4-12.4); Monocytes # 0.6 K/mcL (0.0-1.3); Monocytes % 7.2 %; Neutrophils # 4.5 K/mcL (1.6-8.9); Platelet Count 157 K/mcL (140-400); Red Blood Count 3.93 M/mcL (3.82-4.97); Red Cell Distribution Width 14.6 % (11.5-14.5); Segmented Neutrophils % 55.9 %; White Blood Count 8.1 K/mcL (4.3-11.1)
[2019-08-13 18:39] LABS: Alanine Aminotransferase 9 Units/L (7-52); Albumin 3.8 g/dL (3.5-5.7); Albumin/Globulin Ratio 1.6 (1.1-2.2); Alkaline Phosphatase 90 Units/L (34-104); Aspartate Amino Transferase 11 Units/L (13-39); BUN/Creatinine Ratio 40 (6-26); Bilirubin,Total 0.4 mg/dL (0.3-1.0); Blood Urea Nitrogen 24 mg/dL (8-23); Calcium 8.9 mg/dL (8.6-10.3); Carbon Dioxide 26 mEq/L (23-29); Chloride 105 mEq/L (98-107); Globulin 2.4 g/dL (2.4-3.5); Glucose 118 mg/dL (70-105); Osmolality,Calculated 291 (280-300); Potassium 3.8 mEq/L (3.5-5.1); Sodium 138 mEq/L (136-145); Total Protein 6.2 g/dL (6.4-8.9); eGFR For African Americans > 60 (> 60); eGFR For Non-African Americans > 60 (> 60)
[2019-08-13] MEDS ORDERED: Naloxone 0.4 MG/ML INJ IVP PRN (20:44)
[2019-08-13] MEDS ORDERED: Ondansetron ODT 4 MG TAB.RAPDIS SL PRN (20:44)
[2019-08-13] MEDS ORDERED: Nystatin Cream 15 GM TUBE TP PRN (20:59)
[2019-08-13] MEDS ORDERED: *HR* Dextrose 50 % in Water (Syg) 50 ML SYRINGE IVP PRN (22:09)
[2019-08-13] MEDS ORDERED: Dextrose Gel 15 GM/37.5 ML TUBE PO PRN ×2 (22:09)
[2019-08-13] MEDS ORDERED: D5% in Water 1,000 ML IVC PRN (22:09)
[2019-08-13] MEDS: *HR* LORazepam 0.5 MG TABLET PO SCH (22:19)
[2019-08-14 05:56] LABS: Hematocrit 35.7 % (35.3-44.9); Hemoglobin 11.6 g/dL (11.5-15.4); Mean Corpuscular HGB Conc 32.5 g/dL (31.6-35.5); Mean Corpuscular Hemoglobin 29.2 pg (28.0-33.3); Mean Corpuscular Volume 89.9 fL (83.0-100.0); Mean Platelet Volume 11.2 fL (9.4-12.4); Platelet Count 152 K/mcL (140-400); Red Blood Count 3.97 M/mcL (3.82-4.97); Red Cell Distribution Width 14.4 % (11.5-14.5); White Blood Count 7.8 K/mcL (4.3-11.1)
[2019-08-14 06:15] LABS: BUN/Creatinine Ratio 32 (6-26); Blood Urea Nitrogen 19 mg/dL (8-23); Calcium 8.6 mg/dL (8.6-10.3); Carbon Dioxide 28 mEq/L (23-29); Chloride 102 mEq/L (98-107); Glucose 184 mg/dL (70-105); Osmolality,Calculated 291 (280-300); Potassium 3.8 mEq/L (3.5-5.1); Sodium 137 mEq/L (136-145); eGFR For African Americans > 60 (> 60); eGFR For Non-African Americans > 60 (> 60)
[2019-08-14] MEDS ORDERED: Acetaminophen 325 MG TABLET PO ONE (06:41)
[2019-08-14] MEDS ORDERED: Aspirin Enteric Coated 81 MG Tablet PO SCH (08:00)
[2019-08-14] MEDS ORDERED: Famotidine 20 MG TABLET PO SCH (08:00)
[2019-08-14] MEDS ORDERED: lisinopriL 20 MG TABLET PO SCH (08:00)
[2019-08-14] MEDS ORDERED: Isosorbide MONOnitrate (24 HR) 30 MG TAB.ER.24H PO SCH (08:00)
[2019-08-14] MEDS ORDERED: Sennosides 8.6 MG TABLET PO SCH (08:00)
[2019-08-14] MEDS ORDERED: Artificial Tears SOLN 15 ML BOTTLE BOTH EYES SCH (08:00)
[2019-08-14] MEDS ORDERED: amLODIPine 5 MG TABLET PO SCH (08:00)
[2019-08-14] MEDS ORDERED: Gabapentin 300 MG CAPSULE PO SCH (08:00)
[2019-08-14] MEDS ORDERED: levETIRAcetam 250 MG TABLET PO SCH (08:00)
[2019-08-14] MEDS: Insulin LISPRO 300 UNITS/3 ML VIAL SQ SCH ×2 (08:40→12:14)
[2019-08-14] MEDS: *HR* LORazepam 0.5 MG TABLET PO SCH (08:40)
[2019-08-14] MEDS ORDERED: Magnesium Oxide 400 MG TABLET PO SCH (09:00)
[2019-08-14 11:13] VITALS: BP 157/81
[2019-08-14] MEDS ORDERED: Insulin LISPRO 300 UNITS/3 ML VIAL SQ SCH (21:00)
== END 2019-08-14 14:17 | disposition home or self-care (01) ==
LOC: EMEROOARM 13:23 → 3BNU 13:23 → SUATTDRO 20:09 → 3BNU 21:00
PROVIDERS: ADMIT Family Medicine; ATTEND Family Medicine

== ENCOUNTER 2019-10-27 06:13 | Inpatient (IN) ==
[2019-10-27] MEDS ORDERED: Aspirin 81 MG TAB.CHEW PO ONE (06:19)
[2019-10-27 07:58] LABS: BUN/Creatinine Ratio 41 (6-26); Blood Urea Nitrogen 24 mg/dL (8-23); Calcium 9.3 mg/dL (8.6-10.3); Carbon Dioxide 30 mEq/L (23-29); Chloride 103 mEq/L (98-107); Glucose 150 mg/dL (70-105); Osmolality,Calculated 295 (280-300); Potassium 4.1 mEq/L (3.5-5.1); Sodium 139 mEq/L (136-145); Troponin I < 0.03 ng/mL (< 0.04); eGFR For African Americans > 60 (> 60); eGFR For Non-African Americans > 60 (> 60)
[2019-10-27 08:00] LABS: Basophils % 0.4 %; Eosinophils # 0.2 K/mcL (0.0-0.6); Hematocrit 34.8 % (35.3-44.9); Hemoglobin 11.9 g/dL (11.5-15.4); Immature Granulocytes % 0.3 % (0-4); Lymphocytes # 1.9 K/mcL (0.6-4.6); Lymphocytes % 25.6 %; Mean Corpuscular HGB Conc 34.2 g/dL (31.6-35.5); Mean Corpuscular Hemoglobin 31.3 pg (28.0-33.3); Mean Corpuscular Volume 91.6 fL (83.0-100.0); Mean Platelet Volume 10.7 fL (9.4-12.4); Monocytes # 0.6 K/mcL (0.0-1.3); Monocytes % 7.5 %; Neutrophils # 4.8 K/mcL (1.6-8.9); Platelet Count 155 K/mcL (140-400); Red Cell Distribution Width 13.4 % (11.5-14.5); Segmented Neutrophils % 64.2 %; White Blood Count 7.5 K/mcL (4.3-11.1)
[2019-10-27 08:05] LABS: INR 1.1; Prothrombin Time 12.2 Seconds (9.4-12.1)
[2019-10-27 08:08] LABS: Activated Partial Thrombo Time 35.5 Seconds (26.0-36.0)
[2019-10-27] MEDS ORDERED: GI Cocktail 40 ML EACH PO ONE (08:18)
[2019-10-27] MEDS ORDERED: Naloxone 0.4 MG/ML INJ IVP PRN (08:43)
[2019-10-27] MEDS ORDERED: Dextrose Gel 15 GM/37.5 ML TUBE PO PRN ×2 (11:10)
[2019-10-27] MEDS ORDERED: *HR* Dextrose 50 % in Water (Vial) 50 ML VIAL IVP PRN (11:10)
[2019-10-27] MEDS ORDERED: D5% in Water 1,000 ML IVC PRN (11:10)
[2019-10-27] MEDS ORDERED: Nystatin Cream 15 GM TUBE TP PRN (11:11)
[2019-10-27] MEDS ORDERED: *HR* LORazepam 1 MG TABLET PO PRN (11:11)
[2019-10-27] MEDS: Insulin LISPRO 300 UNITS/3 ML VIAL SQ SCH ×3 (11:37→16:28)
[2019-10-27] MEDS: *HR* Heparin 5,000 UNIT/ML VIAL SQ SCH ×2 (12:05→20:47)
[2019-10-27] MEDS: Acetaminophen/Butalbital/CaffeineTABLET PO PRN ×2 (12:05→20:47)
[2019-10-27] MEDS: Pantoprazole 40 MG VIAL IVP SCH (16:10)
[2019-10-27] MEDS: Gabapentin 300 MG CAPSULE PO SCH (19:21)
[2019-10-27] MEDS: levETIRAcetam 250 MG TABLET PO SCH (19:21)
[2019-10-27] MEDS: traZODone 50 MG TABLET PO SCH (20:47)
[2019-10-27] MEDS: Artificial Tears SOLN 15 ML BOTTLE BOTH EYES SCH (20:47)
[2019-10-28] MEDS: Acetaminophen/Butalbital/CaffeineTABLET PO PRN (05:32)
[2019-10-28] MEDS: Pantoprazole 40 MG VIAL IVP SCH ×2 (05:32→17:01)
[2019-10-28] MEDS: *HR* Heparin 5,000 UNIT/ML VIAL SQ SCH ×3 (05:32→20:31)
[2019-10-28] MEDS: Insulin LISPRO 300 UNITS/3 ML VIAL SQ SCH ×5 (08:41→16:59)
[2019-10-28] MEDS: lisinopriL 20 MG TABLET PO SCH (08:42)
[2019-10-28] MEDS: Aspirin Enteric Coated 81 MG Tablet PO SCH (08:42)
[2019-10-28] MEDS: Magnesium Oxide 400 MG TABLET PO SCH (08:42)
[2019-10-28] MEDS: levETIRAcetam 250 MG TABLET PO SCH ×2 (08:42→19:31)
[2019-10-28] MEDS: Gabapentin 300 MG CAPSULE PO SCH ×2 (08:42→19:31)
[2019-10-28] MEDS: amLODIPine 5 MG TABLET PO SCH (08:44)
[2019-10-28] MEDS: Isosorbide MONOnitrate (24 HR) 30 MG TAB.ER.24H PO SCH (08:44)
[2019-10-28] MEDS: Artificial Tears SOLN 15 ML BOTTLE BOTH EYES SCH ×2 (08:46→20:03)
[2019-10-28 09:01] LABS: Basophils % 0.3 %; Eosinophils # 0.1 K/mcL (0.0-0.6); Eosinophils % 1.8 %; Hematocrit 40.7 % (35.3-44.9); Hemoglobin 13.2 g/dL (11.5-15.4); Immature Granulocytes % 0.1 % (0-4); Lymphocytes % 27.4 %; Mean Corpuscular HGB Conc 32.4 g/dL (31.6-35.5); Mean Corpuscular Hemoglobin 29.9 pg (28.0-33.3); Mean Corpuscular Volume 92.1 fL (83.0-100.0); Mean Platelet Volume 10.8 fL (9.4-12.4); Monocytes # 0.4 K/mcL (0.0-1.3); Neutrophils # 4.8 K/mcL (1.6-8.9); Platelet Count 153 K/mcL (140-400); Red Blood Count 4.42 M/mcL (3.82-4.97); Red Cell Distribution Width 13.1 % (11.5-14.5); Segmented Neutrophils % 64.4 %; White Blood Count 7.4 K/mcL (4.3-11.1)
[2019-10-28 09:20] LABS: BUN/Creatinine Ratio 24 (6-26); Blood Urea Nitrogen 15 mg/dL (8-23); Calcium 9.6 mg/dL (8.6-10.3); Carbon Dioxide 29 mEq/L (23-29); Chloride 102 mEq/L (98-107); Glucose 138 mg/dL (70-105); Osmolality,Calculated 289 (280-300); Potassium 4.3 mEq/L (3.5-5.1); Sodium 138 mEq/L (136-145); eGFR For African Americans > 60 (> 60); eGFR For Non-African Americans > 60 (> 60)
[2019-10-28] MEDS: *HR* LORazepam 1 MG TABLET PO PRN ×2 (12:10→21:16)
[2019-10-28] MEDS ORDERED: Acetaminophen 325 MG TABLET PO PRN (20:01)
[2019-10-28] MEDS ORDERED: *HR* HYDROcodone/Acet 5/325 mg TABLET PO PRN (20:01)
[2019-10-28] MEDS: traZODone 50 MG TABLET PO SCH (20:31)
[2019-10-28] MEDS: *HR* HYDROcodone/Acet 5/325 mg TABLET PO PRN (20:31)
[2019-10-29] MEDS: *HR* Promethazine 25 MG/ML VIAL IVP PRN ×2 (00:48→09:05)
[2019-10-29] MEDS ORDERED: *HR* LORazepam 2 MG/ML VIAL IVP PRN (04:05)
[2019-10-29] MEDS: *HR* Enoxaparin 40 MG/0.4 ML SYRINGE SQ SCH (05:55)
[2019-10-29] MEDS ORDERED: hydrALAZINE 25 MG TABLET PO PRN (07:39)
[2019-10-29] MEDS: levETIRAcetam 250 MG TABLET PO SCH ×2 (09:04→20:08)
[2019-10-29] MEDS: Magnesium Oxide 400 MG TABLET PO SCH (09:05)
[2019-10-29] MEDS: Pantoprazole 40 MG VIAL IVP SCH ×2 (09:05→16:53)
[2019-10-29] MEDS: lisinopriL 20 MG TABLET PO SCH (09:05)
[2019-10-29] MEDS: Gabapentin 300 MG CAPSULE PO SCH ×2 (09:05→20:08)
[2019-10-29] MEDS: amLODIPine 5 MG TABLET PO SCH (09:05)
[2019-10-29] MEDS: Aspirin Enteric Coated 81 MG Tablet PO SCH (09:05)
[2019-10-29] MEDS: Isosorbide MONOnitrate (24 HR) 30 MG TAB.ER.24H PO SCH (09:05)
[2019-10-29] MEDS: Insulin LISPRO 300 UNITS/3 ML VIAL SQ SCH ×5 (09:06→16:53)
[2019-10-29] MEDS: Artificial Tears SOLN 15 ML BOTTLE BOTH EYES SCH ×2 (09:06→20:08)
[2019-10-29] MEDS: *HR* HYDROcodone/Acet 5/325 mg TABLET PO PRN (13:36)
[2019-10-29] MEDS: *HR* LORazepam 1 MG TABLET PO PRN (13:39)
[2019-10-29] MEDS ORDERED: Acetaminophen/Butalbital/CaffeineTABLET PO PRN (15:32)
[2019-10-29] MEDS: Ondansetron 4 MG/2 ML VIAL IVP PRN (15:40)
[2019-10-29] MEDS: Loratadine 10 MG TABLET PO SCH (20:08)
[2019-10-29] MEDS: traZODone 50 MG TABLET PO SCH (20:08)
[2019-10-30] MEDS: Pantoprazole 40 MG VIAL IVP SCH ×2 (06:08→16:49)
[2019-10-30] MEDS: *HR* Enoxaparin 40 MG/0.4 ML SYRINGE SQ SCH (06:08)
[2019-10-30] MEDS: Insulin LISPRO 300 UNITS/3 ML VIAL SQ SCH ×7 (07:24→16:24)
[2019-10-30] MEDS: Artificial Tears SOLN 15 ML BOTTLE BOTH EYES SCH ×2 (07:25→19:55)
[2019-10-30] MEDS: Gabapentin 300 MG CAPSULE PO SCH ×2 (07:25→19:55)
[2019-10-30] MEDS: Sennosides 8.6 MG TABLET PO SCH (07:25)
[2019-10-30] MEDS: Magnesium Oxide 400 MG TABLET PO SCH (07:25)
[2019-10-30] MEDS: Aspirin Enteric Coated 81 MG Tablet PO SCH (07:25)
[2019-10-30] MEDS: levETIRAcetam 250 MG TABLET PO SCH ×4 (07:25→19:55)
[2019-10-30] MEDS: Ondansetron 4 MG/2 ML VIAL IVP PRN (08:56)
[2019-10-30] MEDS: Isosorbide MONOnitrate (24 HR) 30 MG TAB.ER.24H PO SCH (08:57)
[2019-10-30] MEDS: lisinopriL 20 MG TABLET PO SCH (08:57)
[2019-10-30] MEDS: amLODIPine 5 MG TABLET PO SCH (08:57)
[2019-10-30] MEDS: *HR* HYDROcodone/Acet 5/325 mg TABLET PO PRN ×2 (11:06→19:55)
[2019-10-30] MEDS: Loratadine 10 MG TABLET PO SCH (19:55)
[2019-10-30] MEDS: traZODone 50 MG TABLET PO SCH (19:55)
[2019-10-31] MEDS ORDERED: 0.9 % Sodium Chloride 1,000 ML IVC ONE (00:40)
[2019-10-31] MEDS: Pantoprazole 40 MG VIAL IVP SCH ×2 (05:27→16:52)
[2019-10-31] MEDS: *HR* Enoxaparin 40 MG/0.4 ML SYRINGE SQ SCH (05:27)
[2019-10-31] MEDS: Aspirin Enteric Coated 81 MG Tablet PO SCH (09:26)
[2019-10-31] MEDS: Sennosides 8.6 MG TABLET PO SCH (09:27)
[2019-10-31] MEDS: Artificial Tears SOLN 15 ML BOTTLE BOTH EYES SCH ×2 (09:28→20:53)
[2019-10-31] MEDS: Isosorbide MONOnitrate (24 HR) 30 MG TAB.ER.24H PO SCH (09:29)
[2019-10-31] MEDS: lisinopriL 20 MG TABLET PO SCH (09:30)
[2019-10-31] MEDS: levETIRAcetam 250 MG TABLET PO SCH ×2 (09:31→20:49)
[2019-10-31] MEDS: *HR* HYDROcodone/Acet 5/325 mg TABLET PO PRN ×2 (09:31→20:33)
[2019-10-31] MEDS: Magnesium Oxide 400 MG TABLET PO SCH (09:31)
[2019-10-31] MEDS: Ondansetron 4 MG/2 ML VIAL IVP PRN (09:32)
[2019-10-31] MEDS: Gabapentin 300 MG CAPSULE PO SCH (09:32)
[2019-10-31] MEDS: amLODIPine 5 MG TABLET PO SCH (09:32)
[2019-10-31] MEDS: Insulin LISPRO 300 UNITS/3 ML VIAL SQ SCH ×5 (09:35→16:53)
[2019-10-31] MEDS: Loratadine 10 MG TABLET PO SCH (20:53)
[2019-11-01 04:07] LABS: Bacteria,Urine Many per hpf (None-Few); Bilirubin,Urine Negative (Negative); Blood,Urine Moderate (Negative); Clarity,Urine Ex.Turbid (Clear); Color,Urine Yellow (Yellow); Glucose,Urine (UA) Normal (Normal); Hyaline Casts,Urine Moderate per lpf (None Seen); Ketones,Urine Negative (Negative); Leukocyte Esterase,Urine Large (Negative); Mucus,Urine Few per lpf (None-Few); Nitrite,Urine Negative (Negative); PH,Urine 5.5 pH Units (5.0-8.0); Protein,Urine 50 mg/dL (Neg-Trace); Specific Gravity,Urine 1.022 (1.010-1.025); Squamous Epithelial Cell,Urine Few per hpf (None-Few); WBC,Urine 15-30 per hpf (0-3)
[2019-11-01] MEDS: *HR* Enoxaparin 40 MG/0.4 ML SYRINGE SQ SCH (05:06)
[2019-11-01] MEDS: Pantoprazole 40 MG VIAL IVP SCH (05:06)
[2019-11-01] MEDS: *HR* HYDROcodone/Acet 5/325 mg TABLET PO PRN (05:18)
[2019-11-01] MEDS: Sennosides 8.6 MG TABLET PO SCH (08:40)
[2019-11-01] MEDS: Aspirin Enteric Coated 81 MG Tablet PO SCH (08:40)
[2019-11-01] MEDS: levETIRAcetam 250 MG TABLET PO SCH (08:45)
[2019-11-01] MEDS: Magnesium Oxide 400 MG TABLET PO SCH (08:46)
[2019-11-01] MEDS: Artificial Tears SOLN 15 ML BOTTLE BOTH EYES SCH (08:57)
[2019-11-01] MEDS: Insulin LISPRO 300 UNITS/3 ML VIAL SQ SCH ×3 (08:58→11:18)
[2019-11-01 10:46] VITALS: BP 113/68
[2019-11-01] MEDS ORDERED: cefTRIAXone 1,000 MG in Water for inj. (sterile) 10 ML IVP ONE (11:16)
== END 2019-11-01 15:21 | disposition home or self-care (01) | DRG 392 ==
LOC: 2NENU 06:13 → EMEROOARM 06:13 → 2NENU 10:08 → SUATTDRO 10-28 12:12 → 2NENU 10-30 09:03 → 3BNU 10-31 06:37
PROVIDERS: ADMIT Internal Medicine; ATTEND Internal Medicine

== ENCOUNTER 2019-11-15 18:41 | Inpatient (IN) ==
[2019-11-15 21:16] LABS: Bacteria,Urine Few per hpf (None-Few); Bilirubin,Urine Negative (Negative); Blood,Urine Moderate (Negative); Clarity,Urine Clear (Clear); Color,Urine Yellow (Yellow); Glucose,Urine (UA) Normal (Normal); Ketones,Urine Negative (Negative); Leukocyte Esterase,Urine Large (Negative); Mucus,Urine Few per lpf (None-Few); Nitrite,Urine Positive (Negative); Protein,Urine Trace mg/dL (Neg-Trace); RBC,Urine 50-100 per hpf (0-3); Specific Gravity,Urine 1.029 (1.010-1.025); Squamous Epithelial Cell,Urine Few per hpf (None-Few); Urobilinogen,Urine Normal (Normal); WBC,Urine 50-100 per hpf (0-3)
[2019-11-15 21:23] LABS: Hemoglobin 11.6 g/dL (11.5-15.4); White Blood Count 3.8 K/mcL (4.3-11.1)
[2019-11-15 21:25] LABS: Basophils % 0.5 %; Eosinophils % 0.5 %; Hematocrit 35.4 % (35.3-44.9); Immature Granulocytes % 0.5 % (0-4); Immature Platelets 10.4 % (1.1-6.1); Lymphocytes # 1.4 K/mcL (0.6-4.6); Lymphocytes % 37.3 %; Mean Corpuscular HGB Conc 32.8 g/dL (31.6-35.5); Mean Corpuscular Hemoglobin 30.6 pg (28.0-33.3); Mean Corpuscular Volume 93.4 fL (83.0-100.0); Mean Platelet Volume 11.9 fL (9.4-12.4); Monocytes # 0.3 K/mcL (0.0-1.3); Monocytes % 7.7 %; Red Blood Count 3.79 M/mcL (3.82-4.97); Red Cell Distribution Width 13.7 % (11.5-14.5); Segmented Neutrophils % 53.5 %
[2019-11-15 21:33] LABS: Amphetamine Screen,Urine Negative ng/mL (Cutoff=1000); Barbiturate Screen,Urine Positive ng/mL (Cutoff=200); Benzodiazepines Screen,Urine Negative ng/mL (Cutoff=200); Cannabinoid Screen,Urine Negative ng/mL (Cutoff = 50); Cocaine Screen,Urine Negative ng/mL (Cutoff= 300); Opiate Screen,Urine Positive ng/mL (Cutoff=300); Phencyclidine Screen,Urine Negative ng/mL (Cutoff=25)
[2019-11-15] MEDS ORDERED: Ertapenem 1,000 MG in 0.9 % Sodium Chloride Mini Bag 100 ML IVPB ONE (21:40)
[2019-11-15 21:42] LABS: Alanine Aminotransferase 7 Units/L (7-52); Albumin 3.8 g/dL (3.5-5.7); Albumin/Globulin Ratio 1.4 (1.1-2.2); Alkaline Phosphatase 68 Units/L (34-104); Aspartate Amino Transferase 14 Units/L (13-39); BUN/Creatinine Ratio 47 (6-26); Bilirubin,Direct 0.1 mg/dL (0.0-0.2); Bilirubin,Indirect 0.5 mg/dL (0.0-1.0); Bilirubin,Total 0.6 mg/dL (0.3-1.0); Blood Urea Nitrogen 24 mg/dL (8-23); Calcium 8.1 mg/dL (8.6-10.3); Carbon Dioxide 23 mEq/L (23-29); Chloride 101 mEq/L (98-107); Ethanol < 10 mg/dL (Less than 10); Globulin 2.7 g/dL (2.4-3.5); Glucose 125 mg/dL (70-105); Osmolality,Calculated 284 (280-300); Potassium 4.3 mEq/L (3.5-5.1); Sodium 134 mEq/L (136-145); Total Protein 6.5 g/dL (6.4-8.9); Troponin I < 0.03 ng/mL (< 0.04); eGFR For African Americans > 60 (> 60); eGFR For Non-African Americans > 60 (> 60)
[2019-11-15 21:58] LABS: Platelet Count 87 K/mcL (140-400)
[2019-11-16] MEDS ORDERED: Naloxone 0.4 MG/ML INJ IVP PRN (00:28)
[2019-11-16] MEDS ORDERED: Dextrose Gel 15 GM/37.5 ML TUBE PO PRN ×2 (01:40)
[2019-11-16] MEDS ORDERED: *HR* Dextrose 50 % in Water (Vial) 50 ML VIAL IVP PRN (01:40)
[2019-11-16] MEDS ORDERED: D5% in Water 1,000 ML IVC PRN (01:40)
[2019-11-16 04:45] LABS: BUN/Creatinine Ratio 39 (6-26); Blood Urea Nitrogen 19 mg/dL (8-23); Calcium 8.3 mg/dL (8.6-10.3); Carbon Dioxide 22 mEq/L (23-29); Chloride 103 mEq/L (98-107); Glucose 113 mg/dL (70-105); INR 1.1; Osmolality,Calculated 283 (280-300); Potassium 3.9 mEq/L (3.5-5.1); Prothrombin Time 12.8 Seconds (9.4-12.1); Sodium 135 mEq/L (136-145); eGFR For African Americans > 60 (> 60); eGFR For Non-African Americans > 60 (> 60)
[2019-11-16 04:47] LABS: Rheumatoid Factor < 10 IU/mL (Less than 14)
[2019-11-16 04:48] LABS: Activated Partial Thrombo Time 29.9 Seconds (26.0-36.0)
[2019-11-16 05:11] LABS: Folate 15.1 ng/mL (3.0-16.0)
[2019-11-16 05:12] LABS: Vitamin B12 445 pg/mL (250-1100)
[2019-11-16 05:28] LABS: Eosinophils % 0.7 %; Hemoglobin 10.9 g/dL (11.5-15.4); Immature Granulocytes % 0.2 % (0-4); Red Cell Distribution Width 13.1 % (11.5-14.5); Reticulocyte % 1.2 % (1.6-2.8)
[2019-11-16 05:30] LABS: Basophils % 0.2 %; Hematocrit 32.7 % (35.3-44.9); Immature Platelets 7.1 % (1.1-6.1); Immature Reticulocyte % 12.7 % (11.0-38.0); Lymphocytes # 1.6 K/mcL (0.6-4.6); Lymphocytes % 35.6 %; Mean Corpuscular HGB Conc 33.3 g/dL (31.6-35.5); Mean Corpuscular Hemoglobin 30.4 pg (28.0-33.3); Mean Corpuscular Volume 91.3 fL (83.0-100.0); Mean Platelet Volume 11.7 fL (9.4-12.4); Monocytes # 0.4 K/mcL (0.0-1.3); Neutrophils # 2.4 K/mcL (1.6-8.9); Platelet Count 112 K/mcL (140-400); Red Blood Count 3.58 M/mcL (3.82-4.97); Retculocyte # 0.04 M/mcL (0.05-0.10); Segmented Neutrophils % 55.3 %; White Blood Count 4.4 K/mcL (4.3-11.1)
[2019-11-16 06:12] LABS: Hepatitis B Surface Antigen Nonreactive (Nonreactive)
[2019-11-16 06:41] LABS: Hepatitis A Antibody IgM Nonreactive (Nonreactive); Hepatitis B Core IgM Nonreactive (Nonreactive); Hepatitis C Virus Antibody Nonreactive (Nonreactive)
[2019-11-16] MEDS: Insulin LISPRO 300 UNITS/3 ML VIAL SQ SCH ×5 (08:18→21:28)
[2019-11-16] MEDS: amLODIPine 5 MG TABLET PO SCH (08:47)
[2019-11-16] MEDS: Aspirin Enteric Coated 81 MG Tablet PO SCH (08:47)
[2019-11-16] MEDS: Magnesium Oxide 400 MG TABLET PO SCH (08:47)
[2019-11-16] MEDS: Gabapentin 300 MG CAPSULE PO SCH ×2 (08:47→21:18)
[2019-11-16] MEDS: levETIRAcetam 250 MG TABLET PO SCH ×3 (08:47→21:18)
[2019-11-16] MEDS: Sennosides 8.6 MG TABLET PO SCH (08:47)
[2019-11-16] MEDS ORDERED: Nystatin Cream 15 GM TUBE TP PRN (09:07)
[2019-11-16] MEDS ORDERED: traZODone 50 MG TABLET PO PRN (09:07)
[2019-11-16] MEDS ORDERED: Preparation H Ointment 57 GM TUBE RC PRN (09:15)
[2019-11-16] MEDS: Artificial Tears SOLN 15 ML BOTTLE BOTH EYES SCH ×2 (10:06→21:19)
[2019-11-16] MEDS: Isosorbide MONOnitrate (24 HR) 30 MG TAB.ER.24H PO SCH (10:27)
[2019-11-16] MEDS: lisinopriL 20 MG TABLET PO SCH (10:27)
[2019-11-16] MEDS: Lactobacillus 1 EACH CAP.SPRINK PO SCH ×2 (10:27→21:18)
[2019-11-16] MEDS: Acetaminophen 325 MG TABLET PO PRN (14:18)
[2019-11-16] MEDS: Ertapenem 1,000 MG in 0.9 % Sodium Chloride Mini Bag 100 ML IVPB SCH (16:14)
[2019-11-16] MEDS: *HR* HYDROcodone/Acet 5/325 mg TABLET PO PRN (16:37)
[2019-11-16] MEDS: Loratadine 10 MG TABLET PO SCH (21:18)
[2019-11-17 05:13] LABS: Basophils % 0.7 %; Eosinophils # 0.1 K/mcL (0.0-0.6); Eosinophils % 2.2 %; Hematocrit 34.6 % (35.3-44.9); Hemoglobin 11.5 g/dL (11.5-15.4); Immature Granulocytes % 0.2 % (0-4); Lymphocytes # 1.6 K/mcL (0.6-4.6); Lymphocytes % 38.2 %; Mean Corpuscular HGB Conc 33.2 g/dL (31.6-35.5); Mean Corpuscular Hemoglobin 30.3 pg (28.0-33.3); Mean Corpuscular Volume 91.1 fL (83.0-100.0); Monocytes # 0.3 K/mcL (0.0-1.3); Monocytes % 8.3 %; Neutrophils # 2.1 K/mcL (1.6-8.9); Platelet Count 134 K/mcL (140-400); Red Cell Distribution Width 12.9 % (11.5-14.5); Segmented Neutrophils % 50.4 %; White Blood Count 4.1 K/mcL (4.3-11.1)
[2019-11-17 05:30] LABS: BUN/Creatinine Ratio 22 (6-26); Blood Urea Nitrogen 10 mg/dL (8-23); Calcium 8.7 mg/dL (8.6-10.3); Carbon Dioxide 26 mEq/L (23-29); Chloride 103 mEq/L (98-107); Glucose 113 mg/dL (70-105); Magnesium 1.5 mg/dL (1.6-2.6); Osmolality,Calculated 288 (280-300); Potassium 3.8 mEq/L (3.5-5.1); Sodium 139 mEq/L (136-145); eGFR For African Americans > 60 (> 60); eGFR For Non-African Americans > 60 (> 60)
[2019-11-17 05:43] LABS: Platelet Estimate Normal (Normal)
[2019-11-17] MEDS: Insulin LISPRO 300 UNITS/3 ML VIAL SQ SCH ×6 (08:08→20:57)
[2019-11-17] MEDS ORDERED: Magnesium Sulfate 1 GM/102 ML PIGGYBACK IVPB ONE (08:48)
[2019-11-17] MEDS: levETIRAcetam 250 MG TABLET PO SCH ×2 (09:31→19:54)
[2019-11-17] MEDS: lisinopriL 20 MG TABLET PO SCH (09:32)
[2019-11-17] MEDS: Gabapentin 300 MG CAPSULE PO SCH ×2 (09:32→20:00)
[2019-11-17] MEDS: Isosorbide MONOnitrate (24 HR) 30 MG TAB.ER.24H PO SCH (09:32)
[2019-11-17] MEDS: Ertapenem 1,000 MG in 0.9 % Sodium Chloride Mini Bag 100 ML IVPB SCH (09:32)
[2019-11-17] MEDS: Aspirin Enteric Coated 81 MG Tablet PO SCH (09:32)
[2019-11-17] MEDS: Lactobacillus 1 EACH CAP.SPRINK PO SCH ×2 (09:33→20:00)
[2019-11-17] MEDS: Magnesium Oxide 400 MG TABLET PO SCH (09:33)
[2019-11-17] MEDS: amLODIPine 5 MG TABLET PO SCH (09:33)
[2019-11-17] MEDS: Sennosides 8.6 MG TABLET PO SCH (09:33)
[2019-11-17] MEDS: Artificial Tears SOLN 15 ML BOTTLE BOTH EYES SCH ×2 (09:34→20:01)
[2019-11-17] MEDS: *HR* HYDROcodone/Acet 5/325 mg TABLET PO PRN (18:30)
[2019-11-17] MEDS: Loratadine 10 MG TABLET PO SCH (20:00)
[2019-11-18 04:16] LABS: Basophils % 0.6 %; Eosinophils # 0.2 K/mcL (0.0-0.6); Eosinophils % 3.5 %; Hematocrit 32.3 % (35.3-44.9); Hemoglobin 10.8 g/dL (11.5-15.4); Immature Granulocytes % 0.2 % (0-4); Lymphocytes # 1.8 K/mcL (0.6-4.6); Lymphocytes % 37.3 %; Mean Corpuscular HGB Conc 33.4 g/dL (31.6-35.5); Mean Corpuscular Hemoglobin 30.8 pg (28.0-33.3); Mean Platelet Volume 10.7 fL (9.4-12.4); Monocytes # 0.4 K/mcL (0.0-1.3); Monocytes % 7.9 %; Neutrophils # 2.4 K/mcL (1.6-8.9); Platelet Count 145 K/mcL (140-400); Red Blood Count 3.51 M/mcL (3.82-4.97); Red Cell Distribution Width 13.1 % (11.5-14.5); Segmented Neutrophils % 50.5 %; White Blood Count 4.8 K/mcL (4.3-11.1)
[2019-11-18] MEDS: Insulin LISPRO 300 UNITS/3 ML VIAL SQ SCH ×6 (07:47→19:52)
[2019-11-18] MEDS: Isosorbide MONOnitrate (24 HR) 30 MG TAB.ER.24H PO SCH (08:07)
[2019-11-18] MEDS: Gabapentin 300 MG CAPSULE PO SCH ×2 (08:07→19:51)
[2019-11-18] MEDS: Lactobacillus 1 EACH CAP.SPRINK PO SCH ×2 (08:07→19:51)
[2019-11-18] MEDS: amLODIPine 5 MG TABLET PO SCH (08:07)
[2019-11-18] MEDS: lisinopriL 20 MG TABLET PO SCH (08:08)
[2019-11-18] MEDS: Magnesium Oxide 400 MG TABLET PO SCH (08:08)
[2019-11-18] MEDS: Aspirin Enteric Coated 81 MG Tablet PO SCH (08:08)
[2019-11-18] MEDS: Sennosides 8.6 MG TABLET PO SCH (08:08)
[2019-11-18] MEDS: levETIRAcetam 250 MG TABLET PO SCH ×2 (08:08→19:51)
[2019-11-18] MEDS: Ertapenem 1,000 MG in 0.9 % Sodium Chloride Mini Bag 100 ML IVPB SCH (08:10)
[2019-11-18] MEDS: Artificial Tears SOLN 15 ML BOTTLE BOTH EYES SCH (08:23)
[2019-11-18 10:18] LABS: ANA IgG by ELISA NONE DETECTED (None Detected)
[2019-11-18 11:01] LABS: Adenovirus Not Detected (Not Detect); Bordetella Pertussis Not Detected (Not Detect); Chlamydophila pneumoniae Not Detected (Not Detect); Coronavirus 229E Not Detected (Not Detect); Coronavirus HKU1 Not Detected (Not Detect); Coronavirus NL63 Not Detected (Not Detect); Coronavirus OC43 Not Detected (Not Detect); Human Metapneumovirus Not Detected (Not Detect); Human Rhinovirus/Enterovirus Not Detected (Not Detect); Influenza A Subtype 2009 H1 Not Detected (Not Detect); Influenza B Not Detected (Not Detect); Mycoplasma pneumoniae Not Detected (Not Detect); Parainfluenza Virus 1 Not Detected (Not Detect); Parainfluenza Virus 2 Not Detected (Not Detect); Parainfluenza Virus 3 Not Detected (Not Detect); Parainfluenza Virus 4 Not Detected (Not Detect); Respiratory Syncytial Virus Not Detected (Not Detect)
[2019-11-18] MEDS: Acetaminophen/Butalbital/CaffeineTABLET PO PRN (17:49)
[2019-11-18] MEDS: Loratadine 10 MG TABLET PO SCH (19:50)
[2019-11-19] MEDS: Artificial Tears SOLN 15 ML BOTTLE BOTH EYES SCH ×3 (01:24→20:58)
[2019-11-19] MEDS: *HR* HYDROcodone/Acet 5/325 mg TABLET PO PRN (06:31)
[2019-11-19] MEDS: Aspirin Enteric Coated 81 MG Tablet PO SCH (08:08)
[2019-11-19] MEDS: Gabapentin 300 MG CAPSULE PO SCH ×2 (08:08→20:33)
[2019-11-19] MEDS: Magnesium Oxide 400 MG TABLET PO SCH (08:08)
[2019-11-19] MEDS: lisinopriL 20 MG TABLET PO SCH (08:08)
[2019-11-19] MEDS: Sennosides 8.6 MG TABLET PO SCH ×2 (08:08→08:58)
[2019-11-19] MEDS: levETIRAcetam 250 MG TABLET PO SCH ×2 (08:10→08:57)
[2019-11-19] MEDS: Isosorbide MONOnitrate (24 HR) 30 MG TAB.ER.24H PO SCH (08:10)
[2019-11-19] MEDS: Lactobacillus 1 EACH CAP.SPRINK PO SCH ×2 (08:10→20:32)
[2019-11-19] MEDS: amLODIPine 5 MG TABLET PO SCH (08:10)
[2019-11-19] MEDS: Ertapenem 1,000 MG in 0.9 % Sodium Chloride Mini Bag 100 ML IVPB SCH (08:20)
[2019-11-19] MEDS: Insulin LISPRO 300 UNITS/3 ML VIAL SQ SCH ×6 (08:52→21:06)
[2019-11-19] MEDS ORDERED: traZODone 50 MG TABLET PO PRN (10:01)
[2019-11-19] MEDS ORDERED: *HR* Enoxaparin 40 MG/0.4 ML SYRINGE SQ SCH (10:03)
[2019-11-19 14:00] LABS: ABG Base Excess -6 mEq/L (-2 to 3); ABG HCO3 20 mEq/L (21-27); ABG Oxygen Saturation 96 % (95-98); ABG PCO2 40 mmHg (35-45); ABG PH 7.32 pH Units (7.32-7.45); ABG PO2 89 mmHg (85-104); ABG TCO2 22 mEq/L (20-26)
[2019-11-19] MEDS: Dexamethasone 4 MG/ML VIAL IVP SCH (14:16)
[2019-11-19] MEDS ORDERED: Isovue-370 500 ML BOTTLE IVP ONE ×2 (14:35→15:15)
[2019-11-19] MEDS: Ipratropium 1 PUFF INHALER IH SCH ×3 (16:16→23:16)
[2019-11-19 17:21] LABS: Hematocrit 36.1 % (35.3-44.9); Mean Corpuscular HGB Conc 33.2 g/dL (31.6-35.5); Mean Corpuscular Hemoglobin 30.2 pg (28.0-33.3); Mean Corpuscular Volume 90.7 fL (83.0-100.0); Mean Platelet Volume 10.4 fL (9.4-12.4); Platelet Count 225 K/mcL (140-400); Red Blood Count 3.98 M/mcL (3.82-4.97); Red Cell Distribution Width 12.9 % (11.5-14.5)
[2019-11-19 17:22] LABS: White Blood Count 8.3 K/mcL (4.3-11.1)
[2019-11-19 17:41] LABS: BUN/Creatinine Ratio 25 (6-26); Blood Urea Nitrogen 14 mg/dL (8-23); Calcium 8.9 mg/dL (8.6-10.3); Carbon Dioxide 24 mEq/L (23-29); Chloride 102 mEq/L (98-107); Glucose 155 mg/dL (70-105); Osmolality,Calculated 288 (280-300); Potassium 3.9 mEq/L (3.5-5.1); Sodium 137 mEq/L (136-145); eGFR For African Americans > 60 (> 60); eGFR For Non-African Americans > 60 (> 60)
[2019-11-19 17:45] LABS: Albumin 3.9 g/dL (3.5-5.7); Albumin/Globulin Ratio 1.3 (1.1-2.2); Bilirubin,Direct 0.1 mg/dL (0.0-0.2); Bilirubin,Indirect 0.3 mg/dL (0.0-1.0); Bilirubin,Total 0.4 mg/dL (0.3-1.0); Total Protein 6.9 g/dL (6.4-8.9); Troponin I 0.1 ng/mL (< 0.04)
[2019-11-19] MEDS: Acetaminophen 325 MG TABLET PO PRN (18:52)
[2019-11-19] MEDS: Loratadine 10 MG TABLET PO SCH (20:31)
[2019-11-19 22:24] LABS: ABG Base Excess -2 mEq/L (-2 to 3); ABG HCO3 23 mEq/L (21-27); ABG Oxygen Saturation 100 % (95-98); ABG PCO2 41 mmHg (35-45); ABG PH 7.37 pH Units (7.32-7.45); ABG PO2 442 mmHg (85-104); ABG TCO2 25 mEq/L (20-26); Blood Gas Modality BiLevel
[2019-11-19 22:55] LABS: Basophils % 0.4 %; Hematocrit 38.1 % (35.3-44.9); Hemoglobin 12.8 g/dL (11.5-15.4); Immature Granulocytes % 1.4 % (0-4); Lymphocytes # 1.4 K/mcL (0.6-4.6); Lymphocytes % 16.9 %; Mean Corpuscular HGB Conc 33.6 g/dL (31.6-35.5); Mean Corpuscular Hemoglobin 30.4 pg (28.0-33.3); Mean Corpuscular Volume 90.5 fL (83.0-100.0); Mean Platelet Volume 10.3 fL (9.4-12.4); Monocytes # 0.2 K/mcL (0.0-1.3); Neutrophils # 6.7 K/mcL (1.6-8.9); Platelet Count 283 K/mcL (140-400); Red Blood Count 4.21 M/mcL (3.82-4.97); Red Cell Distribution Width 12.9 % (11.5-14.5); Segmented Neutrophils % 79.3 %; White Blood Count 8.4 K/mcL (4.3-11.1)
[2019-11-19 23:02] LABS: INR 1.2; Prothrombin Time 13.7 Seconds (9.4-12.1)
[2019-11-19 23:05] LABS: Activated Partial Thrombo Time 33.5 Seconds (26.0-36.0)
[2019-11-19 23:20] LABS: Alanine Aminotransferase 11 Units/L (7-52); Albumin 3.9 g/dL (3.5-5.7); Albumin/Globulin Ratio 1.3 (1.1-2.2); Alkaline Phosphatase 102 Units/L (34-104); Aspartate Amino Transferase 15 Units/L (13-39); BUN/Creatinine Ratio 23 (6-26); Bilirubin,Total 0.6 mg/dL (0.3-1.0); Blood Urea Nitrogen 14 mg/dL (8-23); Carbon Dioxide 20 mEq/L (23-29); Chloride 100 mEq/L (98-107); Globulin 3.1 g/dL (2.4-3.5); Glucose 293 mg/dL (70-105); Magnesium 1.4 mg/dL (1.6-2.6); Osmolality,Calculated 295 (280-300); Phosphorous 4.3 mg/dL (2.7-4.5); Potassium 3.5 mEq/L (3.5-5.1); Sodium 137 mEq/L (136-145); eGFR For African Americans > 60 (> 60); eGFR For Non-African Americans > 60 (> 60)
[2019-11-19 23:29] LABS: Troponin I 0.16 ng/mL (< 0.04)
[2019-11-19] MEDS ORDERED: *HR* Heparin 5,000 UNIT/ML VIAL IVP PRN ×2 (23:34)
[2019-11-19] MEDS ORDERED: *HR* Heparin 5,000 UNIT/ML VIAL IVP ONE (23:34)
[2019-11-20] MEDS: Heparin 25,000 UNIT/250 ML D5W 25,000 UNIT/250 ML IV.SOLN IVC SCH ×2 (00:47→16:18)
[2019-11-20 01:15] LABS: Hematocrit 38.2 % (35.3-44.9); Mean Corpuscular Hemoglobin 30.7 pg (28.0-33.3); Mean Corpuscular Volume 90.1 fL (83.0-100.0); Mean Platelet Volume 10.8 fL (9.4-12.4); Platelet Count 267 K/mcL (140-400); Red Blood Count 4.24 M/mcL (3.82-4.97); White Blood Count 14.5 K/mcL (4.3-11.1)
[2019-11-20 01:17] LABS: D-Dimer 2208 ng/mLFEU (0-500)
[2019-11-20 01:20] LABS: Heparin anti-factor XA UFH > 2.00 IU/mL (0.30-0.70)
[2019-11-20 01:55] LABS: Alanine Aminotransferase 12 Units/L (7-52); Albumin 3.9 g/dL (3.5-5.7); Albumin/Globulin Ratio 1.2 (1.1-2.2); Alkaline Phosphatase 101 Units/L (34-104); Aspartate Amino Transferase 15 Units/L (13-39); BUN/Creatinine Ratio 25 (6-26); Bilirubin,Total 0.5 mg/dL (0.3-1.0); Blood Urea Nitrogen 14 mg/dL (8-23); Calcium 9.1 mg/dL (8.6-10.3); Carbon Dioxide 23 mEq/L (23-29); Chloride 99 mEq/L (98-107); Globulin 3.2 g/dL (2.4-3.5); Glucose 245 mg/dL (70-105); Osmolality,Calculated 295 (280-300); Potassium 3.7 mEq/L (3.5-5.1); Sodium 138 mEq/L (136-145); Total Protein 7.1 g/dL (6.4-8.9); eGFR For African Americans > 60 (> 60); eGFR For Non-African Americans > 60 (> 60)
[2019-11-20] MEDS: *HR* Promethazine 25 MG/ML VIAL IVP PRN ×2 (02:58→08:59)
[2019-11-20] MEDS: Ipratropium 1 PUFF INHALER IH SCH ×5 (03:38→19:53)
[2019-11-20] MEDS: Lactobacillus 1 EACH CAP.SPRINK PO SCH ×2 (07:52→20:09)
[2019-11-20] MEDS: Magnesium Oxide 400 MG TABLET PO SCH (07:52)
[2019-11-20] MEDS: lisinopriL 20 MG TABLET PO SCH (07:52)
[2019-11-20] MEDS: Gabapentin 300 MG CAPSULE PO SCH ×2 (07:52→20:09)
[2019-11-20] MEDS: Isosorbide MONOnitrate (24 HR) 30 MG TAB.ER.24H PO SCH (07:52)
[2019-11-20] MEDS: amLODIPine 5 MG TABLET PO SCH (07:54)
[2019-11-20] MEDS: Sennosides 8.6 MG TABLET PO SCH (07:55)
[2019-11-20] MEDS: Dexamethasone 4 MG/ML VIAL IVP SCH (07:55)
[2019-11-20] MEDS: Aspirin Enteric Coated 81 MG Tablet PO SCH (07:55)
[2019-11-20] MEDS: Ertapenem 1,000 MG in 0.9 % Sodium Chloride Mini Bag 100 ML IVPB SCH (07:56)
[2019-11-20] MEDS: Artificial Tears SOLN 15 ML BOTTLE BOTH EYES SCH ×2 (07:57→20:09)
[2019-11-20] MEDS: Insulin LISPRO 300 UNITS/3 ML VIAL SQ SCH ×6 (08:59→21:42)
[2019-11-20] MEDS ORDERED: Furosemide 20 MG/2 ML VIAL IVP SCH (10:15)
[2019-11-20] MEDS ORDERED: Isovue-370 500 ML BOTTLE IVP ONE (17:49)
[2019-11-20] MEDS: Loratadine 10 MG TABLET PO SCH (20:09)
[2019-11-21] MEDS: Ipratropium 1 PUFF INHALER IH SCH ×7 (00:06→23:36)
[2019-11-21] MEDS: Heparin 25,000 UNIT/250 ML D5W 25,000 UNIT/250 ML IV.SOLN IVC SCH (08:01)
[2019-11-21] MEDS: Ertapenem 1,000 MG in 0.9 % Sodium Chloride Mini Bag 100 ML IVPB SCH (08:02)
[2019-11-21] MEDS: Dexamethasone 4 MG/ML VIAL IVP SCH (08:07)
[2019-11-21] MEDS: Gabapentin 300 MG CAPSULE PO SCH ×2 (08:09→20:11)
[2019-11-21] MEDS: Sennosides 8.6 MG TABLET PO SCH (08:09)
[2019-11-21] MEDS: Lactobacillus 1 EACH CAP.SPRINK PO SCH ×2 (08:09→20:11)
[2019-11-21] MEDS: amLODIPine 5 MG TABLET PO SCH (08:09)
[2019-11-21] MEDS: Isosorbide MONOnitrate (24 HR) 30 MG TAB.ER.24H PO SCH (08:09)
[2019-11-21] MEDS: Artificial Tears SOLN 15 ML BOTTLE BOTH EYES SCH ×2 (08:09→20:35)
[2019-11-21] MEDS: Aspirin Enteric Coated 81 MG Tablet PO SCH (08:09)
[2019-11-21] MEDS: Magnesium Oxide 400 MG TABLET PO SCH (08:09)
[2019-11-21 08:12] LABS: Hematocrit 38.3 % (35.3-44.9); Hemoglobin 12.6 g/dL (11.5-15.4); Mean Corpuscular HGB Conc 32.9 g/dL (31.6-35.5); Mean Corpuscular Hemoglobin 30.6 pg (28.0-33.3); Mean Platelet Volume 10.4 fL (9.4-12.4); Platelet Count 274 K/mcL (140-400); Red Blood Count 4.12 M/mcL (3.82-4.97); Red Cell Distribution Width 13.3 % (11.5-14.5); White Blood Count 12.2 K/mcL (4.3-11.1)
[2019-11-21 08:32] LABS: BUN/Creatinine Ratio 37 (6-26); Blood Urea Nitrogen 22 mg/dL (8-23); Calcium 8.9 mg/dL (8.6-10.3); Carbon Dioxide 28 mEq/L (23-29); Chloride 102 mEq/L (98-107); Glucose 172 mg/dL (70-105); Osmolality,Calculated 297 (280-300); Potassium 3.6 mEq/L (3.5-5.1); Sodium 140 mEq/L (136-145); eGFR For African Americans > 60 (> 60); eGFR For Non-African Americans > 60 (> 60)
[2019-11-21] MEDS: *HR* Promethazine 25 MG/ML VIAL IVP PRN (08:45)
[2019-11-21] MEDS: Insulin LISPRO 300 UNITS/3 ML VIAL SQ SCH ×6 (08:47→20:12)
[2019-11-21] MEDS: hydrALAZINE 25 MG TABLET PO SCH ×2 (10:16→16:34)
[2019-11-21] MEDS ORDERED: *HR* Labetalol 20 MG/4 ML SYRINGE IVP ONE ×2 (11:52→11:57)
[2019-11-21] MEDS: Acetaminophen 325 MG TABLET PO PRN (12:25)
[2019-11-21] MEDS ORDERED: hydrALAZINE 25 MG TABLET PO ONE (16:49)
[2019-11-21] MEDS: Loratadine 10 MG TABLET PO SCH (20:11)
[2019-11-22] MEDS: hydrALAZINE 25 MG TABLET PO SCH ×3 (00:35→23:33)
[2019-11-22] MEDS: Ipratropium 1 PUFF INHALER IH SCH ×6 (03:14→23:29)
[2019-11-22] MEDS: Heparin 25,000 UNIT/250 ML D5W 25,000 UNIT/250 ML IV.SOLN IVC SCH (05:38)
[2019-11-22 06:22] LABS: Hematocrit 34.7 % (35.3-44.9); Hemoglobin 11.5 g/dL (11.5-15.4); Mean Corpuscular HGB Conc 33.1 g/dL (31.6-35.5); Mean Corpuscular Hemoglobin 30.8 pg (28.0-33.3); Mean Platelet Volume 10.1 fL (9.4-12.4); Platelet Count 269 K/mcL (140-400); Red Blood Count 3.73 M/mcL (3.82-4.97); Red Cell Distribution Width 13.6 % (11.5-14.5); White Blood Count 9.6 K/mcL (4.3-11.1)
[2019-11-22 06:45] LABS: BUN/Creatinine Ratio 43 (6-26); Blood Urea Nitrogen 30 mg/dL (8-23); Calcium 8.3 mg/dL (8.6-10.3); Carbon Dioxide 29 mEq/L (23-29); Chloride 102 mEq/L (98-107); Glucose 154 mg/dL (70-105); Osmolality,Calculated 295 (280-300); Potassium 3.3 mEq/L (3.5-5.1); Sodium 138 mEq/L (136-145); eGFR For African Americans > 60 (> 60); eGFR For Non-African Americans > 60 (> 60)
[2019-11-22] MEDS: Insulin LISPRO 300 UNITS/3 ML VIAL SQ SCH ×6 (08:16→20:55)
[2019-11-22] MEDS: Artificial Tears SOLN 15 ML BOTTLE BOTH EYES SCH ×2 (08:17→20:56)
[2019-11-22] MEDS: Aspirin Enteric Coated 81 MG Tablet PO SCH (08:25)
[2019-11-22] MEDS: Gabapentin 300 MG CAPSULE PO SCH ×2 (08:25→20:07)
[2019-11-22] MEDS: Magnesium Oxide 400 MG TABLET PO SCH (08:25)
[2019-11-22] MEDS: amLODIPine 5 MG TABLET PO SCH (08:26)
[2019-11-22] MEDS: Isosorbide MONOnitrate (24 HR) 30 MG TAB.ER.24H PO SCH (08:27)
[2019-11-22] MEDS: Lactobacillus 1 EACH CAP.SPRINK PO SCH ×2 (08:27→20:07)
[2019-11-22] MEDS: Sennosides 8.6 MG TABLET PO SCH (08:27)
[2019-11-22] MEDS: Dexamethasone 4 MG/ML VIAL IVP SCH (08:28)
[2019-11-22] MEDS: Furosemide 20 MG/2 ML VIAL IVP SCH (08:28)
[2019-11-22] MEDS: Ertapenem 1,000 MG in 0.9 % Sodium Chloride Mini Bag 100 ML IVPB SCH (08:29)
[2019-11-22] MEDS: *HR* Enoxaparin 40 MG/0.4 ML SYRINGE SQ SCH (12:50)
[2019-11-22] MEDS: Acetaminophen 325 MG TABLET PO PRN ×2 (12:53→20:07)
[2019-11-22] MEDS ORDERED: hydrALAZINE 25 MG TABLET PO SCH (16:00)
[2019-11-22] MEDS: *HR* Promethazine 25 MG/ML VIAL IVP PRN (20:06)
[2019-11-22] MEDS: Loratadine 10 MG TABLET PO SCH (20:08)
[2019-11-23] MEDS: Ipratropium 1 PUFF INHALER IH SCH ×6 (03:05→23:44)
[2019-11-23] MEDS: *HR* Enoxaparin 40 MG/0.4 ML SYRINGE SQ SCH (05:48)
[2019-11-23 05:49] LABS: Hematocrit 35.3 % (35.3-44.9); Hemoglobin 11.4 g/dL (11.5-15.4); Mean Corpuscular HGB Conc 32.3 g/dL (31.6-35.5); Mean Corpuscular Hemoglobin 30.4 pg (28.0-33.3); Mean Corpuscular Volume 94.1 fL (83.0-100.0); Platelet Count 276 K/mcL (140-400); Red Blood Count 3.75 M/mcL (3.82-4.97); Red Cell Distribution Width 13.5 % (11.5-14.5); White Blood Count 9.2 K/mcL (4.3-11.1)
[2019-11-23 06:06] LABS: BUN/Creatinine Ratio 52 (6-26); Blood Urea Nitrogen 32 mg/dL (8-23); Calcium 8.9 mg/dL (8.6-10.3); Carbon Dioxide 29 mEq/L (23-29); Chloride 104 mEq/L (98-107); Glucose 143 mg/dL (70-105); Magnesium 1.7 mg/dL (1.6-2.6); Osmolality,Calculated 297 (280-300); Phosphorous 3.1 mg/dL (2.7-4.5); Potassium 3.8 mEq/L (3.5-5.1); Sodium 139 mEq/L (136-145); eGFR For African Americans > 60 (> 60); eGFR For Non-African Americans > 60 (> 60)
[2019-11-23] MEDS: Gabapentin 300 MG CAPSULE PO SCH ×2 (09:07→19:58)
[2019-11-23] MEDS: amLODIPine 5 MG TABLET PO SCH (09:07)
[2019-11-23] MEDS: Sennosides 8.6 MG TABLET PO SCH (09:07)
[2019-11-23] MEDS: hydrALAZINE 25 MG TABLET PO SCH (09:07)
[2019-11-23] MEDS: Aspirin Enteric Coated 81 MG Tablet PO SCH (09:08)
[2019-11-23] MEDS: Isosorbide MONOnitrate (24 HR) 30 MG TAB.ER.24H PO SCH (09:08)
[2019-11-23] MEDS: Dexamethasone 4 MG/ML VIAL IVP SCH (09:08)
[2019-11-23] MEDS: Lactobacillus 1 EACH CAP.SPRINK PO SCH ×2 (09:08→19:58)
[2019-11-23] MEDS: Furosemide 20 MG/2 ML VIAL IVP SCH (09:08)
[2019-11-23] MEDS: Magnesium Oxide 400 MG TABLET PO SCH (09:08)
[2019-11-23] MEDS: Insulin LISPRO 300 UNITS/3 ML VIAL SQ SCH ×6 (10:11→19:58)
[2019-11-23] MEDS: Artificial Tears SOLN 15 ML BOTTLE BOTH EYES SCH ×2 (10:13→19:58)
[2019-11-23] MEDS: lisinopriL 20 MG TABLET PO SCH (15:13)
[2019-11-23] MEDS: Topiramate 25 MG TABLET PO SCH ×2 (15:13→19:58)
[2019-11-23] MEDS: *HR* LORazepam 0.5 MG TABLET PO PRN (17:45)
[2019-11-23] MEDS: *HR* Promethazine 25 MG/ML VIAL IVP PRN (19:56)
[2019-11-23] MEDS: Loratadine 10 MG TABLET PO SCH (19:58)
[2019-11-23] MEDS: Acetaminophen 325 MG TABLET PO PRN (19:58)
[2019-11-24] MEDS: Ipratropium 1 PUFF INHALER IH SCH ×6 (03:13→23:39)
[2019-11-24 04:17] LABS: Hematocrit 40.2 % (35.3-44.9); Mean Corpuscular HGB Conc 34.6 g/dL (31.6-35.5); Mean Corpuscular Hemoglobin 31.6 pg (28.0-33.3); Mean Corpuscular Volume 91.4 fL (83.0-100.0); Mean Platelet Volume 10.4 fL (9.4-12.4); Platelet Count 304 K/mcL (140-400); Red Cell Distribution Width 13.3 % (11.5-14.5); White Blood Count 11.4 K/mcL (4.3-11.1)
[2019-11-24 04:18] LABS: Hemoglobin 13.9 g/dL (11.5-15.4)
[2019-11-24 04:38] LABS: BUN/Creatinine Ratio 61 (6-26); Blood Urea Nitrogen 31 mg/dL (8-23); Calcium 9.4 mg/dL (8.6-10.3); Carbon Dioxide 26 mEq/L (23-29); Chloride 101 mEq/L (98-107); Glucose 158 mg/dL (70-105); Osmolality,Calculated 296 (280-300); Potassium 3.7 mEq/L (3.5-5.1); Sodium 138 mEq/L (136-145); eGFR For African Americans > 60 (> 60); eGFR For Non-African Americans > 60 (> 60)
[2019-11-24] MEDS: *HR* Enoxaparin 40 MG/0.4 ML SYRINGE SQ SCH (05:37)
[2019-11-24] MEDS ORDERED: *HR* Metoprolol 5 MG/5 ML VIAL IVP ONE (05:56)
[2019-11-24] MEDS: Topiramate 25 MG TABLET PO SCH ×2 (08:00→21:30)
[2019-11-24] MEDS: lisinopriL 20 MG TABLET PO SCH (08:00)
[2019-11-24] MEDS: Lactobacillus 1 EACH CAP.SPRINK PO SCH ×2 (08:00→21:29)
[2019-11-24] MEDS: amLODIPine 5 MG TABLET PO SCH (08:01)
[2019-11-24] MEDS: Isosorbide MONOnitrate (24 HR) 30 MG TAB.ER.24H PO SCH (08:01)
[2019-11-24] MEDS: Aspirin Enteric Coated 81 MG Tablet PO SCH (08:01)
[2019-11-24] MEDS: Magnesium Oxide 400 MG TABLET PO SCH (08:01)
[2019-11-24] MEDS: Gabapentin 300 MG CAPSULE PO SCH ×2 (08:01→21:29)
[2019-11-24] MEDS: Furosemide 20 MG/2 ML VIAL IVP SCH (08:01)
[2019-11-24] MEDS: Dexamethasone 4 MG/ML VIAL IVP SCH (08:02)
[2019-11-24] MEDS: Insulin LISPRO 300 UNITS/3 ML VIAL SQ SCH ×6 (08:04→21:30)
[2019-11-24] MEDS: Sennosides 8.6 MG TABLET PO SCH ×2 (08:05→08:50)
[2019-11-24] MEDS: Artificial Tears SOLN 15 ML BOTTLE BOTH EYES SCH ×2 (08:05→21:59)
[2019-11-24] MEDS: Fluticasone Propionate Nasal 50 MCG/SPRAY BOTTLE NS SCH (11:54)
[2019-11-24] MEDS ORDERED: hydrALAZINE 10 MG TABLET PO SCH ×2 (12:00→21:00)
[2019-11-24] MEDS: *HR* LORazepam 0.5 MG TABLET PO PRN (21:29)
[2019-11-24] MEDS: Loratadine 10 MG TABLET PO SCH (21:30)
[2019-11-25] MEDS: Ipratropium 1 PUFF INHALER IH SCH ×6 (03:07→23:39)
[2019-11-25] MEDS: *HR* Enoxaparin 40 MG/0.4 ML SYRINGE SQ SCH (05:31)
[2019-11-25 06:56] LABS: Basophils % 0.1 %; Eosinophils % 0.2 %; Immature Granulocytes % 0.5 % (0-4); Lymphocytes # 2.6 K/mcL (0.6-4.6); Lymphocytes % 23.5 %; Mean Corpuscular HGB Conc 32.7 g/dL (31.6-35.5); Mean Corpuscular Hemoglobin 30.4 pg (28.0-33.3); Mean Platelet Volume 10.7 fL (9.4-12.4); Monocytes % 8.7 %; Neutrophils # 7.4 K/mcL (1.6-8.9); Platelet Count 263 K/mcL (140-400); Red Blood Count 3.98 M/mcL (3.82-4.97); Red Cell Distribution Width 13.4 % (11.5-14.5); White Blood Count 11.1 K/mcL (4.3-11.1)
[2019-11-25 07:07] LABS: Hemoglobin 12.1 g/dL (11.5-15.4)
[2019-11-25 07:17] LABS: Calcium 9.3 mg/dL (8.6-10.3); Potassium 3.8 mEq/L (3.5-5.1)
[2019-11-25] MEDS: Furosemide 20 MG/2 ML VIAL IVP SCH (09:05)
[2019-11-25] MEDS: Sennosides 8.6 MG TABLET PO SCH (09:06)
[2019-11-25] MEDS ORDERED: 0.9 % Sodium Chloride 250 ML IVC ONE (09:10)
[2019-11-25] MEDS: Insulin LISPRO 300 UNITS/3 ML VIAL SQ SCH ×6 (09:18→20:29)
[2019-11-25] MEDS: Topiramate 25 MG TABLET PO SCH ×2 (09:19→20:29)
[2019-11-25] MEDS: Aspirin Enteric Coated 81 MG Tablet PO SCH (09:19)
[2019-11-25] MEDS: Lactobacillus 1 EACH CAP.SPRINK PO SCH ×2 (09:19→20:29)
[2019-11-25] MEDS: Gabapentin 300 MG CAPSULE PO SCH ×2 (09:19→20:29)
[2019-11-25] MEDS: Magnesium Oxide 400 MG TABLET PO SCH (09:19)
[2019-11-25] MEDS: Artificial Tears SOLN 15 ML BOTTLE BOTH EYES SCH ×2 (09:20→20:29)
[2019-11-25] MEDS: Dexamethasone 4 MG/ML VIAL IVP SCH (09:25)
[2019-11-25] MEDS: Fluticasone Propionate Nasal 50 MCG/SPRAY BOTTLE NS SCH (09:26)
[2019-11-25] MEDS: lisinopriL 20 MG TABLET PO SCH (11:28)
[2019-11-25] MEDS: Isosorbide MONOnitrate (24 HR) 30 MG TAB.ER.24H PO SCH (17:20)
[2019-11-25] MEDS: Loratadine 10 MG TABLET PO SCH (20:29)
[2019-11-26] MEDS: Ipratropium 1 PUFF INHALER IH SCH ×5 (03:19→19:46)
[2019-11-26] MEDS: *HR* Enoxaparin 40 MG/0.4 ML SYRINGE SQ SCH (05:15)
[2019-11-26 06:14] LABS: BUN/Creatinine Ratio 77 (6-26); Blood Urea Nitrogen 59 mg/dL (8-23); Calcium 8.9 mg/dL (8.6-10.3); Carbon Dioxide 26 mEq/L (23-29); Chloride 102 mEq/L (98-107); Glucose 103 mg/dL (70-105); Osmolality,Calculated 301 (280-300); Potassium 3.7 mEq/L (3.5-5.1); Sodium 137 mEq/L (136-145); eGFR For African Americans > 60 (> 60); eGFR For Non-African Americans > 60 (> 60)
[2019-11-26] MEDS ORDERED: amLODIPine 5 MG TABLET PO SCH (08:00)
[2019-11-26] MEDS: Lactobacillus 1 EACH CAP.SPRINK PO SCH ×2 (08:53→19:36)
[2019-11-26] MEDS: Topiramate 25 MG TABLET PO SCH ×2 (08:53→19:36)
[2019-11-26] MEDS: Sennosides 8.6 MG TABLET PO SCH (08:53)
[2019-11-26] MEDS: Magnesium Oxide 400 MG TABLET PO SCH (08:53)
[2019-11-26] MEDS: Gabapentin 300 MG CAPSULE PO SCH ×2 (08:53→19:36)
[2019-11-26] MEDS: Aspirin Enteric Coated 81 MG Tablet PO SCH (08:53)
[2019-11-26] MEDS: Isosorbide MONOnitrate (24 HR) 30 MG TAB.ER.24H PO SCH (08:53)
[2019-11-26] MEDS: Dexamethasone 4 MG/ML VIAL IVP SCH (08:54)
[2019-11-26] MEDS: Insulin LISPRO 300 UNITS/3 ML VIAL SQ SCH ×6 (08:55→23:53)
[2019-11-26] MEDS: Artificial Tears SOLN 15 ML BOTTLE BOTH EYES SCH ×2 (08:55→23:53)
[2019-11-26] MEDS: Fluticasone Propionate Nasal 50 MCG/SPRAY BOTTLE NS SCH (08:56)
[2019-11-26 11:19] LABS: Basophils % 0.1 %; Eosinophils % 0.3 %; Hematocrit 35.3 % (35.3-44.9); Hemoglobin 12.1 g/dL (11.5-15.4); Immature Granulocytes % 0.7 % (0-4); Lymphocytes # 1.6 K/mcL (0.6-4.6); Lymphocytes % 13.4 %; Mean Corpuscular HGB Conc 34.3 g/dL (31.6-35.5); Mean Corpuscular Hemoglobin 30.7 pg (28.0-33.3); Mean Corpuscular Volume 89.6 fL (83.0-100.0); Mean Platelet Volume 10.9 fL (9.4-12.4); Monocytes # 0.6 K/mcL (0.0-1.3); Monocytes % 4.9 %; Neutrophils # 9.3 K/mcL (1.6-8.9); Platelet Count 237 K/mcL (140-400); Red Blood Count 3.94 M/mcL (3.82-4.97); Red Cell Distribution Width 13.2 % (11.5-14.5); Segmented Neutrophils % 80.6 %; White Blood Count 11.6 K/mcL (4.3-11.1)
[2019-11-26] MEDS: Loratadine 10 MG TABLET PO SCH (19:35)
[2019-11-27] MEDS: Ipratropium 1 PUFF INHALER IH SCH ×7 (00:06→23:29)
[2019-11-27] MEDS: *HR* Enoxaparin 40 MG/0.4 ML SYRINGE SQ SCH (05:47)
[2019-11-27] MEDS: Insulin LISPRO 300 UNITS/3 ML VIAL SQ SCH ×6 (08:26→21:46)
[2019-11-27] MEDS: Artificial Tears SOLN 15 ML BOTTLE BOTH EYES SCH ×2 (08:29→19:59)
[2019-11-27] MEDS: Fluticasone Propionate Nasal 50 MCG/SPRAY BOTTLE NS SCH (08:29)
[2019-11-27] MEDS: Gabapentin 300 MG CAPSULE PO SCH ×2 (08:34→19:57)
[2019-11-27] MEDS: Topiramate 25 MG TABLET PO SCH ×2 (08:34→19:56)
[2019-11-27] MEDS: Magnesium Oxide 400 MG TABLET PO SCH (08:34)
[2019-11-27] MEDS: Sennosides 8.6 MG TABLET PO SCH (08:34)
[2019-11-27] MEDS: Aspirin Enteric Coated 81 MG Tablet PO SCH (08:34)
[2019-11-27] MEDS: Lactobacillus 1 EACH CAP.SPRINK PO SCH ×2 (08:34→19:57)
[2019-11-27] MEDS: Dexamethasone 4 MG/ML VIAL IVP SCH (08:34)
[2019-11-27] MEDS: Isosorbide MONOnitrate (24 HR) 30 MG TAB.ER.24H PO SCH (08:35)
[2019-11-27 15:37] LABS: Basophils % 0.1 %; Hematocrit 37.7 % (35.3-44.9); Hemoglobin 12.4 g/dL (11.5-15.4); Immature Granulocytes % 0.6 % (0-4); Lymphocytes # 0.9 K/mcL (0.6-4.6); Lymphocytes % 8.2 %; Mean Corpuscular HGB Conc 32.9 g/dL (31.6-35.5); Mean Platelet Volume 11.6 fL (9.4-12.4); Monocytes # 0.4 K/mcL (0.0-1.3); Monocytes % 3.2 %; Neutrophils # 9.5 K/mcL (1.6-8.9); Platelet Count 144 K/mcL (140-400); Red Blood Count 3.88 M/mcL (3.82-4.97); Red Cell Distribution Width 13.3 % (11.5-14.5); Segmented Neutrophils % 87.9 %; White Blood Count 10.8 K/mcL (4.3-11.1)
[2019-11-27 15:38] LABS: Mean Corpuscular Volume 97.2 fL (83.0-100.0)
[2019-11-27 15:58] LABS: BUN/Creatinine Ratio 57 (6-26); Blood Urea Nitrogen 43 mg/dL (8-23); Calcium 9.1 mg/dL (8.6-10.3); Carbon Dioxide 25 mEq/L (23-29); Chloride 101 mEq/L (98-107); Glucose 322 mg/dL (70-105); Osmolality,Calculated 299 (280-300); Potassium 4.4 mEq/L (3.5-5.1); Sodium 133 mEq/L (136-145); eGFR For African Americans > 60 (> 60); eGFR For Non-African Americans > 60 (> 60)
[2019-11-27] MEDS: *HR* LORazepam 0.5 MG TABLET PO PRN (19:57)
[2019-11-27] MEDS: Loratadine 10 MG TABLET PO SCH (19:57)
[2019-11-27] MEDS: Acetaminophen 325 MG TABLET PO PRN (19:57)
[2019-11-28] MEDS: Ipratropium 1 PUFF INHALER IH SCH ×6 (04:08→23:48)
[2019-11-28] MEDS: *HR* Enoxaparin 40 MG/0.4 ML SYRINGE SQ SCH (07:29)
[2019-11-28 07:54] LABS: Basophils % 0.1 %; Eosinophils # 0.1 K/mcL (0.0-0.6); Eosinophils % 0.9 %; Hematocrit 35.4 % (35.3-44.9); Hemoglobin 11.6 g/dL (11.5-15.4); Immature Granulocytes % 0.5 % (0-4); Lymphocytes # 2.2 K/mcL (0.6-4.6); Lymphocytes % 24.3 %; Mean Corpuscular HGB Conc 32.8 g/dL (31.6-35.5); Mean Corpuscular Hemoglobin 30.4 pg (28.0-33.3); Mean Corpuscular Volume 92.7 fL (83.0-100.0); Mean Platelet Volume 11.2 fL (9.4-12.4); Monocytes # 0.7 K/mcL (0.0-1.3); Platelet Count 170 K/mcL (140-400); Red Blood Count 3.82 M/mcL (3.82-4.97); Red Cell Distribution Width 13.1 % (11.5-14.5); Segmented Neutrophils % 66.2 %; White Blood Count 9.1 K/mcL (4.3-11.1)
[2019-11-28] MEDS: Insulin LISPRO 300 UNITS/3 ML VIAL SQ SCH ×5 (08:56→16:45)
[2019-11-28] MEDS: Dexamethasone 4 MG/ML VIAL IVP SCH (09:02)
[2019-11-28] MEDS: Gabapentin 300 MG CAPSULE PO SCH ×2 (09:02→19:55)
[2019-11-28] MEDS: Aspirin Enteric Coated 81 MG Tablet PO SCH (09:02)
[2019-11-28] MEDS: Topiramate 25 MG TABLET PO SCH ×2 (09:03→19:55)
[2019-11-28] MEDS: Lactobacillus 1 EACH CAP.SPRINK PO SCH ×2 (09:03→19:56)
[2019-11-28] MEDS: Isosorbide MONOnitrate (24 HR) 30 MG TAB.ER.24H PO SCH (09:03)
[2019-11-28] MEDS: Sennosides 8.6 MG TABLET PO SCH (09:03)
[2019-11-28] MEDS: Magnesium Oxide 400 MG TABLET PO SCH (09:03)
[2019-11-28] MEDS: Artificial Tears SOLN 15 ML BOTTLE BOTH EYES SCH (09:15)
[2019-11-28] MEDS: Fluticasone Propionate Nasal 50 MCG/SPRAY BOTTLE NS SCH (10:04)
[2019-11-28] MEDS: Acetaminophen 325 MG TABLET PO PRN ×2 (10:06→19:56)
[2019-11-28] MEDS: *HR* LORazepam 0.5 MG TABLET PO PRN (19:55)
[2019-11-28] MEDS: Loratadine 10 MG TABLET PO SCH (19:56)
[2019-11-29] MEDS: Artificial Tears SOLN 15 ML BOTTLE BOTH EYES SCH ×3 (00:22→21:09)
[2019-11-29] MEDS: Ipratropium 1 PUFF INHALER IH SCH ×2 (04:02→07:19)
[2019-11-29] MEDS: Insulin LISPRO 300 UNITS/3 ML VIAL SQ SCH ×7 (04:58→21:09)
[2019-11-29] MEDS: *HR* Enoxaparin 40 MG/0.4 ML SYRINGE SQ SCH (05:04)
[2019-11-29 07:01] LABS: BUN/Creatinine Ratio 50 (6-26); Blood Urea Nitrogen 30 mg/dL (8-23); Carbon Dioxide 24 mEq/L (23-29); Chloride 107 mEq/L (98-107); Glucose 110 mg/dL (70-105); Osmolality,Calculated 291 (280-300); Potassium 3.9 mEq/L (3.5-5.1); Sodium 137 mEq/L (136-145); eGFR For African Americans > 60 (> 60); eGFR For Non-African Americans > 60 (> 60)
[2019-11-29] MEDS: Dexamethasone 4 MG/ML VIAL IVP SCH (08:18)
[2019-11-29] MEDS: Sennosides 8.6 MG TABLET PO SCH (08:19)
[2019-11-29] MEDS: Gabapentin 300 MG CAPSULE PO SCH ×2 (08:19→19:16)
[2019-11-29] MEDS: Aspirin Enteric Coated 81 MG Tablet PO SCH (08:20)
[2019-11-29] MEDS: Topiramate 25 MG TABLET PO SCH ×2 (08:20→21:09)
[2019-11-29] MEDS: Magnesium Oxide 400 MG TABLET PO SCH (08:20)
[2019-11-29] MEDS: Fluticasone Propionate Nasal 50 MCG/SPRAY BOTTLE NS SCH (08:20)
[2019-11-29] MEDS: Lactobacillus 1 EACH CAP.SPRINK PO SCH ×2 (08:20→21:09)
[2019-11-29] MEDS: Isosorbide MONOnitrate (24 HR) 30 MG TAB.ER.24H PO SCH (08:20)
[2019-11-29] MEDS ORDERED: Ipratropium 1 PUFF INHALER IH PRN (09:42)
[2019-11-29] MEDS: amLODIPine 5 MG TABLET PO SCH (11:15)
[2019-11-29] MEDS: Loratadine 10 MG TABLET PO SCH (21:09)
[2019-11-30 02:30] LABS: BUN/Creatinine Ratio 51 (6-26); Blood Urea Nitrogen 28 mg/dL (8-23); Calcium 8.8 mg/dL (8.6-10.3); Carbon Dioxide 22 mEq/L (23-29); Chloride 106 mEq/L (98-107); Glucose 132 mg/dL (70-105); Osmolality,Calculated 291 (280-300); Potassium 3.8 mEq/L (3.5-5.1); Sodium 137 mEq/L (136-145); eGFR For African Americans > 60 (> 60); eGFR For Non-African Americans > 60 (> 60)
[2019-11-30] MEDS: Acetaminophen 325 MG TABLET PO PRN ×2 (03:16→22:23)
[2019-11-30] MEDS: *HR* Enoxaparin 40 MG/0.4 ML SYRINGE SQ SCH (07:35)
[2019-11-30] MEDS: Insulin LISPRO 300 UNITS/3 ML VIAL SQ SCH ×6 (08:04→23:16)
[2019-11-30] MEDS: Gabapentin 300 MG CAPSULE PO SCH ×2 (08:05→22:23)
[2019-11-30] MEDS: amLODIPine 5 MG TABLET PO SCH (08:05)
[2019-11-30] MEDS: Isosorbide MONOnitrate (24 HR) 30 MG TAB.ER.24H PO SCH (08:05)
[2019-11-30] MEDS: Magnesium Oxide 400 MG TABLET PO SCH (08:05)
[2019-11-30] MEDS: Sennosides 8.6 MG TABLET PO SCH (08:05)
[2019-11-30] MEDS: Lactobacillus 1 EACH CAP.SPRINK PO SCH ×2 (08:05→22:22)
[2019-11-30] MEDS: Topiramate 25 MG TABLET PO SCH ×2 (08:05→22:23)
[2019-11-30] MEDS: Aspirin Enteric Coated 81 MG Tablet PO SCH (08:06)
[2019-11-30] MEDS: Artificial Tears SOLN 15 ML BOTTLE BOTH EYES SCH (08:08)
[2019-11-30] MEDS: Fluticasone Propionate Nasal 50 MCG/SPRAY BOTTLE NS SCH (08:08)
[2019-11-30] MEDS: Acetaminophen/Butalbital/CaffeineTABLET PO PRN (15:39)
[2019-11-30] MEDS: *HR* LORazepam 0.5 MG TABLET PO PRN (22:23)
[2019-11-30] MEDS: Loratadine 10 MG TABLET PO SCH (22:23)
[2019-12-01] MEDS: *HR* Enoxaparin 40 MG/0.4 ML SYRINGE SQ SCH (06:38)
[2019-12-01] MEDS: Artificial Tears SOLN 15 ML BOTTLE BOTH EYES SCH ×2 (06:39→08:07)
[2019-12-01] MEDS: Insulin LISPRO 300 UNITS/3 ML VIAL SQ SCH ×3 (07:31→11:10)
[2019-12-01 08:06] VITALS: BP 118/68
[2019-12-01] MEDS: Gabapentin 300 MG CAPSULE PO SCH (08:07)
[2019-12-01] MEDS: Isosorbide MONOnitrate (24 HR) 30 MG TAB.ER.24H PO SCH (08:07)
[2019-12-01] MEDS: Lactobacillus 1 EACH CAP.SPRINK PO SCH (08:07)
[2019-12-01] MEDS: Aspirin Enteric Coated 81 MG Tablet PO SCH (08:07)
[2019-12-01] MEDS: Fluticasone Propionate Nasal 50 MCG/SPRAY BOTTLE NS SCH (08:07)
[2019-12-01] MEDS: Magnesium Oxide 400 MG TABLET PO SCH (08:07)
[2019-12-01] MEDS: amLODIPine 5 MG TABLET PO SCH (08:08)
[2019-12-01] MEDS: Topiramate 25 MG TABLET PO SCH (08:08)
[2019-12-01] MEDS: Sennosides 8.6 MG TABLET PO SCH (08:08)
== END 2019-12-01 14:04 | DRG 177 ==
LOC: EMEROOARM 18:41 → 3BNU 18:41 → SUATTDRO 22:29 → 3BNU 23:41 → SUATTDRO 11-17 16:44 → 2NENU 11-18 11:13
PROVIDERS: ADMIT Family Medicine; ATTEND Student in an Organized Health Care Education/Training Program

== ENCOUNTER 2020-09-30 01:47 | Inpatient (IN) ==
[2020-09-30] MEDS ORDERED: Isovue-370 500 ML BOTTLE IVP ONE (01:55)
[2020-09-30] MEDS ORDERED: Furosemide 40 MG/4 ML VIAL IVP ONE (01:56)
[2020-09-30 02:02] LABS: ABG Base Excess -5 mEq/L (-2 to 3); ABG HCO3 26 mEq/L (21-27); ABG Oxygen Saturation 84 % (95-98); ABG PCO2 76 mmHg (35-45); ABG PH 7.14 pH Units (7.32-7.45); ABG PO2 65 mmHg (85-104); ABG TCO2 28 mEq/L (20-26); Blood Gas Modality avaps; Blood Gas VT 500 cc
[2020-09-30] MEDS ORDERED: Insulin LISPRO 300 UNITS/3 ML VIAL SUBQ ONE (02:11)
[2020-09-30 02:25] LABS: Basophils % 0.4 %; Eosinophils # 0.2 K/mcL (0.0-0.6); Eosinophils % 2.1 %; Hematocrit 38.1 % (35.3-44.9); Hemoglobin 12.2 g/dL (11.5-15.4); Immature Granulocytes % 0.8 % (0-4); Lymphocytes # 5.3 K/mcL (0.6-4.6); Lymphocytes % 49.4 %; Mean Corpuscular Hemoglobin 30.8 pg (28.0-33.3); Mean Corpuscular Volume 96.2 fL (83.0-100.0); Mean Platelet Volume 10.6 fL (9.4-12.4); Monocytes # 0.7 K/mcL (0.0-1.3); Monocytes % 6.3 %; Neutrophils # 4.4 K/mcL (1.6-8.9); Platelet Count 172 K/mcL (140-400); Red Blood Count 3.96 M/mcL (3.82-4.97); Red Cell Distribution Width 12.8 % (11.5-14.5); White Blood Count 10.8 K/mcL (4.3-11.1)
[2020-09-30 02:47] LABS: Alanine Aminotransferase 12 Units/L (7-52); Albumin/Globulin Ratio 1.5 (1.1-2.2); Alkaline Phosphatase 83 Units/L (34-104); Aspartate Amino Transferase 16 Units/L (13-39); BUN/Creatinine Ratio 22 (6-26); Bilirubin,Direct 0.1 mg/dL (0.0-0.2); Bilirubin,Indirect 0.2 mg/dL (0.0-1.0); Bilirubin,Total 0.3 mg/dL (0.3-1.0); Blood Urea Nitrogen 19 mg/dL (8-23); Calcium 8.7 mg/dL (8.6-10.3); Carbon Dioxide 22 mEq/L (23-29); Chloride 99 mEq/L (98-107); Globulin 2.7 g/dL (2.4-3.5); Glucose 387 mg/dL (70-105); Osmolality,Calculated 298 (280-300); Potassium 3.8 mEq/L (3.5-5.1); Sodium 135 mEq/L (136-145); Total Protein 6.7 g/dL (6.4-8.9); Troponin I < 0.03 ng/mL (< 0.04); eGFR For African Americans > 60 (> 60); eGFR For Non-African Americans > 60 (> 60)
[2020-09-30 03:33] LABS: ABG Base Excess 2 mEq/L (-2 to 3); ABG HCO3 29 mEq/L (21-27); ABG Oxygen Saturation 98 % (95-98); ABG PCO2 59 mmHg (35-45); ABG PO2 117 mmHg (85-104); ABG TCO2 31 mEq/L (20-26); Blood Gas VT 500 cc
[2020-09-30] MEDS ORDERED: *HR* Dextrose 50 % in Water (Vial) 50 ML VIAL IVP PRN (07:31)
[2020-09-30] MEDS ORDERED: D5% in Water 1,000 ML IVC PRN (07:31)
[2020-09-30] MEDS ORDERED: Dextrose Gel 15 GM/37.5 ML TUBE PO PRN ×2 (07:31)
[2020-09-30] MEDS ORDERED: Ondansetron 4 MG/2 ML VIAL IVP PRN (07:31)
[2020-09-30] MEDS ORDERED: Naloxone 0.4 MG/ML INJ IVP PRN (07:31)
[2020-09-30] MEDS ORDERED: Benzonatate 100 MG CAPSULE PO PRN (07:35)
[2020-09-30] MEDS ORDERED: Ipratropium/Albuterol Neb 3 ML IH PRN (07:35)
[2020-09-30] MEDS ORDERED: Perflutren Lipid Microsphere 1.3 ML in 0.9 % Sodium Chloride 8.7 ML IVP PRN (11:07)
[2020-09-30] MEDS: Ipratropium/Albuterol Neb 3 ML IH SCH ×3 (11:29→21:24)
[2020-09-30] MEDS: Insulin LISPRO 300 UNITS/3 ML VIAL SUBQ SCH ×2 (11:31→17:32)
[2020-09-30] MEDS: Furosemide 40 MG/4 ML VIAL IVP SCH (13:04)
[2020-09-30] MEDS: MethylPREDNISolone 40 MG/ML VIAL IVP SCH (17:38)
[2020-09-30] MEDS: levETIRAcetam 250 MG TABLET PO SCH (20:15)
[2020-09-30] MEDS: Acetaminophen 325 MG TABLET PO PRN (20:47)
[2020-09-30] MEDS ORDERED: Insulin DETEMIR 100 UNIT/ML X5UNITS SUBQ SCH (21:00)
[2020-10-01] MEDS: Insulin LISPRO 300 UNITS/3 ML VIAL SUBQ SCH ×5 (00:14→23:17)
[2020-10-01 02:11] LABS: Basophils % 0.2 %; Hematocrit 37.8 % (35.3-44.9); Hemoglobin 12.6 g/dL (11.5-15.4); Immature Granulocytes % 0.4 % (0-4); Lymphocytes # 0.8 K/mcL (0.6-4.6); Lymphocytes % 7.5 %; Mean Corpuscular HGB Conc 33.3 g/dL (31.6-35.5); Mean Corpuscular Volume 93.1 fL (83.0-100.0); Mean Platelet Volume 10.7 fL (9.4-12.4); Monocytes # 0.2 K/mcL (0.0-1.3); Monocytes % 1.8 %; Platelet Count 144 K/mcL (140-400); Red Blood Count 4.06 M/mcL (3.82-4.97); Red Cell Distribution Width 12.5 % (11.5-14.5); Segmented Neutrophils % 90.1 %
[2020-10-01 02:30] LABS: BUN/Creatinine Ratio 22 (6-26); Blood Urea Nitrogen 15 mg/dL (8-23); Calcium 9.3 mg/dL (8.6-10.3); Carbon Dioxide 27 mEq/L (23-29); Chloride 96 mEq/L (98-107); Glucose 356 mg/dL (70-105); Magnesium 1.3 mg/dL (1.6-2.6); Osmolality,Calculated 297 (280-300); Potassium 4.1 mEq/L (3.5-5.1); Sodium 136 mEq/L (136-145); eGFR For African Americans > 60 (> 60); eGFR For Non-African Americans > 60 (> 60)
[2020-10-01] MEDS ORDERED: *HR* LORazepam 2 MG/ML VIAL IVP ONE ×3 (03:24→20:31)
[2020-10-01] MEDS: Ipratropium/Albuterol Neb 3 ML IH SCH ×4 (04:05→22:11)
[2020-10-01] MEDS: *HR* Enoxaparin 40 MG/0.4 ML SYRINGE SQ SCH (05:33)
[2020-10-01] MEDS: MethylPREDNISolone 40 MG/ML VIAL IVP SCH ×2 (05:39→18:01)
[2020-10-01] MEDS: Acetaminophen 325 MG TABLET PO PRN (05:41)
[2020-10-01] MEDS ORDERED: *HR* LORazepam 2 MG/ML VIAL ONE (06:56)
[2020-10-01] MEDS: Furosemide 40 MG/4 ML VIAL IVP SCH (10:18)
[2020-10-01] MEDS: amLODIPine 5 MG TABLET PO SCH (10:19)
[2020-10-01] MEDS: Aspirin Enteric Coated 81 MG Tablet PO SCH (10:19)
[2020-10-01] MEDS: levETIRAcetam 250 MG TABLET PO SCH ×2 (10:19→21:08)
[2020-10-01 12:14] LABS: VBG HCO3 30 mEq/L (21-27); VBG PCO2 41 mmHg (41-51); VBG PH 7.47 pH Units (7.32-7.42); VBG PO2 206 mmHg (25-50)
[2020-10-01] MEDS ORDERED: *HR* Metoprolol 5 MG/5 ML VIAL IVP ONE (20:30)
[2020-10-01] MEDS: Insulin DETEMIR 100 UNIT/ML X5UNITS SUBQ SCH (22:07)
[2020-10-02] MEDS: Ipratropium/Albuterol Neb 3 ML IH SCH ×4 (04:27→21:39)
[2020-10-02] MEDS: Insulin LISPRO 300 UNITS/3 ML VIAL SUBQ SCH ×3 (04:55→17:11)
[2020-10-02] MEDS: *HR* Enoxaparin 40 MG/0.4 ML SYRINGE SQ SCH (04:56)
[2020-10-02] MEDS: MethylPREDNISolone 40 MG/ML VIAL IVP SCH (04:57)
[2020-10-02 05:34] LABS: Basophils % 0.1 %; Hematocrit 38.4 % (35.3-44.9); Hemoglobin 13.3 g/dL (11.5-15.4); Immature Granulocytes % 0.4 % (0-4); Lymphocytes # 1.3 K/mcL (0.6-4.6); Lymphocytes % 8.4 %; Mean Corpuscular HGB Conc 34.6 g/dL (31.6-35.5); Mean Corpuscular Hemoglobin 31.7 pg (28.0-33.3); Mean Corpuscular Volume 91.4 fL (83.0-100.0); Mean Platelet Volume 10.8 fL (9.4-12.4); Monocytes # 0.9 K/mcL (0.0-1.3); Monocytes % 5.5 %; Neutrophils # 13.5 K/mcL (1.6-8.9); Platelet Count 180 K/mcL (140-400); Red Cell Distribution Width 12.7 % (11.5-14.5); Segmented Neutrophils % 85.6 %
[2020-10-02 05:39] LABS: White Blood Count 15.8 K/mcL (4.3-11.1)
[2020-10-02 05:54] LABS: BUN/Creatinine Ratio 31 (6-26); Blood Urea Nitrogen 20 mg/dL (8-23); Calcium 9.5 mg/dL (8.6-10.3); Carbon Dioxide 30 mEq/L (23-29); Chloride 97 mEq/L (98-107); Glucose 241 mg/dL (70-105); Osmolality,Calculated 293 (280-300); Sodium 136 mEq/L (136-145); eGFR For African Americans > 60 (> 60); eGFR For Non-African Americans > 60 (> 60)
[2020-10-02] MEDS ORDERED: Acetaminophen IV 500 MG/50 ML BAG IVPB ONE (06:38)
[2020-10-02] MEDS: amLODIPine 5 MG TABLET PO SCH (08:09)
[2020-10-02] MEDS: Aspirin Enteric Coated 81 MG Tablet PO SCH (08:09)
[2020-10-02] MEDS: levETIRAcetam 250 MG TABLET PO SCH ×2 (08:14→20:13)
[2020-10-02] MEDS: Isosorbide MONOnitrate (24 HR) 30 MG TAB.ER.24H PO SCH (11:46)
[2020-10-02] MEDS: lisinopriL 20 MG TABLET PO SCH (11:46)
[2020-10-02] MEDS: Acetaminophen 325 MG TABLET PO PRN (17:10)
[2020-10-02] MEDS: Insulin DETEMIR 100 UNIT/ML X5UNITS SUBQ SCH (20:11)
[2020-10-03] MEDS: Insulin LISPRO 300 UNITS/3 ML VIAL SUBQ SCH ×5 (00:27→23:58)
[2020-10-03] MEDS: Acetaminophen 325 MG TABLET PO PRN (02:55)
[2020-10-03] MEDS: Ipratropium/Albuterol Neb 3 ML IH SCH ×4 (03:34→22:31)
[2020-10-03] MEDS: *HR* Enoxaparin 40 MG/0.4 ML SYRINGE SQ SCH (05:29)
[2020-10-03] MEDS: lisinopriL 20 MG TABLET PO SCH (09:51)
[2020-10-03] MEDS: Isosorbide MONOnitrate (24 HR) 30 MG TAB.ER.24H PO SCH (09:51)
[2020-10-03] MEDS: amLODIPine 5 MG TABLET PO SCH (09:51)
[2020-10-03] MEDS: Aspirin Enteric Coated 81 MG Tablet PO SCH (09:51)
[2020-10-03] MEDS: levETIRAcetam 250 MG TABLET PO SCH ×2 (09:52→20:18)
[2020-10-03] MEDS: *HR* HYDROcodone/Acet 5/325 mg TABLET PO PRN ×2 (11:34→17:45)
[2020-10-03] MEDS: *HR* LORazepam 2 MG/ML VIAL IVP PRN ×2 (11:34→17:45)
[2020-10-03] MEDS ORDERED: traZODone 50 MG TABLET PO PRN (12:58)
[2020-10-03] MEDS: Gabapentin 300 MG CAPSULE PO SCH ×2 (16:09→20:25)
[2020-10-03] MEDS: Insulin DETEMIR 100 UNIT/ML X5UNITS SUBQ SCH (20:18)
[2020-10-04 03:39] LABS: Basophils % 0.3 %; Eosinophils # 0.1 K/mcL (0.0-0.6); Eosinophils % 0.7 %; Hematocrit 37.3 % (35.3-44.9); Hemoglobin 12.7 g/dL (11.5-15.4); Immature Granulocytes % 0.3 % (0-4); Lymphocytes # 2.3 K/mcL (0.6-4.6); Lymphocytes % 20.2 %; Mean Corpuscular Hemoglobin 31.8 pg (28.0-33.3); Mean Corpuscular Volume 93.5 fL (83.0-100.0); Mean Platelet Volume 10.5 fL (9.4-12.4); Monocytes # 1.2 K/mcL (0.0-1.3); Monocytes % 10.6 %; Neutrophils # 7.8 K/mcL (1.6-8.9); Platelet Count 168 K/mcL (140-400); Red Blood Count 3.99 M/mcL (3.82-4.97); Red Cell Distribution Width 12.8 % (11.5-14.5); Segmented Neutrophils % 67.9 %; White Blood Count 11.5 K/mcL (4.3-11.1)
[2020-10-04] MEDS: Ipratropium/Albuterol Neb 3 ML IH SCH ×3 (03:54→15:51)
[2020-10-04 03:58] LABS: BUN/Creatinine Ratio 41 (6-26); Blood Urea Nitrogen 36 mg/dL (8-23); Carbon Dioxide 31 mEq/L (23-29); Chloride 101 mEq/L (98-107); Glucose 194 mg/dL (70-105); Magnesium 1.6 mg/dL (1.6-2.6); Osmolality,Calculated 300 (280-300); Phosphorous 3.8 mg/dL (2.7-4.5); Potassium 3.5 mEq/L (3.5-5.1); Sodium 138 mEq/L (136-145); eGFR For African Americans > 60 (> 60); eGFR For Non-African Americans > 60 (> 60)
[2020-10-04] MEDS: *HR* Enoxaparin 40 MG/0.4 ML SYRINGE SQ SCH (05:36)
[2020-10-04] MEDS: *HR* HYDROcodone/Acet 5/325 mg TABLET PO PRN ×2 (05:36→12:12)
[2020-10-04] MEDS: Insulin LISPRO 300 UNITS/3 ML VIAL SUBQ SCH ×2 (05:38→12:13)
[2020-10-04] MEDS ORDERED: Sennosides 8.6 MG TABLET PO SCH (08:00)
[2020-10-04] MEDS ORDERED: Magnesium Oxide 400 MG TABLET PO SCH (08:00)
[2020-10-04] MEDS ORDERED: Furosemide 20 MG TABLET PO SCH (08:00)
[2020-10-04] MEDS: Isosorbide MONOnitrate (24 HR) 30 MG TAB.ER.24H PO SCH (08:06)
[2020-10-04] MEDS: lisinopriL 20 MG TABLET PO SCH (08:07)
[2020-10-04] MEDS: Gabapentin 300 MG CAPSULE PO SCH ×2 (08:07→14:39)
[2020-10-04] MEDS: Aspirin Enteric Coated 81 MG Tablet PO SCH (08:07)
[2020-10-04] MEDS: levETIRAcetam 250 MG TABLET PO SCH (08:09)
[2020-10-04] MEDS ORDERED: amLODIPine 5 MG TABLET PO SCH (09:00)
[2020-10-04] MEDS: *HR* LORazepam 2 MG/ML VIAL IVP PRN (10:01)
[2020-10-04 11:42] VITALS: BP 135/75
[2020-10-04] MEDS ORDERED: 0.9 % Sodium Chloride 1,000 ML IVC SCH (14:30)
== END 2020-10-04 16:40 | disposition short-term general hospital (02) | DRG 205 ==
LOC: 2ANU 01:47 → EMEROOARM 01:47 → SUATTDRO 04:10 → 2ANU 04:55
PROVIDERS: ADMIT Family Medicine; ATTEND Internal Medicine

== ENCOUNTER 2020-11-12 11:47 | Inpatient (IN) ==
[2020-11-12] MEDS ORDERED: methylPREDNISolone 125 MG/2 ML VIAL IVP ONE (11:57)
[2020-11-12] MEDS ORDERED: Furosemide 40 MG/4 ML VIAL IVP ONE (11:57)
[2020-11-12 12:32] LABS: Lymphocytes % 23.3 %; Monocytes % 5.8 %; Red Blood Count 4.01 M/mcL (3.82-4.97)
[2020-11-12 12:32] LABS: VBG HCO3 29 mEq/L (21-27); VBG PCO2 43 mmHg (41-51); VBG PH 7.43 pH Units (7.32-7.42); VBG PO2 106 mmHg (25-50)
[2020-11-12 12:33] LABS: Basophils % 0.3 %; Eosinophils # 0.2 K/mcL (0.0-0.6); Eosinophils % 1.8 %; Hematocrit 38.3 % (35.3-44.9); Hemoglobin 12.6 g/dL (11.5-15.4); Immature Granulocytes % 0.5 % (0-4); Lymphocytes # 2.2 K/mcL (0.6-4.6); Mean Corpuscular HGB Conc 32.9 g/dL (31.6-35.5); Mean Corpuscular Hemoglobin 31.4 pg (28.0-33.3); Mean Corpuscular Volume 95.5 fL (83.0-100.0); Mean Platelet Volume 11.2 fL (9.4-12.4); Monocytes # 0.6 K/mcL (0.0-1.3); Neutrophils # 6.6 K/mcL (1.6-8.9); Platelet Count 145 K/mcL (140-400); Red Cell Distribution Width 12.9 % (11.5-14.5); Segmented Neutrophils % 68.3 %; White Blood Count 9.6 K/mcL (4.3-11.1)
[2020-11-12 13:05] LABS: Alanine Aminotransferase 7 Units/L (7-52); Albumin 4.1 g/dL (3.5-5.7); Albumin/Globulin Ratio 1.5 (1.1-2.2); Alkaline Phosphatase 88 Units/L (34-104); Aspartate Amino Transferase 13 Units/L (13-39); BUN/Creatinine Ratio 25 (6-26); Bilirubin,Indirect 0.3 mg/dL (0.0-1.0); Bilirubin,Total 0.3 mg/dL (0.3-1.0); Blood Urea Nitrogen 20 mg/dL (8-23); Calcium 8.9 mg/dL (8.6-10.3); Carbon Dioxide 25 mEq/L (23-29); Chloride 102 mEq/L (98-107); Globulin 2.7 g/dL (2.4-3.5); Glucose 258 mg/dL (70-105); Osmolality,Calculated 297 (280-300); Potassium 4.1 mEq/L (3.5-5.1); Sodium 138 mEq/L (136-145); Total Protein 6.8 g/dL (6.4-8.9); Troponin I < 0.03 ng/mL (< 0.04); eGFR For African Americans > 60 (> 60); eGFR For Non-African Americans > 60 (> 60)
[2020-11-12] MEDS ORDERED: Naloxone 0.4 MG/ML INJ IVP PRN (14:27)
[2020-11-12] MEDS ORDERED: *HR* Dextrose 50 % in Water (Vial) 50 ML VIAL IVP PRN (14:29)
[2020-11-12] MEDS ORDERED: Dextrose Gel 15 GM/37.5 ML TUBE PO PRN ×2 (14:29)
[2020-11-12] MEDS ORDERED: D5% in Water 1,000 ML IVC PRN (14:29)
[2020-11-12] MEDS ORDERED: Isovue-370 500 ML BOTTLE IVP ONE (14:30)
[2020-11-12] MEDS: Ipratropium/Albuterol Neb 3 ML IH SCH ×2 (15:29→19:44)
[2020-11-12] MEDS: Nystatin POWDER 30 GM BOTTLE TP SCH ×2 (15:53→22:03)
[2020-11-12 17:08] LABS: Adenovirus Not Detected (Not Detect); Bordetella Pertussis Not Detected (Not Detect); Chlamydophila pneumoniae Not Detected (Not Detect); Coronavirus 229E Not Detected (Not Detect); Coronavirus HKU1 Not Detected (Not Detect); Coronavirus NL63 Not Detected (Not Detect); Coronavirus OC43 Not Detected (Not Detect); Human Metapneumovirus Not Detected (Not Detect); Human Rhinovirus/Enterovirus Not Detected (Not Detect); Influenza A Subtype 2009 H1 Not Detected (Not Detect); Influenza B Not Detected (Not Detect); Mycoplasma pneumoniae Not Detected (Not Detect); Parainfluenza Virus 1 Not Detected (Not Detect); Parainfluenza Virus 2 Not Detected (Not Detect); Parainfluenza Virus 3 Not Detected (Not Detect); Parainfluenza Virus 4 Not Detected (Not Detect); Respiratory Syncytial Virus Not Detected (Not Detect); SARS-CoV-2 Not Detected (Not Detect)
[2020-11-12] MEDS: levETIRAcetam 250 MG TABLET PO SCH (17:12)
[2020-11-12] MEDS: Insulin LISPRO 300 UNITS/3 ML VIAL SUBQ SCH ×2 (17:12→22:05)
[2020-11-12] MEDS ORDERED: Doxycycline 100 MG in 0.9 % Sodium Chloride Mini Bag 100 ML IVPB SCH ×2 (18:00→21:00)
[2020-11-12 19:10] LABS: Estimated Average Glucose 169 mg/dl; Hemoglobin A1C 7.5 %
[2020-11-13] MEDS: Ipratropium/Albuterol Neb 3 ML IH SCH ×7 (00:24→23:19)
[2020-11-13 01:18] LABS: Hematocrit 34.6 % (35.3-44.9); Hemoglobin 11.4 g/dL (11.5-15.4); Mean Corpuscular HGB Conc 32.9 g/dL (31.6-35.5); Mean Corpuscular Hemoglobin 31.1 pg (28.0-33.3); Mean Corpuscular Volume 94.5 fL (83.0-100.0); Mean Platelet Volume 10.6 fL (9.4-12.4); Platelet Count 187 K/mcL (140-400); Red Blood Count 3.66 M/mcL (3.82-4.97); Red Cell Distribution Width 12.4 % (11.5-14.5); White Blood Count 12.3 K/mcL (4.3-11.1)
[2020-11-13 01:35] LABS: Alanine Aminotransferase 8 Units/L (7-52); Albumin 3.9 g/dL (3.5-5.7); Albumin/Globulin Ratio 1.5 (1.1-2.2); Alkaline Phosphatase 82 Units/L (34-104); Aspartate Amino Transferase 10 Units/L (13-39); BUN/Creatinine Ratio 29 (6-26); Bilirubin,Total 0.4 mg/dL (0.3-1.0); Blood Urea Nitrogen 21 mg/dL (8-23); Calcium 8.9 mg/dL (8.6-10.3); Carbon Dioxide 26 mEq/L (23-29); Chloride 97 mEq/L (98-107); Globulin 2.6 g/dL (2.4-3.5); Glucose 296 mg/dL (70-105); Osmolality,Calculated 296 (280-300); Potassium 3.9 mEq/L (3.5-5.1); Sodium 136 mEq/L (136-145); Total Protein 6.5 g/dL (6.4-8.9); eGFR For African Americans > 60 (> 60); eGFR For Non-African Americans > 60 (> 60)
[2020-11-13] MEDS: *HR* HYDROcodone/Acet 5/325 mg TABLET PO SCH (05:08)
[2020-11-13] MEDS: *HR* Enoxaparin 40 MG/0.4 ML SYRINGE SQ SCH (05:09)
[2020-11-13] MEDS ORDERED: predniSONE 20 MG TABLET PO SCH (09:00)
[2020-11-13] MEDS: levETIRAcetam 250 MG TABLET PO SCH (09:27)
[2020-11-13] MEDS: Doxycycline 100 MG CAPSULE PO SCH ×2 (09:35→20:40)
[2020-11-13] MEDS: Furosemide 40 MG/4 ML VIAL IVP SCH (09:36)
[2020-11-13] MEDS: Insulin LISPRO 300 UNITS/3 ML VIAL SUBQ SCH ×4 (09:38→20:41)
[2020-11-13] MEDS ORDERED: MethylPREDNISolone 40 MG/ML VIAL IVP ONE (09:59)
[2020-11-13] MEDS: Nystatin POWDER 30 GM BOTTLE TP SCH ×2 (10:48→20:41)
[2020-11-13] MEDS: Gabapentin 300 MG CAPSULE PO SCH ×3 (10:48→20:40)
[2020-11-13] MEDS: Budesonide/Formoterol 160/4.5 1 PUFF INH IH SCH ×2 (11:33→20:08)
[2020-11-13] MEDS: Insulin NPH 100 UNIT/ML (x5UNIT) SUBQ SCH ×2 (12:30→18:15)
[2020-11-13] MEDS: MethylPREDNISolone 40 MG/ML VIAL IVP SCH (15:16)
[2020-11-13 17:48] LABS: Bacteria,Urine Few per hpf (None-Few); Bilirubin,Urine Negative (Negative); Blood,Urine Negative (Negative); Clarity,Urine Clear (Clear); Color,Urine Colorless (Yellow); Glucose,Urine (UA) 500 mg/dL (Normal); Ketones,Urine Negative (Negative); Leukocyte Esterase,Urine Negative (Negative); Nitrite,Urine Negative (Negative); PH,Urine 6.5 pH Units (5.0-8.0); Protein,Urine Negative (Neg-Trace); Specific Gravity,Urine > 1.030 (1.010-1.025); Squamous Epithelial Cell,Urine Few per hpf (None-Few); Urobilinogen,Urine Normal (Normal); WBC,Urine 0-3 per hpf (0-3)
[2020-11-13] MEDS ORDERED: NON-FORMULARY MEDICATION 1 EACH EACH (Pantoprazole Sodium [Protonix] 40 MG Tablet.Dr) PO SCH (19:00)
[2020-11-13] MEDS ORDERED: Insulin NPH 100 UNIT/ML (x5UNIT) SUBQ SCH (19:00)
[2020-11-13] MEDS: Famotidine 20 MG TABLET PO SCH (20:40)
[2020-11-13] MEDS: traZODone 50 MG TABLET PO PRN (20:41)
[2020-11-14] MEDS: MethylPREDNISolone 40 MG/ML VIAL IVP SCH ×3 (00:20→15:50)
[2020-11-14 03:07] LABS: Hematocrit 35.1 % (35.3-44.9); Hemoglobin 12.1 g/dL (11.5-15.4); Mean Corpuscular HGB Conc 34.5 g/dL (31.6-35.5); Mean Corpuscular Hemoglobin 32.6 pg (28.0-33.3); Mean Corpuscular Volume 94.6 fL (83.0-100.0); Mean Platelet Volume 10.5 fL (9.4-12.4); Platelet Count 206 K/mcL (140-400); Red Blood Count 3.71 M/mcL (3.82-4.97); Red Cell Distribution Width 12.8 % (11.5-14.5); White Blood Count 17.1 K/mcL (4.3-11.1)
[2020-11-14 03:15] LABS: BUN/Creatinine Ratio 30 (6-26); Blood Urea Nitrogen 24 mg/dL (8-23); Calcium 8.9 mg/dL (8.6-10.3); Carbon Dioxide 29 mEq/L (23-29); Chloride 96 mEq/L (98-107); Glucose 327 mg/dL (70-105); Magnesium 1.4 mg/dL (1.6-2.6); Osmolality,Calculated 297 (280-300); Potassium 4.2 mEq/L (3.5-5.1); Sodium 135 mEq/L (136-145); eGFR For African Americans > 60 (> 60); eGFR For Non-African Americans > 60 (> 60)
[2020-11-14] MEDS: Ipratropium/Albuterol Neb 3 ML IH SCH ×5 (03:35→19:27)
[2020-11-14] MEDS: *HR* Enoxaparin 40 MG/0.4 ML SYRINGE SQ SCH (05:44)
[2020-11-14] MEDS: Budesonide/Formoterol 160/4.5 1 PUFF INH IH SCH ×2 (07:38→19:27)
[2020-11-14] MEDS: Doxycycline 100 MG CAPSULE PO SCH ×2 (07:41→20:21)
[2020-11-14] MEDS: amLODIPine 5 MG TABLET PO SCH (07:41)
[2020-11-14] MEDS: Gabapentin 300 MG CAPSULE PO SCH ×3 (07:42→20:22)
[2020-11-14] MEDS: *HR* HYDROcodone/Acet 5/325 mg TABLET PO SCH (07:42)
[2020-11-14] MEDS: Isosorbide MONOnitrate (24 HR) 30 MG TAB.ER.24H PO SCH (07:42)
[2020-11-14] MEDS: Aspirin Enteric Coated 81 MG Tablet PO SCH (07:42)
[2020-11-14] MEDS: Sennosides 8.6 MG TABLET PO SCH (07:42)
[2020-11-14] MEDS: Famotidine 20 MG TABLET PO SCH ×2 (07:42→20:21)
[2020-11-14] MEDS: lisinopriL 20 MG TABLET PO SCH (07:42)
[2020-11-14] MEDS: Insulin LISPRO 300 UNITS/3 ML VIAL SUBQ SCH ×4 (07:43→20:23)
[2020-11-14] MEDS: Insulin NPH 100 UNIT/ML (x5UNIT) SUBQ SCH ×2 (07:44→20:23)
[2020-11-14] MEDS: Furosemide 40 MG/4 ML VIAL IVP SCH ×2 (07:58→15:50)
[2020-11-14] MEDS: Nystatin POWDER 30 GM BOTTLE TP SCH ×2 (08:05→20:24)
[2020-11-14] MEDS: traZODone 50 MG TABLET PO PRN (20:33)
[2020-11-15] MEDS: Ipratropium/Albuterol Neb 3 ML IH SCH ×7 (00:13→23:23)
[2020-11-15] MEDS: MethylPREDNISolone 40 MG/ML VIAL IVP SCH (03:03)
[2020-11-15] MEDS: *HR* Enoxaparin 40 MG/0.4 ML SYRINGE SQ SCH (05:29)
[2020-11-15] MEDS: Budesonide/Formoterol 160/4.5 1 PUFF INH IH SCH ×2 (07:23→19:25)
[2020-11-15 08:13] LABS: BUN/Creatinine Ratio 44 (6-26); Blood Urea Nitrogen 34 mg/dL (8-23); Calcium 9.2 mg/dL (8.6-10.3); Carbon Dioxide 32 mEq/L (23-29); Chloride 96 mEq/L (98-107); Glucose 220 mg/dL (70-105); Magnesium 1.8 mg/dL (1.6-2.6); Osmolality,Calculated 296 (280-300); Potassium 3.4 mEq/L (3.5-5.1); Sodium 136 mEq/L (136-145); eGFR For African Americans > 60 (> 60); eGFR For Non-African Americans > 60 (> 60)
[2020-11-15] MEDS: Sennosides 8.6 MG TABLET PO SCH (08:50)
[2020-11-15] MEDS: Famotidine 20 MG TABLET PO SCH ×2 (08:50→20:23)
[2020-11-15] MEDS: lisinopriL 20 MG TABLET PO SCH (08:50)
[2020-11-15] MEDS: amLODIPine 5 MG TABLET PO SCH (08:50)
[2020-11-15] MEDS: Doxycycline 100 MG CAPSULE PO SCH ×2 (08:50→20:22)
[2020-11-15] MEDS: predniSONE 20 MG TABLET PO SCH (08:51)
[2020-11-15] MEDS: Furosemide 40 MG/4 ML VIAL IVP SCH ×2 (08:51→16:52)
[2020-11-15] MEDS: *HR* HYDROcodone/Acet 5/325 mg TABLET PO SCH (08:51)
[2020-11-15] MEDS: Isosorbide MONOnitrate (24 HR) 30 MG TAB.ER.24H PO SCH (08:51)
[2020-11-15] MEDS: Insulin NPH 100 UNIT/ML (x5UNIT) SUBQ SCH ×2 (08:52→16:55)
[2020-11-15] MEDS: Aspirin Enteric Coated 81 MG Tablet PO SCH (08:52)
[2020-11-15] MEDS: Nystatin POWDER 30 GM BOTTLE TP SCH ×2 (08:53→21:51)
[2020-11-15] MEDS: Insulin LISPRO 300 UNITS/3 ML VIAL SUBQ SCH ×4 (08:54→20:33)
[2020-11-15] MEDS: Gabapentin 300 MG CAPSULE PO SCH ×3 (08:57→20:22)
[2020-11-15 09:59] LABS: Hematocrit 36.2 % (35.3-44.9); Hemoglobin 12.3 g/dL (11.5-15.4); Mean Corpuscular Hemoglobin 32.5 pg (28.0-33.3); Mean Corpuscular Volume 95.8 fL (83.0-100.0); Mean Platelet Volume 11.1 fL (9.4-12.4); Platelet Count 185 K/mcL (140-400); Red Blood Count 3.78 M/mcL (3.82-4.97); Red Cell Distribution Width 12.9 % (11.5-14.5); White Blood Count 14.9 K/mcL (4.3-11.1)
[2020-11-15] MEDS: traZODone 50 MG TABLET PO PRN (20:22)
[2020-11-16] MEDS: Ipratropium/Albuterol Neb 3 ML IH SCH ×3 (03:32→11:11)
[2020-11-16] MEDS: *HR* Enoxaparin 40 MG/0.4 ML SYRINGE SQ SCH (05:59)
[2020-11-16 07:00] LABS: BUN/Creatinine Ratio 44 (6-26); Blood Urea Nitrogen 38 mg/dL (8-23); Calcium 8.8 mg/dL (8.6-10.3); Carbon Dioxide 33 mEq/L (23-29); Chloride 99 mEq/L (98-107); Glucose 176 mg/dL (70-105); Magnesium 1.9 mg/dL (1.6-2.6); Osmolality,Calculated 299 (280-300); Sodium 138 mEq/L (136-145); eGFR For African Americans > 60 (> 60); eGFR For Non-African Americans > 60 (> 60)
[2020-11-16] MEDS: Budesonide/Formoterol 160/4.5 1 PUFF INH IH SCH (07:27)
[2020-11-16] MEDS: Sennosides 8.6 MG TABLET PO SCH (08:23)
[2020-11-16] MEDS: Famotidine 20 MG TABLET PO SCH (08:23)
[2020-11-16] MEDS: Isosorbide MONOnitrate (24 HR) 30 MG TAB.ER.24H PO SCH (08:23)
[2020-11-16] MEDS: Doxycycline 100 MG CAPSULE PO SCH (08:23)
[2020-11-16] MEDS: lisinopriL 20 MG TABLET PO SCH (08:23)
[2020-11-16] MEDS: predniSONE 20 MG TABLET PO SCH (08:23)
[2020-11-16] MEDS: amLODIPine 5 MG TABLET PO SCH (08:23)
[2020-11-16] MEDS: *HR* HYDROcodone/Acet 5/325 mg TABLET PO SCH (08:23)
[2020-11-16] MEDS: Nystatin POWDER 30 GM BOTTLE TP SCH (08:24)
[2020-11-16] MEDS: Furosemide 40 MG/4 ML VIAL IVP SCH (08:24)
[2020-11-16] MEDS: Aspirin Enteric Coated 81 MG Tablet PO SCH (08:24)
[2020-11-16] MEDS: Gabapentin 300 MG CAPSULE PO SCH (08:29)
[2020-11-16] MEDS: Insulin LISPRO 300 UNITS/3 ML VIAL SUBQ SCH (08:29)
[2020-11-16] MEDS: Insulin NPH 100 UNIT/ML (x5UNIT) SUBQ SCH (08:29)
[2020-11-16 10:39] VITALS: BP 116/73; PULSE 73; TEMP 98.1
[2020-11-16 11:14] VITALS: O2SAT 92
== END 2020-11-16 13:23 | disposition home health service (06) | DRG 291 ==
LOC: EMEROOARM 11:47 → 2ANU 11:47 → SUATTDRO 13:50 → 2ANU 14:14
PROVIDERS: ADMIT Internal Medicine; ATTEND Internal Medicine

== ENCOUNTER 2020-11-21 09:00 | Inpatient (IN) ==
[2020-11-21] MEDS ORDERED: Ondansetron 4 MG/2 ML VIAL IVP ONE ×2 (09:08→10:02)
[2020-11-21] MEDS ORDERED: Isovue-370 500 ML BOTTLE IVP ONE (09:08)
[2020-11-21 09:33] LABS: Mean Corpuscular HGB Conc 33.3 g/dL (31.6-35.5); Mean Corpuscular Hemoglobin 31.6 pg (28.0-33.3); Mean Corpuscular Volume 94.8 fL (83.0-100.0); Mean Platelet Volume 10.8 fL (9.4-12.4); Platelet Count 176 K/mcL (140-400); Red Blood Count 4.43 M/mcL (3.82-4.97); Red Cell Distribution Width 12.3 % (11.5-14.5); White Blood Count 12.8 K/mcL (4.3-11.1)
[2020-11-21 09:42] LABS: INR 1.1; Prothrombin Time 12.3 Seconds (9.4-12.1)
[2020-11-21 09:45] LABS: Activated Partial Thrombo Time 29.6 Seconds (26.0-36.0)
[2020-11-21 09:50] LABS: BUN/Creatinine Ratio 29 (6-26); Blood Urea Nitrogen 21 mg/dL (8-23); Calcium 8.7 mg/dL (8.6-10.3); Carbon Dioxide 29 mEq/L (23-29); Chloride 96 mEq/L (98-107); Glucose 199 mg/dL (70-105); Osmolality,Calculated 289 (280-300); Potassium 3.8 mEq/L (3.5-5.1); Sodium 135 mEq/L (136-145); eGFR For African Americans > 60 (> 60); eGFR For Non-African Americans > 60 (> 60)
[2020-11-21 09:52] LABS: Troponin I < 0.03 ng/mL (< 0.04)
[2020-11-21] MEDS ORDERED: *HR* HYDROmorphone 2 MG/ML SYRINGE IVP ONE (10:02)
[2020-11-21] MEDS ORDERED: methylPREDNISolone 125 MG/2 ML VIAL IVP ONE (11:12)
[2020-11-21] MEDS ORDERED: methylPREDNISolone 125 MG/2 ML VIAL ONE (11:21)
[2020-11-21] MEDS: Ipratropium/Albuterol Neb 3 ML IH SCH ×4 (11:47→23:59)
[2020-11-21] MEDS ORDERED: Melatonin 3 MG TABLET PO PRN (13:08)
[2020-11-21] MEDS ORDERED: Naloxone 0.4 MG/ML INJ IVP PRN (13:08)
[2020-11-21] MEDS ORDERED: Acetaminophen 325 MG TABLET PO PRN (13:08)
[2020-11-21] MEDS: *HR* HYDROcodone/Acet 5/325 mg TABLET PO PRN ×2 (14:22→20:14)
[2020-11-21] MEDS: Doxycycline 100 MG CAPSULE PO SCH ×2 (14:22→20:14)
[2020-11-21 15:33] LABS: Magnesium 1.6 mg/dL (1.6-2.6); Troponin I < 0.03 ng/mL (< 0.04)
[2020-11-21] MEDS ORDERED: D5% in Water 1,000 ML IVC PRN (15:48)
[2020-11-21] MEDS ORDERED: Dextrose Gel 15 GM/37.5 ML TUBE PO PRN ×2 (15:48)
[2020-11-21] MEDS ORDERED: *HR* Dextrose 50 % in Water (Vial) 50 ML VIAL IVP PRN (15:48)
[2020-11-21 16:25] LABS: Chol/HDL Ratio 3.9 (0-4.9); Cholesterol 174 mg/dL (< 200); HDL Cholesterol 45 mg/dL (40-59); LDL Cholesterol,Calculated 85 mg/dL (< 100); Triglycerides 222 mg/dL (< 150)
[2020-11-21] MEDS: Budesonide/Formoterol 160/4.5 1 PUFF INH IH SCH (20:09)
[2020-11-21] MEDS: Aspirin Enteric Coated 81 MG Tablet PO SCH (20:14)
[2020-11-21] MEDS ORDERED: Insulin LISPRO 300 UNITS/3 ML VIAL SUBQ SCH (21:00)
[2020-11-21] MEDS: Insulin LISPRO 300 UNITS/3 ML VIAL SUBQ SCH (21:28)
[2020-11-21] MEDS ORDERED: Nystatin Cream 15 GM TUBE TP PRN (22:29)
[2020-11-22] MEDS: Insulin LISPRO 300 UNITS/3 ML VIAL SUBQ SCH ×6 (01:17→23:57)
[2020-11-22 01:36] LABS: Basophils % 0.1 %; Hematocrit 39.2 % (35.3-44.9); Hemoglobin 13.8 g/dL (11.5-15.4); Immature Granulocytes % 1.7 % (0-4); Lymphocytes # 0.9 K/mcL (0.6-4.6); Lymphocytes % 4.5 %; Mean Corpuscular HGB Conc 35.2 g/dL (31.6-35.5); Mean Corpuscular Hemoglobin 32.4 pg (28.0-33.3); Mean Platelet Volume 10.7 fL (9.4-12.4); Monocytes # 0.5 K/mcL (0.0-1.3); Monocytes % 2.4 %; Neutrophils # 17.9 K/mcL (1.6-8.9); Platelet Count 205 K/mcL (140-400); Red Blood Count 4.26 M/mcL (3.82-4.97); Segmented Neutrophils % 91.3 %
[2020-11-22 01:37] LABS: White Blood Count 19.6 K/mcL (4.3-11.1)
[2020-11-22 01:43] LABS: INR 1.1; Prothrombin Time 12.7 Seconds (9.4-12.1)
[2020-11-22 01:58] LABS: Albumin 3.9 g/dL (3.5-5.7); Albumin/Globulin Ratio 1.4 (1.1-2.2); Bilirubin,Total 0.4 mg/dL (0.3-1.0); Calcium 8.8 mg/dL (8.6-10.3); Globulin 2.7 g/dL (2.4-3.5); Magnesium 1.6 mg/dL (1.6-2.6); Phosphorous 4.2 mg/dL (2.7-4.5); Potassium 4.6 mEq/L (3.5-5.1); Total Protein 6.6 g/dL (6.4-8.9)
[2020-11-22 02:10] LABS: Thyroid Stimulating Hormone 0.335 mcIU/mL (0.340-5.600)
[2020-11-22 02:16] LABS: Estimated Average Glucose 189 mg/dl; Hemoglobin A1C 8.2 %
[2020-11-22] MEDS: Ipratropium/Albuterol Neb 3 ML IH SCH ×6 (03:57→23:12)
[2020-11-22] MEDS: Budesonide/Formoterol 160/4.5 1 PUFF INH IH SCH ×2 (07:35→19:47)
[2020-11-22] MEDS ORDERED: Gabapentin 300 MG CAPSULE PO SCH (08:00)
[2020-11-22] MEDS: *HR* HYDROcodone/Acet 5/325 mg TABLET PO PRN (08:26)
[2020-11-22] MEDS: Doxycycline 100 MG CAPSULE PO SCH ×2 (08:26→22:59)
[2020-11-22] MEDS: Ascorbic Acid 500 MG TABLET PO SCH (08:27)
[2020-11-22] MEDS: Aspirin Enteric Coated 81 MG Tablet PO SCH (08:27)
[2020-11-22] MEDS: Insulin DETEMIR 100 UNIT/ML X5UNITS SUBQ SCH (08:28)
[2020-11-22] MEDS: Artificial Tears SOLN 15 ML BOTTLE BOTH EYES SCH ×3 (08:29→20:51)
[2020-11-22] MEDS ORDERED: predniSONE 20 MG TABLET PO SCH (09:00)
[2020-11-22] MEDS ORDERED: *HR* LORazepam 2 MG/ML VIAL IVP ONE (13:00)
[2020-11-22] MEDS ORDERED: *HR* Midazolam HCl 5 MG/5 ML VIAL IVP ONE (14:29)
[2020-11-22] MEDS ORDERED: *HR* Rocuronium Bromide 50 MG/5 ML VIAL IVP ONE ×2 (14:29)
[2020-11-22] MEDS ORDERED: *HR* Propofol 200 MG/20 ML VIAL IVP ONE (14:29)
[2020-11-22] MEDS ORDERED: Ringers Solution, Lactated 500 ML IVC SCH (15:00)
[2020-11-22] MEDS ORDERED: *HR* LORazepam 0.5 MG TABLET PO PRN (15:54)
[2020-11-22] MEDS: *HR* Heparin 5,000 UNIT/ML VIAL SQ SCH (16:29)
[2020-11-22] MEDS ORDERED: Hydrocortisone Sodium Succ 100 MG/2 ML VIAL IVP ONE (18:01)
[2020-11-22] MEDS ORDERED: methylPREDNISolone 125 MG/2 ML VIAL IVP ONE (18:05)
[2020-11-22] MEDS ORDERED: methylPREDNISolone 125 MG/2 ML VIAL ONE (18:06)
[2020-11-22] MEDS ORDERED: FentaNYL (PF) 1,000 MCG/100 ML IV.SOLN IVC SCH (18:15)
[2020-11-22] MEDS ORDERED: Artificial Tears SOLN 15 ML BOTTLE BOTH EYES PRN (18:45)
[2020-11-22] MEDS: Norepinephrine 4 MG/254 ML IV.SOLN IVC SCH (19:00)
[2020-11-22 19:18] LABS: Adenovirus Not Detected (Not Detect); Coronavirus 229E Not Detected (Not Detect); Coronavirus HKU1 Not Detected (Not Detect); Coronavirus NL63 Not Detected (Not Detect); Coronavirus OC43 Not Detected (Not Detect)
[2020-11-22 19:19] LABS: Bordetella Pertussis Not Detected (Not Detect); Chlamydophila pneumoniae Not Detected (Not Detect); Human Metapneumovirus Not Detected (Not Detect); Human Rhinovirus/Enterovirus Not Detected (Not Detect); Influenza A Subtype 2009 H1 Not Detected (Not Detect); Influenza B Not Detected (Not Detect); Mycoplasma pneumoniae Not Detected (Not Detect); Parainfluenza Virus 1 Not Detected (Not Detect); Parainfluenza Virus 2 Not Detected (Not Detect); Parainfluenza Virus 3 Not Detected (Not Detect); Parainfluenza Virus 4 Not Detected (Not Detect); Respiratory Syncytial Virus Not Detected (Not Detect); SARS-CoV-2 Not Detected (Not Detect)
[2020-11-22] MEDS ORDERED: traZODone 50 MG TABLET PO PRN (20:00)
[2020-11-22 20:25] LABS: ABG Base Excess 1 mEq/L (-2 to 3); ABG HCO3 27 mEq/L (21-27); ABG Oxygen Saturation 94 % (95-98); ABG PCO2 45 mmHg (35-45); ABG PH 7.38 pH Units (7.32-7.45); ABG PO2 75 mmHg (85-104); ABG TCO2 28 mEq/L (20-26); Blood Gas VT 400 cc
[2020-11-22] MEDS: Piperacillin/Tazobactam 3.375 GM in 0.9 % Sodium Chloride Mini Bag 100 ML IVPB SCH (20:25)
[2020-11-22] MEDS: Chlorhexidine Rinse 15 ML MOUTHWASH MM SCH (20:27)
[2020-11-22] MEDS ORDERED: *HR* Metoprolol 5 MG/5 ML VIAL IVP ONE (20:42)
[2020-11-22 21:10] LABS: VBG Ionized Calcium 1.15 mmol/L (1.15-1.35)
[2020-11-22 21:11] LABS: Hematocrit 38.8 % (35.3-44.9); Hemoglobin 13.1 g/dL (11.5-15.4)
[2020-11-22 21:30] LABS: BUN/Creatinine Ratio 28 (6-26); Blood Urea Nitrogen 26 mg/dL (8-23); Carbon Dioxide 26 mEq/L (23-29); Chloride 96 mEq/L (98-107); Glucose 364 mg/dL (70-105); Magnesium 1.9 mg/dL (1.6-2.6); Osmolality,Calculated 298 (280-300); Phosphorous 2.7 mg/dL (2.7-4.5); Sodium 134 mEq/L (136-145); eGFR For African Americans > 60 (> 60); eGFR For Non-African Americans 59 (> 60)
[2020-11-22 21:57] LABS: Amorphous Sediment,Urine Few per hpf (None-Few); Bilirubin,Urine Negative (Negative); Blood,Urine Negative (Negative); Clarity,Urine Ex.Turbid (Clear); Color,Urine Yellow (Yellow); Glucose,Urine (UA) 100 mg/dL (Normal); Hyaline Casts,Urine Few per lpf (None Seen); Ketones,Urine Negative (Negative); Leukocyte Esterase,Urine Negative (Negative); Mucus,Urine Few per lpf (None-Few); Nitrite,Urine Negative (Negative); Protein,Urine Trace mg/dL (Neg-Trace); Specific Gravity,Urine > 1.030 (1.010-1.025); Urobilinogen,Urine Normal (Normal); WBC,Urine 50-100 per hpf (0-3)
[2020-11-22 22:27] LABS: Creatine Kinase 68 Units/L (30-223)
[2020-11-22] MEDS ORDERED: Insulin LISPRO 300 UNITS/3 ML VIAL SUBQ SCH (23:17)
[2020-11-23] MEDS ORDERED: MethylPREDNISolone 40 MG/ML VIAL IVP SCH
[2020-11-23] MEDS ORDERED: 0.9 % Sodium Chloride 1,000 ML IV ONE ×2 (00:04→05:29)
[2020-11-23] MEDS: FentaNYL (PF) 2,500 MCG/50 ML IV.SOLN IVC SCH ×2 (00:47→10:46)
[2020-11-23] MEDS: Ipratropium/Albuterol Neb 3 ML IH SCH ×6 (03:40→23:22)
[2020-11-23 04:10] LABS: ABG Base Excess 0 mEq/L (-2 to 3); ABG HCO3 24 mEq/L (21-27); ABG Oxygen Saturation 98 % (95-98); ABG PCO2 38 mmHg (35-45); ABG PH 7.41 pH Units (7.32-7.45); ABG PO2 95 mmHg (85-104); ABG TCO2 25 mEq/L (20-26); Blood Gas VT 400 cc
[2020-11-23] MEDS: Piperacillin/Tazobactam 3.375 GM in 0.9 % Sodium Chloride Mini Bag 100 ML IVPB SCH ×3 (04:41→18:27)
[2020-11-23] MEDS: Insulin LISPRO 300 UNITS/3 ML VIAL SUBQ SCH ×6 (04:43→23:29)
[2020-11-23] MEDS: Artificial Tears SOLN 15 ML BOTTLE BOTH EYES SCH ×8 (04:43→23:29)
[2020-11-23 05:05] LABS: Alanine Aminotransferase 12 Units/L (7-52); Albumin 3.3 g/dL (3.5-5.7); Albumin/Globulin Ratio 1.4 (1.1-2.2); Alkaline Phosphatase 69 Units/L (34-104); Aspartate Amino Transferase 11 Units/L (13-39); BUN/Creatinine Ratio 26 (6-26); Basophils % 0.1 %; Bilirubin,Direct 0.1 mg/dL (0.0-0.2); Bilirubin,Indirect 0.2 mg/dL (0.0-1.0); Bilirubin,Total 0.3 mg/dL (0.3-1.0); Blood Urea Nitrogen 24 mg/dL (8-23); Calcium 8.6 mg/dL (8.6-10.3); Carbon Dioxide 25 mEq/L (23-29); Chloride 98 mEq/L (98-107); Globulin 2.3 g/dL (2.4-3.5); Glucose 351 mg/dL (70-105); Hematocrit 33.8 % (35.3-44.9); Hemoglobin 11.7 g/dL (11.5-15.4); Immature Granulocytes % 1.3 % (0-4); Lymphocytes # 0.8 K/mcL (0.6-4.6); Lymphocytes % 3.9 %; Magnesium 2.1 mg/dL (1.6-2.6); Mean Corpuscular HGB Conc 34.6 g/dL (31.6-35.5); Mean Corpuscular Hemoglobin 32.1 pg (28.0-33.3); Mean Corpuscular Volume 92.9 fL (83.0-100.0); Monocytes # 0.6 K/mcL (0.0-1.3); Neutrophils # 18.3 K/mcL (1.6-8.9); Osmolality,Calculated 296 (280-300); Phosphorous 2.4 mg/dL (2.7-4.5); Platelet Count 188 K/mcL (140-400); Potassium 4.6 mEq/L (3.5-5.1); Red Blood Count 3.64 M/mcL (3.82-4.97); Red Cell Distribution Width 12.4 % (11.5-14.5); Segmented Neutrophils % 91.7 %; Sodium 134 mEq/L (136-145); Total Protein 5.6 g/dL (6.4-8.9); eGFR For African Americans > 60 (> 60); eGFR For Non-African Americans 60 (> 60)
[2020-11-23 05:19] LABS: INR 1.1; Prothrombin Time 12.7 Seconds (9.4-12.1)
[2020-11-23] MEDS: *HR* Heparin 5,000 UNIT/ML VIAL SQ SCH ×2 (06:25→16:52)
[2020-11-23] MEDS: Budesonide/Formoterol 160/4.5 1 PUFF INH IH SCH ×2 (07:44→19:45)
[2020-11-23] MEDS: Midazolam HCl 50 MG/100 ML IV.SOLN IVC SCH ×2 (08:08→16:20)
[2020-11-23] MEDS: Pantoprazole 40 MG VIAL IVP SCH (08:14)
[2020-11-23] MEDS: Chlorhexidine Rinse 15 ML MOUTHWASH MM SCH ×2 (08:16→20:11)
[2020-11-23] MEDS: Insulin DETEMIR 100 UNIT/ML X5UNITS SUBQ SCH (08:16)
[2020-11-23] MEDS: Ascorbic Acid 500 MG TABLET PO SCH (09:51)
[2020-11-23] MEDS ORDERED: Isovue-370 500 ML BOTTLE IVP ONE (10:37)
[2020-11-23] MEDS: Doxycycline 100 MG CAPSULE PO SCH ×2 (12:13→20:10)
[2020-11-23] MEDS: Albumin Human 5% 12.5 GM/250 ML IV.SOLN IVC SCH ×2 (12:41→16:43)
[2020-11-23] MEDS: Aspirin Enteric Coated 81 MG Tablet PO SCH (15:20)
[2020-11-23] MEDS: Norepinephrine 4 MG/254 ML IV.SOLN IVC SCH (16:20)
[2020-11-24] MEDS: FentaNYL (PF) 2,500 MCG/50 ML IV.SOLN IVC SCH ×2 (02:41→13:25)
[2020-11-24 03:14] LABS: Hematocrit 32.5 % (35.3-44.9); Hemoglobin 10.9 g/dL (11.5-15.4); Immature Granulocytes % 1.1 % (0-4); Lymphocytes % 4.6 %; Mean Corpuscular HGB Conc 33.5 g/dL (31.6-35.5); Mean Corpuscular Hemoglobin 31.4 pg (28.0-33.3); Mean Corpuscular Volume 93.7 fL (83.0-100.0); Mean Platelet Volume 10.8 fL (9.4-12.4); Monocytes % 4.9 %; Neutrophils # 18.3 K/mcL (1.6-8.9); Platelet Count 185 K/mcL (140-400); Red Blood Count 3.47 M/mcL (3.82-4.97); Red Cell Distribution Width 12.5 % (11.5-14.5); Segmented Neutrophils % 89.4 %; White Blood Count 20.5 K/mcL (4.3-11.1)
[2020-11-24] MEDS: Piperacillin/Tazobactam 3.375 GM in 0.9 % Sodium Chloride Mini Bag 100 ML IVPB SCH ×3 (03:17→18:27)
[2020-11-24] MEDS: Artificial Tears SOLN 15 ML BOTTLE BOTH EYES SCH ×5 (03:17→19:57)
[2020-11-24] MEDS: Ipratropium/Albuterol Neb 3 ML IH SCH ×6 (03:25→23:31)
[2020-11-24 03:33] LABS: INR 1.1; Prothrombin Time 13.1 Seconds (9.4-12.1)
[2020-11-24 03:36] LABS: Alanine Aminotransferase 11 Units/L (7-52); Albumin 3.5 g/dL (3.5-5.7); Albumin/Globulin Ratio 1.8 (1.1-2.2); Alkaline Phosphatase 57 Units/L (34-104); Aspartate Amino Transferase 11 Units/L (13-39); BUN/Creatinine Ratio 25 (6-26); Bilirubin,Direct 0.1 mg/dL (0.0-0.2); Bilirubin,Indirect 0.2 mg/dL (0.0-1.0); Bilirubin,Total 0.3 mg/dL (0.3-1.0); Blood Urea Nitrogen 19 mg/dL (8-23); Calcium 8.4 mg/dL (8.6-10.3); Carbon Dioxide 28 mEq/L (23-29); Chloride 102 mEq/L (98-107); Glucose 189 mg/dL (70-105); Magnesium 1.9 mg/dL (1.6-2.6); Osmolality,Calculated 291 (280-300); Phosphorous 3.3 mg/dL (2.7-4.5); Potassium 4.1 mEq/L (3.5-5.1); Sodium 137 mEq/L (136-145); Total Protein 5.5 g/dL (6.4-8.9); eGFR For African Americans > 60 (> 60); eGFR For Non-African Americans > 60 (> 60)
[2020-11-24 03:54] LABS: ABG Base Excess 2 mEq/L (-2 to 3); ABG HCO3 26 mEq/L (21-27); ABG Oxygen Saturation 95 % (95-98); ABG PCO2 38 mmHg (35-45); ABG PH 7.44 pH Units (7.32-7.45); ABG PO2 71 mmHg (85-104); ABG TCO2 27 mEq/L (20-26); Blood Gas VT 400 cc
[2020-11-24] MEDS: Insulin LISPRO 300 UNITS/3 ML VIAL SUBQ SCH ×5 (04:54→20:02)
[2020-11-24] MEDS: *HR* Heparin 5,000 UNIT/ML VIAL SQ SCH ×2 (04:54→18:27)
[2020-11-24] MEDS: Budesonide/Formoterol 160/4.5 1 PUFF INH IH SCH ×2 (07:29→19:24)
[2020-11-24] MEDS: Chlorhexidine Rinse 15 ML MOUTHWASH MM SCH ×2 (08:25→20:06)
[2020-11-24] MEDS: Pantoprazole 40 MG VIAL IVP SCH (08:26)
[2020-11-24] MEDS: Aspirin 81 MG TAB.CHEW GTUBE SCH (08:26)
[2020-11-24] MEDS: Doxycycline 100 MG CAPSULE PO SCH ×2 (08:26→20:06)
[2020-11-24] MEDS: Insulin DETEMIR 100 UNIT/ML X5UNITS SUBQ SCH (08:26)
[2020-11-24] MEDS ORDERED: *HR* Rocuronium Bromide 50 MG/5 ML VIAL IVP ONE (13:15)
[2020-11-24] MEDS: Norepinephrine 4 MG/254 ML IV.SOLN IVC SCH (16:58)
[2020-11-24] MEDS: Midazolam HCl 50 MG/100 ML IV.SOLN IVC SCH (16:58)
[2020-11-24 18:48] LABS: Appearance of Body Fluid Cloudy (Clear); Volume of Body Fluid 12 mL
[2020-11-24 18:55] LABS: Appearance of Body Fluid Cloudy (Clear); Volume of Body Fluid 15 mL
[2020-11-24] MEDS ORDERED: Furosemide 40 MG/4 ML VIAL IVP ONE (20:16)
[2020-11-25] MEDS: Insulin LISPRO 300 UNITS/3 ML VIAL SUBQ SCH ×7 (00:26→23:36)
[2020-11-25] MEDS: Artificial Tears SOLN 15 ML BOTTLE BOTH EYES SCH ×7 (00:26→23:36)
[2020-11-25] MEDS: FentaNYL (PF) 2,500 MCG/50 ML IV.SOLN IVC SCH ×2 (02:03→16:47)
[2020-11-25] MEDS: Ipratropium/Albuterol Neb 3 ML IH SCH ×6 (03:24→23:25)
[2020-11-25] MEDS: Piperacillin/Tazobactam 3.375 GM in 0.9 % Sodium Chloride Mini Bag 100 ML IVPB SCH ×3 (03:55→18:36)
[2020-11-25 04:24] LABS: Basophils % 0.1 %; Hematocrit 33.9 % (35.3-44.9); Hemoglobin 11.5 g/dL (11.5-15.4); Lymphocytes # 1.1 K/mcL (0.6-4.6); Lymphocytes % 6.4 %; Mean Corpuscular HGB Conc 33.9 g/dL (31.6-35.5); Mean Corpuscular Volume 94.4 fL (83.0-100.0); Mean Platelet Volume 10.8 fL (9.4-12.4); Monocytes # 0.9 K/mcL (0.0-1.3); Monocytes % 5.3 %; Neutrophils # 15.1 K/mcL (1.6-8.9); Platelet Count 184 K/mcL (140-400); Red Blood Count 3.59 M/mcL (3.82-4.97); Red Cell Distribution Width 12.4 % (11.5-14.5); Segmented Neutrophils % 86.2 %; White Blood Count 17.5 K/mcL (4.3-11.1)
[2020-11-25 04:27] LABS: ABG Base Excess 2 mEq/L (-2 to 3); ABG HCO3 27 mEq/L (21-27); ABG Oxygen Saturation 94 % (95-98); ABG PCO2 44 mmHg (35-45); ABG PO2 70 mmHg (85-104); ABG TCO2 28 mEq/L (20-26); Blood Gas VT 400 cc; VBG Ionized Calcium 1.14 mmol/L (1.15-1.35)
[2020-11-25 04:33] LABS: INR 1.2; Prothrombin Time 13.3 Seconds (9.4-12.1)
[2020-11-25 04:44] LABS: Alanine Aminotransferase 11 Units/L (7-52); Albumin 3.4 g/dL (3.5-5.7); Albumin/Globulin Ratio 1.5 (1.1-2.2); Alkaline Phosphatase 57 Units/L (34-104); Aspartate Amino Transferase 8 Units/L (13-39); BUN/Creatinine Ratio 29 (6-26); Bilirubin,Direct 0.1 mg/dL (0.0-0.2); Bilirubin,Indirect 0.2 mg/dL (0.0-1.0); Bilirubin,Total 0.3 mg/dL (0.3-1.0); Blood Urea Nitrogen 22 mg/dL (8-23); Calcium 8.4 mg/dL (8.6-10.3); Carbon Dioxide 27 mEq/L (23-29); Chloride 102 mEq/L (98-107); Globulin 2.2 g/dL (2.4-3.5); Glucose 198 mg/dL (70-105); Osmolality,Calculated 289 (280-300); Phosphorous 3.7 mg/dL (2.7-4.5); Potassium 4.1 mEq/L (3.5-5.1); Sodium 135 mEq/L (136-145); Total Protein 5.6 g/dL (6.4-8.9); eGFR For African Americans > 60 (> 60); eGFR For Non-African Americans > 60 (> 60)
[2020-11-25] MEDS: *HR* Heparin 5,000 UNIT/ML VIAL SQ SCH ×2 (06:49→18:36)
[2020-11-25] MEDS: Budesonide/Formoterol 160/4.5 1 PUFF INH IH SCH ×2 (07:46→19:54)
[2020-11-25] MEDS ORDERED: Furosemide 40 MG/4 ML VIAL IVP ONE ×2 (08:07→22:21)
[2020-11-25] MEDS: Aspirin 81 MG TAB.CHEW GTUBE SCH (09:01)
[2020-11-25] MEDS: Doxycycline 100 MG CAPSULE PO SCH ×2 (09:02→19:58)
[2020-11-25] MEDS: Chlorhexidine Rinse 15 ML MOUTHWASH MM SCH ×2 (09:02→19:58)
[2020-11-25] MEDS: Pantoprazole 40 MG VIAL IVP SCH (09:02)
[2020-11-25] MEDS: Insulin DETEMIR 100 UNIT/ML X5UNITS SUBQ SCH (09:32)
[2020-11-25] MEDS: Midazolam HCl 50 MG/100 ML IV.SOLN IVC SCH (16:46)
[2020-11-25] MEDS: Norepinephrine 4 MG/254 ML IV.SOLN IVC SCH (16:46)
[2020-11-26] MEDS: FentaNYL (PF) 2,500 MCG/50 ML IV.SOLN IVC SCH ×3 (00:45→19:54)
[2020-11-26] MEDS: Piperacillin/Tazobactam 3.375 GM in 0.9 % Sodium Chloride Mini Bag 100 ML IVPB SCH ×3 (02:27→18:18)
[2020-11-26] MEDS: Artificial Tears SOLN 15 ML BOTTLE BOTH EYES SCH ×6 (03:31→23:24)
[2020-11-26] MEDS: Insulin LISPRO 300 UNITS/3 ML VIAL SUBQ SCH ×6 (03:32→23:24)
[2020-11-26 03:42] LABS: Basophils % 0.2 %; Eosinophils % 0.1 %; Hemoglobin 12.5 g/dL (11.5-15.4); Immature Granulocytes % 2.5 % (0-4); Lymphocytes # 0.9 K/mcL (0.6-4.6); Lymphocytes % 5.3 %; Mean Corpuscular HGB Conc 34.7 g/dL (31.6-35.5); Mean Corpuscular Hemoglobin 32.5 pg (28.0-33.3); Mean Corpuscular Volume 93.5 fL (83.0-100.0); Mean Platelet Volume 10.5 fL (9.4-12.4); Monocytes # 0.9 K/mcL (0.0-1.3); Neutrophils # 15.4 K/mcL (1.6-8.9); Platelet Count 184 K/mcL (140-400); Red Blood Count 3.85 M/mcL (3.82-4.97); Red Cell Distribution Width 12.6 % (11.5-14.5); Segmented Neutrophils % 86.9 %; White Blood Count 17.7 K/mcL (4.3-11.1)
[2020-11-26 03:49] LABS: INR 1.1; Prothrombin Time 13.1 Seconds (9.4-12.1)
[2020-11-26] MEDS: Ipratropium/Albuterol Neb 3 ML IH SCH ×6 (03:54→23:38)
[2020-11-26 04:02] LABS: Alanine Aminotransferase 11 Units/L (7-52); Albumin 3.7 g/dL (3.5-5.7); Albumin/Globulin Ratio 1.5 (1.1-2.2); Alkaline Phosphatase 61 Units/L (34-104); Aspartate Amino Transferase 10 Units/L (13-39); BUN/Creatinine Ratio 36 (6-26); Bilirubin,Direct 0.1 mg/dL (0.0-0.2); Bilirubin,Indirect 0.4 mg/dL (0.0-1.0); Bilirubin,Total 0.5 mg/dL (0.3-1.0); Blood Urea Nitrogen 32 mg/dL (8-23); Calcium 8.5 mg/dL (8.6-10.3); Carbon Dioxide 28 mEq/L (23-29); Chloride 99 mEq/L (98-107); Globulin 2.4 g/dL (2.4-3.5); Glucose 181 mg/dL (70-105); Magnesium 1.8 mg/dL (1.6-2.6); Osmolality,Calculated 295 (280-300); Potassium 3.7 mEq/L (3.5-5.1); Sodium 137 mEq/L (136-145); Total Protein 6.1 g/dL (6.4-8.9); eGFR For African Americans > 60 (> 60); eGFR For Non-African Americans > 60 (> 60)
[2020-11-26] MEDS: *HR* Heparin 5,000 UNIT/ML VIAL SQ SCH ×2 (05:46→18:17)
[2020-11-26 05:59] LABS: ABG Base Excess 4 mEq/L (-2 to 3); ABG HCO3 28 mEq/L (21-27); ABG Oxygen Saturation 92 % (95-98); ABG PCO2 40 mmHg (35-45); ABG PH 7.46 pH Units (7.32-7.45); ABG PO2 62 mmHg (85-104); ABG TCO2 29 mEq/L (20-26); Blood Gas Modality ASSIST CONTROL; Blood Gas VT 400 cc
[2020-11-26] MEDS: Budesonide/Formoterol 160/4.5 1 PUFF INH IH SCH ×2 (07:09→20:15)
[2020-11-26] MEDS: Chlorhexidine Rinse 15 ML MOUTHWASH MM SCH ×2 (09:47→21:30)
[2020-11-26] MEDS: Doxycycline 100 MG CAPSULE PO SCH ×2 (09:47→21:29)
[2020-11-26] MEDS: Pantoprazole 40 MG VIAL IVP SCH (09:48)
[2020-11-26] MEDS: Aspirin 81 MG TAB.CHEW GTUBE SCH (09:48)
[2020-11-26] MEDS: Insulin DETEMIR 100 UNIT/ML X5UNITS SUBQ SCH (09:50)
[2020-11-26] MEDS: Midazolam HCl 50 MG/100 ML IV.SOLN IVC SCH (15:56)
[2020-11-26] MEDS: Norepinephrine 4 MG/254 ML IV.SOLN IVC SCH (15:56)
[2020-11-26] MEDS: Furosemide 40 MG/4 ML VIAL IVP SCH (18:17)
[2020-11-27] MEDS: Piperacillin/Tazobactam 3.375 GM in 0.9 % Sodium Chloride Mini Bag 100 ML IVPB SCH ×3 (03:56→18:35)
[2020-11-27] MEDS: Artificial Tears SOLN 15 ML BOTTLE BOTH EYES SCH ×5 (03:56→20:48)
[2020-11-27] MEDS: Ipratropium/Albuterol Neb 3 ML IH SCH ×6 (04:05→23:10)
[2020-11-27] MEDS: Insulin LISPRO 300 UNITS/3 ML VIAL SUBQ SCH ×5 (04:05→20:48)
[2020-11-27 04:12] LABS: Basophils % 0.2 %; Hematocrit 35.3 % (35.3-44.9); Hemoglobin 12.1 g/dL (11.5-15.4); Lymphocytes # 1.3 K/mcL (0.6-4.6); Lymphocytes % 8.7 %; Mean Corpuscular HGB Conc 34.3 g/dL (31.6-35.5); Mean Corpuscular Hemoglobin 31.7 pg (28.0-33.3); Mean Corpuscular Volume 92.4 fL (83.0-100.0); Mean Platelet Volume 10.6 fL (9.4-12.4); Monocytes # 1.1 K/mcL (0.0-1.3); Monocytes % 7.3 %; Neutrophils # 12.1 K/mcL (1.6-8.9); Platelet Count 189 K/mcL (140-400); Red Blood Count 3.82 M/mcL (3.82-4.97); Red Cell Distribution Width 12.5 % (11.5-14.5); Segmented Neutrophils % 81.8 %; White Blood Count 14.9 K/mcL (4.3-11.1)
[2020-11-27 04:23] LABS: VBG Ionized Calcium 1.09 mmol/L (1.15-1.35)
[2020-11-27 04:33] LABS: BUN/Creatinine Ratio 43 (6-26); Blood Urea Nitrogen 35 mg/dL (8-23); Calcium 8.6 mg/dL (8.6-10.3); Carbon Dioxide 30 mEq/L (23-29); Chloride 99 mEq/L (98-107); Glucose 167 mg/dL (70-105); Magnesium 1.9 mg/dL (1.6-2.6); Osmolality,Calculated 300 (280-300); Phosphorous 4.1 mg/dL (2.7-4.5); Potassium 3.3 mEq/L (3.5-5.1); Sodium 139 mEq/L (136-145); eGFR For African Americans > 60 (> 60); eGFR For Non-African Americans > 60 (> 60)
[2020-11-27] MEDS: *HR* Heparin 5,000 UNIT/ML VIAL SQ SCH ×2 (05:22→18:36)
[2020-11-27] MEDS: Calcium Gluconate 1gm/50mL 1 GM/50 ML BAG IVPB SCH ×2 (05:24→06:26)
[2020-11-27 06:01] LABS: ABG Base Excess 6 mEq/L (-2 to 3); ABG HCO3 31 mEq/L (21-27); ABG Oxygen Saturation 94 % (95-98); ABG PCO2 44 mmHg (35-45); ABG PH 7.45 pH Units (7.32-7.45); ABG PO2 68 mmHg (85-104); ABG TCO2 32 mEq/L (20-26); Blood Gas VT 400 cc
[2020-11-27] MEDS: Budesonide/Formoterol 160/4.5 1 PUFF INH IH SCH ×2 (08:10→20:04)
[2020-11-27] MEDS: FentaNYL (PF) 2,500 MCG/50 ML IV.SOLN IVC SCH ×2 (08:37→20:48)
[2020-11-27] MEDS: Doxycycline 100 MG CAPSULE PO SCH ×2 (08:45→20:49)
[2020-11-27] MEDS: Aspirin 81 MG TAB.CHEW GTUBE SCH (08:45)
[2020-11-27] MEDS: Pantoprazole 40 MG VIAL IVP SCH (08:45)
[2020-11-27] MEDS: Insulin DETEMIR 100 UNIT/ML X5UNITS SUBQ SCH (08:46)
[2020-11-27] MEDS: Chlorhexidine Rinse 15 ML MOUTHWASH MM SCH ×2 (08:46→20:49)
[2020-11-27] MEDS: Furosemide 40 MG/4 ML VIAL IVP SCH ×2 (10:19→20:49)
[2020-11-27] MEDS ORDERED: Furosemide 40 MG/4 ML VIAL IVP ONE (10:29)
[2020-11-27 13:26] LABS: VBG Ionized Calcium 1.15 mmol/L (1.15-1.35)
[2020-11-27 13:46] LABS: Magnesium 2.2 mg/dL (1.6-2.6)
[2020-11-27] MEDS: Norepinephrine 4 MG/254 ML IV.SOLN IVC SCH (16:15)
[2020-11-27] MEDS: Midazolam HCl 50 MG/100 ML IV.SOLN IVC SCH (16:15)
[2020-11-27] MEDS ORDERED: risperiDONE 1 MG TABLET PO ONE (22:00)
[2020-11-27] MEDS ORDERED: Cholecalciferol (D-3) 1,000 UNIT (25MCG) TABLET PO SCH (22:29)
[2020-11-28] MEDS: Insulin LISPRO 300 UNITS/3 ML VIAL SUBQ SCH ×7 (00:50→23:10)
[2020-11-28] MEDS: Artificial Tears SOLN 15 ML BOTTLE BOTH EYES SCH ×7 (00:50→23:10)
[2020-11-28] MEDS: Ipratropium/Albuterol Neb 3 ML IH SCH ×6 (03:24→23:30)
[2020-11-28] MEDS: Piperacillin/Tazobactam 3.375 GM in 0.9 % Sodium Chloride Mini Bag 100 ML IVPB SCH (03:40)
[2020-11-28 04:03] LABS: Basophils % 0.1 %; Hematocrit 35.5 % (35.3-44.9); Hemoglobin 12.2 g/dL (11.5-15.4); Lymphocytes # 1.2 K/mcL (0.6-4.6); Lymphocytes % 7.7 %; Mean Corpuscular HGB Conc 34.4 g/dL (31.6-35.5); Mean Corpuscular Hemoglobin 32.4 pg (28.0-33.3); Mean Corpuscular Volume 94.2 fL (83.0-100.0); Mean Platelet Volume 11.1 fL (9.4-12.4); Monocytes # 1.1 K/mcL (0.0-1.3); Neutrophils # 13.1 K/mcL (1.6-8.9); Platelet Count 176 K/mcL (140-400); Red Blood Count 3.77 M/mcL (3.82-4.97); Red Cell Distribution Width 12.5 % (11.5-14.5); Segmented Neutrophils % 83.2 %; White Blood Count 15.8 K/mcL (4.3-11.1)
[2020-11-28 04:04] LABS: VBG Ionized Calcium 1.11 mmol/L (1.15-1.35)
[2020-11-28 04:20] LABS: Phosphorous 4.3 mg/dL (2.7-4.5)
[2020-11-28 04:21] LABS: BUN/Creatinine Ratio 59 (6-26); Blood Urea Nitrogen 53 mg/dL (8-23); Calcium 8.8 mg/dL (8.6-10.3); Carbon Dioxide 31 mEq/L (23-29); Chloride 99 mEq/L (98-107); Glucose 255 mg/dL (70-105); Osmolality,Calculated 311 (280-300); Potassium 3.4 mEq/L (3.5-5.1); Sodium 139 mEq/L (136-145); eGFR For African Americans > 60 (> 60); eGFR For Non-African Americans > 60 (> 60)
[2020-11-28 04:56] LABS: ABG Base Excess 4 mEq/L (-2 to 3); ABG HCO3 28 mEq/L (21-27); ABG Oxygen Saturation 95 % (95-98); ABG PCO2 39 mmHg (35-45); ABG PH 7.46 pH Units (7.32-7.45); ABG PO2 71 mmHg (85-104); ABG TCO2 29 mEq/L (20-26); Blood Gas VT 400 cc
[2020-11-28] MEDS: *HR* Heparin 5,000 UNIT/ML VIAL SQ SCH ×2 (05:34→16:52)
[2020-11-28] MEDS: Chlorhexidine Rinse 15 ML MOUTHWASH MM SCH ×2 (07:49→20:42)
[2020-11-28] MEDS: Aspirin 81 MG TAB.CHEW GTUBE SCH (07:49)
[2020-11-28] MEDS: Pantoprazole 40 MG VIAL IVP SCH (07:49)
[2020-11-28] MEDS: Furosemide 40 MG/4 ML VIAL IVP SCH ×2 (07:50→20:42)
[2020-11-28] MEDS: Budesonide/Formoterol 160/4.5 1 PUFF INH IH SCH ×2 (07:59→20:05)
[2020-11-28] MEDS: Insulin DETEMIR 100 UNIT/ML X5UNITS SUBQ SCH (08:04)
[2020-11-28] MEDS: Norepinephrine 4 MG/254 ML IV.SOLN IVC SCH (16:55)
[2020-11-28] MEDS: Midazolam HCl 50 MG/100 ML IV.SOLN IVC SCH (16:55)
[2020-11-29] MEDS: *HR* Metoprolol 5 MG/5 ML VIAL IVP PRN ×2 (02:06→08:14)
[2020-11-29] MEDS: Ipratropium/Albuterol Neb 3 ML IH SCH ×6 (03:22→23:30)
[2020-11-29 03:30] LABS: Hematocrit 43.1 % (35.3-44.9); Mean Corpuscular HGB Conc 32.5 g/dL (31.6-35.5); Mean Corpuscular Volume 95.6 fL (83.0-100.0); Mean Platelet Volume 10.7 fL (9.4-12.4); Platelet Count 192 K/mcL (140-400); Red Blood Count 4.51 M/mcL (3.82-4.97); Red Cell Distribution Width 12.6 % (11.5-14.5); White Blood Count 19.5 K/mcL (4.3-11.1)
[2020-11-29 03:48] LABS: Alanine Aminotransferase 13 Units/L (7-52); Albumin 4.1 g/dL (3.5-5.7); Albumin/Globulin Ratio 1.5 (1.1-2.2); Alkaline Phosphatase 61 Units/L (34-104); Aspartate Amino Transferase 12 Units/L (13-39); BUN/Creatinine Ratio 74 (6-26); Bilirubin,Total 0.7 mg/dL (0.3-1.0); Blood Urea Nitrogen 56 mg/dL (8-23); Calcium 9.8 mg/dL (8.6-10.3); Carbon Dioxide 34 mEq/L (23-29); Chloride 101 mEq/L (98-107); Globulin 2.8 g/dL (2.4-3.5); Glucose 173 mg/dL (70-105); Osmolality,Calculated 318 (280-300); Potassium 4.1 mEq/L (3.5-5.1); Sodium 144 mEq/L (136-145); Total Protein 6.9 g/dL (6.4-8.9); eGFR For African Americans > 60 (> 60); eGFR For Non-African Americans > 60 (> 60)
[2020-11-29] MEDS: Insulin LISPRO 300 UNITS/3 ML VIAL SUBQ SCH ×6 (04:07→23:56)
[2020-11-29] MEDS: Artificial Tears SOLN 15 ML BOTTLE BOTH EYES SCH ×2 (04:13→08:16)
[2020-11-29] MEDS: *HR* Heparin 5,000 UNIT/ML VIAL SQ SCH ×2 (05:10→16:58)
[2020-11-29] MEDS: Budesonide/Formoterol 160/4.5 1 PUFF INH IH SCH ×2 (07:54→21:34)
[2020-11-29] MEDS ORDERED: Acetaminophen IV 1,000 MG/100 ML BAG IVPB SCH (08:00)
[2020-11-29] MEDS: Pantoprazole 40 MG VIAL IVP SCH (08:14)
[2020-11-29] MEDS: Aspirin 81 MG TAB.CHEW GTUBE SCH (08:15)
[2020-11-29] MEDS: Furosemide 40 MG/4 ML VIAL IVP SCH ×2 (08:15→20:36)
[2020-11-29] MEDS: Insulin DETEMIR 100 UNIT/ML X5UNITS SUBQ SCH (08:19)
[2020-11-29] MEDS: Chlorhexidine Rinse 15 ML MOUTHWASH MM SCH ×2 (08:19→20:36)
[2020-11-29] MEDS ORDERED: Naloxone 0.4 MG/ML INJ IVP PRN (10:07)
[2020-11-29] MEDS ORDERED: *HR* Metoprolol 5 MG/5 ML VIAL IVP PRN (10:07)
[2020-11-29] MEDS ORDERED: Dextrose Gel 15 GM/37.5 ML TUBE PO PRN ×2 (10:07)
[2020-11-29] MEDS ORDERED: D5% in Water 1,000 ML IVC PRN (10:07)
[2020-11-29] MEDS ORDERED: *HR* Dextrose 50 % in Water (Vial) 50 ML VIAL IVP PRN (10:07)
[2020-11-29] MEDS ORDERED: Norepinephrine 4 MG/254 ML IV.SOLN IVC SCH (10:07)
[2020-11-29] MEDS ORDERED: Nystatin Cream 15 GM TUBE TP PRN (10:07)
[2020-11-29] MEDS ORDERED: *HR* Metoprolol 5 MG/5 ML VIAL IVP SCH ×2 (12:00)
[2020-11-29] MEDS ORDERED: *HR* HYDROmorphone 2 MG/ML SYRINGE IVP ONE (12:33)
[2020-11-29] MEDS: Acetaminophen IV 1,000 MG/100 ML BAG IVPB SCH ×2 (13:52→20:35)
[2020-11-29] MEDS ORDERED: E-Z-PAQUE (BARIUM SULF) SUSP 1 BOTTLE PO ONE (13:54)
[2020-11-29] MEDS ORDERED: E-Z-HD (BARIUM SULF) SUSPENSION PO ONE (13:54)
[2020-11-29] MEDS ORDERED: Magnesium Sulfate 1 GM/102 ML PIGGYBACK IVPB ONE (15:54)
[2020-11-29 15:59] LABS: Troponin I 0.21 ng/mL (< 0.04)
[2020-11-29] MEDS ORDERED: *HR* Metoprolol 5 MG/5 ML VIAL IVP ONE (16:39)
[2020-11-29] MEDS ORDERED: Aspirin 325 MG TABLET PO ONE (16:40)
[2020-11-29] MEDS: *HR* HYDROmorphone (PF) 1 MG/ML SYRINGE IVP PRN ×4 (16:45→22:08)
[2020-11-29] MEDS ORDERED: Ondansetron 4 MG/2 ML VIAL IVP PRN (18:35)
[2020-11-29] MEDS: *HR* Metoprolol 5 MG/5 ML VIAL IVP SCH ×2 (20:36→23:56)
[2020-11-30] MEDS: Acetaminophen IV 1,000 MG/100 ML BAG IVPB SCH ×4 (02:25→19:22)
[2020-11-30] MEDS: *HR* Metoprolol 5 MG/5 ML VIAL IVP SCH ×6 (03:38→22:57)
[2020-11-30] MEDS: Ipratropium/Albuterol Neb 3 ML IH SCH ×3 (03:40→11:20)
[2020-11-30] MEDS: Insulin LISPRO 300 UNITS/3 ML VIAL SUBQ SCH ×6 (04:16→22:56)
[2020-11-30] MEDS: *HR* Heparin 5,000 UNIT/ML VIAL SQ SCH ×2 (05:34→17:21)
[2020-11-30] MEDS: Budesonide/Formoterol 160/4.5 1 PUFF INH IH SCH (07:39)
[2020-11-30] MEDS: Furosemide 40 MG/4 ML VIAL IVP SCH ×2 (08:00→20:07)
[2020-11-30] MEDS: *HR* HYDROmorphone (PF) 1 MG/ML SYRINGE IVP PRN (08:03)
[2020-11-30] MEDS: Chlorhexidine Rinse 15 ML MOUTHWASH MM SCH ×2 (08:10→19:22)
[2020-11-30] MEDS: Insulin DETEMIR 100 UNIT/ML X5UNITS SUBQ SCH (08:10)
[2020-11-30] MEDS ORDERED: Morphine Sulfate Oral CONC 10 MG/0.5 ML ORAL.SYG SL PRN ×2 (11:47)
[2020-11-30] MEDS ORDERED: *HR* LORazepam Oral Conc 2 MG/ML SL PRN (11:48)
[2020-11-30] MEDS ORDERED: Ipratropium/Albuterol Neb 3 ML IH PRN (14:38)
[2020-12-01] MEDS: Acetaminophen IV 1,000 MG/100 ML BAG IVPB SCH ×2 (01:00→09:42)
[2020-12-01] MEDS: *HR* Metoprolol 5 MG/5 ML VIAL IVP SCH ×3 (03:27→11:48)
[2020-12-01] MEDS: Insulin LISPRO 300 UNITS/3 ML VIAL SUBQ SCH ×3 (03:27→11:48)
[2020-12-01] MEDS: *HR* Heparin 5,000 UNIT/ML VIAL SQ SCH (05:10)
[2020-12-01 07:54] VITALS: BP 168/92; PULSE 94; TEMP 98.6; O2SAT 96
[2020-12-01] MEDS: Furosemide 40 MG/4 ML VIAL IVP SCH (08:27)
[2020-12-01] MEDS: Chlorhexidine Rinse 15 ML MOUTHWASH MM SCH (08:27)
[2020-12-01] MEDS: Insulin DETEMIR 100 UNIT/ML X5UNITS SUBQ SCH (09:42)
== END 2020-12-01 14:30 | disposition hospice, inpatient (51) | DRG 69 ==
LOC: CDU 09:00 → EMEROOARM 09:00 → CDU 12:11 → 2ANU 19:06 → ICNU 11-22 19:08 → 2ANU 12-01 08:57
PROVIDERS: ADMIT Internal Medicine; ATTEND Internal Medicine